=== PATIENT | male | born 1955 | race Caucasian/White ===

== ENCOUNTER 2017-01-24 06:51 | Inpatient (IN) | payer MEDICARE, OTHER ==
[2017-01-24] MEDS ORDERED: SODIUM CHLORIDE 0.9% 1,000 ML IV STA (07:14)
[2017-01-24] MEDS ORDERED: ADENOSINE 3 MG/ML 2 ML VIAL IVP STA ×2 (07:15)
--- NOTE | 2017-01-24 07:17 | ED ---
SOB HPI - General Chief Complaint: Shortness of Breath Stated Complaint: CHEST PAIN Time Seen by Provider: 01/24/17 07:00 Source: patient, RN notes reviewed Mode of arrival: ambulatory Limitations: no limitations - History of Present Illness Initial Comments: This is a 61-year-old male with a history of heart disease with cardiac stents who states he had the onset around 6:30 this morning while watching television of shortness of breath. He came in for evaluation he did have some diaphoresis with a no overt chest pain. He was found to have an accelerated heart rhythm at triage brought immediately back to the emergency department room 20 stretcher. He denies any recent chest pain fevers chills sweats change in medications change in diet. MD Complaint: shortness of breath - Related Data Home Medications Medication Instructions Recorded Confirmed Aspirin 162 mg PO DAILY 01/24/17 01/24/17 Atorvastatin [Lipitor] 80 mg PO DAILY 01/24/17 01/24/17 Clopidogrel [Plavix] 75 mg PO DAILY 01/24/17 01/24/17 Lisinopril [Zestril] 10 mg PO DAILY 01/24/17 01/24/17 Metoprolol Succinate (ER) [Toprol 50 mg PO DAILY 01/24/17 01/24/17 Xl] Previous Rx's Medication Instructions Recorded Nitroglycerin Sl Tabs [Nitrostat] 0.4 mg SUBLINGUAL Q5M PRN #25 tab 07/27/14 Allergies Allergy/AdvReac Type Severity Reaction Status Date / Time No Known Allergies Allergy Verified 01/24/17 07:48 Review of Systems ROS Statement: Those systems with pertinent positive or pertinent negative responses have been documented in the HPI. ROS Other: All systems not noted in ROS Statement are negative. Past Medical History Past Medical History: Coronary Artery Disease (CAD), Chest Pain / Angina, GERD/ Reflux, Hyperlipidemia, Hypertension, Myocardial Infarction (non Q-wave) Additional Past Medical History / Comment(s): Neuropathy Last Myocardial Infarction Date:: 2001 History of Any Multi-Drug Resistant Organisms: None Reported Past Surgical History: AICD, Coronary Bypass/CABG, Heart Catheterization With Stent, Orthopedic Surgery Additional Past Surgical History / Comment(s): Pins in left ankle as a kid. Additional Past Anesthesia/Blood Transfusion Reaction / Comment(s): No previous history of blood transfusions Date of Last Stent Placement:: 2001 Type of Cardiac Device: AICD Device Placement Date:: 2001 Past Psychological History: No Psychological Hx Reported Smoking Status: Current some day smoker Past Alcohol Use History: None Reported Past Drug Use History: None Reported - Past Family History Father Family Medical History: Myocardial Infarction ([place]) General Exam - General Exam Comments Initial Comments: This is a well-developed well-nourished awake alert oriented times x 3 male Limitations: no limitations General appearance: alert, anxious Head exam: Present: atraumatic, normocephalic, normal inspection Eye exam: Present: normal appearance, PERRL, EOMI. Absent: scleral icterus, conjunctival injection, periorbital swelling ENT exam: Present: normal exam, mucous membranes moist Neck exam: Present: normal inspection. Absent: tenderness, meningismus, lymphadenopathy Respiratory exam: Present: normal lung sounds bilaterally. Absent: respiratory distress, wheezes, rales, rhonchi, stridor Cardiovascular Exam: Present: normal rhythm, tachycardia. Absent: systolic murmur, diastolic murmur, rubs, gallop, clicks GI/Abdominal exam: Present: soft, normal bowel sounds. Absent: distended, tenderness, guarding, rebound, rigid Extremities exam: Present: normal inspection, full ROM, normal capillary refill. Absent: tenderness, pedal edema, joint swelling, calf tenderness Back exam: Present: normal inspection Neurological exam: Present: alert, oriented X3, CN II-XII intact Psychiatric exam: Present: normal affect, normal mood Skin exam: Present: warm, intact, normal color, diaphoretic. Absent: rash Course Vital Signs 01/24/17 01/24/17 01/24/17 06:57 07:02 07:08 Temperature 97.5 F L Pulse Rate 176 H 167 H Pulse Rate [ 167 H Sales Attendant ] Respiratory 22 Rate Blood Pressure 122/86 122/86 O2 Sat by Pulse 99 Oximetry 01/24/17 01/24/17 01/24/17 07:14 07:20 07:43 Temperature Pulse Rate 100 97 80 Pulse Rate [ Sales Attendant ] Respiratory 16 16 Rate Blood Pressure 208/133 158/59 138/99 O2 Sat by Pulse 96 97 Oximetry 01/24/17 01/24/17 08:43 09:45 Temperature Pulse Rate 62 64 Pulse Rate [ Sales Attendant ] Respiratory 16 20 Rate Blood Pressure 139/88 139/91 O2 Sat by Pulse 98 98 Oximetry - Reevaluation(s) Reevaluation #1: 01/24/17 10:06 Reevaluation the patient after conversion reveals he feels asymptomatic he does relate that for last month or so she's had some strange feelings all that something was wrong having strange sensations he is concerned that his stents may be closing up again. He also states the battery has not working his pacemaker for some time. Procedures - Procedures Initial comment: Patient did demonstrate SVT. He did require cardioversion. IV adenosine was used, initially 6 mg which did not do anything 12 mg did convert into a sinus rhythm. He did tolerate the procedure well he had no shortness breath chest pain and diaphoresis resolve the. Repeat EKG showed a sinus rhythm at 97 [place] interval 198 QRS 120 daily since QTC of 370/480 and LVH artifact is present nonspecific septal changes. PVCs were present Medical Decision Making - Medical Decision Making I did a long discussion with patient family regarding the findings patient will be admitted for evaluation by cardiology. He remains in a sinus rhythm. - Lab Data Result diagrams: 01/24/17 07:02 01/24/17 07:02 Lab Results 01/24/17 01/24/17 01/24/17 Range/Units 07:02 07:02 07:02 WBC 9.0 (3.8-10.6) k/uL RBC 6.48 H (4.30-5.90) m/uL Hgb 19.3 H (13.0-17.5) gm/dL Hct 56.4 H (39.0-53.0) % MCV 87.0 (80.0-100.0) fL MCH 29.8 (25.0-35.0) pg MCHC 34.2 (31.0-37.0) g/dL RDW 12.7 (11.5-15.5) % Plt Count 235 (150-450) k/uL Neutrophils % 61 % Lymphocytes % 26 % Monocytes % 7 % Eosinophils % 4 % Basophils % 1 % Neutrophils # 5.5 (1.3-7.7) k/uL Lymphocytes # 2.4 (1.0-4.8) k/uL Monocytes # 0.6 (0-1.0) k/uL Eosinophils # 0.3 (0-0.7) k/uL Basophils # 0.1 (0-0.2) k/uL PT (9.0-12.0) sec INR (<1.1) APTT (22.0-30.0) sec Sodium 142 (137-145) mmol/L Potassium 4.4 (3.5-5.1) mmol/L Chloride 109 H (98-107) mmol/L Carbon Dioxide 19 L (22-30) mmol/L Anion Gap 14 mmol/L BUN 20 (9-20) mg/dL Creatinine 1.15 (0.66-1.25) mg/dL Est GFR (MDRD) Af Amer >60 (>60 ml/min/1.73 sqM) Est GFR (MDRD) Non-Af >60 (>60 ml/min/1.73 sqM) Glucose 133 H (74-99) mg/dL Calcium 9.7 (8.4-10.2) mg/dL Magnesium 2.1 (1.6-2.3) mg/dL Total Bilirubin 1.2 (0.2-1.3) mg/dL AST 46 (17-59) U/L ALT 41 (21-72) U/L Alkaline Phosphatase 113 (38-126) U/L Total Creatine Kinase 107 (55-170) U/L CK-MB (CK-2) 1.7 (0.0-2.4) ng/mL CK-MB (CK-2) Rel Index 1.6 Troponin I 0.038 H* (0.000-0.034) ng/mL Total Protein 7.5 (6.3-8.2) g/dL Albumin 4.4 (3.5-5.0) g/dL TSH 6.380 H (0.465-4.680) mIU/L Free T4 1.25 (0.78-2.19) ng/dL 01/24/17 Range/Units 08:04 WBC (3.8-10.6) k/uL RBC (4.30-5.90) m/uL Hgb (13.0-17.5) gm/dL Hct (39.0-53.0) % MCV (80.0-100.0) fL MCH (25.0-35.0) pg MCHC (31.0-37.0) g/dL RDW (11.5-15.5) % Plt Count (150-450) k/uL Neutrophils % % Lymphocytes % % Monocytes % % Eosinophils % % Basophils % % Neutrophils # (1.3-7.7) k/uL Lymphocytes # (1.0-4.8) k/uL Monocytes # (0-1.0) k/uL Eosinophils # (0-0.7) k/uL Basophils # (0-0.2) k/uL PT 10.5 (9.0-12.0) sec INR 1.0 (<1.1) APTT 24.8 (22.0-30.0) sec Sodium (137-145) mmol/L Potassium (3.5-5.1) mmol/L Chloride (98-107) mmol/L Carbon Dioxide (22-30) mmol/L Anion Gap mmol/L BUN (9-20) mg/dL Creatinine (0.66-1.25) mg/dL Est GFR (MDRD) Af Amer (>60 ml/min/1.73 sqM) Est GFR (MDRD) Non-Af (>60 ml/min/1.73 sqM) Glucose (74-99) mg/dL Calcium (8.4-10.2) mg/dL Magnesium (1.6-2.3) mg/dL Total Bilirubin (0.2-1.3) mg/dL AST (17-59) U/L ALT (21-72) U/L Alkaline Phosphatase (38-126) U/L Total Creatine Kinase (55-170) U/L CK-MB (CK-2) (0.0-2.4) ng/mL CK-MB (CK-2) Rel Index Troponin I (0.000-0.034) ng/mL Total Protein (6.3-8.2) g/dL Albumin (3.5-5.0) g/dL TSH (0.465-4.680) mIU/L Free T4 (0.78-2.19) ng/dL - EKG Data -: EKG Interpreted by Me (Y complex supraventricular tachycardia rate was 172 QRS 120 daily since QTC) - Radiology Data Radiology results: report reviewed, image reviewed Critical Care Time Critical Care Time: Yes Critical Care Time: 31 minutes of critical care time which includes initial presentation with history physical labs x-rays and cardioversion with adenosine admission orders and documentation of the above. I did discuss case with Dr. Baez who is covering Dr. Guillen Disposition Clinical Impression: Supraventricular tachycardia, Elevated troponin Disposition: ADMITTED IP TO THIS HOSP Condition: Stable Referrals: Jovi Guillen MD [Primary Care Provider] - 1-2 days
[2017-01-24 07:36] LABS: Basophils # (A) 0.1 k/uL (0-0.2); Basophils % (A) 1 %; CH 29.5; CHCM 34.1; Eosinophils # (A) 0.3 k/uL (0-0.7); Eosinophils % (A) 4 %; HCT 56.4 % (39.0-53.0); HDW 2.81; HGB 19.3 gm/dL (13.0-17.5); Luc # (Auto) 0.18; Luc % (Auto) 2; Lymphocytes # (A) 2.4 k/uL (1.0-4.8); Lymphocytes % (A) 26 %; MCH 29.8 pg (25.0-35.0); MCHC 34.2 g/dL (31.0-37.0); Mean Platelet Volume 9.1; Monocytes # (A) 0.6 k/uL (0-1.0); Monocytes % (A) 7 %; Neutrophils # (A) 5.5 k/uL (1.3-7.7); Neutrophils % (A) 61 %; RBC 6.48 m/uL (4.30-5.90); RDW 12.7 % (11.5-15.5); WBC (Perox) 9.78
[2017-01-24 07:44] LABS: ALT 41 U/L (21-72); AST 46 U/L (17-59); Alkaline Phosphatase 113 U/L (38-126); Anion Gap 14 mmol/L; Blood Urea Nitrogen 20 mg/dL (9-20); Calcium 9.7 mg/dL (8.4-10.2); Carbon Dioxide 19 mmol/L (22-30); Chloride 109 mmol/L (98-107); Glucose 133 mg/dL (74-99); Magnesium 2.1 mg/dL (1.6-2.3); Non-African American GFR(MDRD) >60 (>60 ml/min/1.73 sqM); Potassium 4.4 mmol/L (3.5-5.1); Sodium 142 mmol/L (137-145); Total Bilirubin 1.2 mg/dL (0.2-1.3); Total Protein 7.5 g/dL (6.3-8.2)
--- NOTE | 2017-01-24 07:59 | XR ---
EXAMINATION TYPE: XR chest 2V DATE OF EXAM: 01/24/2017 COMPARISON: Prior chest x-ray 07/25/2014 HISTORY: Dysrhythmia TECHNIQUE: Frontal and lateral views of the chest are obtained. FINDINGS: Patient is post median sternotomy. Intracardiac defibrillator leads are stable within the right atrium and ventricle. The heart remains enlarged. No pneumothorax. Pulmonary vascularity and hi la within normal limits. Interstitium mildly increased. Lung volumes are prominent compatible with un derlying COPD. There is some blunting of the posterior costophrenic angle on the lateral exam. IMPRESSION: There may be interval effusion, associated atelectasis. Follow-up is suggested. Cardiome jermaine is stable.
[2017-01-24 08:12] LABS: Creatine Kinase MB 1.7 ng/mL (0.0-2.4)
[2017-01-24 08:21] LABS: Troponin I 0.038 ng/mL (0.000-0.034)
[2017-01-24 09:36] LABS: Partial Thromboplastin Time 24.8 sec (22.0-30.0); Prothrombin Time 10.5 sec (9.0-12.0)
[2017-01-24] MEDS ORDERED: HEPARIN SODIUM,PORCINE 5,000 UNIT/ML 1 ML VIAL IV ONE (10:41)
[2017-01-24] MEDS ORDERED: NITROGLYCERIN SL TABS 0.4 MG TAB SUBLINGUAL PRN (10:41)
[2017-01-24] MEDS: HEPARIN SODIUM,PORCINE/D5W PMX 25,000 UNIT in DEXTROSE/WATER 1 500ML.BAG IV SCH (10:54)
[2017-01-24] MEDS: SODIUM CHLORIDE 0.9% 1,000 ML IV SCH (11:00)
[2017-01-24 14:27] LABS: Creatine Kinase MB 5.4 ng/mL (0.0-2.4); Troponin I 0.872 ng/mL (0.000-0.034)
[2017-01-24 15:16] VITALS: RESP 18
[2017-01-24] MEDS ORDERED: METOPROLOL SUCCINATE (ER) 25 MG TAB.ER.24H PO STA (15:46)
--- NOTE | 2017-01-24 17:33 | P.CONS ---
History of Present Illness - Reason for Consult Consult date: 01/24/17 polycythemia Requesting physician: Divya Hadley - Chief Complaint chest pain, SOB - History of Present Illness Mr. Smart is a very pleasant 61-year-old male with an extensive cardiac history including multiple myocardial infarctions, cardiac stenting and pacemaker placement. We have been asked to see the patient in regards to polycythemia noted on admission. Patient denies any history of elevated hemoglobin or hematocrit, he denies ever being seen by a crm campaign manager before or had phlebotomy, he does not recall of any of his previous hospitalizations being told that he had a high hemoglobin/hematocrit. Patient denies a history of lung conditions, he did smoke but only very randomly and has completely quit smoking as of a few months ago, patient denies any signs or symptoms of sleep apnea, he states he does not usually drink a lot of fluids, denies EtOH abuse, no history of blood clots or hormone use. Review of Systems All systems: negative Constitutional: Reports as per HPI Past Medical History Past Medical History: Coronary Artery Disease (CAD), Chest Pain / Angina, GERD/ Reflux, Hyperlipidemia, Hypertension, Myocardial Infarction (non Q-wave) Additional Past Medical History / Comment(s): Neuropathy bilateral feet, pt states he has not taken his b/p med for about 1 month, 2 MIs-2001 and 2014. Last Myocardial Infarction Date:: 07/25/14 History of Any Multi-Drug Resistant Organisms: None Reported Past Surgical History: AICD, Coronary Bypass/CABG, Heart Catheterization With Stent, Orthopedic Surgery, Tonsillectomy Additional Past Surgical History / Comment(s): PCI with stents 2001 and 2014, 3 vessel CABG in 2001, AICD 2001- batteries are depleted, pins in left ankle as a kid. Past Anesthesia/Blood Transfusion Reactions: No Reported Reaction Additional Past Anesthesia/Blood Transfusion Reaction / Comm: No previous history of blood transfusions Date of Last Stent Placement:: 2014 Type of Cardiac Device: AICD Device Placement Date:: 2001- states batteries are depleted. Smoking Status: Former smoker Past Alcohol Use History: None Reported Past Drug Use History: None Reported - Past Family History Mother History Unknown: Yes Additional Family Medical History / Comment(s): Mother at 78yrs and pt does not know health hx. Father Family Medical History: Myocardial Infarction ([place]) Additional Family Medical History / Comment(s): Father had a [place] in his early 50' s. He of CAD at 75yrs. Medications and Allergies Home Medications Medication Instructions Recorded Confirmed Type Aspirin 162 mg PO DAILY 01/24/17 01/24/17 History Atorvastatin [Lipitor] 80 mg PO DAILY 01/24/17 01/24/17 History Clopidogrel [Plavix] 75 mg PO DAILY 01/24/17 01/24/17 History Lisinopril [Zestril] 10 mg PO DAILY 01/24/17 01/24/17 History Metoprolol Succinate (ER) [Toprol 50 mg PO DAILY 01/24/17 01/24/17 History Xl] Allergies Allergy/AdvReac Type Severity Reaction Status Date / Time No Known Allergies Allergy Verified 01/24/17 07:48 Physical Exam Vitals: Vital Signs Temp Pulse Pulse Pulse Resp BP BP 01/24/17 13:40 96.6 F L 66 18 162/100 01/24/17 12:59 97.4 F L 61 16 149/97 01/24/17 11:20 62 18 156/95 01/24/17 10:49 62 16 138/90 01/24/17 09:45 64 20 139/91 01/24/17 08:43 62 16 139/88 01/24/17 07:43 80 16 138/99 01/24/17 07:20 97 16 158/59 01/24/17 07:14 100 208/133 01/24/17 07:08 167 H 01/24/17 07:02 97.5 F L 167 H 22 122/86 01/24/17 06:57 176 H 122/86 Pulse Ox 01/24/17 13:40 98 01/24/17 12:59 98 01/24/17 11:20 97 01/24/17 10:49 97 01/24/17 09:45 98 01/24/17 08:43 98 01/24/17 07:43 97 01/24/17 07:20 96 01/24/17 07:14 01/24/17 07:08 01/24/17 07:02 99 01/24/17 06:57 Intake and Output 01/24/17 01/24/17 01/24/17 06:59 14:59 22:59 Other: Weight 83.915 kg 79.4 kg Patient Weight 01/25/17 06:59 Weight 79.4 kg - Constitutional General appearance: average body habitus, cooperative, no acute distress - EENT Eyes: anicteric sclerae, EOMI, PERRLA, normal appearance ENT: hard of hearing, normal oropharynx - Neck Neck: no lymphadenopathy - Respiratory Respiratory: bilateral: CTA - Cardiovascular right chest wall pacemaker Rhythm: regular Heart sounds: normal: S1, S2 Abnormal Heart Sounds: no systolic murmur, no diastolic murmur, no rub, no S3 Gallop, no S4 Gallop, no click, no other leg Peripheral Edema: bilateral: None - Gastrointestinal General gastrointestinal: no absent bowel sounds, no decreased bowel sounds, no distended, no hepatomegaly, no hyperactive bowel sounds, normal bowel sounds, no organomegaly, no rigid, no scaphoid, soft, no splenomegaly, no tenderness, no umbilical hernia, no ventral hernia - Integumentary cha complexion - Neurologic Neurologic: CNII-XII intact - Musculoskeletal Musculoskeletal: strength equal bilaterally - Psychiatric Psychiatric: A&O x's 3, appropriate affect, intact judgment & insight Results CBC & Chem 7: 01/24/17 07:02 01/24/17 07:02 Labs: Abnormal Lab Results - Last 24 Hours (Table) 01/24/17 01/24/17 01/24/17 Range/Units 07:02 07:02 07:02 RBC 6.48 H (4.30-5.90) m/uL Hgb 19.3 H (13.0-17.5) gm/dL Hct 56.4 H (39.0-53.0) % Chloride 109 H (98-107) mmol/L Carbon Dioxide 19 L (22-30) mmol/L Glucose 133 H (74-99) mg/dL CK-MB (CK-2) (0.0-2.4) ng/mL Troponin I 0.038 H* (0.000-0.034) ng/mL TSH 6.380 H (0.465-4.680) mIU/L 01/24/17 Range/Units 12:58 RBC (4.30-5.90) m/uL Hgb (13.0-17.5) gm/dL Hct (39.0-53.0) % Chloride (98-107) mmol/L Carbon Dioxide (22-30) mmol/L Glucose (74-99) mg/dL CK-MB (CK-2) 5.4 H* (0.0-2.4) ng/mL Troponin I 0.872 H* (0.000-0.034) ng/mL TSH (0.465-4.680) mIU/L Assessment and Plan (1) Polycythemia Narrative/Plan: Elevated hemoglobin/hematocrit. Present on previous admission but elevated H& H did normalize during admission, questioning possible hemoconcentration from dehydration. Multiple labs have been ordered to evaluate for a primary polycythemic condition. Plan is for patient to follow-up with Dr. Loaiza in about 2 weeks for results and recommendations. Recommendations regarding polycythemia and acute [place]: continue hydration and monitor CBC. Phlebotomy is not recommended, evidence based practice does not show improved outcomes and phlebotomy during acute [place] could cause additional strain on the heart. Status: Acute
[2017-01-24 18:16] LABS: Reticulocyte % 1.9 % (0.5-2.0)
[2017-01-24 19:52] LABS: Creatine Kinase MB 5.7 ng/mL (0.0-2.4); Troponin I 0.905 ng/mL (0.000-0.034)
[2017-01-25 02:24] VITALS: TEMP 97.6
[2017-01-25 04:09] VITALS: PULSE 62
[2017-01-25 07:05] LABS: Cholesterol 251 mg/dL (<200); HDL Cholesterol 39 mg/dL (40-60); Triglycerides 176 mg/dL (<150)
[2017-01-25] MEDS ORDERED: PANTOPRAZOLE 40 MG TABLET PO SCH (07:30)
[2017-01-25] MEDS ORDERED: METOPROLOL SUCCINATE (ER) 25 MG TAB.ER.24H PO SCH (09:00)
[2017-01-25] MEDS ORDERED: LISINOPRIL 10 MG TAB PO SCH (09:00)
[2017-01-25] MEDS ORDERED: ASPIRIN 325 MG TAB PO SCH (09:00)
[2017-01-25] MEDS ORDERED: CLOPIDOGREL 75 MG TAB PO SCH (09:00)
[2017-01-25] MEDS ORDERED: METOPROLOL SUCCINATE (ER) 50 MG TAB.ER.24H PO SCH (09:00)
[2017-01-25] MEDS ORDERED: ATORVASTATIN 80 MG TAB PO SCH (09:00)
[2017-01-25] MEDS ORDERED: ASPIRIN 81 MG CHEW PO SCH (09:00)
[2017-01-25] MEDS: HEPARIN SODIUM,PORCINE/D5W PMX 25,000 UNIT in DEXTROSE/WATER 1 500ML.BAG IV SCH (09:34)
[2017-01-25] MEDS: SODIUM CHLORIDE 0.9% 1,000 ML IV SCH (09:34)
[2017-01-25 11:24] VITALS: BP 149/103
[2017-01-25] MEDS ORDERED: hydrALAZINE HCL 25 MG TAB PO SCH (11:30)
--- NOTE | 2017-01-25 11:42 | HP ---
DATE OF SERVICE: 01/24/2017 HISTORY OF PRESENT ILLNESS: Patient is a 61-year-old male with a complex cardiac history, does have AICD which patient tells me batter has been for a while. He did not have it replaced, although he had been scheduled to have it replaced because he could not afford it financially. Patient also states that about 1-1/2 month ago, he ran out of his cardiac meds and has not been into the doctor. Subsequently, he has not taken his his Zestril or his Plavix and Lipitor for probably 1-1/2 months. He ran out of metoprolol about 2 weeks ago. Patient states that his morning, about 6:30 a.m. he woke up and he said his heart was just racing. He said he was diaphoretic, short of breath, new that it had something to do with his heart, so he woke his up and she brought him into the emergency room. Patient also states that for the last month or so, he has not felt well, "like something was coming on." Again, patient has been out of medication for the most part for about 1-1/2 months and has had no metoprolol for the past 2 weeks. Patient was admitted with SVT. Did receive adenosine in the emergency room and did convert to sinus rhythm. PAST MEDICAL HISTORY: Significant for coronary artery disease, chest pain, angina, GERD, hyperlipidemia, hypertension, myocardial infarction, non-Q-wave. Patient has had bypass surgery, has had a previous echo which shows EF of about 20% to 25% and pulmonary hypertension. Past surgical history includes AICD, coronary artery bypass graft, heart catheterization with stent and pins in his left ankle as a child. ALLERGIES: No known drug allergies. Medications patient is on or should be on at home include: 1. Aspirin 162 mg p.o. daily. 2. Lipitor 80 mg p.o. daily. 3. Plavix 75 mg p.o. daily. 4. Zestril 10 mg p.o. daily. 5. Metoprolol extended release 50 mg p.o. daily. SOCIAL HISTORY: Patient quite smoking about 2 months ago; however, smoked about a pack per month prior to that. Denies any alcohol intake, denies any illicit drug use. Patient does not work, he is on disability. FAMILY HISTORY: Father of cardiac problems in his 70s and mother with complications from pneumonia in her 70s as well. REVIEW OF SYSTEMS: General is negative for any fever, no chills, no recent weight gain or weight loss. HEENT is positive for lightheadedness and omittedly over the past month or so, negative for any acute visual changes. No difficulty hearing. Denies any seasonal allergies, denies any sore throat, no difficulty swallowing. Respiratory is negative for chronic shortness of breath; however, patient did have acute difficulty in breathing this morning when he had the rapid heart rate. Patient denies any cough. Cardiovascular is negative for any chest pain , does have a strong cardiac history. GI is negative for abdominal pain, nausea , vomiting, diarrhea, constipation. is negative for any dysuria or hematuria. Endocrine is negative for diabetes mellitus or thyroid disease. Musculoskeletal is negative for any complaints of arthritic pain or arthritis. Neurologic is negative for any history of seizures or numbness or tingling to the extremities. Psychiatric is negative for anxiety or depression. On physical exam, in general is a pleasant 61-year-old male who is sitting up at the bedside in the emergency room, awake, alert. VITAL SIGNS: Temp is 97.4, heart rate is 61, respiratory rate is 16, blood pressure is 149/97, O2 sats 98% on 2 L O2 via nasal cannula. HEENT: Head is normocephalic, atraumatic. Pupils equal, round and react to light. EARS AND NOSE: No discharge is noted. Mouth moist. Mucous membranes, Mallampati is a class IV. Neck is supple, trachea is midline. Lung with clear but diminished breath sounds, no rales or wheezes. HEART: S1, S2 are head, non-tachycardic. Abdomen is soft, bowel sounds are heard. Extremities with no edema. Patient is awake, alert, oriented. LABS: White count is 9.0, hemoglobin is 19.3, hematocrit is 56.4 with 235,000 platelets. PT is 10.5, INR is 1.0, PTT is 24.8, sodium is 142, potassium is 4.4 , chloride is 109, CO2 is 19, anion gap is 14, BUN is 20, creatinine is 1.15, glucose is 133, calcium is 9.7, magnesium is 2.1, total bilirubin 1.2, AST is 46 , ALT is 41, alk phos is 113, total CK is 107, MB is 1.7, relative index 1.6, troponin 0.038, total protein 7.5, albumin is 4.4, TSH is 6.38, FT4 is 1.25. On imaging, chest x-ray shows there may be interval effusion, associated atelectasis. Follow up is suggested. Cardiomegaly is stable. IMPRESSION: 1. Supraventricular tachycardia, status post cardioversion with Adenosine. 2. Elevated troponins. 3. Polycythemia. 4. Hypothyroid. 5. Noncompliance. PLAN: Will maintain oxygen to main saturations greater than or equal to 90%. Will restart patient's home meds. Continue on a heparin drip, consult Cardiology, consult Hematology for the polycythemia. Add Protonix for GI prophylaxis and follow patient closely, making further changes as necessary. MTDD
[2017-01-25] MEDS ORDERED: LISINOPRIL 10 MG TAB PO ONE (11:45)
--- NOTE | 2017-01-25 12:47 | P.CRDCN ---
History of Present Illness Consult date: 01/25/17 Reason for Consult (text): SVT, elevated troponin Chief complaint: palpitations, shortness of breath History of present illness: Sleep pleasant 61-year-old male patient with a known history of coronary artery disease, prior previous stenting, hypertension, previous PR, hyperlipidemia and prior AICD placement. Patient also has a history of partial compliance with medical therapy. He apparently was told his AICD needed to be replaced and patient has been delaying this since May 2016. Presented to the emergency department with complaints of diaphoresis, shortness of breath and feeling his heart racing. He was found to be in SVT and converted after given total of 18 mg of adenosine. Since her plans were elevated at 0.038, 0.872, 0.905 and 0.554. Patient was found to have elevated hemoglobin and hematocrit for which hematology has been consulted for. Maintaining sinus rhythm. Speaking with the patient, he had apparently not been taking any of his medications for the last month and a half due to issues getting refills. I have any complaints of chest pain pressure or tightness. Blood Pressure is elevated 140s to 180s over 110. Past Medical History Past Medical History: Coronary Artery Disease (CAD), Chest Pain / Angina, GERD/ Reflux, Hyperlipidemia, Hypertension, Myocardial Infarction (non Q-wave) Additional Past Medical History / Comment(s): Neuropathy bilateral feet, pt states he has not taken his b/p med for about 1 month, 2 MIs-2001 and 2014. Last Myocardial Infarction Date:: 07/25/14 History of Any Multi-Drug Resistant Organisms: None Reported Past Surgical History: AICD, Coronary Bypass/CABG, Heart Catheterization With Stent, Orthopedic Surgery, Tonsillectomy Additional Past Surgical History / Comment(s): PCI with stents 2001 and 2014, 3 vessel CABG in 2001, AICD 2001-states batteries are depleted, pins in left ankle as a kid. Past Anesthesia/Blood Transfusion Reactions: No Reported Reaction Additional Past Anesthesia/Blood Transfusion Reaction / Comment(s): No previous history of blood transfusions Date of Last Stent Placement:: 2014 Type of Cardiac Device: AICD Device Placement Date:: 2001-pt states batteries are depleted. Smoking Status: Former smoker Past Alcohol Use History: None Reported Past Drug Use History: None Reported - Past Family History Mother History Unknown: Yes Additional Family Medical History / Comment(s): Mother at 78yrs and pt does not know health hx. Father Family Medical History: Myocardial Infarction (PR) Additional Family Medical History / Comment(s): Father had a PR in his early 50' s. He of CAD at 75yrs. Medications and Allergies Home Medications Medication Instructions Recorded Confirmed Type Aspirin 162 mg PO DAILY 01/24/17 01/24/17 History Atorvastatin [Lipitor] 80 mg PO DAILY 01/24/17 01/24/17 History Clopidogrel [Plavix] 75 mg PO DAILY 01/24/17 01/24/17 History Lisinopril [Zestril] 10 mg PO DAILY 01/24/17 01/24/17 History Metoprolol Succinate (ER) [Toprol 50 mg PO DAILY 01/24/17 01/24/17 History Xl] Allergies Allergy/AdvReac Type Severity Reaction Status Date / Time No Known Allergies Allergy Verified 01/24/17 07:48 Physical Exam Vitals: Vital Signs Temp Pulse Pulse Pulse Resp BP BP 01/25/17 11:23 149/103 01/25/17 11:07 62 18 01/25/17 11:03 97.6 F 62 18 143/110 01/25/17 08:00 97.7 F 70 18 174/121 01/25/17 04:00 62 18 129/86 01/25/17 00:00 67 18 132/87 01/24/17 20:00 97.6 F 59 L 18 136/78 01/24/17 18:33 56 L 128/92 01/24/17 16:00 97.7 F 68 18 182/100 01/24/17 13:40 96.6 F L 66 18 162/100 01/24/17 12:59 97.4 F L 61 16 149/97 Pulse Ox 01/25/17 11:23 01/25/17 11:07 01/25/17 11:03 98 01/25/17 08:00 97 01/25/17 04:00 96 01/25/17 00:00 98 01/24/17 20:00 97 01/24/17 18:33 01/24/17 16:00 98 01/24/17 13:40 98 01/24/17 12:59 98 Intake and Output 01/24/17 01/25/17 01/25/17 22:59 06:59 14:59 Intake Total 378.528 404.158 197.314 Balance 378.528 404.158 197.314 Intake: IV 240 Heparin Sodium,Porcine/ 120 D5w Pmx 25,000 unit In Dextrose/Water 1 500ml. bag @ 11.9 UNIT/KG/HR 19. 97 mls/hr IV .Q24H SHAN Rx #:[id number] Sodium Chloride 0.9% 1, 120 000 ml @ 20 mls/hr IV . Q24H SHAN Rx#:[id number] Intake, IV Titration 138.528 164.158 197.314 Amount Heparin Sodium,Porcine/ 138.528 164.158 197.314 D5w Pmx 25,000 unit In Dextrose/Water 1 500ml. bag @ 11.9 UNIT/KG/HR 19. 97 mls/hr IV .Q24H SHAN Rx #:[id number] Oral 240 Other: # Voids 2 1 Weight 79.4 kg 79.3 kg PHYSICAL EXAMINATION: HEENT: Head is atraumatic, normocephalic. Pupils equal, round. Neck is supple. There is no elevated jugular venous pressure. HEART EXAMINATION: Heart sounds regular, S1 and S2 normal. No murmur or gallop heard. CHEST EXAMINATION: Lungs reveal diminished air entry bilaterally. No chest wall tenderness is noted on palpation or with deep breathing. ABDOMEN: Soft, nontender. Bowel sounds are heard. No organomegaly noted. EXTREMITIES: 1+ peripheral pulses with no evidence of peripheral edema and no calf tenderness noted. NEUROLOGIC patient is awake, alert and oriented x3. . Results 01/24/17 07:02 01/24/17 07:02 Cardiac Enzymes 01/24/17 01/24/17 01/25/17 Range/Units 12:58 18:49 05:57 CK-MB (CK-2) 5.4 H* 5.7 H* (0.0-2.4) ng/mL Troponin I 0.872 H* 0.905 H* 0.554 H* (0.000-0.034) ng/mL Coagulation 01/24/17 01/25/17 01/25/17 Range/Units 16:55 00:06 05:57 APTT 42.8 H 46.0 H 52.5 H (22.0-30.0) sec Lipids 01/25/17 Range/Units 05:57 Triglycerides 176 H (<150) mg/dL Cholesterol 251 H (<200) mg/dL HDL Cholesterol 39 L (40-60) mg/dL Current Medications Generic Name Dose Route Start Last Admin Trade Name Nolanq PRN Reason Stop Dose Admin Aspirin 162 mg 01/25/17 09:00 01/25/17 09:32 Aspirin PO 162 mg DAILY SHAN Administration Atorvastatin Calcium 80 mg 01/25/17 09:00 01/25/17 09:32 Lipitor PO 80 mg DAILY SHAN Administration Clopidogrel Bisulfate 75 mg 01/25/17 09:00 01/25/17 09:32 Plavix PO 75 mg DAILY SHAN Administration Heparin Sodium (Porcine) 5,000 unit 01/25/17 21:00 Heparin SQ Q12HR [facility] Hydralazine HCl 25 mg 01/25/17 11:30 Apresoline PO BID [facility] Sodium Chloride 1,000 mls @ 20 mls/hr 01/24/17 10:45 01/25/17 09:34 Saline 0.9% IV 20 mls/hr .Q24H SHAN Administration Lisinopril 20 mg 01/26/17 09:00 Zestril PO DAILY [facility] Metoprolol Succinate 75 mg 01/25/17 09:00 01/25/17 09:32 Toprol Xl PO 75 mg DAILY SHAN Administration Nitroglycerin 0.4 mg 01/24/17 10:41 Nitrostat SUBLINGUAL Q5M PRN Chest Pain Pantoprazole Sodium 40 mg 01/25/17 07:30 01/25/17 06:41 Protonix PO 40 mg AC-BRKFST [facility] Administration Intake and Output 01/24/17 01/25/17 01/25/17 22:59 06:59 14:59 Intake Total 378.528 404.158 197.314 Balance 378.528 404.158 197.314 Intake: IV 240 Heparin Sodium,Porcine/ 120 D5w Pmx 25,000 unit In Dextrose/Water 1 500ml. bag @ 11.9 UNIT/KG/HR 19. 97 mls/hr IV .Q24H SHAN Rx #:[id number] Sodium Chloride 0.9% 1, 120 000 ml @ 20 mls/hr IV . Q24H SHAN Rx#:[id number] Intake, IV Titration 138.528 164.158 197.314 Amount Heparin Sodium,Porcine/ 138.528 164.158 197.314 D5w Pmx 25,000 unit In Dextrose/Water 1 500ml. bag @ 11.9 UNIT/KG/HR 19. 97 mls/hr IV .Q24H SHAN Rx #:[id number] Oral 240 Other: # Voids 2 1 Weight 79.4 kg 79.3 kg 01/24/17 07:02 01/24/17 07:02 Assessment and Plan Plan: Assessment and plan 1 SVT, currently maintaining sinus rhythm #2 troponin leak secondary to SVT 3 hypertension, poorly controlled #4 cardiomyopathy, status post AICD, requiring generator change #5 hyperlipidemia #6 coronary artery disease these with prior stenting and coronary artery bypass grafting From cardiology standpoint, we will obtain a 2-D echo with Doppler to assess LV function. We will increase lisinopril and start the patient on hydralazine 25 mg by mouth twice a day. Patient may be discharged home and follow-up with Dr. VC Burgess in one week. DEGREASER OPERATOR note has been reviewed, I agree with a documented findings and plan of care. Patient was seen and examined.
--- NOTE | 2017-01-25 19:23 | DS ---
Tito Mullins is a 61 year male with a history of a complex cardiac history. He had an AICD, apparently the battery has been for a while. He also states that he ran out of his cardiac medications about one and one half months ago and subsequently did not refill or seek refills on his medications. He had been not feeling well like something is coming on. He was short of breath and was seen in the ED. He was found to be in supraventricular tachycardia and was cardioverted in the emergency room. Past medical history is positive for coronary artery disease, chest pain, myocardial infarction, non-Q wave NV, coronary artery bypass, previous echo with ejection fraction of 20-25% with pulmonary hypertension. History of AICD. No known drug allergies. Social history: The patient quit smoking two months ago. He does not drink alcohol excessively. Family history is positive for cardiac problems in his father. Mother from pneumonia. Review of systems is positive for snoring. On physical examination, vital signs were stable. He was afebrile. His chest was clear. HEENT: Revealed Mallampati Class IV. Cardiovascular system revealed S1, S2. Abdomen was soft. There was no edema. Initial labs were hemoglobin 19.3. Hematocrit 56.4. Bicarb 19. Anion gap 14. IMPRESSION: 1. Initial impression was supraventricular tachycardia status post cardioversion with adenosine. 2. Elevated troponins. 3. Polycythemia. 4. Hypothyroidism. 5. The patient with noncompliance. The patient was subsequently seen by hematology/oncology who thought that the patient might have polycythemia in part due to hemoconcentration. Did not recommend phlebotomy. The patient was seen by cardiology. Cardiac medications were restarted. The patient subsequently was doing better and was discharged home. On physical exam, respiratory rate is 18. Pulse rate is 62. Temperature 97.6. Blood pressure 149/103. HEENT is unremarkable. Chest is clear to auscultation and percussion. Cardiovascular system revealed an S1, S2. Abdomen is soft. There is no edema. The patient will be discharged home today. DISCHARGE DIAGNOSES: 1. Supraventricular tachycardia with hemodynamic instability requiring cardioversion. 2. Polycythemia. 3. Cardiomyopathy. 4. Coronary artery disease. 5. Elevated blood sugars, possible diabetes. The patient's condition is stable. Diet is cardiac. Activity is as tolerated. The patient will be seen by Cardiology within three to four days time. The patient will follow up with Dr. Guillen in one to two weeks time. DISCHARGE MEDICATIONS: 1. Zestril 20 mg once a day. 2. Metoprolol ER 75 mg daily. 3. Nitrostat 0.4 mg sublingual prn. 4. Pantoprazole 40 mg daily. 5. Hydralazine 25 mg b.i.d. 6. Aspirin 162 mg daily. 7. Atorvastatin 80 mg daily. 8. Plavix 75 mg daily. MTDD
[2017-01-25] MEDS ORDERED: HEPARIN SODIUM,PORCINE 5,000 UNIT/ML 1 ML VIAL SQ SCH (21:00)
[2017-01-26] MEDS ORDERED: LISINOPRIL 20 MG TAB PO SCH (09:00)
--- NOTE | 2017-01-26 12:02 | ECHOF ---
Referral Reason:elevated troponin, SVT MEASUREMENTS -------- HEIGHT: 175.3 cm WEIGHT: 78.9 kg BP: 130/30 RVIDd: 3.0 cm (< 3.3) IVSd: 1.4 cm (0.6 - 1.1) LVIDd: 5.6 cm (3.9 - 5.3) LVPWd: 1.2 cm (0.6 - 1.1) IVSs: 1.6 cm LVIDs: 4.6 cm LVPWs: 1.4 cm LA Diam: 4.2 cm (2.7 - 3.8) LAESV Index (A-L): 36.14 ml/m Ao Diam: 4.1 cm (2.0 - 3.7) AV Cusp: 1.9 cm (1.5 - 2.6) LA Diam: 4.3 cm (2.7 - 3.8) MV EXCURSION: 12.148 mm (> 18.000) MV EF SLOPE: 62 mm/s (70 - 150) EPSS: 2.3 cm MV E Dionicio: 0.69 m/s MV DecT: 155 ms MV A Dionicio: 0.38 m/s MV E/A Ratio: 1.81 RAP: 5.00 mmHg RVSP: 9.13 mmHg FINDINGS -------- Sinus rhythm. This was a technically adequate study. The left ventricle is mildly dilated. There is mild concentric left ventricular hypertrophy. Overall left ventricular systolic function is moderate-severely impaired with, an EF between 30 - 35 %. Posterior hypokinesis Inferiorlateral Hypokinesis [place] Hypokinesis. The right ventricle is normal in size. LA is moderately dilated 34-39 ml/m2 The right atrial size is normal. There is mild aortic valve sclerosis. There is mild aortic regurgitation. Mild mitral annular calcification present. Mild mitral regurgitation is present. Mild tricuspid regurgitation present. There is no evidence of pulmonary hypertension. The right ventricular systolic pressure, as measured by Doppler, is 9.13mmHg. Trace/mild (physiologic) pulmonic regurgitation. Aortic Root is mildly dilated 4.1cm. There is no pericardial effusion. CONCLUSIONS -------- 1. The left ventricle is mildly dilated. 2. Mild mitral annular calcification present. 3. Mild mitral regurgitation is present. 4. Mild tricuspid regurgitation present. 5. There is no evidence of pulmonary hypertension. 6. The right ventricular systolic pressure, as measured by Doppler, is 9.13mmHg. 7. Trace/mild (physiologic) pulmonic regurgitation. 8. Aortic Root is mildly dilated 4.1cm. 9. There is no pericardial effusion. 10. There is mild concentric left ventricular hypertrophy. 11. Overall left ventricular systolic function is moderate-severely impaired with, an EF between 30 - 35 %. 12. Posterior hypokinesis 13. Inferiorlateral Hypokinesis 14. [place] Hypokinesis. 15. LA is moderately dilated 34-39 ml/m2 16. There is mild aortic valve sclerosis. 17. There is mild aortic regurgitation. PHOTOGRAPHY SALES ASSOCIATE: Verna Ospina RDCS
[2017-01-28 14:55] LABS: Mis test requested (Blood) JAK2(V617F) Mutation
== END 2017-01-25 16:41 | disposition home or self-care (01) | DRG 309 ==
LOC: EC 06:51 → 6SEL 10:41
PROVIDERS: ADMIT Family Medicine; ATTEND Family Medicine
DX: I47.1 Supraventricular tachycardia (principal); I42.9 Cardiomyopathy, unspecified; I27.2 Other secondary pulmonary hypertension; D75.1 Secondary polycythemia; G62.9 Polyneuropathy, unspecified; Z95.1 Presence of aortocoronary bypass graft; E03.9 Hypothyroidism, unspecified; Z91.19 Patient's noncompliance with other medical treatment and regimen; I25.10 Atherosclerotic heart disease of native coronary artery without angina pectoris; K21.9 Gastro-esophageal reflux disease without esophagitis; I25.2 Old myocardial infarction; E78.5 Hyperlipidemia, unspecified; Z95.5 Presence of coronary angioplasty implant and graft; Z87.891 Personal history of nicotine dependence; Z95.810 Presence of automatic (implantable) cardiac defibrillator; Z79.82 Long term (current) use of aspirin; Z79.02 Long term (current) use of antithrombotics/antiplatelets; Z79.899 Other long term (current) drug therapy; Z82.49 Family history of ischemic heart disease and other diseases of the circulatory system; I10 Essential (primary) hypertension; R73.9 Hyperglycemia, unspecified
CPT/HCPCS: 36415; 71020; 80053; 80061; 81270; 82550; 82553; 82668; 82728; 83735; 84439; 84443; 84484; 85025; 85045; 85610; 85730; 93005; 93306

== ENCOUNTER 2017-02-19 11:20 | Inpatient (IN) | payer MEDICARE ==
[2017-02-19] MEDS ORDERED: ENOXAPARIN 80 MG/0.8 ML SYRINGE SQ STA (14:30)
[2017-02-19] MEDS ORDERED: NITROGLYCERIN SL TABS 0.4 MG TAB SUBLINGUAL PRN ×2 (14:31→14:33)
[2017-02-19] MEDS ORDERED: SODIUM CHLORIDE 0.9% 1,000 ML in EMPTY BAG 1 BAG IV ONE (14:33)
[2017-02-19] MEDS ORDERED: ALPRAZolam 0.5 MG TAB PO PRN (14:33)
[2017-02-19] MEDS ORDERED: ALPRAZolam 0.25 MG TAB PO PRN (14:33)
[2017-02-19] MEDS: ASPIRIN 81 MG CHEW PO SCH (15:06)
[2017-02-19] MEDS: NITROGLYCERIN OINT 1 INCH/GM PACKET TOPICAL SCH ×2 (15:08→23:25)
[2017-02-19 15:16] LABS: Basophils # (A) 0.1 k/uL (0-0.2); Basophils % (A) 1 %; CH 30.5; CHCM 34.5; Eosinophils # (A) 0.3 k/uL (0-0.7); Eosinophils % (A) 4 %; HCT 50.4 % (39.0-53.0); HDW 2.69; HGB 16.7 gm/dL (13.0-17.5); Luc # (Auto) 0.13; Luc % (Auto) 2; Lymphocytes # (A) 0.8 k/uL (1.0-4.8); Lymphocytes % (A) 9 %; MCH 29.4 pg (25.0-35.0); MCHC 33.1 g/dL (31.0-37.0); MCV 88.8 fL (80.0-100.0); Mean Platelet Volume 8.8; Monocytes # (A) 0.6 k/uL (0-1.0); Monocytes % (A) 7 %; Neutrophils # (A) 6.6 k/uL (1.3-7.7); Neutrophils % (A) 78 %; RBC 5.67 m/uL (4.30-5.90); RDW 13.7 % (11.5-15.5); WBC 8.4 k/uL (3.8-10.6); WBC (Perox) 8.38
[2017-02-19 15:31] LABS: ALT 38 U/L (21-72); AST 21 U/L (17-59); Alkaline Phosphatase 104 U/L (38-126); Anion Gap 11 mmol/L; Blood Urea Nitrogen 16 mg/dL (9-20); Calcium 9.6 mg/dL (8.4-10.2); Carbon Dioxide 25 mmol/L (22-30); Chloride 106 mmol/L (98-107); Glucose 137 mg/dL (74-99); Non-African American GFR(MDRD) >60 (>60 ml/min/1.73 sqM); Potassium 4.3 mmol/L (3.5-5.1); Sodium 142 mmol/L (137-145); Total Bilirubin 1.1 mg/dL (0.2-1.3); Total Protein 6.9 g/dL (6.3-8.2)
--- NOTE | 2017-02-19 15:58 | XR ---
EXAMINATION TYPE: XR chest 2V DATE OF EXAM: 02/19/2017 COMPARISON: 01/24/2017 HISTORY: 61-year-old male with chest pain TECHNIQUE: Frontal and lateral views FINDINGS: Left anterior chest wall ICD generator with right atrial and right ventricular leads. Heart is normal size. Median sternotomy wires are present with post-CABG clips. [place]andy areas of atelectasis are pre sent. No consolidation or pleural effusion. IMPRESSION: No acute cardiopulmonary process.
--- NOTE | 2017-02-19 19:43 | CONS ---
Mr. Smart is a 61-year-old gentleman who was admitted because of recurrent chest pain and abnormal stress test. This patient was recently admitted to [facility], where he was treated for supraventricular tachycardia. He had ( ) leakage. Patient subsequently continued to have intermittent chest discomfort at times which comes with exertion. Patient had an episode of chest pain yesterday. He underwent Lexiscan Cardiolite study today which showed evidence of prior inferior wall myocardial infarction with lateral wall some mild to moderate reperfusion noted in the inferolateral wall suggestive of ischemia in the lateral wall. In view of his symptoms suggestive of angina with an abnormal stress test, patient is advised further evaluation with a cardiac catheterization. This patient has a known history of coronary artery disease with a prior history of coronary artery bypass surgery done in 2001 at [facility]. Subsequently patient was admitted with non-Q-wave myocardial infarction in July of [address] [facility] and the patient had a stent to the vein graft to the diagonal branch. Subsequently patient had a repeat cardiac catheterization. The vein graft was closed and patient had a stent to the [place] circumflex coronary artery. Since then the patient was not followed in the office regularly. Patient has an AICD placed in at [facility] in 2001. Patient's battery is depleted. Patient has been advised for the last one year to have his battery generator changed, and he has not followed that advice. Past medical history includes: 1. History of hypertension. 2. History of hyperlipidemia. 3. History of coronary artery bypass surgery. MEDICATIONS: Please review the chart. Physical examination at present reveals a 61-year-old gentleman who does not appear to be in any acute distress. Head/ENT examination is negative. Neck is supple. There is no increase in jugular venous pressure. Both the carotid pulses are felt. There is no bruit. Chest is symmetrical. HEART: The PMI is not felt. First and second heart sounds are normal. No significant murmurs are noted. Lungs are clinically clear to auscultation and percussion. Abdomen is soft. Liver and spleen are not enlarged. EXTREMITIES: Peripheral pulsations are 2+. EKG does not show any acute ischemic changes. FINAL IMPRESSION: This patient has been having chest discomfort suggestive of recent onset of angina. Stress test shows evidence of old myocardial infarction and lateral wall ischemia. Patient has evidence of underlying ischemic cardiomyopathy. In view of that, the patient is advised further evaluation by cardiac catheterization. Patient is admitted in the hospital. We will continue his cardiac medications. He will be given one dose of Lovenox and we will do cardiac catheterization tomorrow. Patient was fully explained the procedure and risks. He was again advised to have his generator for AICD replaced. ORTIZ
[2017-02-19] MEDS: hydrALAZINE HCL 25 MG TAB PO SCH (20:33)
[2017-02-19] MEDS: ACETAMINOPHEN TAB 325 MG TAB PO PRN (21:33)
[2017-02-20] MEDS: NITROGLYCERIN OINT 1 INCH/GM PACKET TOPICAL SCH ×3 (06:03→23:00)
[2017-02-20] MEDS: METOPROLOL SUCCINATE (ER) 25 MG TAB.ER.24H PO SCH (06:26)
[2017-02-20] MEDS: ASPIRIN 81 MG CHEW PO SCH (06:26)
[2017-02-20] MEDS: ATORVASTATIN 80 MG TAB PO SCH (06:27)
[2017-02-20] MEDS: hydrALAZINE HCL 25 MG TAB PO SCH ×2 (06:27→19:55)
[2017-02-20] MEDS: ACETAMINOPHEN TAB 325 MG TAB PO PRN (06:27)
[2017-02-20] MEDS: PANTOPRAZOLE 40 MG TABLET PO SCH (06:27)
[2017-02-20] MEDS: LISINOPRIL 20 MG TAB PO SCH (06:27)
[2017-02-20] MEDS: CLOPIDOGREL 75 MG TAB PO SCH (07:47)
[2017-02-20] MEDS ORDERED: LIDOCAINE 2% INJ 20 MG/ML (20 ML MDV) ONE (12:16)
[2017-02-20] MEDS ORDERED: MIDAZOLAM 2 MG/2 ML VIAL ONE (12:16)
[2017-02-20] MEDS ORDERED: fentaNYL (PF) 50 MCG/ML 2 ML AMP ONE (12:17)
[2017-02-20] MEDS: MIDAZOLAM 2 MG/2 ML VIAL IV ONE ×2 (12:35→12:43)
[2017-02-20] MEDS ORDERED: fentaNYL (PF) 50 MCG/ML 2 ML AMP IV ONE (12:35)
[2017-02-20] MEDS ORDERED: IV FLUID CONTINUATION 1,000 ML IV ONE (12:36)
[2017-02-20] MEDS ORDERED: LIDOCAINE 2% INJ 20 MG/ML IV ONE (12:42)
[2017-02-20] MEDS ORDERED: BIVALIRUDIN BOLUS 250 MG/50 ML IV ONE (13:00)
[2017-02-20] MEDS ORDERED: BIVALIRUDIN 250 MG in SODIUM CHLORIDE 0.9% 50 ML IV ONE (13:01)
[2017-02-20] MEDS ORDERED: CLOPIDOGREL 75 MG TAB ONE ×3 (13:03→13:04)
[2017-02-20] MEDS ORDERED: CLOPIDOGREL 75 MG TAB PO ONE (13:06)
[2017-02-20] MEDS ORDERED: IOHEXOL 350 MG/ML 125ML BOTTLE INJ ONE (13:12)
[2017-02-20] MEDS ORDERED: ATROPINE SULFATE 0.1 MG/ML 10ML SYRINGE IV PRN (13:18)
[2017-02-20] MEDS ORDERED: ZOLPIDEM 5 MG TAB PO PRN (13:18)
[2017-02-20] MEDS ORDERED: MAG HYDROX/AL HYDROX/SIMETH 30 ML CUP PO PRN (13:18)
[2017-02-20] MEDS ORDERED: NITROGLYCERIN SL TABS 0.4 MG TAB SUBLINGUAL PRN (13:18)
[2017-02-20] MEDS ORDERED: RX INFO: IV CONTRAST WAS GIVEN 1 EACH MISC MISCELLANE PRN (13:18)
[2017-02-20] MEDS: SODIUM CHLORIDE 0.9% 1,000 ML IV SCH ×2 (14:14→15:25)
[2017-02-20] MEDS: HYDROmorphone 1 MG/ML 1 ML SYRINGE IVP PRN ×2 (15:29→19:56)
--- NOTE | 2017-02-20 19:02 | CC ---
Mr. Mullins is a 61-year-old gentleman who has been having symptoms suggestive of angina recently. Patient underwent a stress test which showed evidence of ( ) inferior wall myocardial infarction with reversible ischemia in the lateral wall. In view of the new onset of chest pain and positive stress test, patient was recommended to have a cardiac catheterization for definitive diagnosis. Patient has a prior history of a stent to the distal circumflex coronary artery. PROCEDURE: The right groin was prepped and draped in the usual manner and the skin was infiltrated with 2% Xylocaine. The right femoral artery was entered using Seldinger technique. A #6 Italian sheath was placed in. Selective coronary angiography then was performed in multiple projections and the left ventricular pressures were obtained. GRAHAM graft to the LAD was selectively engaged. Patient tolerated the procedure well. Subsequently Dr. Sabillon proceeded with a stent to the mid circumflex coronary artery. CORONARY ANGIOGRAPHY: Left main coronary artery is short. LAD is totally occluded. Circumflex coronary artery is a large-caliber blood vessel and the mid circumflex coronary artery prior to the origin of the obtuse marginal branch has a hazy-looking 70% stenosis. In the distal circumflex coronary artery where there are stents they are patent. It gives rise to two PLV and possible PDA branches. The circumflex coronary artery is codominant in distribution. The GRAHAM graft to the LAD is patent with good filling of the distal LAD noted. This patient had a previous saphenous vein graft to the diagonal branch which has been occluded and saphenous vein graft to the right coronary artery which has been occluded, and the right coronary artery is a relatively small-caliber blood vessel and is totally occluded. Left ventricular end-diastolic pressure is 18 to 20 mmHg. Moderate sedation, 15 minutes' time, was used. RECOMMENDATIONS: The films were reviewed with Dr. Sabillon, and we will proceed with stent to the mid circumflex coronary artery. KALEIDA HEALTHEmily
[2017-02-21] MEDS: HYDROmorphone 1 MG/ML 1 ML SYRINGE IVP PRN (04:48)
[2017-02-21 06:02] LABS: Basophils # (A) 0.1 k/uL (0-0.2); Basophils % (A) 1 %; CH 30.5; CHCM 34.3; Eosinophils # (A) 0.5 k/uL (0-0.7); Eosinophils % (A) 5 %; HCT 48.4 % (39.0-53.0); HDW 2.65; HGB 15.8 gm/dL (13.0-17.5); Luc # (Auto) 0.18; Luc % (Auto) 2; Lymphocytes # (A) 1.1 k/uL (1.0-4.8); Lymphocytes % (A) 11 %; MCH 29.3 pg (25.0-35.0); MCHC 32.7 g/dL (31.0-37.0); MCV 89.5 fL (80.0-100.0); Mean Platelet Volume 8.7; Monocytes # (A) 0.9 k/uL (0-1.0); Monocytes % (A) 9 %; Neutrophils # (A) 6.8 k/uL (1.3-7.7); Neutrophils % (A) 72 %; RDW 14.2 % (11.5-15.5); WBC 9.4 k/uL (3.8-10.6); WBC (Perox) 9.24
[2017-02-21 06:18] LABS: Anion Gap 12 mmol/L; Blood Urea Nitrogen 15 mg/dL (9-20); Calcium 9.6 mg/dL (8.4-10.2); Carbon Dioxide 22 mmol/L (22-30); Chloride 104 mmol/L (98-107); Glucose 101 mg/dL (74-99); Non-African American GFR(MDRD) >60 (>60 ml/min/1.73 sqM); Potassium 4.4 mmol/L (3.5-5.1); Sodium 138 mmol/L (137-145)
[2017-02-21] MEDS: PANTOPRAZOLE 40 MG TABLET PO SCH (06:19)
[2017-02-21] MEDS: NITROGLYCERIN OINT 1 INCH/GM PACKET TOPICAL SCH (07:51)
[2017-02-21] MEDS: METOPROLOL SUCCINATE (ER) 25 MG TAB.ER.24H PO SCH (08:28)
[2017-02-21] MEDS: ASPIRIN 81 MG CHEW PO SCH (08:28)
[2017-02-21] MEDS: LISINOPRIL 20 MG TAB PO SCH (08:29)
[2017-02-21] MEDS: hydrALAZINE HCL 25 MG TAB PO SCH ×2 (08:29→19:27)
[2017-02-21] MEDS: CLOPIDOGREL 75 MG TAB PO SCH (08:29)
[2017-02-21] MEDS: ATORVASTATIN 80 MG TAB PO SCH (08:29)
--- NOTE | 2017-02-21 09:10 | HP ---
CHIEF COMPLAINT: Rapid heart beating and chest pressure. HISTORY OF PRESENT ILLNESS: This is another admission for this 61-year-old white male. He has had a prior history of coronary artery bypass and an AICD. He has had a prior [place]. He still has a little bit of discomfort or a pressure like sensation in his chest over the last week or 2 when he even exerts minimally. The bank representative did a stress study on him yesterday and suggested that he come in for a cardiac cath. He has had no diaphoresis, significant shortness of breath, palpitation, syncope, discharge of his AICD, etc. Past medical history reveals that he is on Zestril 20 once a day, metoprolol ER 75 once a day, pantoprazole 40 mg a day, hydralazine 25 b.i.d., aspirin 162 mg a day, atorvastatin 80 and Plavix 75 mg. He has had a prior history of hypertension, hyperlipidemia and CAD. He had his triple bypass in 2001 at [facility]. He also had a T&A. He does not smoke, but he has in the past. PHYSICAL EXAM: Blood pressure is 140/72, pulse 62, respirations 16. He is afebrile. GENERAL: He appeared to be well developed, well nourished in no acute distress. Skin color is normal and the skin is warm and dry. Lymph nodes not enlarged. Head, ears, eyes, nose, mouth and throat were normal. Neck veins not distended. Thyroid is not enlarged. Chest is clear to auscultation and percussion. Cardiac exam is normal without any murmurs or extra sounds. Abdomen is soft and nontender without any visceromegaly or masses. Bowel sounds are present. Extremities are normal. Neurologically, he is intact. IMPRESSION: 1. Unstable angina pectoris. 2. Status post triple vessel coronary artery bypass graft. 3. Chronic obstructive pulmonary disease. 4. Hypertension. PLAN: Follow with cardiology to determine if he has redeveloped coronary artery disease. [facility]
--- NOTE | 2017-02-21 09:39 | PN ---
CHIEF COMPLAINT: Chest pressure. HISTORY OF PRESENT ILLNESS: This gentleman is doing well, not having any trouble and he is going for his cardiac cath. PHYSICAL EXAM: Chest is clear. Cardiac exam is normal. Abdomen is soft and nontender. IMPRESSION: Unstable angina pectoris with a history of coronary artery disease. PLAN: Await results of cardiac cath. ORTIZ
--- NOTE | 2017-02-21 13:01 | PCN ---
DATE OF SERVICE: 02/20/2017 PERFORMING PHYSICIAN: Gabo Sabillon MD, Distribution Coordinator PROCEDURE PERFORMED: Successful stenting of the proximal to mid left circumflex coronary artery using 3.5 x 18 mm Xience EFREN with good angiographic results. INDICATIONS: This is a pleasant 61-year-old gentleman who sees Dr. Davy Burgess as an outpatient who is known to have CAD and prior CABG who was experiencing chest discomfort and underwent myocardial perfusion imaging stress test and that showed inferolateral ischemia. He underwent a heart catheterization and was found to have severe disease involving proximal to mid unprotected left circumflex coronary artery. COMPLICATIONS: None. LEVEL OF SEDATION: Moderate with sedation length of 15 minutes. PROCEDURE DESCRIPTION: After diagnostic heart catheterization was performed by Dr. Quinn Burgess and after reviewing the angiogram we decided to pursue an intervention on the left circumflex. Anticoagulation was initiated using Angiomax. Subsequently, I engaged the left main using XP35 guide. A Whisper wire was used to wire the left circumflex. After that, I did stenting of the lesion using 3.75 x 18 mm Xience EFREN where the stent was positioned under fluoroscopy guidance and deployed under 18 atmospheres for 20 seconds. The following angiogram showed good angiographic results without perforation and without dissection. The procedure was completed without any complications. POSTPROCEDURE MANAGEMENT: 1. Dual antiplatelet therapy. 2. Risk factor modifications. 3. Follow up with the patient. ORTIZ
[2017-02-21] MEDS ORDERED: ceFAZolin 1,000 MG in SODIUM CHLORIDE 0.9% IRRIGATIO 250 ML IRRIGATION ONE (13:50)
[2017-02-21] MEDS ORDERED: ceFAZolin 2 GM in SODIUM CHLORIDE 0.9% 100 ML IVPB ONE (13:50)
[2017-02-21] MEDS ORDERED: SODIUM CHLORIDE 0.9% 1,000 ML IV SCH (14:00)
[2017-02-21] MEDS: SODIUM CHLORIDE 0.9% 1,000 ML IV SCH (14:00)
--- NOTE | 2017-02-21 14:25 | P.PN ---
Subjective Principal diagnosis: Chest pain This is a 61-year-old gentleman who follows with Dr. VC Burgess in the office as an outpatient. He has known history of coronary artery disease and prior bypass surgery, ischemic cardio myopathy with prior AICD implantation, hypertension, hyperlipidemia, patient was experiencing symptoms of chest discomfort, he underwent a myocardial perfusion imaging stress test which revealed inferior lateral ischemia. Patient was admitted to the hospital he underwent a cardiac catheterization by Dr. VC Burgess which revealed stenosis of the circumflex, therefore patient underwent angioplasty with stenting of the circumflex by Dr. Mcdermott. He was seen and examined this morning, denies any chest pain or difficulty in breathing. He was noted on the heart monitor to have a run of 12 nonsustained ventricular tachycardia. Potassium 4.4, BUN 15, creatinine 1.1. Patient has been told for over a year to the generator in his AICD needs to be changed, the battery has . This was again brought to the patient's attention in view of the fact that he had a run of nonsustained ventricular tachycardia. Tomorrow patient will be scheduled for a generator change by Dr. Jimenez. The risks and the benefits were explained to the patient in detail and he is in agreement to proceed. Objective - Vital Signs Vital signs: Vital Signs Temp 97.5 F L 02/21/17 11:35 Pulse 54 L 02/21/17 11:35 Resp 18 02/21/17 11:35 BP 121/72 02/21/17 11:35 Pulse Ox 97 02/21/17 11:35 Intake & Output 02/20/17 02/21/17 02/21/17 18:59 06:59 18:59 Intake Total 1385.3 240 370 Output Total 275 Balance 1385.3 -35 370 Weight 75.4 kg Intake: IV 663.3 Sodium Chloride 0.9% 1, 600 000 ml @ 75 mls/hr IV . [id number] SHAN Rx#:[id number] Oral 722 240 370 Output: Urine 275 Other: # Voids 1 1 - Exam PHYSICAL EXAMINATION: HEENT: Head is atraumatic, normocephalic. Pupils equal, round. Neck is supple. There is no elevated jugular venous pressure. HEART EXAMINATION: Heart S1, S2 normal. No murmur or gallop heard. CHEST EXAMINATION: Lungs are clear to auscultation and precussion. No chest wall tenderness is noted on palpation or with deep breathing. ABDOMEN: Soft, nontender. Bowel sounds are heard. No organomegaly noted. Right groin soft, no evidence of any hematoma EXTREMITIES: 2+ peripheral pulses with no evidence of peripheral edema and no calf tenderness noted]. NEUROLOGIC [patient is awake, alert and oriented -3.] . - Labs CBC & Chem 7: 02/21/17 05:30 02/21/17 05:30 Labs: Abnormal Lab Results - Last 24 Hours (Table) 02/21/17 Range/Units 05:30 Glucose 101 H (74-99) mg/dL Assessment and Plan (1) Chest pain Status: Acute (2) Positive cardiac stress test Status: Acute (3) Presence of stent in left circumflex coronary artery Status: Acute (4) NSVT (nonsustained ventricular tachycardia) Status: Acute (5) AICD (automatic cardioverter/defibrillator) present Status: Acute (6) HTN (hypertension) Status: Acute (7) Hx of CABG Status: Acute (8) Hyperlipemia Status: Acute Plan: From cardiology's perspective, patient will be scheduled to undergo generator change tomorrow with Dr. Jimenez. We will continue his current medications. DNP note has been reviewed, I agree with a documented findings and plan of care. Patient was seen and examined.
[2017-02-22] MEDS ORDERED: ceFAZolin 1,000 MG in SODIUM CHLORIDE 0.9% IRRIGATIO 250 ML IRRIGATION ONE (06:00)
[2017-02-22] MEDS ORDERED: ceFAZolin 2 GM in SODIUM CHLORIDE 0.9% 100 ML IVPB ONE (06:00)
[2017-02-22] MEDS: PANTOPRAZOLE 40 MG TABLET PO SCH (06:15)
[2017-02-22] MEDS: hydrALAZINE HCL 25 MG TAB PO SCH ×2 (06:15→19:58)
[2017-02-22] MEDS: CLOPIDOGREL 75 MG TAB PO SCH (06:15)
[2017-02-22] MEDS: METOPROLOL SUCCINATE (ER) 25 MG TAB.ER.24H PO SCH (06:15)
[2017-02-22] MEDS: ASPIRIN 81 MG CHEW PO SCH (06:15)
[2017-02-22] MEDS: ATORVASTATIN 80 MG TAB PO SCH (06:15)
[2017-02-22] MEDS: LISINOPRIL 20 MG TAB PO SCH (06:16)
[2017-02-22 06:49] LABS: Glucose,Whole Blood 102 mg/dL (75-99)
--- NOTE | 2017-02-22 10:24 | PN ---
CHIEF COMPLAINT: Coronary artery disease. HISTORY OF PRESENT ILLNESS: This gentleman is doing well. He apparently had one blocked coronary artery and this was stented. He is doing well and has had no pain in the legs, chest, etc. PHYSICAL EXAM: His chest is clear. Cardiac exam is normal. Abdomen is soft and nontender. IMPRESSION: 1. Angina pectoris. 2. Coronary artery disease. PLAN: Probably home later today. ORTIZ
[2017-02-22] MEDS: SODIUM CHLORIDE 0.9% 1,000 ML IV SCH (12:26)
--- NOTE | 2017-02-22 12:47 | P.PN ---
Subjective Principal diagnosis: CAD/cardiomyopathy This is a pleasant 62-year-old gentleman who sees Dr. VC Burgess as an outpatient who was known to have CAD, severe ischemic cardiomyopathy and status post ICD, as well as multiple comorbid conditions, was admitted to the hospital and underwent a heart catheterization for chest discomfort. It showed severe disease involving the left circumflex which was opened and stented with a good angiographic results. The patient was experiencing intermittent episodes of nonsustained VT and the ICD was interrogated and it showed that the battery out of life. The patient initially scheduled to have generator change by Dr. Jimenez about the procedure was canceled because it was deep in the muscle. Objective - Vital Signs Vital signs: Vital Signs Temp 97.1 F L 02/22/17 12:32 Pulse 55 L 02/22/17 12:32 Resp 18 02/22/17 12:32 BP 121/67 02/22/17 12:32 Pulse Ox 98 02/22/17 12:32 Intake & Output 02/21/17 02/22/17 02/22/17 18:59 06:59 18:59 Intake Total 750 20 Balance 750 20 Weight 77.7 kg Intake: Intake, IV Titration 20 Amount Sodium Chloride 0.9% 1, 20 000 ml @ 20 mls/hr IV . Q24H SHAN Rx#:[id number] Oral 750 Other: # Voids 1 1 1 # Bowel Movements 0 - Constitutional General appearance: Present: no acute distress - Respiratory Respiratory: bilateral: CTA - Cardiovascular Rhythm: regular Heart sounds: normal: S1, S2 - Labs CBC & Chem 7: 02/21/17 05:30 02/21/17 05:30 Labs: Abnormal Lab Results - Last 24 Hours (Table) 02/22/17 Range/Units 06:47 POC Glucose (mg/dL) 102 H (75-99) mg/dL Assessment and Plan Plan: This is a pleasant 62-year-old gentleman who underwent stenting of the left circumflex. He has severe cardiomyopathy and status post AICD. I am going to keep the patient over the weekend and try to schedule the GEN change was Dr. Quick.
--- NOTE | 2017-02-22 19:13 | PN ---
DATE OF SERVICE: 02/22/2017 CHIEF COMPLAINT: Chest pain. HISTORY OF PRESENT ILLNESS: This gentleman is doing well and he is having no further pain since his stent was placed. Today he is going for replacement of his ICD which is no longer functional. He is having no problems. PHYSICAL EXAM: CHEST: Clear. CARDIAC: Normal. ABDOMEN: Soft, nontender. IMPRESSION: 1. Coronary artery disease status post recent stent placement. 2. History of ventricular arrhythmia. PLAN: ICD is to be replaced today. ORTIZ
[2017-02-23] MEDS: PANTOPRAZOLE 40 MG TABLET PO SCH (06:54)
[2017-02-23] MEDS: METOPROLOL SUCCINATE (ER) 25 MG TAB.ER.24H PO SCH (08:13)
[2017-02-23] MEDS: hydrALAZINE HCL 25 MG TAB PO SCH ×2 (08:14→20:14)
[2017-02-23] MEDS: CLOPIDOGREL 75 MG TAB PO SCH (08:14)
[2017-02-23] MEDS: LISINOPRIL 20 MG TAB PO SCH (08:14)
[2017-02-23] MEDS: ATORVASTATIN 80 MG TAB PO SCH (08:14)
[2017-02-23] MEDS: ASPIRIN 81 MG CHEW PO SCH (08:14)
--- NOTE | 2017-02-23 12:01 | P.PN ---
Subjective Principal diagnosis: CAD/cardiomyopathy This is a pleasant 62-year-old gentleman who sees Dr. VC Burgess as an outpatient who was known to have CAD, severe ischemic cardiomyopathy and status post ICD, as well as multiple comorbid conditions, was admitted to the hospital and underwent a heart catheterization for chest discomfort. It showed severe disease involving the left circumflex which was opened and stented with a good angiographic results. The patient was experiencing intermittent episodes of nonsustained VT and the ICD was interrogated and it showed that the battery out of life. The patient initially scheduled to have generator change by Dr. Jimenez about the procedure was canceled because it was deep in the muscle. Objective - Vital Signs Vital signs: Vital Signs Temp 97 F L 02/23/17 08:00 Pulse 56 L 02/23/17 08:00 Resp 16 02/23/17 08:00 BP 108/67 02/23/17 08:00 Pulse Ox 97 02/23/17 08:00 Intake & Output 02/22/17 02/23/17 02/23/17 18:59 06:59 18:59 Intake Total 440 240 Balance 440 240 Weight 85 kg Intake: Intake, IV Titration 80 Amount Sodium Chloride 0.9% 1, 80 000 ml @ 20 mls/hr IV . Q24H SHAN Rx#:[id number] Oral 360 240 Other: Voiding Method Toilet Toilet # Voids 2 1 1 # Bowel Movements 0 - Constitutional General appearance: Present: no acute distress - Respiratory Respiratory: bilateral: CTA - Cardiovascular Rhythm: regular Heart sounds: normal: S1, S2 - Labs CBC & Chem 7: 02/21/17 05:30 02/21/17 05:30 Assessment and Plan Plan: This is a pleasant 62-year-old gentleman who underwent stenting of the left circumflex. He has severe cardiomyopathy and status post AICD. I will consult Dr. barone to evaluate the patient tomorrow.
[2017-02-23] MEDS: SODIUM CHLORIDE 0.9% 1,000 ML IV SCH (14:11)
[2017-02-23] MEDS: ACETAMINOPHEN TAB 325 MG TAB PO PRN (20:14)
[2017-02-24] MEDS: PANTOPRAZOLE 40 MG TABLET PO SCH (07:22)
[2017-02-24] MEDS: ATORVASTATIN 80 MG TAB PO SCH (10:22)
[2017-02-24] MEDS: hydrALAZINE HCL 25 MG TAB PO SCH (10:22)
[2017-02-24] MEDS: LISINOPRIL 20 MG TAB PO SCH (10:22)
[2017-02-24] MEDS: METOPROLOL SUCCINATE (ER) 25 MG TAB.ER.24H PO SCH (10:22)
[2017-02-24] MEDS: ASPIRIN 81 MG CHEW PO SCH (10:22)
[2017-02-24] MEDS: CLOPIDOGREL 75 MG TAB PO SCH (10:22)
[2017-02-24 10:40] VITALS: RESP 18
--- NOTE | 2017-02-24 12:51 | P.PN ---
Subjective Principal diagnosis: Chest pain This is a 61-year-old gentleman who follows with Dr. VC Burgess in the office as an outpatient. He has known history of coronary artery disease and prior bypass surgery, ischemic cardio myopathy with prior AICD implantation, hypertension, hyperlipidemia, patient was experiencing symptoms of chest discomfort, he underwent a myocardial perfusion imaging stress test which revealed inferior lateral ischemia. Patient was admitted to the hospital he underwent a cardiac catheterization by Dr. VC Burgess which revealed stenosis of the circumflex, therefore patient underwent angioplasty with stenting of the circumflex by Dr. Mcdermott. He was seen and examined this morning, denies any chest pain or difficulty in breathing. He was noted on the heart monitor to have a run of 12 nonsustained ventricular tachycardia. Potassium 4.4, BUN 15, creatinine 1.1. Patient has been told for over a year to the generator in his AICD needs to be changed, the battery has . This was again brought to the patient's attention in view of the fact that he had a run of nonsustained ventricular tachycardia. Tomorrow patient will be scheduled for a generator change by Dr. Jimenez. The risks and the benefits were explained to the patient in detail and he is in agreement to proceed. 02/24/2017 Patient seen and examined this morning. He was initially scheduled to undergo generator change on Friday but because of the device being submuscular, the procedure cannot be performed here. I spoke with Dr. Foster at [facility], the twisting press operator that it put the patient's device in. He will be scheduled to follow-up at [facility] for generator change, in the meantime for prevention of sudden cardiac , we will place a LifeVest on the patient today. Dr. Foster's office will call the patient in the morning to schedule his appointment for generator change. Objective - Vital Signs Vital signs: Vital Signs Temp 97.3 F L 02/24/17 00:00 Pulse 72 02/24/17 10:10 Resp 18 02/24/17 10:10 BP 125/77 02/24/17 10:10 Pulse Ox 97 02/24/17 10:10 Intake & Output 02/23/17 02/24/17 02/24/17 18:59 06:59 18:59 Intake Total 480 240 Balance 480 240 Weight 77.1 kg Intake: Oral 480 240 Other: Voiding Method Toilet Toilet Toilet # Voids 2 1 1 # Bowel Movements 1 - Exam PHYSICAL EXAMINATION: HEENT: Head is atraumatic, normocephalic. Pupils equal, round. Neck is supple. There is no elevated jugular venous pressure. HEART EXAMINATION: Heart S1, S2 normal. No murmur or gallop heard. CHEST EXAMINATION: Lungs are clear to auscultation and precussion. No chest wall tenderness is noted on palpation or with deep breathing. ABDOMEN: Soft, nontender. Bowel sounds are heard. No organomegaly noted. Right groin soft, no evidence of any hematoma EXTREMITIES: 2+ peripheral pulses with no evidence of peripheral edema and no calf tenderness noted]. NEUROLOGIC [patient is awake, alert and oriented -3.] . - Labs CBC & Chem 7: 02/21/17 05:30 02/21/17 05:30 Assessment and Plan (1) Chest pain Status: Acute (2) Positive cardiac stress test Status: Acute (3) Presence of stent in left circumflex coronary artery Status: Acute (4) NSVT (nonsustained ventricular tachycardia) Status: Acute (5) AICD (automatic cardioverter/defibrillator) present Status: Acute (6) HTN (hypertension) Status: Acute (7) Hx of CABG Status: Acute (8) Hyperlipemia Status: Acute Plan: From cardiology's perspective, patient may be able to be discharged home today after a LifeVest displaced. We will make him a follow-up appointment with Dr. VC Burgess in the office in one week. Patient also will be scheduled for AICD generator change at [facility]. DNP note has been reviewed, I agree with a documented findings and plan of care. Patient was seen and examined.
[2017-02-24] MEDS: SODIUM CHLORIDE 0.9% 1,000 ML IV SCH (16:38)
[2017-02-24 16:44] VITALS: BP 108/58; PULSE 61; TEMP 98.8
--- NOTE | 2017-02-24 20:08 | PN ---
DATE OF SERVICE: 02/23/17 Chief complaint: Status post stenting of coronary. History of present illness; This gentleman is waiting further direction. Apparently his ICD could not be changed. Cardiology will make decisions about what will be done next. REVIEW OF SYSTEMS: He currently is not having any significant pain. PHYSICAL EXAM: Color is good. Chest is clear. Cardiac exam is normal. IMPRESSION: 1. Status post ICD. Status post chest pain and stenting of coronary vessel. 2. History of ventricular arrhythmia. PLAN: Await recommendations from cardiology. ORTIZ
--- NOTE | 2017-02-24 20:30 | PN ---
DATE OF SERVICE: 02/24/17 CHIEF COMPLAINT: Unstable angina. HISTORY OF PRESENT ILLNESS: This gentleman is waiting decision regarding ICD which apparently could not be removed and further discussion is being given as to how to protect him from the terminal arrhythmia. PHYSICAL EXAMINATION: Chest is clear. Cardiac exam is normal. Abdomen is soft, nontender. He is having no pain. IMPRESSION: 1. Coronary artery disease. 2. History of ventricular arrhythmia. PLAN: Await cardiology decision with regard to his defibrillator. ORTIZ
== END 2017-02-24 19:56 | disposition home or self-care (01) | DRG 247 ==
LOC: 6SEL 14:20 → OBSVTOIN 02-20 18:27
PROVIDERS: ADMIT Internal Medicine Cardiovascular Disease; ATTEND Internal Medicine Cardiovascular Disease
PROC: 027034Z Dilation of Coronary Artery, One Artery with Drug-eluting Intraluminal Device, Percutaneous Approach (ICD-10-PCS; principal; 2017-02-20 09:30)
PROC: 4A023N7 Measurement of Cardiac Sampling and Pressure, Left Heart, Percutaneous Approach (ICD-10-PCS; 2017-02-20 09:30)
PROC: B2151ZZ Fluoroscopy of Left Heart using Low Osmolar Contrast (ICD-10-PCS; 2017-02-20 09:30)
PROC: B2181ZZ Fluoroscopy of Left Internal Mammary Bypass Graft using Low Osmolar Contrast (ICD-10-PCS; 2017-02-20 09:30)
PROC: B2111ZZ Fluoroscopy of Multiple Coronary Arteries using Low Osmolar Contrast (ICD-10-PCS; 2017-02-20 09:30)
DX: I25.110 Atherosclerotic heart disease of native coronary artery with unstable angina pectoris (principal); I47.2 Ventricular tachycardia; I25.710 Atherosclerosis of autologous vein coronary artery bypass graft(s) with unstable angina pectoris; I25.82 Chronic total occlusion of coronary artery; J44.9 Chronic obstructive pulmonary disease, unspecified; E78.5 Hyperlipidemia, unspecified; I10 Essential (primary) hypertension; I25.5 Ischemic cardiomyopathy; I25.2 Old myocardial infarction; Z79.82 Long term (current) use of aspirin; Z95.810 Presence of automatic (implantable) cardiac defibrillator; Z95.1 Presence of aortocoronary bypass graft; Z87.891 Personal history of nicotine dependence; Z95.5 Presence of coronary angioplasty implant and graft; Z53.09 Procedure and treatment not carried out because of other contraindication; Z91.19 Patient's noncompliance with other medical treatment and regimen; Z79.02 Long term (current) use of antithrombotics/antiplatelets; Z79.899 Other long term (current) drug therapy
CPT/HCPCS: 71020; 80048; 80053; 85025; 93458

== ENCOUNTER 2017-08-23 21:10 | Emergency (ER) | payer MEDICARE ==
--- NOTE | 2017-08-23 21:30 | ED ---
General Adult HPI - General Chief complaint: Arrhythmia/Palpitations Stated complaint: Defibulator malfunction Time Seen by Provider: 08/23/17 21:15 Source: patient, RN notes reviewed Mode of arrival: ambulatory Limitations: no limitations - History of Present Illness Initial comments: This is a 62-year-old male who presents emergency Department after having had a defibrillator pacemaker placed on August 08 down in [place]. Patient states tonight it made some sort of his musical sound and GROU.PSs told him to come to the hospital. Patient denies any chest pain any palpitations patient denies shortness of breath or difficulty breathing patient denies any symptoms whatsoever. Patient states his blood pressures currently elevated they didn't take any of his blood pressures per medicine since morning. Patient states he feels completely normal without any pain or symptoms at all. - Related Data Home Medications Medication Instructions Recorded Confirmed Aspirin 162 mg PO DAILY 01/24/17 06/02/17 Atorvastatin [Lipitor] 80 mg PO DAILY 01/24/17 06/02/17 Famotidine [Pepcid] 20 mg PO HS 02/19/17 06/02/17 Previous Rx's Medication Instructions Recorded Lisinopril [Zestril] 20 mg PO DAILY #90 tab 01/25/17 Nitroglycerin Sl Tabs [Nitrostat] 0.4 mg SUBLINGUAL Q5M PRN #25 tab 01/25/17 Pantoprazole [Protonix] 40 mg PO AC-BRKFST #90 tab 01/25/17 hydrALAZINE HCL [Apresoline] 25 mg PO BID #180 tab 01/25/17 Clopidogrel [Plavix] 75 mg PO DAILY #30 tab 02/24/17 Metoprolol Succinate [Toprol XL] 25 mg PO DAILY #60 tab 06/04/17 Allergies Allergy/AdvReac Type Severity Reaction Status Date / Time No Known Allergies Allergy Verified 08/23/17 21:19 Review of Systems ROS Statement: Those systems with pertinent positive or pertinent negative responses have been documented in the HPI. ROS Other: All systems not noted in ROS Statement are negative. Past Medical History Past Medical History: Coronary Artery Disease (CAD), Chest Pain / Angina, GERD/ Reflux, Hyperlipidemia, Hypertension, Myocardial Infarction (non Q-wave) Additional Past Medical History / Comment(s): Pt recently admitted to [facility] on 7/ 14/17 with SVT converted with adenosine. Other hx: Neuropathy bilateral feet , 2 MIs-2001 and 2014. Last Myocardial Infarction Date:: 07/25/14 History of Any Multi-Drug Resistant Organisms: None Reported Past Surgical History: AICD, Coronary Bypass/CABG, Heart Catheterization With Stent, Orthopedic Surgery, Tonsillectomy Additional Past Surgical History / Comment(s): PCI with stents 2001 and 2014, 3 vessel CABG in 2001, AICD 2001- batteries are depleted, pins in left ankle as a kid. Past Anesthesia/Blood Transfusion Reactions: No Reported Reaction Additional Past Anesthesia/Blood Transfusion Reaction / Comment(s): No previous history of blood transfusions Date of Last Stent Placement:: 2014 Type of Cardiac Device: AICD Device Placement Date:: 2001-pt states batteries are depleted. Past Psychological History: No Psychological Hx Reported Smoking Status: Former smoker - Past Family History Mother History Unknown: Yes Family Medical History: Diabetes Mellitus Additional Family Medical History / Comment(s): Mother at 78yrs Father Family Medical History: Coronary Artery Disease (CAD), Myocardial Infarction (CT ) Additional Family Medical History / Comment(s): Father had a CT in his early 50' s. He of CAD at 75yrs. General Exam - General Exam Comments Initial Comments: GENERAL: Patient is well-developed and well-nourished. Patient is nontoxic and well- hydrated and is in no acute distress. ENT: Neck is soft and supple. No significant lymphadenopathy is noted. Oropharynx is clear. Moist mucous membranes. EYES: The sclera were anicteric and conjunctiva were pink and moist. Extraocular movements were intact and pupils were equal round and reactive to light. Eyelids were unremarkable. PULMONARY: Unlabored respirations. Good breath sounds bilaterally. No audible rales rhonchi or wheezing was noted. CARDIOVASCULAR: There is a regular rate and rhythm without any murmurs gallops or rubs. ABDOMEN: Soft and nontender with normal bowel sounds. No palpable organomegaly was noted. There is no palpable pulsatile mass. SKIN: Skin is clear with no lesions or rashes and otherwise unremarkable. NEUROLOGIC: Patient is alert and oriented x3. Cranial nerves II through XII are grossly intact. Motor and sensory are also intact. Normal speech, volume and content. Symmetrical smile. MUSCULOSKELETAL: Normal extremities with adequate strength and full range of motion. LYMPHATICS: No significant lymphadenopathy is noted PSYCHIATRIC: Normal psychiatric evaluation. Normal interpersonal interactions appears functionally intact in deals appropriately with others. No signs of depression. No signs of anxiety. Limitations: no limitations Course Vital Signs 08/23/17 21:16 Temperature 98.3 F Pulse Rate 82 Respiratory 20 Rate Blood Pressure 208/108 O2 Sat by Pulse 98 Oximetry Medical Decision Making - Medical Decision Making EKG shows sinus rhythm with occasional PVC at a rate of 73 bpm [place] interval is 22 QRS is 110 QT interval 402 QTC is 442. Patient's EKG is compared to an old EKG no acute abnormalities are noted. Patient blood pressure was elevated and he stated he did not take any of his medications today Disposition Clinical Impression: Implantable defibrillator reprogramming/check, Hypertension Disposition: HOME SELF-CARE Additional Instructions: Follow-up on Friday with her instructor [employer]. Patient returns as any symptoms of chest pain palpitations difficulty breathing or shortness of breath. Referrals: Jovi Guillen MD [Primary Care Provider] - 1-2 days
[2017-08-23] MEDS ORDERED: METOPROLOL TARTRATE 25 MG TAB PO STA (21:55)
[2017-08-23] MEDS ORDERED: hydrALAZINE HCL 25 MG TAB PO STA (21:56)
[2017-08-24 00:01] VITALS: RESP 18
[2017-08-24 01:43] VITALS: BP 140/98; PULSE 64; TEMP 97.1
== END 2017-08-24 01:41 | disposition home or self-care (01) ==
LOC: EC 21:10
DX: T82.198A Other mechanical complication of other cardiac electronic device, initial encounter (principal); I10 Essential (primary) hypertension; I25.2 Old myocardial infarction; E78.5 Hyperlipidemia, unspecified; I25.10 Atherosclerotic heart disease of native coronary artery without angina pectoris; Z87.891 Personal history of nicotine dependence; Z95.1 Presence of aortocoronary bypass graft; Z95.5 Presence of coronary angioplasty implant and graft; Z98.890 Other specified postprocedural states; Z79.82 Long term (current) use of aspirin; Z79.899 Other long term (current) drug therapy
CPT/HCPCS: 93005; 99284

== ENCOUNTER 2021-08-10 14:50 | Inpatient (IN) | payer MEDICARE ==
--- NOTE | 2021-08-10 15:43 | ED ---
General Adult HPI - General Chief complaint: Arrhythmia/Palpitations Stated complaint: sob, abnormal ekg Time Seen by Provider: 08/10/21 15:06 Source: patient, RN notes reviewed, old records reviewed Mode of arrival: ambulatory Limitations: no limitations - History of Present Illness Initial comments: 66-year-old male with significant cardiac history including ischemic cardiomyopathy status post AICD, coronary artery bypass graft, and tachycardia dysrhythmia history. Patient had presented to his primary care physician and found to be in tachycardia dysrhythmia. He had presented to the office with complaints of palpitation and dyspnea as well as near syncope. Patient did not have chest pain. He states he's had several of these episodes since May. Patient denies any symptoms at the time my evaluation. He had some mild associated nausea. No chest pain. No abdominal pain. - Related Data Home Medications Medication Instructions Recorded Confirmed Aspirin 162 mg PO DAILY 01/24/17 08/10/21 Atorvastatin [Lipitor] 80 mg PO DAILY 01/24/17 08/10/21 Dapagliflozin Propanediol [Farxiga] 10 mg PO DAILY 08/10/21 08/10/21 Ezetimibe [Zetia] 10 mg PO DAILY 08/10/21 08/10/21 Glimepiride [Amaryl] 8 mg PO BID 08/10/21 08/10/21 Metoprolol Tartrate [Lopressor] 50 mg PO DAILY 08/10/21 08/10/21 Pantoprazole [Protonix] 40 mg PO DAILY 08/10/21 08/10/21 lisinopriL 2.5 mg PO DAILY 08/10/21 08/10/21 metFORMIN HCL [Glucophage] 500 mg PO BID 08/10/21 08/10/21 Previous Rx's Medication Instructions Recorded Clopidogrel [Plavix] 75 mg PO DAILY #30 tab 02/24/17 Allergies Allergy/AdvReac Type Severity Reaction Status Date / Time No Known Allergies Allergy Verified 08/10/21 16:09 Review of Systems ROS Statement: Those systems with pertinent positive or pertinent negative responses have been documented in the HPI. ROS Other: All systems not noted in ROS Statement are negative. Past Medical History Past Medical History: Coronary Artery Disease (CAD), Chest Pain / Angina, GERD/Reflux, Hyperlipidemia, Hypertension, Myocardial Infarction (non Q-wave) Additional Past Medical History / Comment(s): Pt recently admitted to [facility] on 01/24/17 with SVT converted with adenosine. Other hx: Neuropathy bilateral feet, 2 MIs-2001 and 2014. Last Myocardial Infarction Date:: 07/25/14 History of Any Multi-Drug Resistant Organisms: None Reported Past Surgical History: AICD, Coronary Bypass/CABG, Heart Catheterization With S tent, Orthopedic Surgery, Tonsillectomy Additional Past Surgical History / Comment(s): PCI with stents 2001 and 2014, 3 vessel CABG in 2001, AICD 2001- batteries are depleted, pins in left ankle as a kid. Past Anesthesia/Blood Transfusion Reactions: No Reported Reaction Additional Past Anesthesia/Blood Transfusion Reaction / Comment(s): No previous history of blood transfusions Date of Last Stent Placement:: 2014 Type of Cardiac Device: AICD Device Placement Date:: 2001- states batteries are depleted. Past Psychological History: No Psychological Hx Reported Past Alcohol Use History: None Reported Past Drug Use History: None Reported - Past Family History Mother History Unknown: Yes Family Medical History: Diabetes Mellitus Additional Family Medical History / Comment(s): Mother at 78yrs Father Family Medical History: Coronary Artery Disease (CAD), Myocardial Infarction (AK) Additional Family Medical History / Comment(s): Father had a AK in his early 50's. He of CAD at 75yrs. General Exam Limitations: no limitations General appearance: alert, in no apparent distress Head exam: Present: atraumatic, normocephalic Eye exam: Present: normal appearance, PERRL ENT exam: Present: normal exam Neck exam: Present: normal inspection. Absent: tenderness, meningismus Respiratory exam: Present: normal lung sounds bilaterally. Absent: respiratory distress, wheezes Cardiovascular Exam: Present: regular rate, normal rhythm GI/Abdominal exam: Present: soft. Absent: distended, tenderness, guarding Extremities exam: Present: normal inspection, normal capillary refill. Absent: pedal edema, calf tenderness Neurological exam: Present: alert, oriented X3, CN II-XII intact. Absent: motor sensory deficit Psychiatric exam: Present: normal affect, normal mood Skin exam: Present: warm, dry, intact. Absent: cyanosis, diaphoretic Course Vital Signs 08/10/21 08/10/21 14:51 16:26 Temperature 96.9 F L Pulse Rate 67 67 Respiratory 16 18 Rate Blood Pressure 129/90 118/78 O2 Sat by Pulse 92 L 98 Oximetry EKG Findings - EKG Comments: EKG Findings:: EKG: Sinus rhythm with first-degree AV block left bundle branch block, rate is 78, AR interval 222, QRS duration 124, QTC 465, similar appearing QRS complex compared to prior EKG. Medical Decision Making - Medical Decision Making 66yo male who had presented from outpatient office with near syncope, and tachydysrhythmia. This EKG appears to be SVT. He's in sinus rhythm upon arrival without symptoms, he feels back to normal. He states she's had several these episodes over the past several months. Patient's workup reveals normal white blood cell count, hemoglobin of 18.4 which is elevated. He has normal k idney function, normal electrolytes, a 0.079 troponin elevation. Given his history of coronary artery disease and his troponin elevation is given aspirin and started on heparin in the emergency department. I discussed case with Dr. Bustamante who will admit. Serial cardiac enzymes have been ordered. He'll be monitored on telemetry. Cardiology has been notified. - Lab Data Result diagrams: 08/10/21 15:39 08/10/21 15:39 Lab Results 08/10/21 08/10/21 08/10/21 Range/Units 15:39 15:39 15:39 WBC 7.3 (3.8-10.6) k/uL RBC 6.05 H (4.30-5.90) m/uL Hgb 18.4 H (13.0-17.5) gm/dL Hct 54.8 H (39.0-53.0) % MCV 90.6 (80.0-100.0) fL MCH 30.4 (25.0-35.0) pg MCHC 33.5 (31.0-37.0) g/dL RDW 12.3 (11.5-15.5) % Plt Count 160 (150-450) k/uL MPV 9.2 Neutrophils % 63 % Lymphocytes % 22 % Monocytes % 10 % Eosinophils % 2 % Basophils % 1 % Neutrophils # 4.6 (1.3-7.7) k/uL Lymphocytes # 1.6 (1.0-4.8) k/uL Monocytes # 0.7 (0-1.0) k/uL Eosinophils # 0.2 (0-0.7) k/uL Basophils # 0.0 (0-0.2) k/uL PT 11.9 (9.0-12.0) sec INR 1.1 (<1.2) APTT 26.0 (22.0-30.0) sec Sodium 140 (137-145) mmol/L Potassium 4.3 (3.5-5.1) mmol/L Chloride 108 H (98-107) mmol/L Carbon Dioxide 23 (22-30) mmol/L Anion Gap 9 mmol/L BUN 20 (9-20) mg/dL Creatinine 1.14 (0.66-1.25) mg/dL Est GFR (CKD-EPI)AfAm 79 (>60 ml/min/1.73 sqM) Est GFR (CKD-EPI)NonAf 68 (>60 ml/min/1.73 sqM) Glucose 174 H (74-99) mg/dL Calcium 9.8 (8.4-10.2) mg/dL Magnesium 1.9 (1.6-2.3) mg/dL Total Bilirubin 1.5 H (0.2-1.3) mg/dL AST 36 (17-59) U/L ALT 36 (4-49) U/L Alkaline Phosphatase 99 (38-126) U/L Troponin I (0.000-0.034) ng/mL Total Protein 7.5 (6.3-8.2) g/dL Albumin 4.5 (3.5-5.0) g/dL 08/10/21 Range/Units 15:39 WBC (3.8-10.6) k/uL RBC (4.30-5.90) m/uL Hgb (13.0-17.5) gm/dL Hct (39.0-53.0) % MCV (80.0-100.0) fL MCH (25.0-35.0) pg MCHC (31.0-37.0) g/dL RDW (11.5-15.5) % Plt Count (150-450) k/uL MPV Neutrophils % % Lymphocytes % % Monocytes % % Eosinophils % % Basophils % % Neutrophils # (1.3-7.7) k/uL Lymphocytes # (1.0-4.8) k/uL Monocytes # (0-1.0) k/uL Eosinophils # (0-0.7) k/uL Basophils # (0-0.2) k/uL PT (9.0-12.0) sec INR (<1.2) APTT (22.0-30.0) sec Sodium (137-145) mmol/L Potassium (3.5-5.1) mmol/L Chloride (98-107) mmol/L Carbon Dioxide (22-30) mmol/L Anion Gap mmol/L BUN (9-20) mg/dL Creatinine (0.66-1.25) mg/dL Est GFR (CKD-EPI)AfAm (>60 ml/min/1.73 sqM) Est GFR (CKD-EPI)NonAf (>60 ml/min/1.73 sqM) Glucose (74-99) mg/dL Calcium (8.4-10.2) mg/dL Magnesium (1.6-2.3) mg/dL Total Bilirubin (0.2-1.3) mg/dL AST (17-59) U/L ALT (4-49) U/L Alkaline Phosphatase (38-126) U/L Troponin I 0.079 H* (0.000-0.034) ng/mL Total Protein (6.3-8.2) g/dL Albumin (3.5-5.0) g/dL Critical Care Time Critical Care Time: Yes Total Critical Care Time: 35 Disposition Clinical Impression: Elevated troponin, Hx of CABG, CAD (coronary artery disease), Supraventricular tachycardia Disposition: ADMITTED IP TO THIS [facility] Condition: Stable Is patient prescribed a controlled substance at d/c from ED?: No Referrals: Jovi Guillen MD [Primary Care Provider] - 1-2 days Decision to Admit Reason: Admit from EC Decision Date: 08/10/21 Decision Time: 16:44
[2021-08-10 15:51] LABS: Basophils % (A) 1 %; Eosinophils # (A) 0.2 k/uL (0-0.7); Eosinophils % (A) 2 %; HCT 54.8 % (39.0-53.0); HGB 18.4 gm/dL (13.0-17.5); Lymphocytes # (A) 1.6 k/uL (1.0-4.8); Lymphocytes % (A) 22 %; MCH 30.4 pg (25.0-35.0); MCHC 33.5 g/dL (31.0-37.0); MCV 90.6 fL (80.0-100.0); Mean Platelet Volume 9.2; Monocytes # (A) 0.7 k/uL (0-1.0); Monocytes % (A) 10 %; Neutrophils # (A) 4.6 k/uL (1.3-7.7); Neutrophils % (A) 63 %; Platelet Count 160 k/uL (150-450); RBC 6.05 m/uL (4.30-5.90); RDW 12.3 % (11.5-15.5); WBC 7.3 k/uL (3.8-10.6)
[2021-08-10 16:00] LABS: Albumin 4.5 g/dL (3.5-5.0); Calcium 9.8 mg/dL (8.4-10.2); Magnesium 1.9 mg/dL (1.6-2.3); Potassium 4.3 mmol/L (3.5-5.1); Total Bilirubin 1.5 mg/dL (0.2-1.3); Total Protein 7.5 g/dL (6.3-8.2)
[2021-08-10 16:12] LABS: INR 1.1 (<1.2); Prothrombin Time 11.9 sec (9.0-12.0)
[2021-08-10] MEDS ORDERED: HEPARIN SODIUM 1,000 UN/ML (10ML VL) IV ONE (16:16)
[2021-08-10] MEDS ORDERED: HEPARIN SODIUM 1,000 UN/ML (10ML VL) IV PRN (16:16)
[2021-08-10] MEDS ORDERED: ASPIRIN 325 MG TAB PO STA (16:16)
--- NOTE | 2021-08-10 16:17 | XR ---
EXAMINATION TYPE: XR chest 2V DATE OF EXAM: 08/10/2021 COMPARISON: 06/02/2017 HISTORY: 66-year-old male dysrhythmia TECHNIQUE: PA and lateral views FINDINGS: Left anterior chest wall AICD generator and right atrial and right ventricular leads. Median sternoto my wires and post-CABG place. Heart is upper limits of normal in size. Mild hyperinflation. Mild vasc ular prominence but without consolidation or pleural effusion. IMPRESSION: 1. Hyperinflation may reflect depth of inspiration or underlying emphysema. 2. Borderline heart size along with vascular prominence. Correlate to exclude mild pulmonary vascular congestion. No pulmonary edema or infiltrate.
[2021-08-10] MEDS ORDERED: ACETAMINOPHEN TAB 325 MG TAB PO PRN (16:36)
[2021-08-10] MEDS ORDERED: NALOXONE 0.4 MG/ML 1 ML VIAL IV PRN (16:36)
[2021-08-10] MEDS: HEPARIN SOD,PORK IN 0.45% NACL 25,000 UNIT in 0.45% NACL 1 250ML.BAG IV SCH (16:41)
[2021-08-10 20:20] LABS: Glucose,Whole Blood 155 mg/dL (75-99)
[2021-08-10] MEDS: INSULIN ASPART (NovoLOG) 100 UNIT/ML VIAL SQ SCH (20:23)
[2021-08-10 22:37] VITALS: RESP 18
[2021-08-11 02:10] LABS: Chol/HDL Ratio 3.08 Ratio; LDL Cholesterol,Calculated 76.7 mg/dL (0.0-131.0); VLDL Calculation 15.22 mg/dL (5.00-40.00)
[2021-08-11 04:47] LABS: Basophils # (A) 0.1 k/uL (0-0.2); Basophils % (A) 1 %; Eosinophils # (A) 0.2 k/uL (0-0.7); Eosinophils % (A) 4 %; HCT 51.1 % (39.0-53.0); HGB 17.1 gm/dL (13.0-17.5); Lymphocytes % (A) 38 %; MCH 30.6 pg (25.0-35.0); MCHC 33.5 g/dL (31.0-37.0); MCV 91.3 fL (80.0-100.0); Mean Platelet Volume 9.7; Monocytes # (A) 0.5 k/uL (0-1.0); Monocytes % (A) 10 %; Neutrophils # (A) 2.4 k/uL (1.3-7.7); Neutrophils % (A) 46 %; Platelet Count 159 k/uL (150-450); RBC 5.59 m/uL (4.30-5.90); RDW 13.1 % (11.5-15.5); WBC 5.3 k/uL (3.8-10.6)
[2021-08-11 06:04] LABS: Glucose,Whole Blood 124 mg/dL (75-99)
[2021-08-11] MEDS: PANTOPRAZOLE 40 MG TABLET PO SCH (06:34)
[2021-08-11] MEDS: INSULIN ASPART (NovoLOG) 100 UNIT/ML VIAL SQ SCH ×4 (06:34→21:05)
[2021-08-11] MEDS ORDERED: METOPROLOL TARTRATE 50 MG TAB PO SCH (09:00)
[2021-08-11] MEDS ORDERED: ASPIRIN 81 MG PO SCH (09:00)
--- NOTE | 2021-08-11 09:28 | P.CRDCN ---
History of Present Illness Consult date: 08/11/21 History of present illness: History of Presenting Illness: Patient is a very pleasant 66-year-old male with a past medical history of CAD with stents and CABG, ischemic cardiomyopathy status post AICD placement, hypertension, hyperlipidemia, and SVT. He presented to the emergency department with a chief complaint of palpitations, dyspnea, and near syncopal episode. EKG completed showing sinus rhythm at 70 bpm with bundle branch block and first- degree AV block with CA interval of 222 ms. Repeat EKG revealed sustained run of SVT at 165 bpm. Troponin elevated at 0.276. Patient was started on heparin infusion and admitted under internal medicine and we have been consulted. Patient seen and fully evaluated at the bedside. He reports since May 2021 he has had approximately 7 similar episodes of tachycardia in which he reports always comes on with exertion. He reports occasionally having lightheadedness and feeling as though he is going to pass out with these runs of palpitations and reports when his heart gets beating so fast he cannot catch his breath. At time of assessment, patient is asymptomatic to walk complaints including headache, lightheadedness, dizziness, chest pain, palpitations, shortness of breath, abdominal pain, nausea, diaphoresis, or experiencing any numbness/tingling/weakness in his extremities. 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 Sabillon. Review of systems: Pertinent positives and negatives as discussed in HPI, a complete review of systems was performed and all other systems are negative. Physical exam: Vital signs reviewed and stable. General: Nontoxic, no distress and appears stated age. Derm: Skin warm and dry, normal coloration for ethnicity. Head: Atraumatic, normocephalic and symmetric. Eyes: EOMs intact, no lid lag, and anicteric sclera Mouth: no lip lesions, mucus membranes moist Cardiovascular: regular rate and rhythm with normal S1S2, systolic murmur, pos itive posterior tibial pulses bilaterally, and cap refill < 2 seconds. AICD left anterior chest Lungs: Respirations even, regular, and unlabored on room air. Lungs CTA bilaterally, no rhonchi, no rales, no wheezing, and no accessory muscle usage. Abdominal: soft, nontender to palpation, no guarding, no appreciable organomegaly Ext: ROM intact. No gross muscle atrophy, no edema, no contractures Neuro: Speech clear, face symmetrical and CN II-XII grossly intact with no noted focal neuro deficits Psych: Alert and oriented to person, place, time, and situation. Appropriate and pleasant affect. Assessment and Plan of Care: SVT Elevated troponin, likely type II NSTEMI due to demand ischemia from SVT CAD status post stents and CABG Ischemic cardiomyopathy status post AICD placement Hypertension Hyperlipidemia -Continue Telemetry monitoring -Continue heparin infusion pending echocardiogram results -Patient to continue cardiac medications including aspirin, atorvastatin, Plavix, lisinopril, and metoprolol. -Echocardiogram to be completed -TSH with free T4 to be completed -Discontinued metoprolol tartrate and placed patient on metoprolol succinate and increased dose to 75 mg daily -Further recommendations pending clinical course Thank you for allowing us to participate in the care of this pleasant patient. Do not hesitate to contact us with questions. . Past Medical History Past Medical History: Coronary Artery Disease (CAD), Chest Pain / Angina, Diabetes Mellitus, GERD/Reflux, Hyperlipidemia, Hypertension, Myocardial Infarction (non Q-wave) Additional Past Medical History / Comment(s): Pt recently admitted to [facility] on 01/24/17 with SVT converted with adenosine. Other hx: Neuropathy bilateral feet, 2 MIs-2001 and 2014. Last Myocardial Infarction Date:: 07/25/14 History of Any Multi-Drug Resistant Organisms: None Reported Past Surgical History: AICD, Coronary Bypass/CABG, Heart Catheterization With Stent, Orthopedic Surgery, Tonsillectomy Additional Past Surgical History / Comment(s): PCI with stents 2001 and 2014, 3 vessel CABG in 2001, AICD 2001-states batteries are depleted, pins in left ankle as a kid. Past Anesthesia/Blood Transfusion Reactions: No Reported Reaction Additional Past Anesthesia/Blood Transfusion Reaction / Comment(s): No previous history of blood transfusions Date of Last Stent Placement:: 2014 Type of Cardiac Device: AICD Device Placement Date:: 2001-pt states batteries are depleted. Past Psychological History: No Psychological Hx Reported Additional Psychological History / Comment(s): Pt resides with his spouse in a 2 story house that has 2 porch steps and 16 steps to 2nd floor,. pt is independant. no home care servives, no medical equipment. no past services. pt worked for the [employer]. Smoking Status: Former smoker Past Alcohol Use History: None Reported Additional Past Alcohol Use History / Comment(s): Pt states he started smoking at age 15 and smoked lightly- 1 ppd. quit 2015. rare use of alcohol. Past Drug Use History: None Reported - Past Family History Mother History Unknown: Yes Family Medical History: Diabetes Mellitus Additional Family Medical History / Comment(s): Mother at 78yrs Father Family Medical History: Coronary Artery Disease (CAD), Myocardial Infarction (RI) Additional Family Medical History / Comment(s): Father had a RI in his early 50's. He of CAD at 75yrs. Medications and Allergies Home Medications Medication Instructions Recorded Confirmed Type Aspirin 162 mg PO DAILY 01/24/17 08/10/21 History Atorvastatin [Lipitor] 80 mg PO DAILY 01/24/17 08/10/21 History Clopidogrel [Plavix] 75 mg PO DAILY #30 tab 02/24/17 08/10/21 Rx Dapagliflozin Propanediol [Farxiga] 10 mg PO DAILY 08/10/21 08/10/21 History Ezetimibe [Zetia] 10 mg PO DAILY 08/10/21 08/10/21 History Glimepiride [Amaryl] 8 mg PO BID 08/10/21 08/10/21 History Metoprolol Tartrate [Lopressor] 50 mg PO DAILY 08/10/21 08/10/21 History Pantoprazole [Protonix] 40 mg PO DAILY 08/10/21 08/10/21 History lisinopriL 2.5 mg PO DAILY 08/10/21 08/10/21 History metFORMIN HCL [Glucophage] 500 mg PO BID 08/10/21 08/10/21 History Allergies Allergy/AdvReac Type Severity Reaction Status Date / Time No Known Allergies Allergy Verified 08/10/21 16:09 Physical Exam Vitals: Vital Signs Temp Pulse Pulse Resp BP BP Pulse Ox 08/11/21 04:00 64 18 111/74 100 08/11/21 00:00 65 18 104/74 97 08/10/21 20:00 97.7 F 68 18 119/79 99 08/10/21 17:42 98.3 F 68 17 139/100 98 08/10/21 16:26 67 18 118/78 98 08/10/21 14:51 96.9 F L 67 16 129/90 92 L Intake and Output 08/10/21 08/11/21 08/11/21 22:59 06:59 14:59 Intake Total 294.379 571.685 24.332 Balance 294.379 571.685 24.332 Intake: Intake, IV Titration 54.379 86.685 24.332 Amount Heparin Sod,Pork in 0.45% 54.379 86.685 24.332 NaCl 25,000 unit In 0.45 % NaCl 1 250ml.bag @ 12 UNITS/KG/HR 9.798 mls/hr IV .Q24H [facility] Rx#: [id number] Oral 240 485 Other: Voiding Method Toilet Toilet # Voids 2 Weight 81.647 kg Results 08/11/21 03:49 08/10/21 15:39 Cardiac Enzymes 08/10/21 08/10/21 08/10/21 Range/Units 15:39 15:39 18:20 AST 36 (17-59) U/L Troponin I 0.079 H* 0.236 H* (0.000-0.034) ng/mL 08/10/21 Range/Units 21:03 AST (17-59) U/L Troponin I 0.276 H* (0.000-0.034) ng/mL Coagulation 08/10/21 08/10/21 08/11/21 Range/Units 15:39 21:03 03:49 PT 11.9 (9.0-12.0) sec APTT 26.0 41.1 H 83.1 H (22.0-30.0) sec Lipids 08/10/21 Range/Units 18:15 Triglycerides 76.10 (0.00-149.00) mg/dL Cholesterol 136.00 (0.00-200.00) mg/dL HDL Cholesterol 44.10 (40.00-60.00) mg/dL Cholesterol/HDL Ratio 3.08 Ratio CBC 08/10/21 08/11/21 Range/Units 15:39 03:49 WBC 7.3 5.3 (3.8-10.6) k/uL RBC 6.05 H 5.59 (4.30-5.90) m/uL Hgb 18.4 H 17.1 (13.0-17.5) gm/dL Hct 54.8 H 51.1 (39.0-53.0) % Plt Count 160 159 (150-450) k/uL Comprehensive Metabolic Panel 08/10/21 Range/Units 15:39 Sodium 140 (137-145) mmol/L Potassium 4.3 (3.5-5.1) mmol/L Chloride 108 H (98-107) mmol/L Carbon Dioxide 23 (22-30) mmol/L BUN 20 (9-20) mg/dL Creatinine 1.14 (0.66-1.25) mg/dL Glucose 174 H (74-99) mg/dL Calcium 9.8 (8.4-10.2) mg/dL AST 36 (17-59) U/L ALT 36 (4-49) U/L Alkaline Phosphatase 99 (38-126) U/L Total Protein 7.5 (6.3-8.2) g/dL Albumin 4.5 (3.5-5.0) g/dL Current Medications Generic Name Dose Route Start Last Admin Trade Name Freq PRN Reason Stop Dose Admin Acetaminophen 650 mg 08/10/21 16:36 Acetaminophen Tab 325 Mg Tab PO Q6HR PRN Mild Pain or Fever > 100.5 Aspirin 81 mg 08/12/21 09:00 Aspirin 81 Mg PO DAILY [facility] Atorvastatin Calcium 80 mg 08/11/21 09:00 Atorvastatin 80 Mg Tab PO DAILY [facility] Clopidogrel Bisulfate 75 mg 08/11/21 09:00 Clopidogrel 75 Mg Tab PO DAILY [facility] Ezetimibe 10 mg 08/11/21 09:00 Ezetimibe 10 Mg Tab PO DAILY [facility] Heparin Sodium (Porcine) 0 unit 08/10/21 16:16 08/10/21 22:14 Heparin Sodium 1,000 Un/Ml (10ml Vl) IV 2,000 unit PER PROTOCOL PRN Administration Low PTT Protocol Heparin Sodium/Sodium Chloride 250 mls @ 9.798 mls/hr 08/10/21 16:30 08/11/21 08:18 25,000 unit/ Sodium Chloride IV 10 units/kg/hr .Q24H [facility] 8.165 mls/hr Titration Protocol 12 UNITS/KG/HR Insulin Aspart 0 unit 08/10/21 21:00 08/11/21 06:34 Insulin Aspart (Novolog) 100 Unit/Ml Vial SQ Not Given ACHS SHAN Protocol Lisinopril 2.5 mg 08/11/21 09:00 Lisinopril 2.5 Mg Tab PO DAILY [facility] Metoprolol Tartrate 50 mg 08/11/21 09:00 Metoprolol Tartrate 50 Mg Tab PO DAILY [facility] Naloxone HCl 0.2 mg 08/10/21 16:36 Naloxone 0.4 Mg/Ml 1 Ml Vial IV Q2M PRN Opioid Reversal Non-Formulary Medication 10 mg 08/11/21 09:00 Dapagliflozin Propanediol [Farxiga] PO DAILY [facility] Pantoprazole Sodium 40 mg 08/11/21 07:30 08/11/21 06:34 Pantoprazole 40 Mg Tablet PO Not Given AC-BRKT [facility] Intake and Output 08/10/21 08/11/21 08/11/21 22:59 06:59 14:59 Intake Total 294.379 571.685 24.332 Balance 294.379 571.685 24.332 Intake: Intake, IV Titration 54.379 86.685 24.332 Amount Heparin Sod,Pork in 0.45% 54.379 86.685 24.332 NaCl 25,000 unit In 0.45 % NaCl 1 250ml.bag @ 12 UNITS/KG/HR 9.798 mls/hr IV .Q24H [facility] Rx#: [id number] Oral 240 485 Other: Voiding Method Toilet Toilet # Voids 2 Weight 81.647 kg 08/11/21 03:49 08/10/21 15:39
[2021-08-11] MEDS: ATORVASTATIN 80 MG TAB PO SCH (09:59)
[2021-08-11] MEDS: EZETIMIBE 10 MG TAB PO SCH (09:59)
[2021-08-11] MEDS: CLOPIDOGREL 75 MG TAB PO SCH (09:59)
[2021-08-11] MEDS: NON FORMULARY DRUG (Dapagliflozin Propanediol [Farxiga] 10 MG Tablet) PO SCH (11:38)
[2021-08-11 11:43] LABS: Glucose,Whole Blood 150 mg/dL (75-99)
[2021-08-11 16:38] LABS: Glucose,Whole Blood 112 mg/dL (75-99)
[2021-08-11] MEDS: HEPARIN SOD,PORK IN 0.45% NACL 25,000 UNIT in 0.45% NACL 1 250ML.BAG IV SCH (16:43)
[2021-08-11 20:06] LABS: Glucose,Whole Blood 175 mg/dL (75-99)
[2021-08-12 06:07] LABS: Glucose,Whole Blood 145 mg/dL (75-99)
[2021-08-12] MEDS: INSULIN ASPART (NovoLOG) 100 UNIT/ML VIAL SQ SCH ×2 (06:32→12:26)
[2021-08-12] MEDS: PANTOPRAZOLE 40 MG TABLET PO SCH (06:32)
[2021-08-12 06:49] LABS: HCT 52.8 % (39.0-53.0); HGB 17.3 gm/dL (13.0-17.5); MCHC 32.7 g/dL (31.0-37.0); MCV 91.7 fL (80.0-100.0); Mean Platelet Volume 9.1; Platelet Count 164 k/uL (150-450); RBC 5.76 m/uL (4.30-5.90); RDW 13.1 % (11.5-15.5); WBC 5.5 k/uL (3.8-10.6)
[2021-08-12 07:04] LABS: ALT 32 U/L (4-49); AST 34 U/L (17-59); African American GFR (CKD) 86 (>60 ml/min/1.73 sqM); Albumin 3.8 g/dL (3.5-5.0); Alkaline Phosphatase 81 U/L (38-126); Anion Gap 7 mmol/L; Blood Urea Nitrogen 23 mg/dL (9-20); Calcium 9.2 mg/dL (8.4-10.2); Carbon Dioxide 23 mmol/L (22-30); Chloride 107 mmol/L (98-107); Glucose 156 mg/dL (74-99); Magnesium 1.9 mg/dL (1.6-2.3); Non-African American GFR(CKD) 74 (>60 ml/min/1.73 sqM); Potassium 4.5 mmol/L (3.5-5.1); Sodium 137 mmol/L (137-145); Total Bilirubin 1.5 mg/dL (0.2-1.3); Total Protein 6.5 g/dL (6.3-8.2)
--- NOTE | 2021-08-12 08:43 | P.PN ---
Subjective Progress Note Date: 08/12/21 History of Presenting Illness: Patient is a very pleasant 66-year-old male with a past medical history of CAD with stents and CABG, ischemic cardiomyopathy status post AICD placement, hypertension, hyperlipidemia, and SVT. He presented to the emergency department with a chief complaint of palpitations, dyspnea, and near syncopal episode. EKG completed showing sinus rhythm at 70 bpm with bundle branch block and first- degree AV block with MS interval of 222 ms. Repeat EKG revealed sustained run of SVT at 165 bpm. Troponin elevated at 0.276. Patient reported since May 2021 he has had approximately 7 similar episodes of tachycardia in which he reports always comes on with exertion. He reports occasionally having lightheadedness and feeling as though he is going to pass out with these runs of palpitations and reports when his heart gets beating so fast he cannot catch his breath. Patient admitted under Gen. medical team and we have been consulted for management of elevated troponin and SVT versus nonsustained V. tach. 08/12/21 Patient seen and fully evaluated at the bedside this morning. Patient reports feeling great. He denies having any further episodes of palpitations or shortness of breath. He denies experiencing any headache, lightheadedness, dizziness, chest pain, dyspnea with exertion, or experiencing any numbness/tingling/weakness in his extremities. Patient did report an episode o vernight in which he got up to use the restroom and experience mild nausea and diaphoresis, but he denies having any other complaints at that time and reports full resolution of these symptoms without any interventions after a few moments. We will obtain orthostatic vitals to rule out orthostatic hypotension and/or POTS. Patient is requesting to be discharged home at this time, and if echocardiogram shows no abnormalities patient may be cleared from cardiac standpoint and recommended to follow up outpatient in 2 weeks upon discharge. Physical exam: Vital signs reviewed and stable. General: Nontoxic, no distress and appears stated age. Derm: Skin warm and dry, normal coloration for ethnicity. Head: Atraumatic, normocephalic and symmetric. Eyes: EOMs intact, no lid lag, and anicteric sclera Mouth: no lip lesions, mucus membranes moist Cardiovascular: regular rate and rhythm with normal S1S2, systolic murmur, positive posterior tibial pulses bilaterally, and cap refill < 2 seconds. AICD left anterior chest Lungs: Respirations even, regular, and unlabored on room air. Lungs CTA bilaterally, no rhonchi, no rales, no wheezing, and no accessory muscle usage. Abdominal: soft, nontender to palpation, no guarding, no appreciable organo megaly Ext: ROM intact. No gross muscle atrophy, no edema, no contractures Neuro: Speech clear, face symmetrical and CN II-XII grossly intact with no noted focal neuro deficits Psych: Alert and oriented to person, place, time, and situation. Appropriate and pleasant affect. Assessment and Plan of Care: SVT vs non sustained v-tach Elevated troponin, likely type II NSTEMI due to demand ischemia from SVT CAD status post stents and CABG Ischemic cardiomyopathy status post AICD placement Hypertension Hyperlipidemia -Telemetry monitoring -Continue heparin infusion pending echocardiogram results -Patient to continue cardiac medications including aspirin, atorvastatin, Plavix, lisinopril, and metoprolol. -Echocardiogram completed, awaiting read -TSH normal findings at 2.080 -Continue metoprolol succinate 75 mg daily -Orthostatic vitals to be completed -Patient requesting discharge, May be clear from cardiac standpoint if echocardiogram shows no significant abnormalities. -Recommend following up outpatient with cardiology upon discharge. Thank you for allowing us to participate in the care of this pleasant patient. Do not hesitate to contact us with questions. Nurse practitioner note has been reviewed by physician. Signing provider agrees with the documented findings, assessment, and plan of care Objective - Vital Signs Vital signs: Vital Signs Temp 97.9 F 08/12/21 00:00 Pulse 61 08/12/21 03:33 Resp 18 08/12/21 03:33 BP 92/60 08/12/21 03:33 Pulse Ox 100 08/12/21 03:33 Intake & Output 08/11/21 08/12/21 08/12/21 18:59 06:59 18:59 Intake Total 341.328 Output Total 450 Balance 341.328 -450 Intake: Intake, IV Titration 101.328 Amount Heparin Sod,Pork in 0.45% 101.328 NaCl 25,000 unit In 0.45 % NaCl 1 250ml.bag @ 12 UNITS/KG/HR 9.798 mls/hr IV .Q24H SHAN Rx#: [id number] Oral 240 Output: Urine 450 Other: Voiding Method Toilet Toilet # Voids 2 2 - Labs CBC & Chem 7: 08/12/21 06:25 08/12/21 06:25 Labs: Abnormal Lab Results - Last 24 Hours (Table) 08/11/21 08/11/21 08/11/21 Range/Units 03:49 11:41 14:32 APTT 44.6 H (22.0-30.0) sec BUN (9-20) mg/dL Glucose (74-99) mg/dL POC Glucose (mg/dL) 150 H (75-99) mg/dL Total Bilirubin (0.2-1.3) mg/dL Troponin I 0.289 H* (0.000-0.034) ng/mL 08/11/21 08/11/21 08/12/21 Range/Units 16:37 20:04 05:58 APTT (22.0-30.0) sec BUN (9-20) mg/dL Glucose (74-99) mg/dL POC Glucose (mg/dL) 112 H 175 H 145 H (75-99) mg/dL Total Bilirubin (0.2-1.3) mg/dL Troponin I (0.000-0.034) ng/mL 08/12/21 08/12/21 Range/Units 06:25 06:25 APTT 47.5 H (22.0-30.0) sec BUN 23 H (9-20) mg/dL Glucose 156 H (74-99) mg/dL POC Glucose (mg/dL) (75-99) mg/dL Total Bilirubin 1.5 H (0.2-1.3) mg/dL Troponin I (0.000-0.034) ng/mL
[2021-08-12] MEDS: ATORVASTATIN 80 MG TAB PO SCH (08:49)
[2021-08-12] MEDS: CLOPIDOGREL 75 MG TAB PO SCH (08:49)
[2021-08-12] MEDS: EZETIMIBE 10 MG TAB PO SCH (08:49)
[2021-08-12] MEDS: NON FORMULARY DRUG (Dapagliflozin Propanediol [Farxiga] 10 MG Tablet) PO SCH (08:52)
[2021-08-12] MEDS ORDERED: METOPROLOL SUCCINATE (ER) 50 MG TAB.ER.24H PO SCH ×2 (09:00)
[2021-08-12] MEDS ORDERED: ASPIRIN 81 MG PO SCH (09:00)
[2021-08-12 09:54] VITALS: PULSE 61
[2021-08-12 11:56] LABS: Glucose,Whole Blood 167 mg/dL (75-99)
[2021-08-12 12:46] VITALS: BP 113/70; TEMP 98
--- NOTE | 2021-08-12 13:17 | ECHOF ---
Referral Reason:Assess structure and function MEASUREMENTS -------- HEIGHT: 175.3 cm WEIGHT: 81.6 kg BP: RVIDd: 4.2 cm (< 3.3) IVSd: 1.8 cm (0.6 - 1.1) LVIDd: 5.0 cm (3.9 - 5.3) LVPWd: 1.4 cm (0.6 - 1.1) IVSs: 2.0 cm LVIDs: 4.4 cm LVPWs: 1.7 cm LAESV Index (A-L): 41.89 ml/m Ao Diam: 4.1 cm (2.0 - 3.7) AV Cusp: 1.7 cm (1.5 - 2.6) LA Diam: 4.0 cm (2.7 - 3.8) MV EXCURSION: 16.144 mm (> 18.000) MV EF SLOPE: 68 mm/s (70 - 150) EPSS: 2.2 cm MV E Dionicio: 0.69 m/s MV DecT: 219 ms MV A Dionicio: 0.88 m/s MV E/A Ratio: 0.78 AV maxP.18 mmHg AV meanP.12 mmHg AR PHT: 652 ms RAP: 5.00 mmHg RVSP: 32.15 mmHg FINDINGS -------- Sinus rhythm. This was a technically adequate study. The left ventricular size is normal. There is moderate concentric left ventricular hypertrophy. O verall left ventricular systolic function is severely impaired with, an EF between 25 - 30 %. Globa l hypokinesis The right ventricle is severely enlarged. LA is moderately dilated 34-39 ml/m2 The right atrial size is normal. Electronic pacemaker lead seen in the right atrial cavity. Interatrial and interventricular septum intact. There is mild aortic regurgitation. There is mild aortic stenosis present. Kwvn-mo-fbzjlhak mitral regurgitation is present. Mild tricuspid regurgitation present. There is no evidence of pulmonary hypertension. The right v entricular systolic pressure, as measured by Doppler, is 32.15mmHg. The aortic root size is normal. Normal inferior vena cava with normal inspiratory collapse consistent with estimated right atrial pre ssure of 5 mmHg. There is no pericardial effusion. CONCLUSIONS -------- 1. The left ventricular size is normal. 2. There is moderate concentric left ventricular hypertrophy. 3. Overall left ventricular systolic function is severely impaired with, an EF between 25 - 30 %. 4. The right ventricle is severely enlarged. 5. LA is moderately dilated 34-39 ml/m2 6. There is mild aortic regurgitation. 7. There is mild aortic stenosis present. 8. Rqnh-mq-jyeyolcb mitral regurgitation is present. 9. Mild tricuspid regurgitation present. 10. The right ventricular systolic pressure, as measured by Doppler, is 32.15mmHg. PAPER TESTER: Latasha Waite RDCS
--- NOTE | 2021-08-13 16:57 | PN ---
PROGRESS NOTE DATE OF SERVICE: 08/11/2021 CHIEF COMPLAINT: SVT. HISTORY OF PRESENT ILLNESS: This gentleman is doing fine. He converted to normal sinus rhythm. He has been evaluated by Cardiology and his beta chilo has been changed. He is doing well. PHYSICAL EXAMINATION: Chest is clear. Cardiac exam is normal with heart rate around 85. Abdomen is soft, nontender. IMPRESSION: 1. Supraventricular tachycardia with rapid ventricular response. 2. Coronary artery disease. PLAN: Probably home tomorrow. MMKEATONL / MAGALIN: [id number] /
--- NOTE | 2021-08-13 16:57 | HP ---
HISTORY AND PHYSICAL CHIEF COMPLAINT: Rapid heart beating, weakness and shortness of breath. HISTORY OF PRESENT ILLNESS: This is another admission for this 66-year-old white male who has a history of coronary artery disease, hypertension and diabetes. He has had several episodes over the last 3 or 4 months where he becomes very weak, lightheaded and slightly short of breath. These associated with chest pain. He came in the office on the day of admission with similar complaints and was found to have atrial fibrillation with an RVR of around 120 to 130 beats per minute. He was admitted. He denies chest pain, orthopnea, syncope, etc. Past medical history, family history, and personal and social histories are all otherwise unchanged from his previous admitting and discharge summaries. His diabetes is under good control. PHYSICAL EXAMINATION: Blood pressure is 92/55 with a pulse of 120 and respirations of 33. He is afebrile. In general appears to be well developed, well nourished, in no acute distress. Skin color is normal. Skin is warm and dry. Lymph nodes are not enlarged. Head, ears, eyes, nose, mouth and throat are normal. Neck veins are not distended. Thyroid is not enlarged. The chest is clear. Cardiac exam demonstrates tachycardia. Abdomen is soft, nontender without visceromegaly or masses. Bowel sounds are present. Extremities are normal. Neurologically he is intact. IMPRESSION: 1. Supraventricular tachycardia with rapid ventricular response. 2. Type 2 diabetes mellitus. 3. Coronary artery disease. PLAN: 1. Bedrest. 2. IV fluids. 3. Convert to sinus rhythm. 4. Cardiac enzymes. 5. BNP. 6. Cardiology consult. MMODL / IJN: [id number] /
--- NOTE | 2021-08-13 17:00 | DS ---
DISCHARGE SUMMARY CHIEF COMPLAINT: Atrial fibrillation with SVT. HISTORY OF PRESENT ILLNESS AND PHYSICAL EXAMINATION: Details of this man's history and physical can be found in his initial workup. LABORATORY STUDIES: While he was in the hospital he had laboratory studies, details of which can be found in the laboratory section of his chart. COURSE IN THE HOSPITAL: After admission he was placed on bedrest, started on intravenous fluids, and he was seen by Cardiology. By the time he got to the hospital he had converted to normal sinus rhythm. Medications were adjusted and he was doing well. It was felt that he could go home on August 12. He will be seen in the office in several days. FINAL DIAGNOSIS: 1. Atrial fibrillation with supraventricular tachycardia. 2. Coronary artery disease. 3. Atherosclerotic cardiomyopathy. 4. Type 2 diabetes. OPERATIONS: None. CONSULTATION: Cardiology. He is improved. HERON / PHYLLIS: [id number] /
--- NOTE | 2021-08-14 09:19 | CDI ---
Documentation Clarification Form Date: 09/04 From: Mela Arias Admit Date: 08/10/2021 04:38:00 PM Patient Name: Tito Mullins Visit Number: [id number] Discharge Date: 08/12/2021 01:01:00 PM ATTENTION: The Clinical Documentation Specialists (CDI) and [facility] Coding Staff appreciate your assistance in clarifying documentation. Please respond to the clarification below the line at the bottom and electronically sign. The CDI & [facility] Coding staff will review the response and follow-up if needed. Please note: Queries are made part of the Legal Health Record. If you have any questions, please contact the author of this message via ITS. Dr. Gabo Sabillon, Atrial Fibrillation is documented in the H&P. Additional clarification regarding the type of atrial fibrillation is requested. History/Risk Factors: SVT, Type II [place], Type II DM w neuropathy, CAD, HLD Clinical Indicators: He came in the office on the day of admission with similar complaints and was found to have atrial fibrillation with an RVR of around 120 to 130 beats per minute. EKG/telemetry: Sinus rhythm with first-degree AV block left bundle branch block, rate is 78, MA interval 222, QRS duration 124, QTC 465 Treatment: Telemetry, IV Heparin infusion, echo, ASA, Atorvastatin, Plavix, Lisinopril & Metoprolol succinate Please clarify the type of atrial fibrillation, if known: [ ] Chronic [ ] Permanent [ x ] Paroxysmal [ ] Persistent [ ] Other, please specify [ ] Unable to determine MTDD
== END 2021-08-12 13:01 | disposition home or self-care (01) | DRG 282 ==
LOC: EC 14:50 → 3SCARD 16:38
PROVIDERS: ADMIT Family Medicine; ATTEND Family Medicine
DX: I47.1 Supraventricular tachycardia (principal); I21.A1 Myocardial infarction type 2; E11.41 Type 2 diabetes mellitus with diabetic mononeuropathy; I48.0 Paroxysmal atrial fibrillation; E78.5 Hyperlipidemia, unspecified; G57.93 Unspecified mononeuropathy of bilateral lower limbs; I10 Essential (primary) hypertension; Z20.822 Contact with and (suspected) exposure to COVID-19; I25.10 Atherosclerotic heart disease of native coronary artery without angina pectoris; K21.9 Gastro-esophageal reflux disease without esophagitis; I44.0 Atrioventricular block, first degree; I44.7 Left bundle-branch block, unspecified; I25.5 Ischemic cardiomyopathy; I25.2 Old myocardial infarction; Z79.82 Long term (current) use of aspirin; Z79.02 Long term (current) use of antithrombotics/antiplatelets; Z79.84 Long term (current) use of oral hypoglycemic drugs; Z79.899 Other long term (current) drug therapy; Z95.810 Presence of automatic (implantable) cardiac defibrillator; Z95.1 Presence of aortocoronary bypass graft; Z90.89 Acquired absence of other organs; Z87.39 Personal history of other diseases of the musculoskeletal system and connective tissue; Z95.5 Presence of coronary angioplasty implant and graft; Z87.891 Personal history of nicotine dependence; Z98.890 Other specified postprocedural states; Z83.3 Family history of diabetes mellitus; Z82.49 Family history of ischemic heart disease and other diseases of the circulatory system
CPT/HCPCS: 36415; 71046; 80053; 80061; 83036; 83735; 84443; 84484; 85025; 85027; 85610; 85730; 87635; 93005; 93306; 96374; 99291

== ENCOUNTER 2021-10-11 12:18 | Observation (INO) | payer MEDICARE ==
--- NOTE | 2021-10-11 13:27 | ED ---
Chest Pain HPI - General Chief Complaint: Chest Pain Stated Complaint: SOB/chest issues Time Seen by Provider: 10/11/21 12:47 Source: patient, RN notes reviewed Mode of arrival: ambulatory Limitations: no limitations - History of Present Illness Initial Comments: This a 66-year-old male presents emergency from chief complaint of palpation, chest pain, shortness breath. Patient has been in the hospital recent secondary to SVT. Patient has pacemaker defibrillator. Patient has had discussion of possible ablation or Dr. Sabillon. Patient states since yesterday and today he's had worsening symptoms he states more frequent he states he can barely get up and walk on his symptoms. Patient denies any history due to PE. Denies any nausea vomiting he does admit to some diaphoresis. He's had no new medication changes. Patient is scheduled for follow-up soon. - Related Data Home Medications Medication Instructions Recorded Confirmed Aspirin 162 mg PO DAILY 01/24/17 10/11/21 Atorvastatin [Lipitor] 80 mg PO DAILY 01/24/17 10/11/21 Ezetimibe [Zetia] 10 mg PO DAILY 08/10/21 10/11/21 Glimepiride [Amaryl] 8 mg PO BID 08/10/21 10/11/21 Pantoprazole [Protonix] 40 mg PO DAILY 08/10/21 10/11/21 lisinopriL 2.5 mg PO DAILY 08/10/21 10/11/21 metFORMIN HCL [Glucophage] 500 mg PO BID 08/10/21 10/11/21 Metoprolol Succinate (ER) [Toprol 50 mg PO BID 10/11/21 10/11/21 XL] Metoprolol Succinate [Toprol XL] 25 mg PO BID 10/11/21 10/11/21 Previous Rx's Medication Instructions Recorded Clopidogrel [Plavix] 75 mg PO DAILY #30 tab 02/24/17 Allergies Allergy/AdvReac Type Severity Reaction Status Date / Time No Known Allergies Allergy Verified 10/11/21 13:20 Review of Systems ROS Statement: Those systems with pertinent positive or pertinent negative responses have been documented in the HPI. ROS Other: All systems not noted in ROS Statement are negative. Past Medical History Past Medical History: Coronary Artery Disease (CAD), Chest Pain / Angina, Diabetes Mellitus, GERD/Reflux, Hyperlipidemia, Hypertension, Myocardial Infarction (non Q-wave) Additional Past Medical History / Comment(s): Pt recently admitted to [facility] on 01/24/17 with SVT converted with adenosine. Other hx: Neuropathy bilateral feet, 2 MIs-2001 and 2014. Last Myocardial Infarction Date:: 07/25/14 History of Any Multi-Drug Resistant Organisms: None Reported Past Surgical History: AICD, Coronary Bypass/CABG, Heart Catheterization With Stent, Orthopedic Surgery, Tonsillectomy Additional Past Surgical History / Comment(s): PCI with stents 2001 and 2014, 3 vessel CABG in 2001, AICD 2001- batteries are depleted, pins in left ankle as a kid. Past Anesthesia/Blood Transfusion Reactions: No Reported Reaction Additional Past Anesthesia/Blood Transfusion Reaction / Comment(s): No previous history of blood transfusions Date of Last Stent Placement:: 2014 Type of Cardiac Device: AICD Device Placement Date:: 2001- states batteries are depleted. Past Psychological History: No Psychological Hx Reported Smoking Status: Former smoker Past Alcohol Use History: None Reported Past Drug Use History: None Reported - Past Family History Mother History Unknown: Yes Family Medical History: Diabetes Mellitus Additional Family Medical History / Comment(s): Mother at 78yrs Father Family Medical History: Coronary Artery Disease (CAD), Myocardial Infarction (MD) Additional Family Medical History / Comment(s): Father had a MD in his early 50's. He of CAD at 75yrs. General Exam Limitations: no limitations General appearance: alert, in no apparent distress Head exam: Present: atraumatic, normocephalic, normal inspection Eye exam: Present: normal appearance, PERRL, EOMI. Absent: scleral icterus, conjunctival injection, periorbital swelling ENT exam: Present: normal exam, normal oropharynx, mucous membranes moist Neck exam: Present: normal inspection, full ROM. Absent: tenderness, meningismus, lymphadenopathy Respiratory exam: Present: normal lung sounds bilaterally. Absent: respiratory distress, wheezes, rales, rhonchi, stridor Cardiovascular Exam: Present: regular rate, normal rhythm, normal heart sounds. Absent: systolic murmur, diastolic murmur, rubs, gallop, clicks GI/Abdominal exam: Present: soft, normal bowel sounds. Absent: distended, tenderness, guarding, rebound, rigid Extremities exam: Present: normal capillary refill. Absent: pedal edema, calf tenderness Skin exam: Present: warm, dry, intact, normal color. Absent: rash Course Vital Signs 10/11/21 12:32 Temperature 98 F Pulse Rate 60 Respiratory 16 Rate Blood Pressure 104/70 O2 Sat by Pulse 96 Oximetry Chest Pain MDM - MDM I discuss case with Dr. Duenas. Patient with cardiology evaluation, repeat troponins. Patient has a history of SVT, pacemaker defibrillator. Return if was interrogated. Patient will be admitted for cardiology evaluation. Disposition Clinical Impression: Chest pain, Palpitations, Dyspnea, Hx of supraventricular tachycardia Disposition: ADMITTED IP TO THIS HOSP Condition: Fair Referrals: Jovi Guillen MD [Primary Care Provider] - 1-2 days
[2021-10-11 14:01] LABS: Basophils % (A) 0 %; Eosinophils # (A) 0.2 k/uL (0-0.7); Eosinophils % (A) 2 %; HCT 53.6 % (39.0-53.0); HGB 18.2 gm/dL (13.0-17.5); Lymphocytes % (A) 21 %; MCH 30.8 pg (25.0-35.0); MCV 90.5 fL (80.0-100.0); Mean Platelet Volume 9.5; Monocytes % (A) 10 %; Neutrophils # (A) 6.3 k/uL (1.3-7.7); Neutrophils % (A) 65 %; Platelet Count 207 k/uL (150-450); RBC 5.93 m/uL (4.30-5.90); WBC 9.7 k/uL (3.8-10.6)
[2021-10-11 14:06] LABS: Albumin 3.9 g/dL (3.5-5.0); Calcium 9.2 mg/dL (8.4-10.2); Magnesium 1.9 mg/dL (1.6-2.3); Potassium 4.4 mmol/L (3.5-5.1); Total Bilirubin 2.9 mg/dL (0.2-1.3); Total Protein 6.5 g/dL (6.3-8.2)
--- NOTE | 2021-10-11 14:07 | XR ---
EXAMINATION TYPE: XR chest 2V DATE OF EXAM: 10/11/2021 COMPARISON: 08/10/2021 HISTORY: 66-year-old male with chest pain and shortness of breath TECHNIQUE: PA and lateral views FINDINGS: Left anterior chest wall ICD generator with right atrial right ventricular leads. Median sternotomy w ires and post-CABG clips in the mediastinum. Heart upper limits of normal in size. Mild hyperinflatio n with flattening of the hemidiaphragms. No consolidation or pleural effusion seen. IMPRESSION: Borderline heart size. COPD. Otherwise, no definite acute process.
[2021-10-11 14:16] LABS: INR 1.1 (<1.2); Partial Thromboplastin Time 26.6 sec (22.0-30.0); Prothrombin Time 11.9 sec (9.0-12.0)
[2021-10-11] MEDS ORDERED: NITROGLYCERIN SL TABS 0.4 MG TAB SUBLINGUAL PRN (14:21)
[2021-10-11] MEDS ORDERED: ASPIRIN 81 MG PO STA (14:21)
[2021-10-11 17:43] LABS: Glucose,Whole Blood 84 mg/dL (75-99)
--- NOTE | 2021-10-11 18:51 | HP ---
HISTORY AND PHYSICAL CHIEF COMPLAINT: Palpitations, chest pain, shortness of breath. HISTORY OF PRESENT ILLNESS: This is another admission for this 66-year-old white male who has a history of coronary artery disease and well-controlled type 2 diabetes mellitus. He had been doing very well until he came into the office recently stating that he was having a lot of trouble with exertional shortness of breath. He stated whenever he tried to get up and do something, his heart would start to race and he would have to sit down. He had an unremarkable EKG, but there was concern that he may be going into a tachyarrhythmia. It was recommended that he discuss all this with Cardiology. However, he came to the emergency room before he could see the semiconductor packages leak tester. He describes some anterior chest discomfort associated with this and some diaphoresis. In the emergency room, his troponin was normal. REVIEW OF SYSTEMS: Otherwise normal. He has not had any syncopal events, focal neurologic problems, etc. He has had no nausea, vomiting, GI issues, problems, etc. Blood sugar has been under good control. Past medical history, family history, and personal and social histories reveal that he is NOT ALLERGICTO ANY MEDICATION. He is on metoprolol succinate 50 mg once a day, atorvastatin 80 mg once a day, pantoprazole 40 mg once a day, ezetimibe 10 mg once a day, lisinopril 2.5 once a day, metformin 500 mg twice a day, Ozempic 0.5 once a week, Farxiga 10 mg once a day, 81 mg of aspirin, and Plavix 75 mg once a day. He does not drink or smoke. He is an active sportsman. PHYSICAL EXAMINATION: Blood pressure is 142/80 with a pulse of 80 and regular, respirations of 18, and he is afebrile. In general he appeared to be well developed, well nourished, in no acute distress. Skin color was normal. Skin was warm and dry. Lymph nodes were not enlarged. Head, ears, eyes, nose, mouth and throat were normal. Neck veins were not distended. Thyroid was not enlarged. Chest was clear. Cardiac exam demonstrated sinus rhythm and no murmurs or extra sounds. Abdomen was soft, nontender. Extremities were normal. Neurologically he was intact. He is admitted to the hospital with the diagnoses: 1. Chest pain. 2. Shortness of breath. 3. Coronary artery disease. 4. Type 2 hwo-slgduyv-lancukufk diabetes mellitus. 5. Probable tachyarrhythmia with congestive heart failure. PLAN: 1. Bedrest. 2. IV fluids. 3. Serial EKGs and enzymes. 4. Telemetry. 5. D-dimer. 6. BNP. 7. Cardiology consult. HERON / PHYLLIS: [id number] /
[2021-10-11 20:11] LABS: Glucose,Whole Blood 134 mg/dL (75-99)
[2021-10-11] MEDS: INSULIN ASPART (NovoLOG) 100 UNIT/ML VIAL SQ SCH (20:33)
[2021-10-12 06:03] LABS: Glucose,Whole Blood 111 mg/dL (75-99)
[2021-10-12] MEDS: INSULIN ASPART (NovoLOG) 100 UNIT/ML VIAL SQ SCH ×4 (06:08→20:00)
--- NOTE | 2021-10-12 07:25 | ECHOF ---
Referral Reason:chest pain MEASUREMENTS -------- HEIGHT: 175.3 cm WEIGHT: 80.7 kg BP: 104/70 RVIDd: 4.0 cm (< 3.3) IVSd: 1.7 cm (0.6 - 1.1) LVIDd: 5.9 cm (3.9 - 5.3) LVPWd: 1.7 cm (0.6 - 1.1) IVSs: 2.3 cm LVIDs: 5.0 cm LVPWs: 1.7 cm LAESV Index (A-L): 41.43 ml/m Ao Diam: 4.8 cm (2.0 - 3.7) AV Cusp: 1.8 cm (1.5 - 2.6) LA Diam: 4.3 cm (2.7 - 3.8) MV EXCURSION: 16.432 mm (> 18.000) MV EF SLOPE: 89 mm/s (70 - 150) EPSS: 1.6 cm MV E Dionicio: 0.80 m/s MV DecT: 250 ms MV A Dionicio: 0.76 m/s MV E/A Ratio: 1.05 AV maxP.43 mmHg AV meanP.40 mmHg AR PHT: 631 ms RAP: 5.00 mmHg RVSP: 16.67 mmHg FINDINGS -------- Sinus rhythm. This was a technically adequate study. The left ventricular size is normal. There is moderate concentric left ventricular hypertrophy. O verall left ventricular systolic function is severely impaired with, an EF between 25 - 30 %. Globa l hypokinesis The right ventricle is moderately enlarged. LA is severely dilated >40 ml/m2 The right atrial size is normal. Electronic pacemaker lead seen in the right atrial cavity. Interatrial and interventricular septum intact. There is mild aortic regurgitation. There is mild aortic stenosis present. The maximum velocity a cross the aortic valve is 2.51m/s. Peak/mean gradient across the Aortic Valve is 25.43mmHg / 16.40m mHg. Mild mitral regurgitation is present. Mild tricuspid regurgitation present. There is no evidence of pulmonary hypertension. The right v entricular systolic pressure, as measured by Doppler, is 16.67mmHg. There is no pulmonic regurgitation present. The aortic root size is normal. Normal inferior vena cava with normal inspiratory collapse consistent with estimated right atrial pre ssure of 5 mmHg. There is no pericardial effusion. CONCLUSIONS -------- 1. The left ventricular size is normal. 2. There is moderate concentric left ventricular hypertrophy. 3. Overall left ventricular systolic function is severely impaired with, an EF between 25 - 30 %. 4. Global hypokinesis 5. The right ventricle is moderately enlarged. 6. LA is severely dilated >40 ml/m2 7. There is mild aortic regurgitation. 8. There is mild aortic stenosis present. 9. The maximum velocity across the aortic valve is 2.51m/s. 10. Peak/mean gradient across the Aortic Valve is 25.43mmHg / 16.40mmHg. 11. Mild mitral regurgitation is present. 12. Mild tricuspid regurgitation present. INSIGHTS STRATEGIST: Latasha Waite RDCS
[2021-10-12] MEDS ORDERED: ASPIRIN 325 MG TAB PO SCH (09:00)
[2021-10-12] MEDS ORDERED: METOPROLOL SUCCINATE (ER) 25 MG TAB.ER.24H PO SCH (09:00)
[2021-10-12] MEDS ORDERED: GLIMEPIRIDE 4 MG TAB PO SCH (09:00)
--- NOTE | 2021-10-12 09:24 | P.CRDCN ---
History of Present Illness Consult date: 10/12/21 History of present illness: HISTORY OF PRESENT ILLNESS: This is a 66-year-old male with a past medical history significant for coronary artery disease with CABG and previous stenting, ischemic cardiomyopathy, AICD implantation, SVT, hypertension, hyperlipidemia,. Patient follows in the office with Dr. Sabillon. We have been asked to see the patient in consultation for chest pain. Patient examined at the bedside. Patient states he has been feeling short of breath since May. He believes he had Covid at that time but never got tested. He states over the past few days he had increasing shortness of breath. He also states yesterday he had palpitations. He denies having any chest pain. He states that his palpitations resolved by the time he came to the emergency room. He does report some burning in his chest this morning. . * EKG reveals paced rhythm with left bundle-branch block * Chest xray borderline heart size. COPD. Otherwise no definite acute process. * Laboratory data: WBC 9.7. Hemoglobin 18.2. Platelet count 207. D-dimer 0.18. Sodium 136. Potassium 4.4. BUN 29. Creatinine 1.19. Troponin 0.067. 0.063. 0.060. proBNP 2510. * Current home cardiac medications include aspirin 162 mg daily, Lipitor 80 mg daily, Plavix 75 mg daily, Zetia 10 mg daily, metoprolol to succinate 75 mg twice a day * Echocardiogram completed revealing ejection fraction 25-30%, global hypokinesis, mild aortic regurgitation, mild aortic stenosis, mild MR, and mild TR * Cardiac catheterization history: 2017 left main coronary artery is normal and patent. LAD is totally occluded in its proximal portion. Circumflex coronary artery is a good caliber blood vessel, is dominant distribution and gives rise to a good size small PLV and PDA branch. Circumflex complex coronary artery is patent in its mid and distal portion at the site of prior stent placement. PLV branch is mildly diffuse disease. GRAHAM to LAD is patent. Medical management was recommended. REVIEW OF SYSTEMS: At the time of my exam: CONSTITUTIONAL: Denies fever or chills. HEENT: Denies blurred vision, vision changes, or eye pain. Denies hemoptysis CARDIOVASCULAR: Denies chest pain. Denies orthopnea. Denies PND. Denies palpitations RESPIRATORY: Denies shortness of breath. GASTROINTESTINAL: Denies abdominal pain. Denies nausea or vomiting. HEMATOLOGIC: Denies bleeding disorders. GENITOURINARY: Denies any blood in urine. SKIN: Denies pruitis. Denies rash. PHYSICAL EXAM: VITAL SIGNS: Reviewed. GENERAL: Well-developed in no acute distress. HEENT: Head is normocephalic. Pupils are equal, round. Sclerae anicteric. Mucous membranes of the mouth are moist. Neck supple. No JVD or thyromegaly LUNGS: Respirations even and unlabored. Lungs essentially clear to auscultation bilaterally. HEART: Regular rate and rhythm. S1 and S2 heard. ABDOMEN: Soft. Nondistended. Nontender. EXTREMITIES: Normal range of motion. No clubbing or cyanosis. Peripheral pulses intact. No lower extremity edema NEUROLOGIC: Awake and alert. Oriented x 3. ASSESSMENT: Shortness of breath, acute on chronic Coronary artery disease with previous CABG and stenting Ischemic cardiomyopathy History of AICD implantation History of SVT Hypertension Hyperlipidemia PLAN: AICD was interrogated with no evidence of SVT Resume home cardiac medications 2-D echo obtained and reviewed Further recommendations pending evaluation by Dr. Jara. Possible stress test versus cardiac catheterization Nurse practitioner note has been reviewed by physician. Signing provider agrees with the documented findings, assessment, and plan of care. Past Medical History Past Medical History: Coronary Artery Disease (CAD), Chest Pain / Angina, Diabetes Mellitus, GERD/Reflux, Hyperlipidemia, Hypertension, Myocardial Infarction (non Q-wave) Additional Past Medical History / Comment(s): Pt recently admitted to [facility] on 01/24/17 with SVT converted with adenosine. Other hx: Neuropathy bilateral feet, 2 MIs-2001 and 2014. Last Myocardial Infarction Date:: 07/25/14 History of Any Multi-Drug Resistant Organisms: None Reported Past Surgical History: AICD, Coronary Bypass/CABG, Heart Catheterization With Stent, Orthopedic Surgery, Tonsillectomy Additional Past Surgical History / Comment(s): PCI with stents 2001 and 2014, 3 vessel CABG in 2001, AICD 2001-, pins in left ankle as a kid. Past Anesthesia/Blood Transfusion Reactions: No Reported Reaction Additional Past Anesthesia/Blood Transfusion Reaction / Comment(s): No previous history of blood transfusions Date of Last Stent Placement:: 2014 Type of Cardiac Device: AICD Device Placement Date:: 2001- Smoking Status: Former smoker - Past Family History Mother History Unknown: Yes Family Medical History: Diabetes Mellitus Additional Family Medical History / Comment(s): Mother at 78yrs Father Family Medical History: Coronary Artery Disease (CAD), Myocardial Infarction (AL) Additional Family Medical History / Comment(s): Father had a AL in his early 50's. He of CAD at 75yrs. Medications and Allergies Home Medications Medication Instructions Recorded Confirmed Type Aspirin 162 mg PO DAILY 01/24/17 10/11/21 History Atorvastatin [Lipitor] 80 mg PO DAILY 01/24/17 10/11/21 History Clopidogrel [Plavix] 75 mg PO DAILY #30 tab 02/24/17 10/11/21 Rx Ezetimibe [Zetia] 10 mg PO DAILY 08/10/21 10/11/21 History Glimepiride [Amaryl] 8 mg PO BID 08/10/21 10/11/21 History Pantoprazole [Protonix] 40 mg PO DAILY 08/10/21 10/11/21 History lisinopriL 2.5 mg PO DAILY 08/10/21 10/11/21 History metFORMIN HCL [Glucophage] 500 mg PO BID 08/10/21 10/11/21 History Metoprolol Succinate (ER) [Toprol 50 mg PO BID 10/11/21 10/11/21 History XL] Metoprolol Succinate [Toprol XL] 25 mg PO BID 10/11/21 10/11/21 History Allergies Allergy/AdvReac Type Severity Reaction Status Date / Time No Known Allergies Allergy Verified 10/11/21 13:20 Physical Exam Vitals: Vital Signs Temp Pulse Pulse Resp BP BP Pulse Ox 10/12/21 07:59 97.8 F 64 20 118/79 98 10/12/21 03:35 98.1 F 65 16 142/89 97 10/11/21 23:22 97.8 F 61 16 98/62 97 10/11/21 20:00 97.6 F 62 18 112/67 96 10/11/21 17:11 72 18 112/66 98 10/11/21 15:30 70 16 108/65 96 10/11/21 13:30 68 16 111/70 96 10/11/21 12:32 98 F 60 16 104/70 96 Intake and Output 10/11/21 10/12/21 10/12/21 22:59 06:59 14:59 Intake Total 360 Balance 360 Intake: Oral 360 Other: Voiding Method Toilet Toilet # Voids 1 1 Weight 80.739 kg Results 10/11/21 13:38 10/11/21 13:38 Cardiac Enzymes 10/11/21 10/11/21 10/11/21 Range/Units 13:38 13:38 16:58 AST 28 (17-59) U/L Troponin I 0.067 H* 0.063 H* (0.000-0.034) ng/mL 10/11/21 Range/Units 20:22 AST (17-59) U/L Troponin I 0.060 H* (0.000-0.034) ng/mL Coagulation 10/11/21 Range/Units 13:38 PT 11.9 (9.0-12.0) sec APTT 26.6 (22.0-30.0) sec CBC 10/11/21 Range/Units 13:38 WBC 9.7 (3.8-10.6) k/uL RBC 5.93 H (4.30-5.90) m/uL Hgb 18.2 H (13.0-17.5) gm/dL Hct 53.6 H (39.0-53.0) % Plt Count 207 (150-450) k/uL Comprehensive Metabolic Panel 10/11/21 Range/Units 13:38 Sodium 136 L (137-145) mmol/L Potassium 4.4 (3.5-5.1) mmol/L Chloride 103 (98-107) mmol/L Carbon Dioxide 20 L (22-30) mmol/L BUN 29 H (9-20) mg/dL Creatinine 1.19 (0.66-1.25) mg/dL Glucose 212 H (74-99) mg/dL Calcium 9.2 (8.4-10.2) mg/dL AST 28 (17-59) U/L ALT 26 (4-49) U/L Alkaline Phosphatase 78 (38-126) U/L Total Protein 6.5 (6.3-8.2) g/dL Albumin 3.9 (3.5-5.0) g/dL Current Medications Generic Name Dose Route Start Last Admin Trade Name Freq PRN Reason Stop Dose Admin Aspirin 162 mg 10/12/21 09:00 Aspirin 81 Mg PO DAILY [facility] Atorvastatin Calcium 80 mg 10/12/21 09:00 Atorvastatin 80 Mg Tab PO DAILY [facility] Clopidogrel Bisulfate 75 mg 10/12/21 09:00 Clopidogrel 75 Mg Tab PO DAILY [facility] Ezetimibe 10 mg 10/12/21 09:00 Ezetimibe 10 Mg Tab PO DAILY [facility] Glimepiride 8 mg 10/12/21 09:00 Glimepiride 4 Mg Tab PO DAILY [facility] Insulin Aspart 0 unit 10/11/21 21:00 10/12/21 06:08 Insulin Aspart (Novolog) 100 Unit/Ml Vial SQ Not Given ACHS [facility] Protocol Lisinopril 2.5 mg 10/12/21 09:00 Lisinopril 2.5 Mg Tab PO DAILY [facility] Metoprolol Succinate 25 mg 10/12/21 09:00 Metoprolol Succinate (Er) 25 Mg Tab.Er.24h PO DAILY [facility] Nitroglycerin 0.4 mg 10/11/21 14:21 Nitroglycerin Sl Tabs 0.4 Mg Tab SUBLINGUAL Q5M PRN Chest Pain Pantoprazole Sodium 40 mg 10/12/21 09:00 Pantoprazole 40 Mg Tablet PO DAILY [facility] Intake and Output 10/11/21 10/12/21 10/12/21 22:59 06:59 14:59 Intake Total 360 Balance 360 Intake: Oral 360 Other: Voiding Method Toilet Toilet # Voids 1 1 Weight 80.739 kg 10/11/21 13:38 10/11/21 13:38
[2021-10-12] MEDS: CLOPIDOGREL 75 MG TAB PO SCH (09:44)
[2021-10-12] MEDS: PANTOPRAZOLE 40 MG TABLET PO SCH (09:44)
[2021-10-12] MEDS: EZETIMIBE 10 MG TAB PO SCH (09:44)
[2021-10-12] MEDS: ASPIRIN 81 MG PO SCH (09:44)
[2021-10-12] MEDS: ATORVASTATIN 80 MG TAB PO SCH (09:44)
[2021-10-12] MEDS: METOPROLOL SUCCINATE (ER) 25 MG TAB.ER.24H PO SCH (09:44)
[2021-10-12] MEDS ORDERED: ADENOSINE 3 MG/ML 2 ML VIAL IVP STA ×2 (09:52→10:04)
[2021-10-12] MEDS ORDERED: ADENOSINE 3 MG/ML 2 ML VIAL IVP ONE (09:52)
[2021-10-12] MEDS ORDERED: AMIODARONE 360 MG in DEXTROSE 5% IN WATER 200 ML IV ONE ×2 (10:21)
[2021-10-12] MEDS ORDERED: DEXTROSE 5% IN WATER 100 ML with AMIODARONE 150 MG IV ONE (10:21)
[2021-10-12 10:44] LABS: African American GFR (CKD) 72 (>60 ml/min/1.73 sqM); Anion Gap 11 mmol/L; Blood Urea Nitrogen 26 mg/dL (9-20); Calcium 9.3 mg/dL (8.4-10.2); Carbon Dioxide 25 mmol/L (22-30); Chloride 103 mmol/L (98-107); Glucose 127 mg/dL (74-99); Non-African American GFR(CKD) 62 (>60 ml/min/1.73 sqM); Potassium 4.5 mmol/L (3.5-5.1); Sodium 139 mmol/L (137-145)
[2021-10-12 11:36] LABS: Glucose,Whole Blood 158 mg/dL (75-99)
[2021-10-12] MEDS ORDERED: ALPRAZolam 0.25 MG TAB PO PRN (11:50)
[2021-10-12] MEDS ORDERED: ATORVASTATIN 80 MG TAB PO STA (11:50)
[2021-10-12] MEDS ORDERED: ASPIRIN 325 MG TAB PO STA (11:50)
[2021-10-12] MEDS ORDERED: NITROGLYCERIN SL TABS 0.4 MG TAB SUBLINGUAL PRN (11:50)
[2021-10-12] MEDS ORDERED: ALPRAZolam 0.5 MG TAB PO PRN (11:50)
[2021-10-12] MEDS ORDERED: HEPARIN SODIUM 1,000 UN/ML (10ML VL) ONE (12:36)
[2021-10-12] MEDS ORDERED: VERAPAMIL 2.5 MG/ML 2 ML AMP ONE (12:36)
[2021-10-12] MEDS ORDERED: LIDOCAINE 1% INJ 10MG/ML (20 ML MDV) ONE (12:36)
[2021-10-12] MEDS ORDERED: IV FLUID CONTINUATION 900 ML IV ONE (12:58)
[2021-10-12] MEDS ORDERED: MIDAZOLAM 2 MG/2 ML VIAL IVP ONE (13:00)
[2021-10-12] MEDS ORDERED: LIDOCAINE 1% INJ 10MG/ML (20 ML MDV) SQ ONE (13:03)
[2021-10-12] MEDS ORDERED: IOPAMIDOL-370 125ML BTL INJ ONE ×2 (13:18)
--- NOTE | 2021-10-12 13:35 | P.PCN ---
Date of Procedure: 10/12/21 Operative Findings: CARDIAC CATHETERIZATION PERFORMING PHYSICIAN: Gabo Sabillon MD, RPVI PROCEDURE PERFORMED: 1. Selective right and left coronary angiogram 2. GRAHAM into LAD angiogram 3. Right common femoral artery angiogram 4. Left heart catheterization INDICATION: This is a 66-year-old gentleman was known CAD and prior CABG as well as a stenting with the last heart catheterization in 2017 showing severe triple- vessel CAD with patent GRAHAM into LAD and severe disease involving and protected left circumflex as well as chronic total occlusion of the RCA. He underwent at that point successful stenting of the LCx. He is also known to have severe cardiomyopathy and status post AICD. Distally he presented to the hospital with shortness of breath as well as palpitation and he did have an episode of sustained V. tach. COMPLICATION: None APPROACH: Right common femoral artery LEVEL OF SEDATION: Moderate with sedation length of 16 minutes PROCEDURE DESCRIPTION: After obtaining an informed consent, the patient was brought to cardiac analytical lab analyst. Local anesthesia was performed using lidocaine subcutaneously. The right common femoral artery was cannulated using Seldinger technique, the guidewire passed easily, following that we advanced a 6 Australian sheath dilator assembly, the wire and dilator were removed and sheath was flushed. Selective right and left coronary angiogram using a 6-Australian JR4 and JL catheters. The GRAHAM into LAD angiogram was performed using JR4 catheter Following that we did left heart catheterization using 6-Australian pigtail cat heter. The procedure was completed there was no complication. SELECTIVE CORONARY ANGIOGRAM: The right coronary artery: Is a large caliber vessel and codominant vessel. The RCA is chronically occluded in the midportion Left main: The ostial left main is diseased in the range of 30-40%. The left main bifurcates into occluded LAD and the left circumflex coronary artery The left circumflex: The ostial circumflex has a lesion appeared to be in the range of 30-40%. The proximal circumflex is a stented and the stent is patent. The circumflex distally appears to have mild disease only The left anterior descending artery: The proximal LAD is occluded. The mid LAD is patent with flow from The GRAHAM the GRAHAM into LAD is patent HEMODYNAMICS: The LVEDP was 12 mmHg with peak to peak gradient of 30 mmHg across aortic valve CONCLUSION: 1. Occluded LAD. The GRAHAM to LAD is patent 2. Intermediate lesion involving the left circumflex appears to be unchanged compared to before. Patent stent in the proximal left circumflex 3. Chronic total occlusion of the RCA which is a known finding from before as well 4. Normal left sided filling pressure 5. Peak to peak gradient across aortic valve of 30 mmHg POSTPROCEDURE MANAGEMENT: Consider medical treatment at this point in the light off no new finding and in the absence of any high-grade stenosis. Consider starting the patient on mexiletine
[2021-10-12] MEDS: SODIUM CHLORIDE 0.9% 1,000 ML in EMPTY BAG 1 BAG IV SCH ×2 (15:42→22:11)
[2021-10-12] MEDS ORDERED: AMIODARONE 450 MG in DEXTROSE 5% IN WATER 250 ML IV SCH ×2 (16:30)
[2021-10-12 16:44] LABS: Glucose,Whole Blood 208 mg/dL (75-99)
--- NOTE | 2021-10-12 17:44 | PN ---
PROGRESS NOTE DATE OF SERVICE: 10/12/2021 CHIEF COMPLAINT: Exertional shortness of breath and chest discomfort. HISTORY OF PRESENT ILLNESS: This gentleman is feeling fairly well. He is not having any chest pain. He did have a slight rise in one troponin. He only complains of extreme fatigue when he walks even only a short distance, which is associated with palpitations. He is being evaluated by Cardiology. PHYSICAL EXAMINATION: His chest is clear. His cardiac exam reveals a grade 1 to 2 murmur, but it sounds like he is in sinus or paced rhythm. Abdomen is soft, nontender. IMPRESSION: 1. Extreme exertional shortness of breath and weakness. 2. Coronary artery disease. 3. Diabetes. PLAN: Await further recommendations from Cardiology after they evaluate his pacemaker. HERON / MAGALIN: [id number] /
[2021-10-12 19:50] LABS: Glucose,Whole Blood 143 mg/dL (75-99)
[2021-10-12] MEDS: GLIMEPIRIDE 4 MG TAB PO SCH (20:00)
[2021-10-13 05:15] LABS: Glucose,Whole Blood 126 mg/dL (75-99)
[2021-10-13] MEDS: INSULIN ASPART (NovoLOG) 100 UNIT/ML VIAL SQ SCH ×2 (06:05→12:38)
[2021-10-13] MEDS ORDERED: HEPARIN SODIUM,PORCINE 2,500 UNIT in SODIUM CHLORIDE 0.9% 250 ML IRRIGATION PRN (07:00)
[2021-10-13] MEDS ORDERED: HEPARIN SODIUM,PORCINE 10,000 UNIT in SODIUM CHLORIDE 0.9% 1,000 ML IRRIGATION PRN (07:00)
[2021-10-13] MEDS: PANTOPRAZOLE 40 MG TABLET PO SCH (08:13)
[2021-10-13] MEDS: ASPIRIN 81 MG PO SCH (08:13)
[2021-10-13] MEDS: GLIMEPIRIDE 4 MG TAB PO SCH (08:13)
[2021-10-13] MEDS: EZETIMIBE 10 MG TAB PO SCH (08:13)
[2021-10-13] MEDS: ATORVASTATIN 80 MG TAB PO SCH (08:14)
[2021-10-13] MEDS: CLOPIDOGREL 75 MG TAB PO SCH (08:14)
[2021-10-13] MEDS: AMIODARONE 200 MG TAB PO SCH ×2 (08:14→15:38)
[2021-10-13] MEDS: METOPROLOL SUCCINATE (ER) 25 MG TAB.ER.24H PO SCH (08:14)
[2021-10-13 09:25] VITALS: PULSE 60; RESP 20
[2021-10-13 11:40] LABS: Glucose,Whole Blood 184 mg/dL (75-99)
[2021-10-13 13:17] VITALS: BP 111/77; TEMP 98.3
--- NOTE | 2021-10-13 14:39 | P.PN ---
Subjective HISTORY OF PRESENT ILLNESS: This is a 66-year-old male with a past medical history significant for coronary artery disease with CABG and previous stenting, ischemic cardiomyopathy, AICD implantation, SVT, hypertension, hyperlipidemia,. Patient follows in the office with Dr. Sabillon. We have been asked to see the patient in consultation for chest pain. Patient examined at the bedside. Patient states he has been feeling short of breath since May. He believes he had Covid at that time but never got tested. He states over the past few days he had increasing shortness of breath. He also states yesterday he had palpitations. He denies having any chest pain. He states that his palpitations resolved by the time he came to the emergency room. He does report some burning in his chest this morning. . * EKG reveals paced rhythm with left bundle-branch block * Chest xray borderline heart size. COPD. Otherwise no definite acute process. * Laboratory data: WBC 9.7. Hemoglobin 18.2. Platelet count 207. D-dimer 0.18. Sodium 136. Potassium 4.4. BUN 29. Creatinine 1.19. Troponin 0.067. 0.063. 0.060. proBNP 2510. * Current home cardiac medications include aspirin 162 mg daily, Lipitor 80 mg daily, Plavix 75 mg daily, Zetia 10 mg daily, metoprolol to succinate 75 mg twice a day * Echocardiogram completed revealing ejection fraction 25-30%, global hypokinesis, mild aortic regurgitation, mild aortic stenosis, mild MR, and mild TR * Cardiac catheterization history: 2017 left main coronary artery is normal and patent. LAD is totally occluded in its proximal portion. Circumflex coronary artery is a good caliber blood vessel, is dominant distribution and gives rise to a good size small PLV and PDA branch. Circumflex complex coronary artery is patent in its mid and distal portion at the site of prior stent placement. PLV branch is mildly diffuse disease. GRAHAM to LAD is patent. Medical management was recommended. 10/13 Patient underwent heart catheterization yesterday which showed occluded LAD similar to before with patent GRAHAM to LAD, moderate lesion in the circumflex unchanged from prior and STOVE REFINISHER of the RCA which has been a chronic finding in the past with normal left-sided filling pressures and a peak to peak gradient across the aortic valve of 30 mmHg. No further episodes of VT noted on telemetry. Patient was switched over to oral amiodarone and has been tolerating well. No bleeding from catheterization site. Echo shows continued cardiomyopathy EF 25% with mild aortic stenosis. PHYSICAL EXAM: VITAL SIGNS: Reviewed. GENERAL: Well-developed in no acute distress. HEENT: Head is normocephalic. Pupils are equal, round. Sclerae anicteric. Mucous membranes of the mouth are moist. Neck supple. No JVD or thyromegaly LUNGS: Respirations even and unlabored. Lungs essentially clear to auscultation bilaterally. HEART: Regular rate and rhythm. S1 and S2 heard. ABDOMEN: Soft. Nondistended. Nontender. EXTREMITIES: Normal range of motion. No clubbing or cyanosis. Peripheral pulses intact. No lower extremity edema NEUROLOGIC: Awake and alert. Oriented x 3. ASSESSMENT: Shortness of breath, acute on chronic Coronary artery disease with previous CABG and stenting Ischemic cardiomyopathy History of AICD implantation Sustained VT with recent symptoms consistent with VT Hypertension Hyperlipidemia PLAN: Patient's main presentation has been off and on episodes of palpitations, chest pain related to ventricular tachycardia with episode while in the hospital similar to prior consistent with EKG with wide-complex rhythm consistent with monomorphic ventricular tachycardia. Cardiac catheterization performed which shows unchanged CAD and ventricular tachycardia appears most likely related to old myocardial infarction and scar. He has been stable on amiodarone with no further episodes. Appears stable for discharge home with outpatient follow-up. He is scheduled for device check on Friday and we will make adjustments in terms of ventricular tachycardia zone and therapies. Stable for discharge home on amiodarone. Objective - Vital Signs Vital signs: Vital Signs Temp 98.3 F 10/13/21 12:00 Pulse 60 10/13/21 12:00 Resp 20 10/13/21 12:00 BP 111/77 10/13/21 12:00 Pulse Ox 98 10/13/21 12:00 Intake & Output 10/12/21 10/13/21 10/13/21 18:59 06:59 18:59 Intake Total 460 240 Output Total 500 Balance -40 240 Intake: IV 100 Oral 360 240 Output: Urine 500 Other: Voiding Method Toilet # Voids 1 - Labs CBC & Chem 7: 10/11/21 13:38 10/12/21 09:17 Labs: Abnormal Lab Results - Last 24 Hours (Table) 10/12/21 10/12/21 10/12/21 Range/Units 09:17 09:17 16:38 POC Glucose (mg/dL) 208 H (75-99) mg/dL Hemoglobin A1c 7.6 H (0.0-6.0) % HDL Cholesterol 37.00 L (40.00-60.00) mg/dL 10/12/21 10/13/21 10/13/21 Range/Units 19:49 05:14 11:38 POC Glucose (mg/dL) 143 H 126 H 184 H (75-99) mg/dL Hemoglobin A1c (0.0-6.0) % HDL Cholesterol (40.00-60.00) mg/dL
--- NOTE | 2021-10-13 18:40 | DS ---
DISCHARGE SUMMARY CHIEF COMPLAINT: Exertional shortness of breath and palpitations. HISTORY OF PRESENT ILLNESS AND PHYSICAL EXAMINATION: Details of this man's history and physical can be found in the initial workup. LABORATORY STUDIES: While he was in the hospital he had laboratory studies, details of which can be found in the laboratory section of his chart. COURSE IN THE HOSPITAL: After admission he was placed on bedrest, started on intravenous fluids and telemetry. He was seen and followed by Cardiology. It was felt that he may be experiencing tachyarrhythmias, and he was started on amiodarone. He seemed to feel better on that management, and Cardiology felt that he could be discharged on October 13. He will go home on his usual activity, diet and medications along with the amiodarone. He will be seen in the office in a day or two. FINAL DIAGNOSIS: 1. Exertional dyspnea and tachycardia. 2. Episodic supraventricular tachycardia. 3. Coronary artery disease. 4. Diabetes mellitus. OPERATIONS: None. CONSULTATION: Cardiology. He is improved. MMODL / IJN: [id number] /
== END 2021-10-13 16:19 | disposition home or self-care (01) ==
LOC: EC 12:18 → 3SCARD 14:21 → OBSVTOIN 10-12 11:02 → INTOOBSV 10-12 11:02 → UNDODISIN 10-13 16:19
PROVIDERS: ADMIT Family Medicine; ATTEND Family Medicine
PROC: 4B02XTZ Measurement of Cardiac Defibrillator, External Approach (ICD-10-PCS; 2021-10-11)
PROC: B2131ZZ Fluoroscopy of Multiple Coronary Artery Bypass Grafts using Low Osmolar Contrast (ICD-10-PCS; principal; 2021-10-12 12:41)
PROC: B2111ZZ Fluoroscopy of Multiple Coronary Arteries using Low Osmolar Contrast (ICD-10-PCS; principal; 2021-10-12 12:41)
PROC: 4A023N7 Measurement of Cardiac Sampling and Pressure, Left Heart, Percutaneous Approach (ICD-10-PCS; principal; 2021-10-12 12:41)
DX: R07.89 Other chest pain (principal); I47.1 Supraventricular tachycardia; I47.2 Ventricular tachycardia; I25.5 Ischemic cardiomyopathy; J44.9 Chronic obstructive pulmonary disease, unspecified; I25.10 Atherosclerotic heart disease of native coronary artery without angina pectoris; I25.82 Chronic total occlusion of coronary artery; I11.9 Hypertensive heart disease without heart failure; I08.3 Combined rheumatic disorders of mitral, aortic and tricuspid valves; I44.7 Left bundle-branch block, unspecified; I25.2 Old myocardial infarction; E78.5 Hyperlipidemia, unspecified; E11.42 Type 2 diabetes mellitus with diabetic polyneuropathy; Z79.02 Long term (current) use of antithrombotics/antiplatelets; Z79.82 Long term (current) use of aspirin; Z79.84 Long term (current) use of oral hypoglycemic drugs; Z79.899 Other long term (current) drug therapy; Z95.1 Presence of aortocoronary bypass graft; Z95.5 Presence of coronary angioplasty implant and graft; Z95.810 Presence of automatic (implantable) cardiac defibrillator; Z98.890 Other specified postprocedural states; Z87.891 Personal history of nicotine dependence; Z83.3 Family history of diabetes mellitus; Z82.49 Family history of ischemic heart disease and other diseases of the circulatory system
CPT/HCPCS: 96374; 99285; 36415; 93005; 93306; 93459; 85379; 83880; 80061; 80053; 80048; 83735 ×2; 84484; 85025; 85610; 85730; 83036; 71046; G0378 ×3; C1887; C1894; C1769 ×2; J2250; J0282 ×2; J2001; J0153; Q9967

== ENCOUNTER 2022-05-28 16:37 | Emergency (ER) | payer MEDICARE ==
[2022-05-28 16:41] VITALS: TEMP 98.6
[2022-05-28 17:59] LABS: Basophils % (A) 0 %; Eosinophils # (A) 0.1 k/uL (0-0.7); Eosinophils % (A) 1 %; HCT 51.2 % (39.0-53.0); HGB 17.3 gm/dL (13.0-17.5); Lymphocytes # (A) 0.9 k/uL (1.0-4.8); Lymphocytes % (A) 8 %; MCHC 33.8 g/dL (31.0-37.0); MCV 88.8 fL (80.0-100.0); Mean Platelet Volume 9.4; Monocytes # (A) 0.8 k/uL (0-1.0); Monocytes % (A) 7 %; Neutrophils # (A) 8.7 k/uL (1.3-7.7); Neutrophils % (A) 82 %; Platelet Count 187 k/uL (150-450); RBC 5.77 m/uL (4.30-5.90); RDW 13.5 % (11.5-15.5); WBC 10.7 k/uL (3.8-10.6)
[2022-05-28 18:11] LABS: Albumin 4.6 g/dL (3.5-5.0); Calcium 9.8 mg/dL (8.4-10.2); Magnesium 1.9 mg/dL (1.6-2.3); Potassium 4.6 mmol/L (3.5-5.1); Total Bilirubin 1.6 mg/dL (0.2-1.3); Total Protein 7.2 g/dL (6.3-8.2)
[2022-05-28 18:19] LABS: INR 1.1 (<1.2); Partial Thromboplastin Time 24.8 sec (22.0-30.0); Prothrombin Time 11.9 sec (9.0-12.0)
--- NOTE | 2022-05-28 18:52 | XR ---
EXAMINATION TYPE: XR chest 1V portable DATE OF EXAM: 05/28/2022 6:13 PM COMPARISON: Chest radiographs from 10/11/2021 TECHNIQUE: XR chest 1V portable Portable AP radiograph of the chest. CLINICAL INDICATION:Male, 67 years old with history of chest pain; FINDINGS: Lungs/Pleura: There is no evidence of pleural effusion, focal consolidation, or pneumothorax. Pulmonary vascularity: Unremarkable. Heart/mediastinum: Cardiomediastinal silhouette is enlarged and stable. Atherosclerotic calcificatio ns are seen in the aorta. Two lead cardiac conduction device overlying the left hemithorax with lead tips projecting over the right ventricle and right atrium. Musculoskeletal: No acute osseous pathology. Midline sternotomy wires are noted. IMPRESSION: No acute cardiopulmonary disease/process.
--- NOTE | 2022-05-28 21:26 | ED ---
Chest Pain HPI - General Chief Complaint: Chest Pain Stated Complaint: MATILDA,Nausea Time Seen by Provider: 05/28/22 16:48 Source: patient Mode of arrival: ambulatory Limitations: no limitations - History of Present Illness Initial Comments: Patient has been having chest pain off and on. His symptoms haven't present for at least a year. Sometimes he gets short of breath. Currently he has no chest pain or pressure or tightness. He has no nausea or vomiting. He has no diaphoresis. He has no focal weakness. He has no dizziness. He has no sick contacts. He hasn't traveled anywhere. - Related Data Home Medications Medication Instructions Recorded Confirmed Aspirin 162 mg PO DAILY 01/24/17 05/28/22 Atorvastatin [Lipitor] 80 mg PO DAILY 01/24/17 05/28/22 Ezetimibe [Zetia] 10 mg PO DAILY 08/10/21 05/28/22 Glimepiride [Amaryl] 8 mg PO DAILY 08/10/21 05/28/22 Pantoprazole [Protonix] 40 mg PO DAILY 08/10/21 05/28/22 lisinopriL 2.5 mg PO DAILY 08/10/21 05/28/22 metFORMIN HCL [Glucophage] 1,000 mg PO DAILY 08/10/21 05/28/22 Metoprolol Succinate (ER) [Toprol 50 mg PO DAILY 10/11/21 05/28/22 XL] Amiodarone [Cordarone] 400 mg PO DAILY 05/28/22 05/28/22 Metoprolol Succinate (ER) [Toprol 25 mg PO DAILY 05/28/22 05/28/22 Xl] Previous Rx's Medication Instructions Recorded Clopidogrel [Plavix] 75 mg PO DAILY #30 tab 02/24/17 Allergies Allergy/AdvReac Type Severity Reaction Status Date / Time No Known Allergies Allergy Verified 05/28/22 17:45 Review of Systems ROS Statement: Those systems with pertinent positive or pertinent negative responses have been documented in the HPI. ROS Other: All systems not noted in ROS Statement are negative. EKG Findings - EKG Comments: EKG Findings:: Twelve-lead EKG shows ventricular rate 59 bpm, QRS complexes are wide, there is no ST elevation or depression, there are pacer spikes. This is interpreted by me as a atrial paced rhythm. Past Medical History Past Medical History: Coronary Artery Disease (CAD), Chest Pain / Angina, Diabetes Mellitus, GERD/Reflux, Hyperlipidemia, Hypertension, Myocardial Infarction (non Q-wave) Additional Past Medical History / Comment(s): Pt recently admitted to [facility] on 01/24/17 with SVT converted with adenosine. Other hx: Neuropathy bilateral feet, 2 MIs-2001 and 2014. Last Myocardial Infarction Date:: 07/25/14 History of Any Multi-Drug Resistant Organisms: None Reported Past Surgical History: AICD, Coronary Bypass/CABG, Heart Catheterization With Stent, Orthopedic Surgery, Tonsillectomy Additional Past Surgical History / Comment(s): PCI with stents 2001 and 2014, 3 vessel CABG in 2001, AICD 2001-, pins in left ankle as a kid. Past Anesthesia/Blood Transfusion Reactions: No Reported Reaction Additional Past Anesthesia/Blood Transfusion Reaction / Comment(s): No previous history of blood transfusions Date of Last Stent Placement:: 2014 Type of Cardiac Device: AICD Device Placement Date:: 2001- Past Psychological History: No Psychological Hx Reported Smoking Status: Former smoker Past Alcohol Use History: None Reported Past Drug Use History: None Reported - Past Family History Mother History Unknown: Yes Family Medical History: Diabetes Mellitus Additional Family Medical History / Comment(s): Mother at 78yrs Father Family Medical History: Coronary Artery Disease (CAD), Myocardial Infarction (MN) Additional Family Medical History / Comment(s): Father had a MN in his early 50's. He of CAD at 75yrs. General Exam Limitations: no limitations General appearance: alert, in no apparent distress Head exam: Present: atraumatic, normocephalic, normal inspection Eye exam: Present: normal appearance, PERRL, EOMI. Absent: scleral icterus, conjunctival injection, periorbital swelling ENT exam: Present: normal exam, mucous membranes moist Neck exam: Present: normal inspection. Absent: tenderness, meningismus, lymphadenopathy Respiratory exam: Present: normal lung sounds bilaterally. Absent: respiratory distress, wheezes, rales, rhonchi, stridor Cardiovascular Exam: Present: regular rate, normal rhythm, normal heart sounds. Absent: systolic murmur, diastolic murmur, rubs, gallop, clicks GI/Abdominal exam: Present: soft, normal bowel sounds. Absent: distended, tenderness, guarding, rebound, rigid Extremities exam: Present: normal inspection, full ROM, normal capillary refill. Absent: tenderness, pedal edema, joint swelling, calf tenderness Back exam: Present: normal inspection Neurological exam: Present: alert, oriented X3, CN II-XII intact Psychiatric exam: Present: normal affect, normal mood Skin exam: Present: warm, dry, intact, normal color. Absent: rash Course Vital Signs 05/28/22 05/28/22 05/28/22 16:38 17:07 18:51 Temperature 98.6 F Pulse Rate 83 65 Respiratory 20 16 18 Rate Blood Pressure 111/83 135/64 O2 Sat by Pulse 98 97 Oximetry Chest Pain MDM - Core Measures AMI Core Measures Followed: Yes - MDM Patient presents with chest pain. His laboratory studies show no acute abnormalities. 2 serial troponins are negative. Imaging is unremarkable. I can find no evidence of an emergency. 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 Disposition Clinical Impression: Chest pain Disposition: HOME SELF-CARE Condition: Good Instructions (If sedation given, give patient instructions): Chest Pain (ED) Is patient prescribed a controlled substance at d/c from ED?: No Referrals: Jovi Guillen MD [Primary Care Provider] - 1-2 days Gabo Sabillon MD [STAFF PHYSICIAN] - 1-2 days
[2022-05-28 21:55] VITALS: BP 130/80; PULSE 60; RESP 20
== END 2022-05-28 21:55 | disposition home or self-care (01) ==
LOC: EC 16:37
DX: R07.9 Chest pain, unspecified (principal); I11.9 Hypertensive heart disease without heart failure; I25.10 Atherosclerotic heart disease of native coronary artery without angina pectoris; E11.9 Type 2 diabetes mellitus without complications; K21.9 Gastro-esophageal reflux disease without esophagitis; I25.2 Old myocardial infarction; E78.5 Hyperlipidemia, unspecified; Z87.891 Personal history of nicotine dependence; Z79.02 Long term (current) use of antithrombotics/antiplatelets; Z79.84 Long term (current) use of oral hypoglycemic drugs; Z79.01 Long term (current) use of anticoagulants; Z79.899 Other long term (current) drug therapy
CPT/HCPCS: 36415; 71045; 80053; 83735; 83880; 84484; 85025; 85610; 85730; 93005; 99285

== ENCOUNTER → 2023-07-03 | Outpatient (CLI) | payer MEDICARE ==
[~2023-07-03] MED LIST: REGADENOSON 0.4 MG/5 ML SYRINGE IV PRN
--- NOTE | 2023-07-03 12:52 | CA ---
Lexiscan Nuclear Stress Test Report Name: Tito Mullins Exam Date: 07/03/2023 10:03 Exam Location: [place] Stress Ht (in): 69 Wt (lb): 163 BSA: 1.89 Ordering Phys: Andi Guillen MD Referring Phys: ANDI GUILLEN,, Technologist: KISHOR GLASGOW,, Age: 68 Gender: M : 1955 Procedure CPT: Indications: R06.02 SOB I10 HTN ICD-10 Codes: Patient History: Short of breath and hypertension Medications: Meds past 24 hrs: Pretest Chest Pain: STRESS TEST Lexiscan Protocol Exercise Duration (min:sec): 02:[address] Depressions (mm): Angina Score: Bass Score: Resting HR (bpm): 62 Peak HR (bpm): 69 Resting BP (mmHg): 123 / 92 Peak BP (mmHg): 118 / 83 MPHR: 154 Target HR: 131 % MPHR: 45 METS: 1.0 Total Dose: Peak Dose: Atropine: Double Product: 8142 BP Response: Stress Termination: Infusion complete Stress Symptoms: No chest pain or symptoms Stress Summary: ECG ANALYSIS Resting ECG: Atrial paced. Left bundle branch block. Stress ECG: No ECG changes from baseline with Lexiscan infusion. CONCLUSIONS No ECG evidence of ischemia with Lexiscan infusion. Nuclear test results to follow. Dr. Cassidy De La Rosa MD (Electronically Signed) Final Date: 03 July 2023 12:51
--- NOTE | 2023-07-03 20:38 | NM ---
EXAMINATION TYPE: NM stress lexiscan cardiolite DATE OF EXAM: 07/03/2023 COMPARISON: NONE CLINICAL INDICATION: Male, 68 years old with history of R06.02 SOB I10 HTN; TECHNIQUE: After the intravenous administration of 9.34 mCi Tc 99m Sestamibi - Cardiolite resting SP ECT images acquired 40 minutes post injection. The patient received 0.4mg Lexiscan, 25.5 mCi Tc 99m Sestamibi - Stress images obtained [address] injection FINDINGS: Review of stress and rest SPECT images demonstrates large areas of fixed perfusion defects involving the anterolateral, lateral, inferolateral, inferior, inferior septal booker. There may be some adjacen t reversibility along the inferoseptal basal wall on transverse images. Left ventricular cardiac magdalene real enlargement is noted with thinning of the myometrium. No distinct perfusion abnormality. Gated a nalysis shows severely diminished ejection fraction with severe hypokinesis of 10 %. TID is calculat ed at 1.04, within normal limits. IMPRESSION: Severe hypokinesis with dilated left ventricular chamber (estimated LVEF 10%) with large fixed defects/old infarcts sparing only portions of the septal wall. There may be some reversibility/ nick-infarct ischemia along the basal inferoseptal wall. Correlate for ischemic cardiomyopathy.
== END | disposition home or self-care (01) ==
LOC: RADNMMAIN 08:09
PROVIDERS: ATTEND Family Medicine
DX: R06.02 Shortness of breath (principal); I10 Essential (primary) hypertension; E11.65 Type 2 diabetes mellitus with hyperglycemia; I51.7 Cardiomegaly
CPT/HCPCS: 93017; 78452; A9500; J2785

== ENCOUNTER → 2023-12-26 | Outpatient (CLI) | payer MEDICARE ==
[2023-12-26 16:57] LABS: Blood Urea Nitrogen 19.8 mg/dL (9.0-27.0); Carbon Dioxide 24.9 mmol/L (21.6-31.8); Chloride 104 mmol/L (96-109); Potassium 4.6 mmol/L (3.5-5.5); Sodium 139 mmol/L (135-145)
[2023-12-26 17:07] LABS: HCT 54.3 % (39.6-50.0); HGB 17.8 g/dL (13.0-17.0); MCHC 32.8 g/dL (32.0-37.0); MCV 88.6 FL (80.0-97.0); Mean Platelet Volume 12.6 FL (9.5-12.2); NRBC Per 100 WBC 0 X 10*3/uL (0.00-0.01); Platelet Count 192 X 10*3/uL (140-440); RBC 6.13 X 10*6/uL (4.40-5.60); RDW 13.1 % (11.5-14.5); WBC 5.28 X 10*3/uL (4.50-10.00)
== END | disposition home or self-care (01) ==
LOC: LABPAT 08:49
PROVIDERS: ATTEND Internal Medicine Interventional Cardiology
DX: Z01.812 Encounter for preprocedural laboratory examination (principal); I25.10 Atherosclerotic heart disease of native coronary artery without angina pectoris; I25.5 Ischemic cardiomyopathy
CPT/HCPCS: 80051; 82565; 84520; 85027

== ENCOUNTER 2024-01-01 06:09 | Day surgery (SDC) | payer MEDICARE ==
[2023-12-30 11:17] VITALS: BMI 24.5
[2024-01-01] MEDS ORDERED: HEPARIN SODIUM,PORCINE 10,000 UNIT in SODIUM CHLORIDE 0.9% 1,000 ML IRRIGATION PRN (06:18)
[2024-01-01] MEDS ORDERED: ALPRAZolam 0.5 MG TAB PO PRN (06:18)
[2024-01-01] MEDS ORDERED: ALPRAZolam 0.25 MG TAB PO PRN (06:18)
[2024-01-01] MEDS ORDERED: NITROGLYCERIN SL TABS 0.4 MG TAB SUBLINGUAL PRN (06:18)
[2024-01-01] MEDS: IV FLUID CONTINUATION 1,000 ML IV ONE (06:50)
[2024-01-01] MEDS ORDERED: ASPIRIN 325 MG TAB PO ONE (07:00)
[2024-01-01 07:06] VITALS: RESP 18; TEMP 97.9
[2024-01-01] MEDS: SODIUM CHLORIDE 0.9% 1,000 ML in EMPTY BAG 1 BAG IV SCH (07:06)
[2024-01-01] MEDS ORDERED: LIDOCAINE 1% INJ 10MG/ML (20 ML MDV) ONE (07:12)
[2024-01-01] MEDS ORDERED: VERAPAMIL 2.5 MG/ML 2 ML AMP ONE (07:13)
[2024-01-01] MEDS ORDERED: HEPARIN SODIUM 1,000 UN/ML (10ML VL) ONE (07:27)
[2024-01-01 07:35] LABS: Potassium 4.6 mmol/L (3.5-5.1)
[2024-01-01] MEDS: fentaNYL (PF) 50 MCG/ML 2 ML AMP IVP ONE (07:45)
[2024-01-01] MEDS: MIDAZOLAM 2 MG/2 ML VIAL IVP ONE (07:45)
[2024-01-01] MEDS ORDERED: fentaNYL (PF) 50 MCG/ML 2 ML AMP ONE (07:45)
[2024-01-01] MEDS: LIDOCAINE 1% INJ 10MG/ML (20 ML MDV) SQ ONE (07:48)
[2024-01-01] MEDS: HEPARIN SODIUM 1,000 UN/ML (10ML VL) IVP ONE (08:10)
[2024-01-01 08:18] LABS: Glucose,Whole Blood 138 mg/dL (70-110)
[2024-01-01] MEDS ORDERED: RX INFO: IV CONTRAST WAS GIVEN 1 EACH MISC MISCELLANE PRN (08:18)
--- NOTE | 2024-01-01 08:22 | P.PCN ---
Date of Procedure: 01/01/24 Operative Findings: CARDIAC CATHETERIZATION PERFORMING PHYSICIAN: Gabo Sabillon MD, RPVI PROCEDURE PERFORMED: 1. Selective right and left coronary angiogram and left heart catheterization and GRAHAM to LAD 2. IFR of the LCx 3. Ultrasound-guided access of the right common femoral artery and selective right common femoral artery angiogram INDICATION: Severe cardiomyopathy Aortic stenosis COMPLICATION: None APPROACH: Right common femoral artery LEVEL OF SEDATION: Moderate with sedation in length of 23 minutes PROCEDURE DESCRIPTION: After obtaining an informed consent, the patient was brought to cardiac laboratory director. Local anesthesia was performed using lidocaine subcutaneously. The right common femoral artery cannulated using micropuncture technique under ultrasound guidance micropuncture wire passed easily and placed a 6 Malaysian sheath. Selective right and left coronary angiogram using a 6-Malaysian JR4 and JL catheters. Attempting crossing the aortic valve using a pigtail catheter was unsuccessful but was successful using AL-1 with a straight wire. After that I decided to do an IFR of the left circumflex coronary artery with after zeroing the Doppler wire and equalizing between the Doppler wire and guiding catheter and after giving the patient 4000's of heparin IV, the left main was engaged and subsequently the LCx was wired. I did an IFR and that came in to be at 0.96 The procedure was completed there was no complication. SELECTIVE CORONARY ANGIOGRAM: The right coronary artery: Is a large-caliber vessel and a dominant vessel and appears to be chronically occluded Left main: Has mild disease only The left circumflex: Has intermediate disease in the proximal portion documented to be nonflow limiting by Doppler wire with IFR of 0.97 The left anterior descending artery: Is chronically occluded in the proximal border The GRAHAM to LAD is patent HEMODYNAMICS: LVEDP was 15 mmHg and there was about 25 mm mean gradient across aortic valve CONCLUSION: 1. Chronic total occlusion of the RCA 2. Occluded LAD. Patent GRAHAM to LAD 3. Intermediate disease involving the LCx proximally documented to be nonflow limiting by Doppler wire 4. Normal left-sided filling pressure. Mean gradient across aortic valve of 25 mm POSTPROCEDURE MANAGEMENT: The patient to be evaluated at the valve clinic.
[2024-01-01] MEDS: IOPAMIDOL-370 200ML BTL INJ ONE (08:28)
[2024-01-01] MEDS ORDERED: SODIUM CHLORIDE 0.9% 1,000 ML IV SCH (08:30)
[2024-01-01 12:21] LABS: INR 1.1 (<1.2); Partial Thromboplastin Time 29.6 sec (22.0-30.0); Prothrombin Time 11.8 sec (10.0-12.5)
[2024-01-01 12:30] LABS: ALT 16 U/L (4-49); AST 23 U/L (17-59); African American GFR (CKD) >90 (>60 ml/min/1.73 sqM); Albumin 3.6 g/dL (3.5-5.0); Alkaline Phosphatase 87 U/L (38-126); Anion Gap 5 mmol/L; Blood Urea Nitrogen 28 mg/dL (9-20); Calcium 8.7 mg/dL (8.4-10.2); Carbon Dioxide 21 mmol/L (22-30); Chloride 111 mmol/L (98-107); Glucose 183 mg/dL (74-99); Magnesium 1.7 mg/dL (1.6-2.3); Non-African American GFR(CKD) 85 (>60 ml/min/1.73 sqM); Potassium 4.8 mmol/L (3.5-5.1); Sodium 137 mmol/L (137-145); Total Bilirubin 1.6 mg/dL (0.2-1.3); Total Protein 6.5 g/dL (6.3-8.2)
[2024-01-01 12:38] LABS: NT-Pro-B-Type Natriuretic Pept 1080 pg/mL
--- NOTE | 2024-01-01 12:56 | US ---
EXAMINATION TYPE: US carotid duplex BILAT DATE OF EXAM: 01/01/2024 COMPARISON: NONE CLINICAL INDICATION: Male, 68 years old with history of preop cardiac surgery; pre op cardiac surgery TECHNIQUE: Carotid duplex ultrasound examination. Indirect Doppler criteria was utilized. FINDINGS: EXAM MEASUREMENTS: RIGHT: Peak Systolic Velocity (PSV) cm/sec ----- Right CCA: 44.3 ----- Right ICA: 74.2 ----- Right ECA: 57.4 ICA/CCA ratio: 1.67 RIGHT: End Diastole cm/sec ----- Right CCA: 16.8 ----- Right ICA: 28.3 ----- Right ECA: 7.4 LEFT: Peak Systolic Velocity (PSV) cm/sec ----- Left CCA: 59.4 ----- Left ICA: 70.3 ----- Left ECA: 54.9 ICA/CCA ratio: 1.18 LEFT: End Diastole cm/sec ----- Left CCA: 19.0 ----- Left ICA: 25.3 ----- Left ECA: 8.1 VERTEBRALS (direction of flow): Right Vertebral: Antegrade Left Vertebral: Antegrade Rhythm: Normal GAS BURNER OPERATOR NOTES: Mild plaque bilateral bifurcations. No evidence of increased velocities IMPRESSION: No evidence for hemodynamically significant stenosis. Criteria for Assigning % of Stenosis / Diameter reduction (Estimation based on the indirect measurements of the internal carotid artery velocities (ICA PSV). 1. Normal (no stenosis)=ICA PSV < 125 cm/s: ratio < 2.0: ICA EDV<40 cm/s. 2. Less than 50% stenosis=ICA PSV < 125 cm/s: ratio < 2.0: ICA EDV<40 cm/s. 3. 50 to 69% stenosis=ICA PSV of 125 to 230 cm/s: ration 2.0 ? 4.0: ICA EDV 40-100 cm/s. 4. Greater than 70% stenosis to near occlusion= ICA PSV > 230 cm/s: ratio > 4.0: ICA EDV > 100 cm/s. 5. Near occlusion= ICA PSV velocities may be low or undetectable: variable ratio and ICA EDV. 6. Total occlusion=unable to detect flow.
[2024-01-01 14:57] LABS: Hepatitis A Antibody IgM Nonreactive (Nonreactive); Hepatitis B Core IgM Nonreactive (Nonreactive); Hepatitis B Surface Antigen Nonreactive (Nonreactive); Hepatitis C IgG Antibody Nonreactive (Nonreactive)
[2024-01-01 15:43] VITALS: PULSE 54
[2024-01-01 15:44] VITALS: BP 122/85
[2024-01-01 19:47] LABS: LDL Cholesterol,Calculated 187.5 mg/dL (0.0-131.0)
== END 2024-01-01 16:20 | disposition home or self-care (01) ==
LOC: CATHCVL 06:09
PROVIDERS: ATTEND Internal Medicine Interventional Cardiology
DX: I25.10 Atherosclerotic heart disease of native coronary artery without angina pectoris (principal); I35.0 Nonrheumatic aortic (valve) stenosis; I25.82 Chronic total occlusion of coronary artery; I42.9 Cardiomyopathy, unspecified; Z79.899 Other long term (current) drug therapy; Z79.82 Long term (current) use of aspirin
CPT/HCPCS: 93459; 93799; 83880; 80051; 80061; 80053; 80074; 84443; 83735; 85610; 85730; 83036; 93880; C1769 ×5; C1887; C1894; J2250; J2001; J3010; J1644; Q9967

== ENCOUNTER → 2024-01-08 | Outpatient (CLI) | payer MEDICARE ==
--- NOTE | 2024-01-08 11:13 | CT ---
EXAMINATION TYPE: CT TAVR Planning DATE OF EXAM: 01/08/2024 HISTORY: 68-year-old male I35.[address] DLP: 2110.5 mGycm Automated Exposure Control for Dose Reduction was Utilized. CONTRAST: CT scan of the neck, chest, abdomen and pelvis is performed with IV Contrast, patient injected with 1 50 mL of Isovue 370. COMPARISON: None TECHNIQUE: Helical imaging obtained through the chest, abdomen and pelvis during arterial phase enedelia gala administration of radiographic contrast intravenously. FINDINGS: See report from [employer] regarding preprocedural planning CHEST: Neck and Thyroid: No significant findings Lungs: Mild emphysematous change. Central Airway: No significant findings Pleura: Small left pleural effusion. Pulmonary Arteries: No significant findings Heart and Pericardium: No significant findings Lymph Nodes: No significant findings Mediastinum & Esophagus: No lymphadenopathy. Small hiatal hernia. AV Calcification Severity: [id number]. 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 ABDOMEN/PELVIS: Please note arterial phase of the imaging limits detailed evaluation of the solid abdominal organs. Liver: No significant findings Spleen: No significant findings Kidneys: Left renal cortical cysts measuring up to 5.3 cm. Symmetric uptake and excretion of contrast from the kidneys. Adrenal Glands: No significant findings Pancreas: No significant findings Gallbladder: No significant findings Bowel and Mesentery: Scattered mild stool. Mild descending colonic diverticulosis. No pericolonic inf lammatory change. No dilated small bowel. No adenopathy seen. Lymph Nodes: No significant findings Urinary Bladder: No significant findings Pelvic Organs: Prostate gland enlargement 5.3 cm wide. Patulous left inguinal canal. Other: Some DISH throughout the thoracic spine. Other Lines/Tubes/Devices/Hardware: Left anterior chest wall AICD generator with right atrial and rig ht ventricular leads. Median sternotomy wires with post-CABG clips. IMPRESSION: 1. Mild to moderate aortic valve calcifications. 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 2. COPD with mild emphysema. Small left pleural effusion. 3. Left anterior chest wall AICD generator and previous CABG. 4. Small hiatal hernia, a few left-sided colonic diverticula, and prostatomegaly at 5.3 cm wide.
== END ==
LOC: CPPFTMAIN 09:21
PROVIDERS: ATTEND Thoracic Surgery (Cardiothoracic Vascular Surgery)
DX: I35.0 Nonrheumatic aortic (valve) stenosis (principal); J90 Pleural effusion, not elsewhere classified; I35.8 Other nonrheumatic aortic valve disorders; J44.9 Chronic obstructive pulmonary disease, unspecified; J43.9 Emphysema, unspecified; K44.9 Diaphragmatic hernia without obstruction or gangrene; N40.0 Benign prostatic hyperplasia without lower urinary tract symptoms; K57.30 Diverticulosis of large intestine without perforation or abscess without bleeding; Z95.1 Presence of aortocoronary bypass graft; Z95.810 Presence of automatic (implantable) cardiac defibrillator; Z87.891 Personal history of nicotine dependence
CPT/HCPCS: 94150; 71275; 74174; Q9967

== ENCOUNTER → 2024-02-05 | Outpatient (CLI) | payer OTHER ==
[2024-02-05 10:36] LABS: African American GFR (CKD) 72 (>60 ml/min/1.73 sqM); Blood Urea Nitrogen 27 mg/dL (9-20); Non-African American GFR(CKD) 62 (>60 ml/min/1.73 sqM)
--- NOTE | 2024-02-05 12:45 | CT ---
EXAMINATION TYPE: CT TAVR Planning DATE OF EXAM: 02/05/2024 HISTORY: HEART VALVE REPLACEMENT CT DLP: 1607 mGycm Automated Exposure Control for Dose Reduction was Utilized. CONTRAST: CT scan of the chest, abdomen and pelvis is performed with IV Contrast, patient injected with 125 mL of Isovue 370. COMPARISON: 01/08/2024 TECHNIQUE: Helical imaging obtained through the chest, abdomen and pelvis during arterial phase enedelia gala administration of radiographic contrast intravenously. FINDINGS: See report from [employer] regarding preprocedural planning CHEST: Lower Neck and Thyroid: No significant findings Lungs: Moderate partially loculated left pleural effusion and left lower lobe infiltrate/atelectasis. Central Airway: No significant findings Pulmonary Arteries: No significant findings Heart and Pericardium: AICD device and CABG surgery Lymph Nodes: No significant findings Mediastinum & Esophagus: Stable 4.0 cm aortic root dilatation AV Calcification Severity: Mild ABDOMEN/PELVIS: Please note arterial phase of the imaging limits detailed evaluation of the solid abdominal organs. Liver: No significant findings Spleen: No significant findings Kidneys: No significant findings. Incidental left renal cyst Adrenal Glands: No significant findings Pancreas: No significant findings Gallbladder: No significant findings Bowel and Mesentery: No significant findings with mild diverticulosis. Lymph Nodes: No significant findings Urinary Bladder: No significant findings Pelvic Organs: Mild prostatic hypertrophy. Other: No significant findings Other Lines/Tubes/Devices/Hardware: None IMPRESSION: 1. Moderate partially loculated left pleural effusion and left lower lobe infiltrate/atelectasis. 2. Stable 4 cm dilatation of the aortic root. 3. AICD device and CABG surgery 4. Mild prostatic hypertrophy.
== END | disposition home or self-care (01) ==
LOC: RADCTMAIN 09:44
PROVIDERS: ATTEND Thoracic Surgery (Cardiothoracic Vascular Surgery)
DX: I35.1 Nonrheumatic aortic (valve) insufficiency (principal); J90 Pleural effusion, not elsewhere classified; N40.0 Benign prostatic hyperplasia without lower urinary tract symptoms; Z95.1 Presence of aortocoronary bypass graft; Z95.810 Presence of automatic (implantable) cardiac defibrillator
CPT/HCPCS: 82565; 84520; 71275; 36415; 74174; Q9967

== ENCOUNTER 2024-02-16 08:01 | Day surgery (SDC) | payer MEDICARE, OTHER ==
[2024-02-16] MEDS ORDERED: INSULIN ASPART (NovoLOG) 100 UNIT/ML VIAL SQ ONE (08:34)
[2024-02-16 08:35] LABS: Glucose,Whole Blood 249 mg/dL (70-110)
[2024-02-16] MEDS ORDERED: MIDAZOLAM 2 MG/2 ML VIAL ONE (09:45)
[2024-02-16] MEDS ORDERED: fentaNYL (PF) 50 MCG/ML 2 ML AMP ONE ×2 (09:45)
--- NOTE | 2024-04-09 10:16 | ECHOT ---
TRANSESOPHAGEAL ECHOCARDIOGRAM PROCEDURE PERFORMED: Transesophageal echocardiogram. INDICATION: Aortic stenosis. COMPLICATIONS: None. LEVEL OF SEDATION: Moderate, with sedation length of 18 minutes. PROCEDURE DESCRIPTION: After obtaining an informed consent, the patient was brought to the transesophageal echocardiogram suite. A pulse oximetry and heart rate monitors were attached to the patient. Subsequently, the transesophageal echocardiogram was advanced to the mid esophageal after conscious sedation was performed using 2 mg of Versed and 50 mcg of fentanyl. 2D echocardiogram, as well as color Doppler, and continuous-wave Doppler performed. The procedure was completed with no complication. CONCLUSION: 1. Impaired LV function with EF between 25% to 30%. 2. Aortic sclerosis with a peak gradient of 41 and mean gradient of 28 mmHg was identified. 3. The aortic valve appeared to be bicuspid valve with fusion of the right and left coronary cusp. 4. Moderate mitral regurgitation with a central jet. 5. Moderate tricuspid regurgitation. 6. No evidence of pericardial effusion. MMODL / IJN: [id number] /
== END 2024-02-16 11:26 | disposition home or self-care (01) ==
LOC: CATHCVL 08:01
PROVIDERS: ATTEND Internal Medicine Interventional Cardiology
DX: I35.0 Nonrheumatic aortic (valve) stenosis (principal); I08.1 Rheumatic disorders of both mitral and tricuspid valves; I25.10 Atherosclerotic heart disease of native coronary artery without angina pectoris; I11.0 Hypertensive heart disease with heart failure; I50.22 Chronic systolic (congestive) heart failure; I47.10 Supraventricular tachycardia, unspecified; I25.5 Ischemic cardiomyopathy; E78.5 Hyperlipidemia, unspecified; I25.2 Old myocardial infarction; Z87.891 Personal history of nicotine dependence; Z82.49 Family history of ischemic heart disease and other diseases of the circulatory system; Z95.1 Presence of aortocoronary bypass graft; Z95.810 Presence of automatic (implantable) cardiac defibrillator; Z79.899 Other long term (current) drug therapy; Z79.4 Long term (current) use of insulin; Z79.82 Long term (current) use of aspirin

== ENCOUNTER → 2024-03-23 | Outpatient (CLI) | payer MEDICARE ==
[2024-03-23 09:59] LABS: INR 1.1 (<1.2); Prothrombin Time 11.6 sec (10.0-12.5)
[2024-03-23 15:08] LABS: Basophils # (A) 0.06 X 10*3/uL (0.00-0.10); Basophils % (A) 0.8 %; Eosinophils # (A) 0.35 X 10*3/uL (0.04-0.35); Eosinophils % (A) 4.8 %; HCT 54.5 % (39.6-50.0); HGB 17.9 g/dL (13.0-17.0); Lymphocytes # (A) 1.28 X 10*3/uL (0.90-5.00); Lymphocytes % (A) 17.7 %; MCHC 32.8 g/dL (32.0-37.0); MCV 88.3 FL (80.0-97.0); Mean Platelet Volume 12.6 FL (9.5-12.2); Monocytes # (A) 0.76 X 10*3/uL (0.20-1.00); Monocytes % (A) 10.5 %; NRBC Per 100 WBC 0 X 10*3/uL (0.00-0.01); Neutrophils # (A) 4.78 X 10*3/uL (1.80-7.70); Neutrophils % (A) 65.9 %; Platelet Count 175 X 10*3/uL (140-440); RBC 6.17 X 10*6/uL (4.40-5.60); RDW 13.3 % (11.5-14.5); WBC 7.25 X 10*3/uL (4.50-10.00)
[2024-03-23 15:22] LABS: Blood Urea Nitrogen 26.1 mg/dL (9.0-27.0); Carbon Dioxide 25.8 mmol/L (21.6-31.8); Chloride 107 mmol/L (96-109); Glucose 125 mg/dL (70-110); Potassium 5.6 mmol/L (3.5-5.5); Sodium 143 mmol/L (135-145)
[2024-03-23 16:21] LABS: Appearance,Urine Clear (Clear); Bilirubin,Urine Negative (Negative); Blood,Urine Negative (Negative); Color,Urine Yellow (Yellow); Ketones,Urine Negative (Negative); Nitrite,Urine Negative (Negative); Specific Gravity,Urine 1.027 (1.001-1.030); Urobilinogen,Urine 0.2 E.U./DL
== END | disposition home or self-care (01) ==
LOC: LABPAT 08:32
PROVIDERS: ATTEND Thoracic Surgery (Cardiothoracic Vascular Surgery)
DX: Z01.818 Encounter for other preprocedural examination
CPT/HCPCS: 80051; 81003; 82565; 82947; 84520; 85025; 85610; 85730; 86850; 86900; 86901; 87077; 87086; 87186

== ENCOUNTER 2024-03-24 07:50 | Inpatient (IN) | payer MEDICARE ==
[~2024-03-24 07:50] MED LIST changes: +CLEVIDIPINE BUTYRATE 25 MG in EMPTY BAG 1 BAG IV PRN; +ELECTROLYTE-A SOLUTION 1,000 ML with POTASSIUM CHLORIDE 100 MEQ, MAGNESIUM SULFATE 16 M... IV PRN; +INSULIN REGULAR 100 UNIT in SODIUM CHLORIDE 0.9% 100 ML IV PRN; +LACTATED RINGERS 1,000 ML IV SCH; +NITROGLYCERIN-D5W PMX 25 MG/250 ML BTL IV PRN; +PROTAMINE SULFATE 250 MG in EMPTY BAG 1 BAG IV PRN; -REGADENOSON 0.4 MG/5 ML SYRINGE IV PRN; +SODIUM CHLORIDE 0.9% 500 ML 500 ML INTRAARTER PRN; +TRANEXAMIC ACID 2,000 MG in SODIUM CHLORIDE 0.9% 80 ML IV PRN
[2024-03-24] MEDS: ASPIRIN 325 MG TAB PO ONE (08:14)
[2024-03-24] MEDS: CLOPIDOGREL 75 MG TAB PO ONE (08:16)
[2024-03-24] MEDS: ATORVASTATIN 10 MG TAB PO ONE (08:17)
[2024-03-24] MEDS: METOPROLOL TARTRATE 25 MG TAB PO ONE (08:17)
[2024-03-24] MEDS: IV FLUID CONTINUATION 1,000 ML IV ONE (08:20)
[2024-03-24 08:26] LABS: Glucose,Whole Blood 114 mg/dL (70-110)
[2024-03-24 08:41] LABS: African American GFR (CKD) 63 (>60 ml/min/1.73 sqM); Anion Gap 8 mmol/L; Blood Urea Nitrogen 32 mg/dL (9-20); Calcium 9.6 mg/dL (8.4-10.2); Carbon Dioxide 27 mmol/L (22-30); Chloride 106 mmol/L (98-107); Glucose 119 mg/dL (74-99); Non-African American GFR(CKD) 55 (>60 ml/min/1.73 sqM); Potassium 4.3 mmol/L (3.5-5.1); Sodium 141 mmol/L (137-145)
[2024-03-24] MEDS ORDERED: MIDAZOLAM 2 MG/2 ML VIAL IM ONE (09:57)
[2024-03-24] MEDS ORDERED: fentaNYL (PF) 50 MCG/ML 2 ML AMP IVP PRN (09:58)
[2024-03-24] MEDS: fentaNYL (PF) 50 MCG/ML 2 ML AMP ONE (09:59)
[2024-03-24] MEDS: MIDAZOLAM 1 MG/ML 5 ML VIAL IV STA (10:03)
[2024-03-24] MEDS: MIDAZOLAM 2 MG/2 ML VIAL IV ONE (10:05)
[2024-03-24] MEDS ORDERED: SUGAMMADEX SODIUM 200 MG/2 ML SDV IV ONE (10:42)
[2024-03-24] MEDS ORDERED: PROTAMINE SULFATE 10 MG/ML 5 ML VIAL ONE (10:42)
[2024-03-24] MEDS ORDERED: PHENYLEPHRINE 10 MG/ML VIAL ONE (10:42)
[2024-03-24] MEDS ORDERED: ROCURONIUM 10 MG/ML (5 ML VIAL) IV ONE (10:42)
[2024-03-24] MEDS ORDERED: ETOMIDATE 2 MG/ML 10 ML VIAL ONE (10:42)
[2024-03-24] MEDS ORDERED: ePHEDrine 50 MG/ML 1 ML VIAL ONE (10:42)
[2024-03-24] MEDS ORDERED: fentaNYL (PF) 50 MCG/ML 2 ML AMP ONE (10:42)
[2024-03-24] MEDS ORDERED: SUCCINYLCHOLINE CHLORIDE 200 MG/10 ML VIAL IV ONE (10:42)
[2024-03-24] MEDS: IOPAMIDOL-370 200ML BTL INJ ONE (12:22)
--- NOTE | 2024-03-24 12:23 | P.ANPRN ---
Procedure Note - Anesthesia - Invasive Line Right Arterial Line Date of Procedure: 03/24/24 Time of Procedure: 10:00 Location of Patient: [facility] Preparation: Sterile Prep, Sterile Dressing Arterial Line Location: Briachial Ultrasound Used: Yes Purpose - Visualization and Identification of Vasculature: Yes Image Stored and Saved: Yes Narrative: Invasive line placement per sterile protocol utilized.
--- NOTE | 2024-03-24 12:24 | P.ANPRN ---
Procedure Note - Anesthesia - Invasive Line Right Central Line Date of Procedure: 03/24/24 Time of Procedure: 10:25 Location of Patient: [facility] Central Line Location: Internal Jugular Ultrasound Used: Yes Purpose - Visualization and Identification of Vasculature: Yes Image Stored and Saved: Yes Narrative: Invasive line placement per sterile protocol utilized.
--- NOTE | 2024-03-24 12:28 | P.ANPRN ---
Procedure Note - Anesthesia - DEANDRE Intraop Pre Bypass DEANDRE Intraop - Anesthesia Indication: TAVR Date of Procedure: 03/24/24 Pre-operative Diagnosis: Critical Post-operative Diagnosis: S/P TAVR Surgeon: Nicholas Mcneill Ejection Fraction: Other (10%) Regional Wall Motion Abnormalities: Other (Akinetic inferior, infero-septal, septal and posterior segments, severely hypokinetic lateral and anterior segments) Left Ventricle Hypertrophy: No R. Ventricle Function: Hypokinesis Moderate Anatomy: Other (Bicuspid) Aortic Stenosis: Severe Aortic Regurgitation: Mild Mitral Stenosis: None Mitral Regurgitation: Mild Tricuspid Stenosis: None Tricuspid Regurgitation: Mild Pulmonic Stenosis: None Pulmonic Regurgitation: None R. Atrial Dilation: Yes R. Atrial PFO: No L. Atrial Dilation: Yes Aortic Dissection: No (Grade 3-4 atheromas) Aortic Calcification: Severe Plural Effusion: None
--- NOTE | 2024-03-24 12:31 | P.ANPRN ---
Procedure Note - Anesthesia - DEANDRE Intraop Post Bypass DEANDRE Intraop Post Bypass Ejection Fraction: Other (10%) Regional Wall Motion Abnormalities: Other (unchanged from preop) R. Ventricle Function: Hypokinesis Moderate Aortic Valve: Peak velocity improved from 3.1 m/s to 0.8 m/s, peak gradient from 38 mmHg, to 3 mmHg, mean from 27 mmHg to 1 mmHg Mitral Valve: Unchanged Pulmonic: Unchanged Aortic Dissection: No
--- NOTE | 2024-03-24 12:39 | P.OP ---
Date of Procedure: 03/24/24 Preoperative Diagnosis: Symptomatic calcific bicuspid aortic stenosis with severe cardiomyopathy Postoperative Diagnosis: Same Procedure(s) Performed: Percutaneous transfemoral transcatheter aortic valve replacement with Simpson SOLITARIO 3 transcatheter aortic valve prosthesis Implants: 29 mm Simpson SOLITARIO 3 transcatheter aortic valve Anesthesia: KASHMIR Surgeon: Nicholas Mcneill (Cardiovascular surgeon) [employer] #1: Gabo Sabillon (mental health clinician) [employer] #2: Vasyl Abarca (Physicians event marketing assistant) Estimated Blood Loss (ml): 10 IV fluids (ml): 250 Urine output (ml): 0 Pathology: none sent Condition: stable Disposition: PACU Indications for Procedure: 69-year-old with previous bypass surgery, chronic cardiomyopathy with ejection fraction of approximately 10%. Patient has become increasingly short of breath over the last 12 months. He has severe bicuspid aortic valve calcification with documented low-flow low gradient severe aortic stenosis. He has severe coronary artery disease with complete occlusion of all of the [place] arteries and total dependence on patent GRAHAM to the LAD. He was seen in the high risk valve clinic and felt to be at high risk for surgical aortic valve replacement with redo sternotomy given his extremely poor left ventricular ejection fraction. We did obtain a DEANDRE just to confirm the severity of the aortic valvular calcifications and then saw him back in TAVR clinic and recommended proceeding with transcatheter aortic valve replacement. Operative Findings: There was fusion of the left and right coronary cusps with small raphae between. The noncoronary cusp was extremely large. Gradient across the valve was only moderate however the valve was very heavily calcified. Left ventricle was extremely dilated with very poor ventricular function. Valve was successfully implanted with no evidence of paravalvular leak and excellent valvular function. Completion angiography demonstrated no evidence of leak from the right common femoral large-bore access and good flow down both femoral arteries. Description of Procedure: Patient was brought to the cardiac catheterization laboratory. Monitoring lines have been placed in the preop holding area. This included placement of an internal jugular line. The anterior torso and bilateral lower extremities were sterilely prepped and draped. A sterile magnet was placed over the ICD. Bilateral femoral arterial access was obtained under ultrasound guidance and the left femoral vein was also accessed under ultrasound guidance. In the femoral vein, a long 8 Nauruan sheath was placed and through this transvenous pacer was advanced into the apex of the right ventricle and tested. Left femoral arterial access was a long 6 Nauruan sheath which was advanced into the proximal descending thoracic aorta. Through this a pigtail catheter was advanced into the aortic root. On the right a 6 Nauruan sheath was placed and then 2 Perclose devices were placed and the sheath was upsized to an 8 Nauruan sheath. This was further upsized to a 16 Nauruan Simpson sheath over a stiff wire and the patient was systemically heparinized. ACT's were maintained greater than 250 during the remainder of the procedure. A 29 mm Simpson SOLITARIO 3 valve was prepared on the back table. Aortic valve was crossed from the right femoral access with a straight wire and a pigtail catheter placed at the apex of the ventricle. Transvalvular gradients were measured. Safari wire was then placed at the apex of the ventricle. 29 mm Simpson 3 SOLITARIO valve was brought up onto the field and advanced over the safe. Wire into the descending thoracic aorta. Balloon was pulled back into the valve stent prosthesis. The catheter was then curved around the aortic arch and across the aortic valve. Pusher was pulled back. Valve was appropriately positioned and then deployed under rapid ventricular pacing. This proceeded uneventfully. Following this the patient's blood pressure and proved significantly. Valve deployment system and stiff wire were removed. Heparin was reversed with protamine. Temporary pacemaker wire was removed. Right femoral sheath was removed and the 2 Perclose devices deployed. Completion angiography was performed. The left femoral arterial sheath was removed and sealed with an 8 Nauruan Angio-Seal. Venous groin line was removed and controlled with direct pressure. Magnet was removed from the patient's ICD. The assistance of the physicians event marketing assistant Mr. Vasyl Abarca was necessary for loading of the valve on the back table as well as control of hemostasis at the completion of the case. This facilitated the smooth performance of the operation and this very high risk transcatheter aortic valve procedure.
[2024-03-24 13:01] LABS: Glucose,Whole Blood 102 mg/dL (70-110)
[2024-03-24] MEDS ORDERED: Potassium Replacement Protocol 1 EACH MISC MISCELLANE PRN (13:02)
[2024-03-24] MEDS ORDERED: Magnesium Replacement Protocol 1 EACH MISC MISCELLANE PRN (13:02)
[2024-03-24] MEDS ORDERED: CALCIUM GLUCONATE IN NACL 2 GM in SALINE 1 100ML.BAG IVPB PRN (13:02)
[2024-03-24] MEDS ORDERED: IPRATROPIUM-ALBUTEROL 3 ML NEB INHALATION PRN (13:02)
[2024-03-24] MEDS: IV FLUID CONTINUATION 300 ML IV ONE (13:15)
--- NOTE | 2024-03-24 13:34 | XR ---
EXAMINATION TYPE: XR chest 1V portable DATE OF EXAM: 03/24/2024 HISTORY: post tavr COMPARISON: 05/28/2022 TECHNIQUE: Single view of the chest is submitted. FINDINGS: Demonstrated are scattered senescent parenchymal change. Postoperative changes of transient aortic v alvular replacement. No pneumothorax present. Right IJ central venous line is in place. IACD device i s noted with its distal tip within the right ventricle. Continued cardiomegaly. There is no evidence for focal infiltrate. Hilar and mediastinal structures are within normal limits. Degenerative changes are seen of the dorsal spine. IMPRESSION: 1. post tavr
[2024-03-24 13:41] LABS: African American GFR (CKD) 80 (>60 ml/min/1.73 sqM); Anion Gap 11 mmol/L; Blood Urea Nitrogen 27 mg/dL (9-20); Calcium 8.7 mg/dL (8.4-10.2); Carbon Dioxide 18 mmol/L (22-30); Chloride 110 mmol/L (98-107); Glucose 101 mg/dL (74-99); Non-African American GFR(CKD) 69 (>60 ml/min/1.73 sqM); Potassium 4.4 mmol/L (3.5-5.1); Sodium 139 mmol/L (137-145)
[2024-03-24 14:06] LABS: Basophils % (A) 1 %; Eosinophils # (A) 0.3 k/uL (0-0.7); Eosinophils % (A) 4 %; HCT 49.4 % (39.0-53.0); HGB 16.7 gm/dL (13.0-17.5); Lymphocytes # (A) 1.4 k/uL (1.0-4.8); Lymphocytes % (A) 18 %; MCH 29.9 pg (25.0-35.0); MCHC 33.8 g/dL (31.0-37.0); MCV 88.5 fL (80.0-100.0); Mean Platelet Volume 10.3; Monocytes # (A) 0.5 k/uL (0-1.0); Monocytes % (A) 7 %; Neutrophils # (A) 5.3 k/uL (1.3-7.7); Neutrophils % (A) 69 %; Platelet Count 170 k/uL (150-450); RBC 5.58 m/uL (4.30-5.90); RDW 13.7 % (11.5-15.5); WBC 7.6 k/uL (3.8-10.6)
--- NOTE | 2024-03-24 14:48 | P.PCN ---
Date of Procedure: 03/24/24 Operative Findings: TRANSCATHETER AORITC VALVE REPLACEMENT OPERATIVE REPORT PROCEDURE PERFORMED: 1. Percutaneous Aortic Valve Implantation using a 29 mm Simpson SOLITARIO 2. Transesophageal echocardiography (performed by anesthesia) 3. Ultrasound guided access and repair of the right femoral artery access site by Perclose closure device. 4. Placement of temporary pacemaker wire. 5. Aortic root angiography and aortic arch angiogram INDICATIONS: 1. 69 year-old with a history of severe symptomatic aortic valve stenosis. The patient was experiencing shortness of breath consistent with NYHA class II PERFORMING PHYSICIANS: 1. Gabo Sabillon MD Interventional Cardiology. 3. Nicholas Mcneill MD, Cardiothoracic Surgeon. SEDATION: General anesthesia provided by anesthesia, see separate note APPROACH: Bilateral common femoral arteries and left common femoral vein PROCEDURE DESCRIPTION: The patient was discussed at valve clinic with multidisciplinary approach with cardiothoracic surgeon as well as carpentry supervisor and thought better treated with TAVR. Risks, benefits, and alternatives of the procedure had been explained to the patient who understood the risks and agreed to proceed. After consents were obtained, patient was brought to the transcatheter aortic valve implantation room in the cardiac catheterization laboratory technician and general anesthesia was provided by the anesthesiologist (see separate report). Once full body sterile prep was performed, the left common femoral vein was cannulated using micropuncture technique under ultrasound guidance micropuncture wire passed easily then I placed a 6 Kenyan 23 cm at the left common femoral vein. Subsequently under fluoroscopic guidance a balloontipped temporary pacemaker was advanced to the right ventricle apex and left LDL. Pacing threshholds were checked and deemed appropriate. Next the left femoral artery was accessed using a modified Seldinger technique, ultrasound guidance and micropuncture technique. A 6 Kenyan Rabi sheath was placed in the left femoral artery. Next, a 6-Kenyan pigtail catheter was advanced into the aorta and positioned in the aortic root, aortic root angiography was performed to determine optimal deployment angle. The right common femoral artery was accessed using modified Seldinger technique, micropuncture technique and under direct ultrasound guidance. Femoral angiogram was done showing access in the common femoral artery and a 6Fr sheath was placed. Next preclose technique was performed using a two Perclose. Next a 0.035 Safari wire was placed in the Aorta via an Amplatzer catheter. Over that the arteriotomy a 16 Fr Simpson sheath was placed. Next a 6F- AL1 catheter was advanced over a wire to the aortic root. A straight wire was advanced through the catheter and used to cross the severely stenotic valve. The AL1 was then exchanged for a 6Fr pigtail catheter and pressure measurements were obtained. The 0.035 Lunderquist wire was then positioned in the apex. Next a 29 mm Simpson SOLITARIO was advanced. The valve was then positioned across the aortic valve and confirmed with aortic root angiography. Initially we predilated using 20 mm balloon. The valve was then deployed in proper position using slow deployment and with rapid pacing in conjuncture with aortic root angiography and DEANDRE. There was no perivalvular leak noted. The preclose Perclose was then deployed in the right femoral artery and hemostasis was achieved. An angiogram through a rim catheter was performed from the left common femoral artery and showed good hemostasis. The patient was then transported to the ICU in hemodynamically stable condition, requiring no pressor support. RECOMMENDATIONS: The patient will be monitored in the ICU for hemodynamic and electrical stability. Patient will be on aspirin and Plavix.
[2024-03-24] MEDS: SODIUM CHLORIDE 0.9% 1,000 ML IV SCH (15:00)
[2024-03-24] MEDS: INSULIN ASPART (NovoLOG) 100 UNIT/ML VIAL SQ SCH (15:41)
[2024-03-24] MEDS: IPRATROPIUM-ALBUTEROL 3 ML NEB INHALATION SCH ×2 (16:42→22:22)
[2024-03-24 17:42] LABS: Glucose,Whole Blood 80 mg/dL (70-110)
[2024-03-24] MEDS: ACETAMINOPHEN TAB 500 MG TAB PO PRN (17:45)
[2024-03-24 20:03] LABS: Glucose,Whole Blood 111 mg/dL (70-110)
[2024-03-24] MEDS: HYDROcodone/APAP 5-325MG 1 EACH TAB PO PRN (23:11)
[2024-03-25] MEDS: HEPARIN SODIUM,PORCINE 5,000 UNIT/ML 1 ML VIAL SQ SCH (00:20)
[2024-03-25] MEDS: METOPROLOL SUCCINATE (ER) 25 MG TAB.ER.24H PO SCH (04:11)
[2024-03-25] MEDS: AMIODARONE 100 MG TAB PO SCH (05:57)
[2024-03-25 06:31] LABS: Basophils % (A) 0 %; Eosinophils # (A) 0.3 k/uL (0-0.7); Eosinophils % (A) 3 %; HCT 50.2 % (39.0-53.0); HGB 16.9 gm/dL (13.0-17.5); Lymphocytes # (A) 1.1 k/uL (1.0-4.8); Lymphocytes % (A) 13 %; MCH 29.8 pg (25.0-35.0); MCHC 33.7 g/dL (31.0-37.0); MCV 88.5 fL (80.0-100.0); Monocytes % (A) 11 %; Neutrophils % (A) 71 %; Platelet Count 131 k/uL (150-450); RBC 5.68 m/uL (4.30-5.90); RDW 13.8 % (11.5-15.5); WBC 8.5 k/uL (3.8-10.6)
[2024-03-25 06:38] LABS: Glucose,Whole Blood 122 mg/dL (70-110)
[2024-03-25 06:54] LABS: Ionized Calcium 4.9 mg/dL (4.5-5.3)
[2024-03-25 07:06] LABS: ALT 14 U/L (4-49); AST 30 U/L (17-59); African American GFR (CKD) 83 (>60 ml/min/1.73 sqM); Albumin 3.5 g/dL (3.5-5.0); Alkaline Phosphatase 99 U/L (38-126); Anion Gap 12 mmol/L; Blood Urea Nitrogen 22 mg/dL (9-20); Carbon Dioxide 17 mmol/L (22-30); Chloride 109 mmol/L (98-107); Glucose 103 mg/dL (74-99); Magnesium 1.7 mg/dL (1.6-2.3); Non-African American GFR(CKD) 72 (>60 ml/min/1.73 sqM); Potassium 4.3 mmol/L (3.5-5.1); Sodium 138 mmol/L (137-145); Total Bilirubin 2.7 mg/dL (0.2-1.3); Total Protein 6.3 g/dL (6.3-8.2)
[2024-03-25] MEDS: DEXTROSE 5% IN WATER 100 ML with AMIODARONE 150 MG IV ONE (07:25)
[2024-03-25] MEDS: AMIODARONE 360 MG in DEXTROSE 5% IN WATER 200 ML IV ONE (07:44)
--- NOTE | 2024-03-25 08:14 | XR ---
EXAMINATION TYPE: XR chest 1V portable DATE OF EXAM: 03/25/2024 HISTORY: Post Operative Cardiac Surgery COMPARISON: None 1124 TECHNIQUE: Single view of the chest is submitted. FINDINGS: Demonstrated are scattered senescent parenchymal change. There is no evidence for focal infiltrate. The heart is stable. Hilar and mediastinal structures are within normal limits. Degenerative changes are seen of the dorsal spine. IMPRESSION: 1. Chronic changes without evidence for acute pulmonary disease.
[2024-03-25] MEDS ORDERED: bisacodyL 10 MG SUPP RECTAL PRN (09:00)
[2024-03-25] MEDS ORDERED: lisinopriL 20 MG TAB PO SCH (09:00)
[2024-03-25] MEDS ORDERED: MAGNESIUM HYDROXIDE 2,400 MG/30 ML CUP PO PRN (09:00)
[2024-03-25] MEDS: MAGNESIUM SULFATE-D5W PMX 1 GM in DEXTROSE/WATER 1 100ML.BAG IVPB ONE (09:14)
[2024-03-25] MEDS: ASPIRIN 81 MG PO SCH (09:15)
[2024-03-25] MEDS: PANTOPRAZOLE 40 MG TABLET PO SCH (09:15)
--- NOTE | 2024-03-25 09:44 | P.PN ---
Subjective Progress Note Date: 03/25/24 Principal diagnosis: Severe symptomatic aortic stenosis. Past medical history significant for Hypertension, hyperlipidemia, diabetes mellitus2, coronary artery disease status post myocardial revascularization surgery in 2001, low-flow low gradient aortic valve stenosis, GERD, neuropathy,Severe ischemic cardiomyopathy status post AICD placement, Congestive systolic heart failure and NYHA Class II, supraventricular tachycardia and a remote history of tobacco dependence with smoking in 2014. POD #1 Percutaneous Aortic Valve Implantation using a 29 mm Simpson VENICE, Transesophageal echocardiography (performed by anesthesia), Ultrasound guided access and repair of the right femoral artery access site by Perclose closure device, Placement of temporary pacemaker wire, Aortic root angiography and aortic arch angiogram. The patient was seen and examined at his bedside this morning 03/25/2024 in the intensive care unit. He is currently sitting up to the bedside chair, is awake, alert, oriented 3 is in no acute apparent distress. His bedside telemetry is showing supraventricular Tachycardia with a heart rate in the 130s.The patient has been started on amiodarone drip per protocol and has been given 150 mg amiodarone bolus 1. Oxygen saturations are 95% on room air and he is achieving 2500 mL on his incentive spirometry with encouragement. Denies any complaints of shortness of breath or pain at this time, although reports he feels off. Bilateral groin sites are clean and dry, Soft palpate. He has been up ambulating in his room independently. Laboratory and chest x-ray results reviewed. Objective - Vital Signs Vital signs: Vital Signs Temp 98.3 F 03/25/24 08:00 Pulse 56 L 03/25/24 08:14 Resp 18 03/25/24 08:00 BP 93/66 03/25/24 08:00 Pulse Ox 96 03/25/24 08:00 FiO2 Intake & Output 03/24/24 03/25/24 03/25/24 18:59 06:59 18:59 Intake Total 150 1130 Output Total 200 1250 0 Balance -50 -120 0 Weight 75.2 kg 72 kg Intake: IV 150 50 Sodium Chloride 0.9% 1, 150 000 ml @ 50 mls/hr IV . Q20H SHAN Rx#:[id number] ceFAZolin 2 gm In Sodium 50 Chloride 0.9% 50 ml @ 100 mls/hr IVPB Q8HR SHAN Rx# :[id number] Oral 1080 Output: Urine 200 1250 0 Other: Voiding Method Urinal Toilet Toilet ABP, PAP, CO, CI - Last Documented Arterial Blood Pressure 110/71 - Exam CONSTITUTIONAL: Appears comfortable, cooperative, no acute distress RESPIRATORY: Lungs sounds Essentially clear throughout, diminished to his bilateral bases. Respirations Symmetrical, nonlabored. Currently on room air with oxygen saturation 95%, Achieving 2500 mL on his incentive spirometry with encouragement. CARDIOVASCULAR: S1, S2 present. Regular rate and Tachycardicrhythm, Bedside telemetry showing supraventricular tachycardia heart rate in the 130s. Palpable peripheral pulses bilaterally. No edema present. GASTROINTESTINAL: Abdomen soft, nontender, nondistended. Active bowel sounds present 4 quadrants. Tolerating diet. GENITOURINARY: Continues to void. INTEGUMENTARY: Skin is warm and dry, bilateral groins soft, nontender. NEUROLOGIC: Cranial nerves II through XII intact. MUSKULOSKELETAL: Able to move all extremities, strength equal bilaterally. PSYCHIATRIC: Alert and oriented to person place and time, appropriate affect, intact judgment and insight. - Allied health notes Allied health notes reviewed: nursing - Labs CBC & Chem 7: 03/25/24 05:51 03/25/24 05:51 Labs: Abnormal Lab Results - Last 24 Hours (Table) 03/24/24 03/24/24 03/25/24 Range/Units 13:00 20:01 05:51 Plt Count 131 L (150-450) k/uL D-Dimer (<0.60) mg/L FEU Chloride 110 H (98-107) mmol/L Carbon Dioxide 18 L (22-30) mmol/L BUN 27 H (9-20) mg/dL Glucose 101 H (74-99) mg/dL POC Glucose (mg/dL) 111 H (70-110) mg/dL Total Bilirubin (0.2-1.3) mg/dL 03/25/24 03/25/24 03/25/24 Range/Units 05:51 05:51 06:37 Plt Count (150-450) k/uL D-Dimer 1.91 H (<0.60) mg/L FEU Chloride 109 H (98-107) mmol/L Carbon Dioxide 17 L (22-30) mmol/L BUN 22 H (9-20) mg/dL Glucose 103 H (74-99) mg/dL POC Glucose (mg/dL) 122 H (70-110) mg/dL Total Bilirubin 2.7 H (0.2-1.3) mg/dL - Imaging and Cardiology Chest x-ray: report reviewed, image reviewed Assessment and Plan Assessment: Symptomatic calcific bicuspid aortic valve stenosis with severe low-flow low gradient cardiomyopathy, status post 29 mm Simpson's Venice 3 transcatheter aortic valve prosthesis placement Congestive systolic heart failure, with symptoms indicating NYHA class II Severe cardiomyopathy, status post AICD placement History of coronary artery disease status post myocardial revascularization in 2001 Supraventricular tachycardia, history Hypertension Hyperlipidemia Diabetes mellitus type 2 GERD History of neuropathy Remote history of nicotine dependence quit smoking in 2014 Plan: Amiodarone 150 mg IV 1 now, start amiodarone drip per protocol. Increase activity as tolerated. Continue current medication regimen, will hold Lisinopril. Will monitor Dailylabs and Chest [id number]. Pain control with current medication regimen. Awaiting post TAVR echocardiogram. Will have pacemaker/AICD interrogated this morning. More recommendations to follow based on patient's clinical course. Time with Patient: Greater than 30
[2024-03-25] MEDS: traMADol 50 MG TAB PO SCH (10:55)
[2024-03-25 10:56] VITALS: BMI 23.4
[2024-03-25 11:45] LABS: Glucose,Whole Blood 157 mg/dL (70-110)
[2024-03-25] MEDS: AMIODARONE 450 MG in DEXTROSE 5% IN WATER 250 ML IV SCH (12:50)
[2024-03-25 17:12] LABS: Glucose,Whole Blood 162 mg/dL (70-110)
--- NOTE | 2024-03-25 17:47 | CA ---
Transthoracic Echo Report Name: Tito Mullins Age: 69 Gender: M : 1955 Exam Date: 03/25/2024 08:39 Exam Location: [facility] Ht (in): 69 Wt (lb): 165 Ordering Physician: Vasyl Abarca Attending/Referring Phys: Tevin DWYER [employer] Toner Irene Price RDCS Procedure CPT: Indications: Postop TAVR Cardiac Hx: 1 day post TAVR Technical Quality: Fair Contrast 1: Total Dose (mL): Contrast 2: Total Dose (mL): MEASUREMENTS (Male / Female) Normal Values 2D ECHO LV Diastolic Diameter PLAX 6.1 cm 4.2 - 5.9 / 3.9 - 5.3 cm LV Systolic Diameter PLAX 5.5 cm IVS Diastolic Thickness 1.3 cm 0.6 - 1.0 / 0.6 - 0.9 cm LVPW Diastolic Thickness 1.4 cm 0.6 - 1.0 / 0.6 - 0.9 cm LV Relative Wall Thickness 0.4 RV Internal Dim ED PLAX 3.0 cm LVOT Diameter 2.3 cm LA Systolic Diameter LX 5.4 cm 3.0 - 4.0 / 2.7 - 3.8 cm LV Diastolic Volume MOD BP 165.2 cm??? 67 - 155 / 56 - 104 cm??? LV Systolic Volume MOD BP 124.0 cm??? - 58 / 19 - 49 cm??? LV Ejection Fraction MOD BP 25.0 % >= 55 % LV Cardiac Index MOD BP 1248.3 cm???/min???m??? LV Diastolic Volume MOD 4C 177.9 cm??? LV Systolic Volume MOD 4C 123.2 cm??? LV Ejection Fraction MOD 4C 30.7 % LV Cardiac Index MOD 4C 1655.7 cm???/min???m??? LV Diastolic Length 4C 9.4 cm LV Systolic Length 4C 8.8 cm LV Diastolic Volume MOD 2C 149.5 cm??? LV Systolic Volume MOD 2C 128.0 cm??? LV Ejection Fraction MOD 2C 14.4 % LV Cardiac Index MOD 2C 651.6 cm???/min???m??? LV Diastolic Length 2C 9.1 cm LV Systolic Length 2C 8.8 cm LA Volume 60.6 cm??? 18 - 58 / 22 - 52 cm??? LA Volume Index 31.7 cm???/m??? 16 - 28 cm???/m??? M-MODE Aortic Root Diameter MM 2.7 cm LA Systolic Diameter MM 5.2 cm LA Ao Ratio MM 1.9 DOPPLER AV Peak Velocity 213.4 cm/s AV Peak Gradient 18.2 mmHg AV Mean Velocity 167.6 cm/s AV Mean Gradient 12.7 mmHg AV Velocity Time Integral 37.9 cm LVOT Peak Velocity 41.7 cm/s LVOT Peak Gradient 0.7 mmHg LVOT Velocity Time Integral 10.3 cm LVOT Stroke Volume 41.9 cm??? LVOT Stroke Volume Index 22.0 ml/m??? LVOT Cardiac Index 1269.4 cm???/min???m??? AV Area Cont Eq vti 1.1 cm??? AV Area Cont Eq pk 0.8 cm??? MV Area PHT 3.5 cm??? Mitral E Point Velocity 83.0 cm/s Mitral A Point Velocity 90.1 cm/s Mitral E to A Ratio 0.9 MV Deceleration Time 216.4 ms TR Peak Velocity 161.2 cm/s TR Peak Gradient 10.4 mmHg Right Ventricular Systolic Press 15.4 mmHg FINDINGS Left Ventricle Left ventricular ejection fraction is estimated at 20-25 %. Mildly increased septal wall thickness. Mildly increased left ventricular diastolic diameter. Mildly increased left ventricular diastolic volume. Severely increased left ventricular systolic volume. Severely decreased left ventricular ejection fraction. Right Ventricle Normal right ventricular size. Reduced right ventricular global systolic function. Right Atrium Normal right atrial size. Catheter/pacemaker wire in the right atrial cavity. Left Atrium Severely increased left atrial diameter. Mildly increased left atrial volume. Mitral Valve Structurally normal mitral valve. Trace mitral regurgitation. Aortic Valve Normally functioning bioprosthetic aortic valve without stenosis with a peak velocity of 2.13 m/s, peak gradient 18 mmHg, mean gradient 12mmHg. No paravalvular aortic regurgitation. Tricuspid Valve Structurally normal tricuspid valve. Trace to mild tricuspid regurgitation. Pulmonic Valve Structurally normal pulmonic valve. Trace pulmonic regurgitation. No pulmonic stenosis. Pericardium No pericardial or pleural effusion. Aorta Normal size aortic root and proximal ascending aorta. CONCLUSIONS Severe LV systolic dysfunction with an ejection fraction of 20-25% Bioprosthetic valve in aortic position without any evidence of paravalvular leak Previewed by: Dr. Anibal Medeiros MD (Electronically Signed) Final Date: 25 March 2024 17:46
[2024-03-25 19:38] LABS: Glucose,Whole Blood 155 mg/dL (70-110)
[2024-03-25] MEDS: SENNOSIDES-DOCUSATE SODIUM 1 EACH TAB PO SCH (20:16)
[2024-03-25 21:12] LABS: Glucose,Whole Blood 139 mg/dL (70-110)
[2024-03-26 04:34] VITALS: TEMP 97.5
[2024-03-26 05:41] LABS: HGB 15.4 gm/dL (13.0-17.5); MCH 28.8 pg (25.0-35.0); MCV 90.1 fL (80.0-100.0); Mean Platelet Volume 9.5; Platelet Count 138 k/uL (150-450); RBC 5.33 m/uL (4.30-5.90); RDW 13.5 % (11.5-15.5); WBC 9.1 k/uL (3.8-10.6)
[2024-03-26 06:05] LABS: African American GFR (CKD) 76 (>60 ml/min/1.73 sqM); Anion Gap 8 mmol/L; Blood Urea Nitrogen 21 mg/dL (9-20); Calcium 8.8 mg/dL (8.4-10.2); Carbon Dioxide 22 mmol/L (22-30); Chloride 106 mmol/L (98-107); Glucose 132 mg/dL (74-99); Magnesium 1.9 mg/dL (1.6-2.3); Non-African American GFR(CKD) 65 (>60 ml/min/1.73 sqM); Potassium 4.5 mmol/L (3.5-5.1); Sodium 136 mmol/L (137-145)
[2024-03-26 06:23] LABS: Glucose,Whole Blood 216 mg/dL (70-110)
[2024-03-26] MEDS: MAGNESIUM SULFATE-D5W PMX 1 GM in DEXTROSE/WATER 1 100ML.BAG IVPB ONE (06:29)
--- NOTE | 2024-03-26 07:43 | XR ---
EXAMINATION TYPE: XR chest 1V portable DATE OF EXAM: 03/26/2024 HISTORY: Postop TAVR COMPARISON: 03/25/2024 TECHNIQUE: Single view of the chest is submitted. FINDINGS: Demonstrated are scattered senescent parenchymal change. Status post transaortic valvular replacemen t changes. There is no evidence for focal infiltrate. The heart is stable. Hilar and mediastinal structures are within normal limits. Degenerative changes are seen of the dorsal spine. IMPRESSION: 1. Chronic changes without evidence for acute pulmonary disease.
[2024-03-26] MEDS: AMIODARONE 200 MG TAB PO SCH (08:50)
[2024-03-26 10:25] VITALS: BP 123/85
[2024-03-26 11:10] VITALS: PULSE 55
[2024-03-26 11:14] LABS: Glucose,Whole Blood 125 mg/dL (70-110)
--- NOTE | 2024-03-26 12:15 | P.DS ---
Providers Date of admission: 03/24/24 07:50 Expected date of discharge: 03/26/24 Attending physician: Nicholas Mcneill Consults: 03/23/24 08:42 Consult to Anesthesia Routine Consulting Provider: Anesthesia,Services Consult Reason/Comments: Cardiac Surgery Pre-Op 03/24/24 13:02 Consult Physician Routine Consulting Provider: Nicholas Mcneill Consult Reason/Comments: Automation Operator Consult: post cardiac surgery Do you want consulting provider notified?: Yes Consult Physician Routine Consulting Provider: Jovi Guillen Consult Reason/Comments: Diabetes Management Do you want consulting provider notified?: Yes Primary care physician: Jovi Lara [place] [facility] Course: MEDICAL HISTORY: Symptomatic calcific bicuspid aortic valve stenosis with severe low-flow low gr adient cardiomyopathy, status post 29 mm Simpson's Venice 3 transcatheter aortic valve prosthesis placement Congestive systolic heart failure, with symptoms indicating NYHA class II Severe cardiomyopathy, status post AICD placement History of coronary artery disease status post myocardial revascularization in 2001 Supraventricular tachycardia, history Hypertension Hyperlipidemia Diabetes mellitus type 2 GERD History of neuropathy Remote history of nicotine dependence quit smoking in 2014 PROCEDURE: Percutaneous aortic valve implantation using a 29 mm Venice S3 under DEANDRE and fluoroscopy guidance Transesophageal echocardiography performed by anesthesia Ultrasound-guided access and repair of right femoral artery access site by Perclose closure device Placement of temporary pacemaker wire Aortic root angiography HISTORY OF PRESENT ILLNESS: This is a 69-year-old gentleman who follows on an outpatient basis with Dr. Guillen for primary care and Dr. Sabillon for cardiology care. He has a known history of symptomatic calcific bicuspid aortic valve stenosis with severe low-flow low gradient cardiomyopathy with progressive shortness of breath with activity. He had been referred to structural heart clinic for evaluation for transcatheter aortic valve replacement after heart catheterization and transesophageal echocardiogram were completed. Echocardiography demonstrated severely reduced systolic function with EF 25-30%, aortic valve area 0.45 cm with a peak/mean gradient 45/27 mmHg. Heart catheterization showed chronic total occlusion of the right coronary artery, occluded left anterior descending coronary artery, patent left internal mammary artery to the left anterior descending coronary artery, intermediate disease involving the left circumflex approximately and documented to be nonflow limiting by Doppler wire. The patient also underwent a dobutamine stress echocardiography which concluded a low-dose stress echocardiogram, with a patient's baseline gradient as peak and mean was 54/25 mmHg and at peak heart rate the patient's peak heart mean gradient was 76/41 mmHg, indicating that the patient does have true severe aortic stenosis. After workup was completed STS risk score was calculated along with incremental risk and the patient was felt to be a high risk for surgical aortic valve replacement, therefore transcatheter aortic valve replacement was recommended. The usual course of TAVR was discussed in detail the patient, risks and benefits were reviewed, shared decision making between cardiology, surgery, and the patient took place including the patient's preferences, and the patient consented to proceed with the procedure. HOSPITAL COURSE: The patient was brought to the hospital on 03/24/24, was taken to the extended stay area, prepared in the usual fashion, and subsequently taken to the cardiac catheterization laboratory where Dr. Sabillon and Dr. Mcneill completed TAVR procedure under general anesthesia with fluoroscopy and DEANDRE. The valve was deployed under rapid ventricular pacing and proceeded without event. At the end of the procedure there was mean gradient 1 mmHg, hemodynamics were felt to be acceptable, and there was no evidence of significant perivalvular leak. Upon completion of the procedure the patient was extubated and was transferred to 2S intensive care unit where he was recovered and monitored hemodynamically. His oxygen was titrated down, he was tolerating oral diet, his pain was controlled, follow-up TTE demonstrated severely decreased left ventricular ejection fraction estimated at 20 to 25%, normally functioning bio prosthetic aortic valve with no paravalvular leak and a peak gradient of 18 mmHg and a mean gradient of 12 mmHg. The patient was ready to be discharged to home on postoperative day #2. He received written and verbal instruction regarding his medications, activity restrictions, signs and symptoms requiring physician notification, and follow-up appointments. Plan - Discharge Summary Discharge Rx Participant: No New Discharge Prescriptions: New Amiodarone [Cordarone] 200 mg PO DAILY #30 tab Acetaminophen Tab [Tylenol] 1,000 mg PO Q6HR PRN tab PRN Reason: Fever And/ Or Mild Pain (1-3) Continue Aspirin 162 mg PO DAILY Insulin Glargine/Lixisenatide [Soliqua 100 Unit-33 Mcg/ml Pen] 50 units SQ DAILY Pantoprazole [Protonix] 40 mg PO QAM Metoprolol Succinate (ER) [Toprol XL] 25 mg PO QAM Discontinued lisinopriL 40 mg PO QAM Amiodarone [Cordarone] 100 mg PO DAILY Discharge Medication List Aspirin 162 mg PO DAILY 01/24/17 [History] Pantoprazole [Protonix] 40 mg PO QAM 08/10/21 [History] Metoprolol Succinate (ER) [Toprol XL] 25 mg PO QAM 05/28/22 [History] Insulin Glargine/Lixisenatide [Soliqua 100 Unit-33 Mcg/ml Pen] 50 units SQ DAILY 12/30/23 [History] Acetaminophen Tab [Tylenol] 1,000 mg PO Q6HR PRN tab 03/26/24 [Rx] Amiodarone [Cordarone] 200 mg PO DAILY #30 tab 03/26/24 [Rx] Follow up Appointment(s)/Referral(s): Jovi Guillen MD [Primary Care Provider] - As Needed Gabo Sabillon MD [STAFF PHYSICIAN] - 04/01/24 10:00 am (Follow-up with Dr. Sabillon on April 01, 2024 at 10 AM, also on June 04, 2024 at 3:15 PM for a transthoracic 2D echocardiogram and a follow-up appointment with Dr. Sabillon. Also scheduled for a 1 year transthoracic 2D echocardiogram on January 28, 2025 at 2:30 PM.) Clinic,Structural Heart [NON-STAFF] - 06/04/24 2:00 pm (You have an appointment at the valve clinic 06/04/24 @ 2:00 pm for 30 day post TAVR. You also have a 1 year post TAVR appointment at the valve clinic 01/28/25 @ 1:30 pm) Ambulatory/Diagnostic Orders: Basic Metabolic Panel [LAB.AMB] Time Frame: 06/04/24, Facility: [facility], Location: [facility] Basic Metabolic Panel [LAB.AMB] Time Frame: 01/28/25, Facility: [facility], Location: [facility] Complete Blood Count w/diff [LAB.AMB] Time Frame: 06/04/24, Facility: [facility], Location: [facility] Complete Blood Count w/diff [LAB.AMB] Time Frame: 01/28/25, Facility: [facility], Location: [facility] Activity/Diet/Wound Care/Special Instructions: DISCHARGE INSTRUCTIONS: 1. No driving for 1 week, or until physician gives their ok. 2. No lifting, pushing, or pulling more than 5-10 pounds for 1 week. 3. Hold both groins when you cough or sneeze for the next 2 weeks. Bruising is common, but report increased swelling, pain or fever >101F 4. Shower daily. No pool, hot tub, or bathtub for 1 week 5. No powders, lotions, ointments on incisions. 6. No straining, including for bowel movements. Use stool softner if necessary 7. Stairs are not an issue. Go slowly, using handrail and take 1 step at a time. Ambulate several times daily 8. Continue pain control per as needed orders. 9. Take only the medications listed on your discharge form 10. Eat low salt (limited to 2 grams or 2000 milligrams) daily, avoid adding salt, avoid canned/processed foods 11. Take your weight daily in the morning and record, bring with you to your follow up appointments 12. Keep all follow up appointments. You will need a valve clinic appointment at 30 days and 1 year post procedure for follow up 13. You have been referred to and are expected to begin Cardiac Rehab in approximately 4 weeks. 14. You will need antibiotics prior to any dental work, including cleanings, and any surgeries to prevent Endocarditis (bacterial infection in your heart) For any questions or concerns please call your valve coordinators: Ana or Ben @ Discharge Disposition: HOME SELF-CARE
[2024-03-26 12:47] VITALS: RESP 16
--- NOTE | 2024-03-26 20:22 | PN ---
PROGRESS NOTE DATE OF SERVICE: 03/25/2024 CHIEF COMPLAINT: Status post aortic valve replacement. HISTORY OF PRESENT ILLNESS: This gentleman is doing well. He has had no chest pain or shortness of breath. He is awake and alert. He has no neurologic deficits. PHYSICAL EXAMINATION: CHEST: Clear. CARDIAC: Normal sinus rhythm. ABDOMEN: Soft, nontender. IMPRESSION: 1. Status post transcatheter aortic valve replacement. 2. Atrial fibrillation. 3. Coronary artery disease. 4. Diabetes. PLAN: He continues to increase activity and he is doing well. MMODL / IJN: [id number] /
--- NOTE | 2024-03-26 20:55 | PN ---
PROGRESS NOTE DATE OF SERVICE: 03/26/2024 CHIEF COMPLAINT: Aortic stenosis. HISTORY OF PRESENT ILLNESS: This gentleman is doing well. He is awake and alert, and going home today. PHYSICAL EXAMINATION: CHEST: Clear. CARDIAC: Normal. ABDOMEN: Soft, nontender. IMPRESSION: 1. Status post transcatheter aortic valve replacement for aortic stenosis. 2. Coronary artery disease. 3. Insulin-dependent diabetes mellitus. 4. Hypertension. PLAN: He will follow up in the office in several days. MMODL / IJN: [id number] /
--- NOTE | 2024-03-27 00:21 | CONS ---
CONSULTATION CHIEF COMPLAINT: Aortic stenosis. HISTORY OF PRESENT ILLNESS: This is another of many admissions for this 69-year-old gentleman, who has had longstanding history of coronary artery disease. He also has had poorly controlled diabetes. He has been doing better and been more compliant over the last year or 2, but he has been complaining of extreme fatigue and was found to have aortic stenosis and has come in for an elective transaortic valve replacement. REVIEW OF SYSTEMS: He denies any recent chest pain, neurologic deficits, visual changes, syncope, etc. Past medical history, family history, and personal and social histories are otherwise unremarkable and noncontributory at this time and can be found in his admitting summary. PHYSICAL EXAMINATION: VITAL SIGNS: Normal. HEAD, EARS, EYES, NOSE, MOUTH AND THROAT: Normal. NECK: Neck veins are not distended. Carotids are normal. CHEST: Clear. CARDIAC: Unremarkable with sinus rhythm. ABDOMEN: Soft and nontender. EXTREMITIES: Normal. IMPRESSION: 1. Aortic stenosis. 2. Coronary artery disease. 3. Insulin-dependent diabetes mellitus. RECOMMENDATIONS: None. Thank you respectfully, MMODL / IJN: [id number] /
== END 2024-03-26 13:12 | disposition home or self-care (01) | DRG 267 ==
LOC: 2ORMAIN 07:50 → EDSTATUS 10:15 → 2SICU 14:33
PROVIDERS: ADMIT Thoracic Surgery (Cardiothoracic Vascular Surgery); ATTEND Thoracic Surgery (Cardiothoracic Vascular Surgery)
PROC: 04QK0ZZ Repair Right Femoral Artery, Open Approach (ICD-10-PCS; 2024-03-24)
PROC: B24BZZ4 Ultrasonography of Heart with Aorta, Transesophageal (ICD-10-PCS; 2024-03-24)
PROC: B3101ZZ Fluoroscopy of Thoracic Aorta using Low Osmolar Contrast (ICD-10-PCS; 2024-03-24)
PROC: 5A1223Z Performance of Cardiac Pacing, Continuous (ICD-10-PCS; 2024-03-24)
PROC: 02HV33Z Insertion of Infusion Device into Superior Vena Cava, Percutaneous Approach (ICD-10-PCS; 2024-03-24)
PROC: 02RF38Z Replacement of Aortic Valve with Zooplastic Tissue, Percutaneous Approach (ICD-10-PCS; principal; 2024-03-24 10:15)
DX: Q23.1 Congenital insufficiency of aortic valve (principal); Z00.6 Encounter for examination for normal comparison and control in clinical research program; I47.10 Supraventricular tachycardia, unspecified; I50.22 Chronic systolic (congestive) heart failure; I25.10 Atherosclerotic heart disease of native coronary artery without angina pectoris; Z87.891 Personal history of nicotine dependence; Z95.810 Presence of automatic (implantable) cardiac defibrillator; I11.0 Hypertensive heart disease with heart failure; E11.42 Type 2 diabetes mellitus with diabetic polyneuropathy; E78.5 Hyperlipidemia, unspecified; I25.5 Ischemic cardiomyopathy; I48.91 Unspecified atrial fibrillation; K21.9 Gastro-esophageal reflux disease without esophagitis; Z79.4 Long term (current) use of insulin

== ENCOUNTER 2024-04-13 07:02 | Observation (INO) | payer MEDICARE ==
--- NOTE | 2024-04-13 07:34 | ED ---
General Adult HPI - General Chief complaint: Arrhythmia/Palpitations Stated complaint: Chest pain Time Seen by Provider: 04/13/24 07:15 Source: patient, RN notes reviewed, old records reviewed Mode of arrival: wheelchair Limitations: no limitations - History of Present Illness Initial comments: This is a 69-year-old male who presents to the emergency department with a past medical history significant for bypass surgery stent placements diabetes hypert ension high cholesterol and a recent TAVR procedure patient states starting Friday started feeling off and by Friday he felt absolutely terrible and has continued to feel terrible ever since. Patient states he is short of breath and feels his heart racing. Patient denies any fever chills. Patient Nuys abdominal pain patient has nausea vomiting. Patient denies lightheadedness or dizziness. Patient Nuys swelling in his legs or calf tenderness. Patient is unsure if he ever had a history of A-fib or atrial flutter - Related Data Home Medications Medication Instructions Recorded Confirmed Aspirin 162 mg PO DAILY 01/24/17 03/24/24 Pantoprazole [Protonix] 40 mg PO QAM 08/10/21 03/24/24 Metoprolol Succinate (ER) [Toprol 25 mg PO QAM 05/28/22 03/23/24 XL] Insulin Glargine/Lixisenatide 50 units SQ DAILY 12/30/23 03/23/24 [[place] 100 Unit-33 Mcg/ml Pen] Previous Rx's Medication Instructions Recorded Acetaminophen Tab [Tylenol] 1,000 mg PO Q6HR PRN tab 03/26/24 Amiodarone [Cordarone] 200 mg PO DAILY #30 tab 03/26/24 Allergies Allergy/AdvReac Type Severity Reaction Status Date / Time No Known Allergies Allergy Verified 03/23/24 10:18 Review of Systems ROS Statement: Those systems with pertinent positive or pertinent negative responses have been documented in the HPI. ROS Other: All systems not noted in ROS Statement are negative. Past Medical History Past Medical History: Coronary Artery Disease (CAD), Chest Pain / Angina, Diabetes Mellitus, GERD/Reflux, Hyperlipidemia, Hypertension, Myocardial Infarction (non Q-wave) Additional Past Medical History / Comment(s): 01/24/17 with SVT converted with adenosine. Other hx: Neuropathy bilateral feet, 2 MIs-2001 and 2014. Last Myocardial Infarction Date:: 07/25/14 History of Any Multi-Drug Resistant Organisms: None Reported Past Surgical History: AICD, Coronary Bypass/CABG, Heart Catheterization With Stent, Orthopedic Surgery, Tonsillectomy Additional Past Surgical History / Comment(s): PCI with stents 2001 and 2014, 3 vessel CABG in 2001, AICD 2001-, pins in left ankle as a kid. taver Past Anesthesia/Blood Transfusion Reactions: No Reported Reaction Additional Past Anesthesia/Blood Transfusion Reaction / Comment(s): No previous history of blood transfusions Date of Last Stent Placement:: 2014 Type of Cardiac Device: AICD Device Placement Date:: 2001- Past Psychological History: No Psychological Hx Reported Smoking Status: Former smoker Past Alcohol Use History: None Reported Past Drug Use History: None Reported - Past Family History Mother History Unknown: Yes Family Medical History: Diabetes Mellitus Additional Family Medical History / Comment(s): Mother at 78yrs Father Family Medical History: Coronary Artery Disease (CAD), Myocardial Infarction (LA) Additional Family Medical History / Comment(s): Father had a LA in his early 50's. He of CAD at 75yrs. General Exam - General Exam Comments Initial Comments: GENERAL: Patient is well-developed and well-nourished. Patient is nontoxic and well- hydrated and is in mild distress. ENT: Neck is soft and supple. No significant lymphadenopathy is noted. Oropharynx is clear. Moist mucous membranes. Neck has full range of motion without eliciting any pain. EYES: The sclera were anicteric and conjunctiva were pink and moist. Extraocular movements were intact and pupils were equal round and reactive to light. Eyelids were unremarkable. PULMONARY: Unlabored respirations. Good breath sounds bilaterally. No audible rales rho nchi or wheezing was noted. CARDIOVASCULAR: Heart rate 140 bpm ABDOMEN: Soft and nontender with normal bowel sounds. SKIN: Skin is clear with no lesions or rashes and otherwise unremarkable. NEUROLOGIC: Patient is alert and oriented x3. Cranial nerves II through XII are grossly intact. Motor and sensory are also intact. Normal speech, volume and content. Symmetrical smile. MUSCULOSKELETAL: Normal extremities with adequate strength and full range of motion. LYMPHATICS: No significant lymphadenopathy is noted PSYCHIATRIC: Normal psychiatric evaluation. Limitations: no limitations Course Vital Signs 04/13/24 04/13/24 04/13/24 07:02 08:06 08:16 Temperature 97.3 F L Pulse Rate 140 H 133 H 60 Respiratory 22 18 18 Rate Blood Pressure 101/74 100/79 114/87 O2 Sat by Pulse 98 99 97 Oximetry 04/13/24 04/13/24 04/13/24 08:34 08:48 09:00 Temperature Pulse Rate 64 58 L 62 Respiratory 18 18 18 Rate Blood Pressure 111/84 102/74 118/93 O2 Sat by Pulse 98 100 99 Oximetry Medical Decision Making - Medical Decision Making EKG was interpreted by myself EKG shows atrial flutter at 141 bpm QRS is 176 QT interval 355 QTc is 437. Patient's EKG shows a left bundle branch block Repeat EKG shows EKG was interpreted by myself. EKG shows a sinus rhythm at 61 bpm ID interval is 277 QRS of 177 QT interval is 508 QTc is 512. Patient's EKG shows a left bundle branch block Was pt. sent in by a medical professional or institution (, PA, COMPOSITION MOLDER, urgent care, hospital, or alf...) When possible be specific @ -No Did you speak to anyone other than the patient for history (EMS, parent, family, police, friend...)? What history was obtained from this source @ -EMS gave us the report of how the patient was feeling and route Did you review nursing and triage notes (agree or disagree)? Why? @ -I reviewed and agree with nursing and triage notes Were old charts reviewed (outside hosp., previous admission, EMS record, old EKG, old radiological studies, urgent care reports/EKG's, alf records)? Report findings @ -I reviewed the patient's prior admission and the TAVR procedure note I also compared the EKG with previous EKGs Differential Diagnosis? @ -Differential Palpitations Ventricular arrhythmias, atrial arrhythmias, myocardial infarction, anemia, thyrotoxicosis, electrolyte imbalance, hypokalemia, pulmonary embolism, pulmonary disease, drugs, alcohol, anxiety, stress.... This is not meant to be an all-inclusive list. EKG interpreted by me (3pts min.). @ -As above X-rays interpreted by me (1pt min.). @ -Chest x-ray shows a left-sided pleural effusion CT interpreted by me (1pt min.). @ -None done U/S interpreted by me (1pt. min.). @ -None done What testing was considered but not performed or refused? (CT, X-rays, U/S, labs)? Why? @ -None What meds were considered but not given or refused? Why? @ -None Did you discuss the management of the patient with other professionals (professionals i.e. , PA, COMPOSITION MOLDER, lab, RT, psych nurse, social sciences research scientist, finisher tailor apprentice, teacher, airplane first officer, case finisher)? Give summary @ -I spoke with cardiology on 2 occasions about this patient Dr. Jara did want the patient on heparin and amiodarone. Was smoking cessation discussed for >3mins.? @ -No Was critical care preformed (if so, how long)? @ -35 minutes Were there social determinants of health that impacted care today? How? (Homelessness, low income, unemployed, alcoholism, drug addiction, transportation, low edu. Level, literacy, decrease access to med. care, care home, rehab)? @ -No Was there de-escalation of care discussed even if they declined (Discuss DNR or withdrawal of care, Hospice)? DNR status @ -No What co-morbidities impacted this encounter? (DM, HTN, Smoking, COPD, CAD, Ca ncer, CVA, ARF, Chemo, Hep., AIDS, mental health diagnosis, sleep apnea, morbid obesity)? @ -None Was patient admitted / discharged? Hospital course, mention meds given and route, prescriptions, significant lab abnormalities, going to OR and other pertinent info. @ -Patient was given amiodarone 150 cc bolus which dropped the patient's blood pressure only 75 cc were given. Patient was started on an amiodarone drip once his blood pressure returned to normal. Undiagnosed new problem with uncertain prognosis? @ -No Drug Therapy requiring intensive monitoring for toxicity (Heparin, Nitro, Insulin, Cardizem)? @ -No Were any procedures done? @ -No Diagnosis/symptom? @ -Atrial flutter with rapid ventricular response Acute, or Chronic, or Acute on Chronic? @ -Acute Uncomplicated (without systemic symptoms) or Complicated (systemic symptoms)? @ -Complicated Side effects of treatment? @ -No Exacerbation, Progression, or Severe Exacerbation? @ -No Poses a threat to life or bodily function? How? (Chest pain, USA, LA, pneumonia, PE, COPD, DKA, ARF, appy, cholecystitis, CVA, Diverticulitis, Homicidal, Suicidal, threat to staff... and all critical care pts) @ -Yes this can lead to poor perfusion and endorgan dysfunction - Lab Data Result diagrams: 04/13/24 07:31 04/13/24 07:31 Lab Results 04/13/24 04/13/24 04/13/24 Range/Units 07:31 07:31 07:31 WBC 9.2 (3.8-10.6) k/uL RBC 5.80 (4.30-5.90) m/uL Hgb 17.1 (13.0-17.5) gm/dL Hct 51.7 (39.0-53.0) % MCV 89.2 (80.0-100.0) fL MCH 29.5 (25.0-35.0) pg MCHC 33.1 (31.0-37.0) g/dL RDW 13.4 (11.5-15.5) % Plt Count 280 D (150-450) k/uL MPV 9.2 Neutrophils % 73 % Lymphocytes % 14 % Monocytes % 8 % Eosinophils % 3 % Basophils % 1 % Neutrophils # 6.6 (1.3-7.7) k/uL Lymphocytes # 1.3 (1.0-4.8) k/uL Monocytes # 0.8 (0-1.0) k/uL Eosinophils # 0.2 (0-0.7) k/uL Basophils # 0.1 (0-0.2) k/uL PT 11.6 (10.0-12.5) sec INR 1.1 (<1.2) APTT 25.5 (22.0-30.0) sec Sodium 140 (137-145) mmol/L Potassium 4.8 (3.5-5.1) mmol/L Chloride 104 (98-107) mmol/L Carbon Dioxide 24 (22-30) mmol/L Anion Gap 12 mmol/L BUN 33 H (9-20) mg/dL Creatinine 1.69 H (0.66-1.25) mg/dL Est GFR (CKD-EPI)AfAm 48 (>60 ml/min/1.73 sqM) Est GFR (CKD-EPI)NonAf 41 (>60 ml/min/1.73 sqM) Glucose 209 H (74-99) mg/dL Calcium 9.7 (8.4-10.2) mg/dL Magnesium 1.9 (1.6-2.3) mg/dL Total Bilirubin 1.7 H (0.2-1.3) mg/dL AST 41 (17-59) U/L ALT 20 (4-49) U/L Alkaline Phosphatase 121 (38-126) U/L Troponin I (0.000-0.034) ng/mL Total Protein 7.2 (6.3-8.2) g/dL Albumin 4.1 (3.5-5.0) g/dL 04/13/24 Range/Units 07:31 WBC (3.8-10.6) k/uL RBC (4.30-5.90) m/uL Hgb (13.0-17.5) gm/dL Hct (39.0-53.0) % MCV (80.0-100.0) fL MCH (25.0-35.0) pg MCHC (31.0-37.0) g/dL RDW (11.5-15.5) % Plt Count (150-450) k/uL MPV Neutrophils % % Lymphocytes % % Monocytes % % Eosinophils % % Basophils % % Neutrophils # (1.3-7.7) k/uL Lymphocytes # (1.0-4.8) k/uL Monocytes # (0-1.0) k/uL Eosinophils # (0-0.7) k/uL Basophils # (0-0.2) k/uL PT (10.0-12.5) sec INR (<1.2) APTT (22.0-30.0) sec Sodium (137-145) mmol/L Potassium (3.5-5.1) mmol/L Chloride (98-107) mmol/L Carbon Dioxide (22-30) mmol/L Anion Gap mmol/L BUN (9-20) mg/dL Creatinine (0.66-1.25) mg/dL Est GFR (CKD-EPI)AfAm (>60 ml/min/1.73 sqM) Est GFR (CKD-EPI)NonAf (>60 ml/min/1.73 sqM) Glucose (74-99) mg/dL Calcium (8.4-10.2) mg/dL Magnesium (1.6-2.3) mg/dL Total Bilirubin (0.2-1.3) mg/dL AST (17-59) U/L ALT (4-49) U/L Alkaline Phosphatase (38-126) U/L Troponin I 1.110 H* (0.000-0.034) ng/mL Total Protein (6.3-8.2) g/dL Albumin (3.5-5.0) g/dL Disposition Clinical Impression: Atrial flutter with rapid ventricular response Disposition: ADMITTED IP TO THIS HOSP Referrals: Jovi Guillen MD [Primary Care Provider] - 1-2 days Time of Disposition: 09:56
[2024-04-13] MEDS ORDERED: DILTIAZEM 125 MG in SODIUM CHLORIDE 0.9% 100 ML IV SCH (07:45)
[2024-04-13] MEDS: DILTIAZEM DRIP BOLUS FROM BAG 1 MG SOLN IV ONE (07:46)
[2024-04-13 07:56] LABS: Basophils # (A) 0.1 k/uL (0-0.2); Basophils % (A) 1 %; Eosinophils # (A) 0.2 k/uL (0-0.7); Eosinophils % (A) 3 %; HCT 51.7 % (39.0-53.0); HGB 17.1 gm/dL (13.0-17.5); Lymphocytes # (A) 1.3 k/uL (1.0-4.8); Lymphocytes % (A) 14 %; MCH 29.5 pg (25.0-35.0); MCHC 33.1 g/dL (31.0-37.0); MCV 89.2 fL (80.0-100.0); Mean Platelet Volume 9.2; Monocytes # (A) 0.8 k/uL (0-1.0); Monocytes % (A) 8 %; Neutrophils # (A) 6.6 k/uL (1.3-7.7); Neutrophils % (A) 73 %; RDW 13.4 % (11.5-15.5); WBC 9.2 k/uL (3.8-10.6)
[2024-04-13 07:59] LABS: INR 1.1 (<1.2); Partial Thromboplastin Time 25.5 sec (22.0-30.0); Platelet Count 280 k/uL (150-450); Prothrombin Time 11.6 sec (10.0-12.5)
[2024-04-13] MEDS: DEXTROSE 5% IN WATER 100 ML with AMIODARONE 150 MG IV ONE (08:00)
[2024-04-13 08:06] LABS: ALT 20 U/L (4-49); AST 41 U/L (17-59); African American GFR (CKD) 48 (>60 ml/min/1.73 sqM); Albumin 4.1 g/dL (3.5-5.0); Alkaline Phosphatase 121 U/L (38-126); Anion Gap 12 mmol/L; Blood Urea Nitrogen 33 mg/dL (9-20); Calcium 9.7 mg/dL (8.4-10.2); Carbon Dioxide 24 mmol/L (22-30); Chloride 104 mmol/L (98-107); Glucose 209 mg/dL (74-99); Magnesium 1.9 mg/dL (1.6-2.3); Non-African American GFR(CKD) 41 (>60 ml/min/1.73 sqM); Potassium 4.8 mmol/L (3.5-5.1); Sodium 140 mmol/L (137-145); Total Bilirubin 1.7 mg/dL (0.2-1.3); Total Protein 7.2 g/dL (6.3-8.2)
--- NOTE | 2024-04-13 08:17 | XR ---
EXAMINATION TYPE: XR chest 2V DATE OF EXAM: 04/13/2024 COMPARISON: 03/26/2024 HISTORY: Shortness of breath TECHNIQUE: Frontal and lateral views of the chest are obtained. FINDINGS: Scattered senescent parenchymal changes noted. Hyperinflation compatible with COPD. No evidence for infiltrate. No evidence for atelectasis. Heart size is stable. Aortic valve replacement changes. IACD device in place. Mediastinal structures are stable and grossly unremarkable. No evidence for hilar prominence. Degenerative changes dorsal spine. IMPRESSION: 1. No evidence for acute pulmonary disease. [facility], , 04/13/2024 8:15 AM
[2024-04-13] MEDS: SODIUM CHLORIDE 0.9% 1,000 ML IV ONE (08:28)
[2024-04-13] MEDS: AMIODARONE 360 MG in DEXTROSE 5% IN WATER 200 ML IV ONE (08:57)
[2024-04-13] MEDS ORDERED: NITROGLYCERIN SL TABS 0.4 MG TAB SUBLINGUAL PRN (09:56)
[2024-04-13] MEDS ORDERED: AMIODARONE 200 MG TAB PO SCH (11:00)
[2024-04-13] MEDS: HEPARIN SODIUM 1,000 UN/ML (10ML VL) IV ONE (11:15)
[2024-04-13] MEDS: HEPARIN SOD,PORK IN 0.45% NACL 25,000 UNIT in 0.45% NACL 1 250ML.BAG IV SCH (11:30)
[2024-04-13] MEDS: METOPROLOL SUCCINATE (ER) 25 MG TAB.ER.24H PO SCH (11:41)
[2024-04-13] MEDS: DAPAGLIFLOZIN PROPANEDIOL 5 MG TABLET PO SCH (11:41)
[2024-04-13] MEDS: ASPIRIN 81 MG PO SCH (11:41)
[2024-04-13] MEDS ORDERED: ACETAMINOPHEN TAB 500 MG TAB PO PRN (11:47)
--- NOTE | 2024-04-13 13:56 | P.CRDCN ---
History of Present Illness History of present illness: HISTORY OF PRESENT ILLNESS: This is a 69-year-old male with a past medical history significant for coronary artery disease with previous CABG, bicuspid aortic valve with recent TAVR, card iomyopathy, AICD implantation, SVT, and valvular heart disease. Patient follows in the office with Dr. Sabillon. We have been asked to see the patient in consultation for atrial flutter. Patient examined at the bedside in the emergency room. Patient presented to the hospital with a chief complaint of p alpitations. He states he has had 3-4 episodes of palpitations over the past few weeks. He states on Friday he began having palpitations and started to feel unwell. He states his symptoms progressed so he decided to come to the emergency room. He denies any chest pain or pressure. He currently denies shortness of breath. Initial EKG appears to be SVT however cannot exclude A- fib/flutter. The patient was started on IV amiodarone. He since converted to sinus mechanism and is maintaining sinus mechanism at the time of examination DIAGNOSTICS: - EKG appears to be SVT. Cannot rule out A-fib/flutter. Left bundle branch block. - Chest xray negative for acute process - Laboratory data: WBC 9.2. Hemoglobin 17.1. Platelet count 280. Sodium 140. Potassium 4.8. BUN 33. Creatinine 1.69. Magnesium 1.9. Troponin 1.110. 0.958. - Current home cardiac medications include lisinopril 40 mg daily, metoprolol succinate 25 mg daily, Jardiance 10 mg daily, aspirin 162 mg daily, amiodarone 200 mg daily - Most recent echocardiogram obtained in 03/25/2024 revealed ejection fraction 20 to 25%, trace MR, normally functioning bioprosthetic aortic valve without stenosis, peak gradient 18 mmHg, mean gradient 18 mmHg, no perivalvular aortic regurgitation, trace to mild tricuspid regurgitation. - Cardiac catheterization history: December 2023 revealing chronic total occlusion of the RCA, occluded LAD. Patent GRAHAM to LAD. Intermediate disease involving the left circumflex approximately documented to be nonflow limiting by Doppler wire. Normal left-sided filling pressures. REVIEW OF SYSTEMS: At the time of my exam: CONSTITUTIONAL: Denies fever or chills. HEENT: Denies blurred vision, vision changes, or eye pain. Denies hemoptysis CARDIOVASCULAR: Denies chest pain. Denies orthopnea. Denies PND. Denies palpitations RESPIRATORY: Denies shortness of breath. GASTROINTESTINAL: Denies abdominal pain. Denies nausea or vomiting. HEMATOLOGIC: Denies bleeding disorders. GENITOURINARY: Denies any blood in urine. SKIN: Denies pruitis. Denies rash. PHYSICAL EXAM: VITAL SIGNS: Reviewed. GENERAL: Well-developed in no acute distress. HEENT: Head is normocephalic. Pupils are equal, round. Sclerae anicteric. Mucous membranes of the mouth are moist. Neck supple. No JVD or thyromegaly LUNGS: Respirations even and unlabored. Lungs essentially clear to auscultation bilaterally. HEART: Regular rate and rhythm. S1 and S2 heard. Systolic murmur noted. ABDOMEN: Soft. Nondistended. Nontender. EXTREMITIES: Normal range of motion. No clubbing or cyanosis. Peripheral pulses intact. No lower extremity edema NEUROLOGIC: Awake and alert. Oriented x 3. ASSESSMENT: Palpitations Paroxysmal SVT, cannot rule out underlying atrial fibrillation/flutter Symptomatic bicuspid aortic valve stenosis, status post TAVR, 03/24/2024 Acute kidney injury Abnormal troponins, suspect type II LA secondary to oxygen supply/demand mismatch Coronary artery disease with previous CABG Chronic total occlusion of RCA Intermediate disease involving left circumflex proximally, documented to be nonflow limiting by Doppler wire Ischemic cardiomyopathy, 20 to 25% History of ICD implantation Hypertension Hyperlipidemia PLAN: Obtain 2D echo to assess cardiac structure and function Trend troponins Continue IV heparin Interrogate ICD Continue IV amiodarone Hold lisinopril secondary to soft blood pressures Continue telemetry monitoring Further recommendations pending patient course Nurse practitioner note has been reviewed by physician. Signing provider agrees with the documented findings, assessment, and plan of care documented by VETERINARY TOXICOLOGIST as a scribe. Past Medical History Past Medical History: Coronary Artery Disease (CAD), Chest Pain / Angina, Diabetes Mellitus, GERD/Reflux, Hyperlipidemia, Hypertension, Myocardial Infarction (non Q-wave) Additional Past Medical History / Comment(s): 01/24/17 with SVT converted with adenosine. Other hx: Neuropathy bilateral feet, 2 MIs-2001 and 2014. Last Myocardial Infarction Date:: 07/25/14 History of Any Multi-Drug Resistant Organisms: None Reported Past Surgical History: AICD, Coronary Bypass/CABG, Heart Catheterization With Stent, Orthopedic Surgery, Tonsillectomy Additional Past Surgical History / Comment(s): PCI with stents 2001 and 2014, 3 vessel CABG in 2001, AICD 2001-, pins in left ankle as a kid. taver Past Anesthesia/Blood Transfusion Reactions: No Reported Reaction Additional Past Anesthesia/Blood Transfusion Reaction / Comment(s): No previous history of blood transfusions Date of Last Stent Placement:: 2014 Type of Cardiac Device: AICD Device Placement Date:: 2001- Past Psychological History: No Psychological Hx Reported Smoking Status: Former smoker Past Alcohol Use History: None Reported Past Drug Use History: None Reported - Past Family History Mother History Unknown: Yes Family Medical History: Diabetes Mellitus Additional Family Medical History / Comment(s): Mother at 78yrs Father Family Medical History: Coronary Artery Disease (CAD), Myocardial Infarction (LA) Additional Family Medical History / Comment(s): Father had a LA in his early 50's. He of CAD at 75yrs. Medications and Allergies Home Medications Medication Instructions Recorded Confirmed Type Aspirin 162 mg PO DAILY 01/24/17 04/13/24 History Pantoprazole [Protonix] 40 mg PO DAILY 08/10/21 04/13/24 History Metoprolol Succinate (ER) [Toprol 25 mg PO DAILY 05/28/22 04/13/24 History XL] Insulin Glargine/Lixisenatide 50 units SQ DAILY 12/30/23 04/13/24 History [Soliqua 100 Unit-33 Mcg/ml Pen] Acetaminophen Tab [Tylenol] 1,000 mg PO Q6HR PRN tab 03/26/24 04/13/24 Rx Amiodarone [Cordarone] 200 mg PO DAILY #30 tab 03/26/24 04/13/24 Rx Empagliflozin [Jardiance] 10 mg PO DAILY 04/13/24 04/13/24 History lisinopriL 40 mg PO DAILY 04/13/24 04/13/24 History Allergies Allergy/AdvReac Type Severity Reaction Status Date / Time No Known Allergies Allergy Verified 04/13/24 09:57 Physical Exam Vitals: Vital Signs Temp Pulse Resp BP Pulse Ox 04/13/24 09:55 55 L 18 97/68 04/13/24 09:00 62 18 118/93 99 04/13/24 08:48 58 L 18 102/74 100 04/13/24 08:34 64 18 111/84 98 04/13/24 08:16 60 18 114/87 97 04/13/24 08:06 133 H 18 100/79 99 04/13/24 07:02 97.3 F L 140 H 22 101/74 98 Intake and Output 04/12/24 04/13/24 04/13/24 22:59 06:59 14:59 Other: Weight 75.296 kg Results 04/13/24 07:31 04/13/24 07:31 Cardiac Enzymes 04/13/24 04/13/24 04/13/24 Range/Units 07:31 07:31 10:33 AST 41 (17-59) U/L Troponin I 1.110 H* 0.958 H* (0.000-0.034) ng/mL Coagulation 04/13/24 Range/Units 07:31 PT 11.6 (10.0-12.5) sec APTT 25.5 (22.0-30.0) sec CBC 04/13/24 Range/Units 07:31 WBC 9.2 (3.8-10.6) k/uL RBC 5.80 (4.30-5.90) m/uL Hgb 17.1 (13.0-17.5) gm/dL Hct 51.7 (39.0-53.0) % Plt Count 280 D (150-450) k/uL Comprehensive Metabolic Panel 04/13/24 Range/Units 07:31 Sodium 140 (137-145) mmol/L Potassium 4.8 (3.5-5.1) mmol/L Chloride 104 (98-107) mmol/L Carbon Dioxide 24 (22-30) mmol/L BUN 33 H (9-20) mg/dL Creatinine 1.69 H (0.66-1.25) mg/dL Glucose 209 H (74-99) mg/dL Calcium 9.7 (8.4-10.2) mg/dL AST 41 (17-59) U/L ALT 20 (4-49) U/L Alkaline Phosphatase 121 (38-126) U/L Total Protein 7.2 (6.3-8.2) g/dL Albumin 4.1 (3.5-5.0) g/dL Current Medications Generic Name Dose Route Start Last Admin Trade Name Freq PRN Reason Stop Dose Admin Acetaminophen 1,000 mg 04/13/24 11:47 Acetaminophen Tab 500 Mg Tab PO Q6HR PRN Fever And/ Or Mild Pain (1-3) Aspirin 162 mg 04/13/24 11:00 04/13/24 11:41 Aspirin 81 Mg PO 162 mg DAILY SHAN Administration Dapagliflozin 5 mg 04/13/24 11:00 04/13/24 11:41 Dapagliflozin Propanediol 5 Mg Tablet PO Not Given DAILY SHAN Amiodarone HCl 360 mg/ 200 mls @ 33.333 mls/hr 04/13/24 08:00 04/13/24 08:57 Dextrose/Water IV 04/13/24 13:59 1 mg/min .Q6H ONE 33.333 mls/hr Administration Protocol 1 MG/MIN Amiodarone HCl 450 mg/ 250 mls @ 16.667 mls/hr 04/13/24 14:00 Dextrose/Water IV 04/14/24 07:59 .Q15H SHAN Protocol 0.5 MG/MIN Heparin Sodium/Sodium Chloride 250 mls @ 9.036 mls/hr 04/13/24 10:00 04/13/24 11:30 25,000 unit/ Sodium Chloride IV 12 units/kg/hr .Q24H SHAN 9.036 mls/hr Administration Protocol 12 UNITS/KG/HR Lisinopril 40 mg 04/14/24 09:00 Lisinopril 20 Mg Tab PO DAILY [facility] Metoprolol Succinate 25 mg 04/13/24 11:00 04/13/24 11:41 Metoprolol Succinate (Er) 25 Mg Tab.Er.24h PO Not Given DAILY SHAN Nitroglycerin 0.4 mg 04/13/24 09:56 Nitroglycerin Sl Tabs 0.4 Mg Tab SUBLINGUAL Q5M PRN Chest Pain Insulin Glargine/ 50 units 04/14/24 09:00 Lixisenatide [ SQ Soliqua 100 Unit-33 DAILY SHAN Mcg/Ml Pen] 3 Ml In Pantoprazole Sodium 40 mg 04/14/24 07:30 Pantoprazole 40 Mg Tablet PO DAILY@0730 SHAN Intake and Output 04/12/24 04/13/24 04/13/24 22:59 06:59 14:59 Other: Weight 75.296 kg Patient Weight 04/14/24 06:59 Weight 75.296 kg 04/13/24 07:31 04/13/24 07:31
[2024-04-13] MEDS: AMIODARONE 450 MG in DEXTROSE 5% IN WATER 250 ML IV SCH (15:45)
--- NOTE | 2024-04-13 17:02 | CA ---
Transthoracic Echo Report Name: Tito Mullins Age: 69 Gender: M : 1955 Exam Date: 04/13/2024 15:00 Exam Location: [facility] Ht (in): 69 Wt (lb): 166 Ordering Physician: Carola Rivera Attending/Referring Phys: [id number], Miguel Information Specialist Irene Price, LEATHA Procedure CPT: Indications: elevated trops, recent TAVR, new AF Cardiac Hx: TAVR, Pacemaker Technical Quality: Fair Contrast 1: Definity Total Dose (mL): 2 Contrast 2: Total Dose (mL): MEASUREMENTS (Male / Female) Normal Values 2D ECHO LV Diastolic Diameter PLAX 6.7 cm 4.2 - 5.9 / 3.9 - 5.3 cm LV Systolic Diameter PLAX 6.5 cm IVS Diastolic Thickness 1.2 cm 0.6 - 1.0 / 0.6 - 0.9 cm LVPW Diastolic Thickness 1.3 cm 0.6 - 1.0 / 0.6 - 0.9 cm LV Relative Wall Thickness 0.4 RV Internal Dim ED PLAX 2.4 cm LA Systolic Diameter LX 5.4 cm 3.0 - 4.0 / 2.7 - 3.8 cm LA Volume 96.3 cm??? 18 - 58 / 22 - 52 cm??? LA Volume Index 50.1 cm???/m??? 16 - 28 cm???/m??? M-MODE Aortic Root Diameter MM 2.7 cm LA Systolic Diameter MM 5.2 cm LA Ao Ratio MM 2.0 DOPPLER AV Peak Velocity 225.7 cm/s AV Peak Gradient 20.4 mmHg AV Mean Velocity 161.3 cm/s AV Mean Gradient 12.3 mmHg AV Velocity Time Integral 49.1 cm LVOT Peak Velocity 43.9 cm/s LVOT Peak Gradient 0.8 mmHg LVOT Velocity Time Integral 9.9 cm MV Area PHT 3.4 cm??? Mitral E Point Velocity 99.5 cm/s Mitral A Point Velocity 43.7 cm/s Mitral E to A Ratio 2.3 MV Deceleration Time 226.4 ms TR Peak Velocity 312.7 cm/s TR Peak Gradient 39.1 mmHg Right Ventricular Systolic Press 56.4 mmHg FINDINGS Left Ventricle Left ventricular ejection fraction is estimated at 5-10 %. Mildly increased septal wall thickness. Moderately increased left ventricular diastolic diameter. Severely reduced global left ventricular systolic function. Right Ventricle Mild right ventricular dilatation. Moderate to severe pulmonary hypertension. Right Atrium Mild right atrial dilatation. Catheter/pacemaker wire in the right atrial cavity. Left Atrium Severely increased left atrial diameter. Severely increased left atrial volume. Mildly increased left atrial area. Mitral Valve Structurally normal mitral valve. [id number] mitral regurgitation. No mitral stenosis. Aortic Valve Bioprosthetic aortic valve with a peak velocity of 2.25 m/s, peak gradient 20 mmHg, mean gradient 12mmHg. Mild paravalvular aortic regurgitation. Tricuspid Valve Structurally normal tricuspid valve. Moderate tricuspid regurgitation. No tricuspid stenosis. Pulmonic Valve Structurally normal pulmonic valve. Mild pulmonic regurgitation. No pulmonic stenosis. Pericardium No pericardial or pleural effusion. Aorta Normal size aortic root and proximal ascending aorta. CONCLUSIONS Severe LV systolic dysfunction with an ejection fraction of 10% Mildly dilated right ventricle Moderate pulmonary hypertension Normally functioning bioprosthetic valve in aortic position with mild aortic regurgitation Moderate tricuspid regurgitation Previewed by: Dr. Anibal Medeiros MD (Electronically Signed) Final Date: 13 April 2024 17:01
[2024-04-14] MEDS: PANTOPRAZOLE 40 MG TABLET PO SCH (05:07)
[2024-04-14] MEDS: DAPAGLIFLOZIN PROPANEDIOL 10 MG TABLET PO SCH (08:17)
[2024-04-14 08:23] LABS: African American GFR (CKD) 72 (>60 ml/min/1.73 sqM); Anion Gap 11 mmol/L; Blood Urea Nitrogen 26 mg/dL (9-20); Calcium 9.3 mg/dL (8.4-10.2); Carbon Dioxide 21 mmol/L (22-30); Chloride 107 mmol/L (98-107); Glucose 118 mg/dL (74-99); Non-African American GFR(CKD) 62 (>60 ml/min/1.73 sqM); Potassium 4.5 mmol/L (3.5-5.1); Sodium 139 mmol/L (137-145)
[2024-04-14] MEDS ORDERED: ASPIRIN 325 MG TAB PO SCH (09:00)
[2024-04-14] MEDS ORDERED: Insulin Glargine/Lixisenatide [Soliqua 100 Unit-33 Mcg/Ml Pen] 3 ML In SQ SCH (09:00)
[2024-04-14] MEDS ORDERED: lisinopriL 20 MG TAB PO SCH (09:00)
[2024-04-14] MEDS: AMIODARONE 200 MG TAB PO SCH (10:44)
[2024-04-14] MEDS: SOLIQUA SQ SCH (10:44)
[2024-04-14 11:45] LABS: Chol/HDL Ratio 6.12 Ratio; LDL Cholesterol,Calculated 160.9 mg/dL (0.0-131.0)
[2024-04-14] MEDS ORDERED: NITROGLYCERIN SL TABS 0.4 MG TAB SUBLINGUAL PRN (15:13)
[2024-04-14] MEDS ORDERED: ALPRAZolam 0.5 MG TAB PO PRN (15:13)
[2024-04-14] MEDS ORDERED: ALPRAZolam 0.25 MG TAB PO PRN (15:13)
--- NOTE | 2024-04-14 15:18 | P.PN ---
Subjective HISTORY OF PRESENT ILLNESS: This is a 69-year-old male with a past medical history significant for coronary artery disease with previous CABG, bicuspid aortic valve with recent TAVR, cardiomyopathy, AICD implantation, SVT, and valvular heart disease. Patient follows in the office with Dr. Sabillon. We have been asked to see the patient in consultation for atrial flutter. Patient examined at the bedside in the emergency room. Patient presented to the hospital with a chief complaint of palpitations. He states he has had 3-4 episodes of palpitations over the past few weeks. He states on Friday he began having palpitations and started to fe el unwell. He states his symptoms progressed so he decided to come to the emergency room. He denies any chest pain or pressure. He currently denies shortness of breath. Initial EKG appears to be SVT however cannot exclude A- fib/flutter. The patient was started on IV amiodarone. He since converted to sinus mechanism and is maintaining sinus mechanism at the time of examination DIAGNOSTICS: - EKG appears to be SVT. Cannot rule out A-fib/flutter. Left bundle branch block. - Chest xray negative for acute process - Laboratory data: WBC 9.2. Hemoglobin 17.1. Platelet count 280. Sodium 140. Potassium 4.8. BUN 33. Creatinine 1.69. Magnesium 1.9. Troponin 1.110. 0.958. - Current home cardiac medications include lisinopril 40 mg daily, metoprolol succinate 25 mg daily, Jardiance 10 mg daily, aspirin 162 mg daily, amiodarone 200 mg daily - Most recent echocardiogram obtained in 03/25/2024 revealed ejection fraction 20 to 25%, trace MR, normally functioning bioprosthetic aortic valve without stenosis, peak gradient 18 mmHg, mean gradient 18 mmHg, no perivalvular aortic regurgitation, trace to mild tricuspid regurgitation. - Cardiac catheterization history: December 2023 revealing chronic total occlusion of the RCA, occluded LAD. Patent GRAHAM to LAD. Intermediate disease involving the left circumflex approximately documented to be nonflow limiting by Doppler wire. Normal left-sided filling pressures. 04/14/2024 Patient examined this morning at the bedside. Patient currently denies chest pain or pressure. He denies shortness of breath. Patient's IV amiodarone has completed. ICD was interrogated with no episodes of atrial fibrillation or atrial flutter. Patient's troponins resulted at 1.110. 0.958. 1.110. Echocardiogram completed revealing ejection fraction 5 to 10%, moderate to severe pulmonary hypertension, mild to moderate mitral regurgitation, bioprosthetic aortic valve with peak gradient 20 mmHg and mean gradient 12 mmHg, mild paravalvular aortic regurgitation, moderate tricuspid regurgitation. PHYSICAL EXAM: VITAL SIGNS: Reviewed. GENERAL: Well-developed in no acute distress. HEENT: Head is normocephalic. Pupils are equal, round. Sclerae anicteric. Mucous membranes of the mouth are moist. Neck supple. No JVD or thyromegaly LUNGS: Respirations even and unlabored. Lungs essentially clear to auscultation bilaterally. HEART: Regular rate and rhythm. S1 and S2 heard. Systolic murmur noted. ABDOMEN: Soft. Nondistended. Nontender. EXTREMITIES: Normal range of motion. No clubbing or cyanosis. Peripheral pulses intact. No lower extremity edema NEUROLOGIC: Awake and alert. Oriented x 3. ASSESSMENT: Palpitations Paroxysmal SVT, No evidence of atrial fibrillation/flutter on ICD interrogation Symptomatic bicuspid aortic valve stenosis, status post TAVR, 03/24/2024 Acute kidney injury Abnormal troponins, suspect type II [place] secondary to oxygen supply/demand mismatch Coronary artery disease with previous CABG Chronic total occlusion of RCA Intermediate disease involving left circumflex proximally, documented to be nonflow limiting by Doppler wire Ischemic cardiomyopathy, 20 to 25%, now 5 to 10% History of ICD implantation Hypertension Hyperlipidemia PLAN: Lisinopril remains on hold secondary to soft blood pressures on admission. Likely restart tomorrow at a decreased dose Increase metoprolol succinate to 50 mg daily Discontinue oral amiodarone as ICD interrogation does not reveal episodes of atrial fibrillation or flutter Continue IV heparin Continue telemetry monitoring N.p.o. at midnight Patient to undergo cardiac catheterization tomorrow with Dr. Jara Further recommendations pending patient course Nurse practitioner note has been reviewed by physician. Signing provider agrees with the documented findings, assessment, and plan of care documented by BULLDOZER ENGINEER as a scribe. Objective - Vital Signs Vital signs: Vital Signs Temp 97.9 F 04/14/24 11:24 Pulse 55 L 04/14/24 11:24 Resp 16 04/14/24 11:24 BP 132/90 10/02/24 11:24 Pulse Ox 95 04/14/24 11:24 FiO2 Intake & Output 04/13/24 04/14/24 04/14/24 18:59 06:59 18:59 Intake Total 182.828 Balance 182.828 Weight 75.296 kg 75.5 kg Intake: Intake, IV Titration 182.828 Amount Heparin Sod,Pork in 0.45% 182.828 NaCl 25,000 unit In 0.45 % NaCl 1 250ml.bag @ 12 UNITS/KG/HR 9.036 mls/hr IV .Q24H [facility] Rx#: [id number] Other: Voiding Method Urinal Urinal # Voids 1 2 - Labs CBC & Chem 7: 04/13/24 07:31 04/14/24 06:38 Labs: Abnormal Lab Results - Last 24 Hours (Table) 04/13/24 04/13/24 04/14/24 Range/Units 14:31 17:25 06:38 APTT 45.5 H (22.0-30.0) sec Carbon Dioxide 21 L (22-30) mmol/L BUN 26 H (9-20) mg/dL Glucose 118 H (74-99) mg/dL Troponin I 1.110 H* (0.000-0.034) ng/mL Cholesterol 227.00 H (0.00-200.00) mg/dL LDL Cholesterol, Calc 160.9 H (0.0-131.0) mg/dL HDL Cholesterol 37.10 L (40.00-60.00) mg/dL 04/14/24 Range/Units 06:38 APTT 172.2 H* (22.0-30.0) sec Carbon Dioxide (22-30) mmol/L BUN (9-20) mg/dL Glucose (74-99) mg/dL Troponin I (0.000-0.034) ng/mL Cholesterol (0.00-200.00) mg/dL LDL Cholesterol, Calc (0.0-131.0) mg/dL HDL Cholesterol (40.00-60.00) mg/dL
[2024-04-14] MEDS: HEPARIN SODIUM 1,000 UN/ML (10ML VL) IV PRN (15:45)
[2024-04-14] MEDS: METOPROLOL SUCCINATE (ER) 25 MG TAB.ER.24H PO STA (15:45)
[2024-04-14] MEDS: INSULIN ASPART (NovoLOG) 100 UNIT/ML VIAL SQ SCH (18:59)
[2024-04-15] MEDS: SODIUM CHLORIDE 0.9% 1,000 ML in EMPTY BAG 1 BAG IV SCH (05:28)
[2024-04-15] MEDS: METOPROLOL SUCCINATE (ER) 50 MG TAB.ER.24H PO SCH (05:31)
[2024-04-15] MEDS: ASPIRIN 325 MG TAB PO ONE (05:31)
[2024-04-15] MEDS: ATORVASTATIN 80 MG TAB PO ONE (05:32)
[2024-04-15] MEDS ORDERED: HEPARIN SODIUM,PORCINE (1 ML) 2,500 UNIT in SODIUM CHLORIDE 0.9% 250 ML IRRIGATION PRN (07:00)
[2024-04-15] MEDS ORDERED: HEPARIN SODIUM,PORCINE 10,000 UNIT in SODIUM CHLORIDE 0.9% 1,000 ML IRRIGATION PRN (07:00)
[2024-04-15] MEDS: INSULIN DETEMIR (LEVEMIR) 100 UNIT/ML SYR SQ SCH (09:14)
[2024-04-15] MEDS: DEXTROSE 50% SYRINGE 50 ML IVP STA (13:24)
[2024-04-15 13:39] LABS: Glucose,Whole Blood 157 mg/dL (70-110)
[2024-04-15] MEDS: fentaNYL (PF) 50 MCG/ML 2 ML AMP IVP ONE (14:03)
[2024-04-15] MEDS: MIDAZOLAM 2 MG/2 ML VIAL IVP ONE (14:03)
[2024-04-15] MEDS: LIDOCAINE 1% INJ 10MG/ML (20 ML MDV) SQ ONE (14:05)
[2024-04-15] MEDS: HEPARIN SODIUM 1,000 UN/ML (10ML VL) IVP ONE (14:11)
[2024-04-15] MEDS: VERAPAMIL SYRINGE (5 MG/10 ML) INTRAARTER ONE (14:11)
[2024-04-15] MEDS: HEPARIN SODIUM,PORCINE (1 ML) 2,500 UNIT in SODIUM CHLORIDE 0.9% 250 ML IRRIGATION ONE (14:20)
[2024-04-15] MEDS: HEPARIN SODIUM,PORCINE 10,000 UNIT in SODIUM CHLORIDE 0.9% 1,000 ML IRRIGATION ONE (14:20)
[2024-04-15] MEDS: SODIUM CHLORIDE 0.9% 1,000 ML IV ONE (14:20)
[2024-04-15] MEDS: IOPAMIDOL-370 100ML BTL INJ ONE (14:21)
[2024-04-15 14:53] LABS: Glucose,Whole Blood 78 mg/dL (70-110)
[2024-04-15 16:39] LABS: Glucose,Whole Blood 75 mg/dL (70-110)
[2024-04-15 20:02] LABS: Glucose,Whole Blood 115 mg/dL (70-110)
[2024-04-16 06:08] LABS: Glucose,Whole Blood 66 mg/dL (70-110)
[2024-04-16 06:29] LABS: Glucose,Whole Blood 131 mg/dL (70-110)
[2024-04-16 06:58] LABS: Glucose,Whole Blood 56 mg/dL (70-110)
[2024-04-16 06:58] LABS: Glucose,Whole Blood 105 mg/dL (70-110)
[2024-04-16 06:59] LABS: Glucose,Whole Blood 142 mg/dL (70-110)
[2024-04-16 06:59] LABS: Glucose,Whole Blood 127 mg/dL (70-110)
[2024-04-16 07:01] LABS: Glucose,Whole Blood 148 mg/dL (70-110)
[2024-04-16 07:01] LABS: Glucose,Whole Blood 89 mg/dL (70-110)
[2024-04-16 07:17] LABS: Glucose,Whole Blood 116 mg/dL (70-110)
[2024-04-16 07:17] LABS: Glucose,Whole Blood 121 mg/dL (70-110)
[2024-04-16] MEDS: lisinopriL 10 MG TAB PO SCH (08:33)
[2024-04-16 10:18] LABS: Basophils # (A) 0.1 k/uL (0-0.2); Basophils % (A) 1 %; Eosinophils # (A) 0.2 k/uL (0-0.7); Eosinophils % (A) 3 %; HCT 51.3 % (39.0-53.0); HGB 16.4 gm/dL (13.0-17.5); Hypochromasia Slight; Lymphocytes % (A) 14 %; MCH 29.1 pg (25.0-35.0); MCV 90.9 fL (80.0-100.0); Mean Platelet Volume 9.4; Monocytes # (A) 0.6 k/uL (0-1.0); Monocytes % (A) 9 %; Neutrophils # (A) 5.1 k/uL (1.3-7.7); Neutrophils % (A) 72 %; Platelet Count 198 k/uL (150-450); RBC 5.65 m/uL (4.30-5.90); RDW 13.4 % (11.5-15.5); WBC 7.2 k/uL (3.8-10.6)
[2024-04-16 10:27] LABS: African American GFR (CKD) 77 (>60 ml/min/1.73 sqM); Anion Gap 9 mmol/L; Blood Urea Nitrogen 17 mg/dL (9-20); Calcium 9.4 mg/dL (8.4-10.2); Carbon Dioxide 23 mmol/L (22-30); Chloride 106 mmol/L (98-107); Glucose 194 mg/dL (74-99); Non-African American GFR(CKD) 67 (>60 ml/min/1.73 sqM); Potassium 5.1 mmol/L (3.5-5.1); Sodium 138 mmol/L (137-145)
[2024-04-16 11:12] VITALS: BP 131/89; PULSE 57; RESP 18; TEMP 98
[2024-04-16 11:17] LABS: Glucose,Whole Blood 135 mg/dL (70-110)
--- NOTE | 2024-04-16 11:20 | P.PN ---
Subjective HISTORY OF PRESENT ILLNESS: This is a 69-year-old male with a past medical history significant for coronary artery disease with previous CABG, bicuspid aortic valve with recent TAVR, cardiomyopathy, AICD implantation, SVT, and valvular heart disease. Patient follows in the office with Dr. Sabillon. We have been asked to see the patient in consultation for atrial flutter. Patient examined at the bedside in the emergency room. Patient presented to the hospital with a chief complaint of palpitations. He states he has had 3-4 episodes of palpitations over the past few weeks. He states on Friday he began having palpitations and started to fe el unwell. He states his symptoms progressed so he decided to come to the emergency room. He denies any chest pain or pressure. He currently denies shortness of breath. Initial EKG appears to be SVT however cannot exclude A- fib/flutter. The patient was started on IV amiodarone. He since converted to sinus mechanism and is maintaining sinus mechanism at the time of examination DIAGNOSTICS: - EKG appears to be SVT. Cannot rule out A-fib/flutter. Left bundle branch block. - Chest xray negative for acute process - Laboratory data: WBC 9.2. Hemoglobin 17.1. Platelet count 280. Sodium 140. Potassium 4.8. BUN 33. Creatinine 1.69. Magnesium 1.9. Troponin 1.110. 0.958. - Current home cardiac medications include lisinopril 40 mg daily, metoprolol succinate 25 mg daily, Jardiance 10 mg daily, aspirin 162 mg daily, amiodarone 200 mg daily - Most recent echocardiogram obtained in 03/25/2024 revealed ejection fraction 20 to 25%, trace MR, normally functioning bioprosthetic aortic valve without stenosis, peak gradient 18 mmHg, mean gradient 18 mmHg, no perivalvular aortic regurgitation, trace to mild tricuspid regurgitation. - Cardiac catheterization history: December 2023 revealing chronic total occlusion of the RCA, occluded LAD. Patent GRAHAM to LAD. Intermediate disease involving the left circumflex approximately documented to be nonflow limiting by Doppler wire. Normal left-sided filling pressures. 04/14/2024 Patient examined this morning at the bedside. Patient currently denies chest pain or pressure. He denies shortness of breath. Patient's IV amiodarone has completed. ICD was interrogated with no episodes of atrial fibrillation or atrial flutter. Patient's troponins resulted at 1.110. 0.958. 1.110. Echocardiogram completed revealing ejection fraction 5 to 10%, moderate to severe pulmonary hypertension, mild to moderate mitral regurgitation, bioprosthetic aortic valve with peak gradient 20 mmHg and mean gradient 12 mmHg, mild paravalvular aortic regurgitation, moderate tricuspid regurgitation. 04/16/2024 Patient is status postcardiac catheterization yesterday with Dr. Jara. Final report not available in the computer. However per Dr. Jara, patient's CAD appears stable with no significant progression. No stenting required. Patient examined this morning the bedside. Patient denies chest pain or pressure. He denies shortness of breath. He is maintaining sinus mechanism. Vital signs are stable. PHYSICAL EXAM: VITAL SIGNS: Reviewed. GENERAL: Well-developed in no acute distress. HEENT: Head is normocephalic. Pupils are equal, round. Sclerae anicteric. Mucous membranes of the mouth are moist. Neck supple. No JVD or thyromegaly LUNGS: Respirations even and unlabored. Lungs essentially clear to auscultation bilaterally. HEART: Regular rate and rhythm. S1 and S2 heard. Systolic murmur noted. ABDOMEN: Soft. Nondistended. Nontender. EXTREMITIES: Normal range of motion. No clubbing or cyanosis. Peripheral pulses intact. No lower extremity edema NEUROLOGIC: Awake and alert. Oriented x 3. ASSESSMENT: Palpitations Paroxysmal SVT, No evidence of atrial fibrillation/flutter on ICD interrogation Symptomatic bicuspid aortic valve stenosis, status post TAVR, 03/24/2024 Acute kidney injury Abnormal troponins, suspect type II OR secondary to oxygen supply/demand mismatch Coronary artery disease with previous CABG Chronic total occlusion of RCA Intermediate disease involving left circumflex proximally, documented to be no nflow limiting by Doppler wire Ischemic cardiomyopathy, 20 to 25%, now 5 to 10% History of ICD implantation Hypertension Hyperlipidemia PLAN: Oral amiodarone discontinued as ICD interrogation does not reveal episodes of atrial fibrillation or flutter Continue current cardiac medications Add lisinopril 10 mg daily Patient is stable for discharge home today from a cardiac standpoint He is to follow-up postdischarge with Dr. Sabillon Nurse practitioner note has been reviewed by physician. Signing provider agrees with the documented findings, assessment, and plan of care documented by MARINATOR as a scribe. Objective - Vital Signs Vital signs: Vital Signs Temp 98.0 F 04/16/24 11:11 Pulse 57 L 04/16/24 11:11 Resp 18 04/16/24 11:11 BP 131/89 04/16/24 11:11 Pulse Ox 100 04/16/24 07:36 FiO2 Intake & Output 04/15/24 04/16/24 04/16/24 18:59 06:59 18:59 Intake Total 406.259 236 Balance 406.259 236 Weight 75.7 kg Intake: IV 100 Intake, IV Titration 66.259 Amount Heparin Sod,Pork in 0.45% 66.259 NaCl 25,000 unit In 0.45 % NaCl 1 250ml.bag @ 12 UNITS/KG/HR 9.036 mls/hr IV .Q24H [facility] Rx#: [id number] Oral 240 236 Other: Voiding Method Toilet Urinal # Voids 1 - Labs CBC & Chem 7: 04/16/24 09:32 04/16/24 09:32 Labs: Abnormal Lab Results - Last 24 Hours (Table) 04/14/24 04/14/24 04/14/24 Range/Units 06:41 11:53 20:00 APTT (22.0-30.0) sec Glucose (74-99) mg/dL POC Glucose (mg/dL) 116 H 121 H 148 H (70-110) mg/dL 04/15/24 04/15/24 04/15/24 Range/Units 06:23 11:06 11:52 APTT 70.2 H (22.0-30.0) sec Glucose (74-99) mg/dL POC Glucose (mg/dL) 127 H 142 H (70-110) mg/dL 04/15/24 04/15/24 04/15/24 Range/Units 13:18 13:34 20:01 APTT (22.0-30.0) sec Glucose (74-99) mg/dL POC Glucose (mg/dL) 56 L 157 H 115 H (70-110) mg/dL 04/16/24 04/16/24 04/16/24 Range/Units 06:07 06:28 09:32 APTT (22.0-30.0) sec Glucose 194 H (74-99) mg/dL POC Glucose (mg/dL) 66 L 131 H (70-110) mg/dL 04/16/24 Range/Units 11:12 APTT (22.0-30.0) sec Glucose (74-99) mg/dL POC Glucose (mg/dL) 135 H (70-110) mg/dL
--- NOTE | 2024-04-16 21:52 | PN ---
PROGRESS NOTE DATE OF SERVICE: 04/15/2024 CHIEF COMPLAINT: New onset atrial fibrillation with rapid ventricular response and elevated troponin. HISTORY OF PRESENT ILLNESS: This gentleman is doing well. He is going for the cardiac cath today. PHYSICAL EXAMINATION: CHEST: He is in sinus rhythm and chest is clear. CARDIAC: Normal. IMPRESSION: 1. New onset atrial fibrillation with rapid ventricular response. 2. Elevated troponin. 3. Coronary artery disease. 4. Diabetes. 5. Hyperlipidemia. PLAN: Cardiac cath today. MMKEATONL / MAGALIN: [id number] /
--- NOTE | 2024-04-17 02:34 | HP ---
HISTORY AND PHYSICAL CHIEF COMPLAINT: Shortness of breath. HISTORY OF PRESENT ILLNESS: This is another recent admission for this 69-year-old white male with extensive history of atherosclerotic cardiovascular disease, coronary artery disease, type 2 diabetes, and recent TAVR. He woke up in the middle of the night extremely short of breath and diaphoretic. He had slight pressure in the chest. He presented to the emergency room, where he was found to be in new onset atrial fibrillation with rapid ventricular response of 160 beats per minute. He had elevated troponin. He denied any focal neurologic deficits. REVIEW OF SYSTEMS: Otherwise unremarkable and noncontributory. He had no vomiting. He had no fever or chills. Past medical history, family history, personal and social histories are all otherwise unchanged from his recent discharge summaries. MEDICATIONS: He has been on, 1. Amiodarone. 2. Jardiance. 3. Soliqua. 4. Metoprolol. 5. Omeprazole. 6. Aspirin. The remainder of his history is unremarkable and unchanged from his recent surgery. PHYSICAL EXAMINATION: VITAL SIGNS: Blood pressure is 102/65 with a pulse of 115, irregularly irregular. HEENT: Face was flushed. Head, ears, eyes, nose, mouth and throat were normal. CHEST: Clear. CARDIAC: Demonstrated he has tachycardia. ABDOMEN: Soft, nontender. EXTREMITIES: Normal. IMPRESSION: 1. New onset atrial fibrillation with rapid ventricular response. 2. Recent transcatheter aortic valve replacement. 3. Elevated troponin. 4. Extensive history of coronary artery disease. 5. Insulin-dependent diabetes mellitus. 6. Hyperlipidemia. PLAN: 1. Bed rest. 2. IV fluids. 3. Consult Cardiology. 4. Control cardiac rate and eventually rhythm. MMODL / IJN: [id number] /
--- NOTE | 2024-04-17 02:49 | PN ---
PROGRESS NOTE DATE OF SERVICE: 04/14/2024 CHIEF COMPLAINT: New onset atrial fibrillation. HISTORY OF PRESENT ILLNESS: This gentleman is doing well. He has had no further chest pain. He is back in sinus rhythm. He will be going for cardiac cath because of his elevated troponins. PHYSICAL EXAMINATION: VITAL SIGNS: Normal. CHEST: Clear. CARDIAC: Normal. ABDOMEN: Soft, nontender. IMPRESSION: 1. New onset atrial fibrillation with rapid ventricular response. 2. Elevated troponins. 3. Coronary artery disease. 4. Hyperlipidemia. 5. Renal failure. 6. Type 2 diabetes. PLAN: 1. Cardiac cath. 2. Monitor heart rhythm and cardiac output carefully. His ejection fraction is down to 10%. MMODL / IJN: [id number] /
--- NOTE | 2024-04-17 03:13 | DS ---
DISCHARGE SUMMARY CHIEF COMPLAINT: Rapid heart beating. HISTORY OF PRESENT ILLNESS AND PHYSICAL EXAM: Details of this man's history and physical can be found in the initial workup. LABORATORY STUDIES: While he was in the hospital, he had laboratory studies, details of which can be found in the laboratory section of his chart. COURSE IN THE HOSPITAL: After admission, he was placed on bedrest and started on IV fluids and telemetry. He converted to sinus rhythm. Because he had 3 elevated troponins, he was taken to the laborer construction or leak gang to rule out coronary artery disease and no significant stenoses or obstructions were identified. He was doing well and it was felt that he could be discharged home. While he was in the hospital, his blood sugars fluctuated and it was noted that he had significant renal failure. His cardiac output was only 10% on his initial echocardiogram. He will go home on light activity and his usual diet and most of the medications that he has been on with an increase in his beta chilo. He will be seen in several days. FINAL DIAGNOSES: 1. New onset atrial fibrillation. 2. Coronary artery disease. 3. Elevated troponins. 4. TAVR. 5. History of hypertension. 6. Generalized atherosclerotic cardiovascular disease. 7. Insulin-dependent diabetes mellitus. 8. CKD. OPERATIONS: Cardiac cath. CONSULTATIONS: Cardiology. He is improved. MMODL / IJN: [id number] /
--- NOTE | 2024-04-18 22:10 | P.CARDCATH ---
Date of Procedure: 04/15/24 Description of Procedure: PROCEDURES PERFORMED: Bilateral coronary angiography, ultrasound guided arterial access, GRAHAM to LAD angiography INDICATION: NSTEMI, worsened cardiomyopathy CONSENT:I have discussed the risks, benefits and alternative therapies for the above-mentioned procedure and for both sedation/analgesia as well as necessary blood product administration, if indicated, as they pertain to this patient. The patient has indicated understanding and acceptance of the risks and procedures discussed. PROCEDURE: After the risks, benefits and alternatives of the above mentioned procedure explained in detail with the patient, informed consent was obtained. Patient was taken to the catheterization lab and prepped and draped in usual fashion. Ultrasound guidance was used to assess for arterial access. 1% lidocaine was used to anesthetize the left radial artery. A 6-Venezuelan sheath was placed in the left radial artery using modified Seldinger technique and ultrasound guidance. Left coronary angiography was performed with a 5-[place]an JL 4.0 catheter and right coronary angiography was performed with a 5-[place] FR4 catheter in various views. GRAHAM to LAD angiography was performed with a 5Fr FR4. The left radial sheath was removed and a TR band was placed with hemostasis achieved. The patient tolerated the procedure well. Patient was transported back to the post catheterization holding area in stable condition. Conscious Sedation: Patient was monitored under the direct supervision of myself for conscious sedation using Versed and fentanyl for a total duration of [] minutes HEMODYNAMICS: aorta: 105/72 SELECTIVE CORONARY ARTERIOGRAPHY: LEFT MAIN: The left main is a large caliber vessel which bifurcates into the LAD and circumflex. There is no significant stenosis. LEFT ANTERIOR DESCENDING CORONARY ARTERY: LAD is a large caliber vessel which wraps around to the apex. There is 100% ostial LAD stenosis. LEFT CIRCUMFLEX CORONARY ARTERY: Left circumflex is a moderate caliber vessel. There is a 30% proximal and a 30% mid circumflex stenosis just after a small caliber AV groove branch. The circumflex then gives rise to a moderate caliber OM1 branch which has had progression of 80% stenosis where OM1 splits into a superior and inferior branch. This involves the bifurcation of the inferior branch which also has 40-50% ostial stenosis. RIGHT CORONARY ARTERY: The right coronary artery is a moderate to large caliber vessel which gives off a PDA and PLV branch and is the dominant vessel. There is 100% mid stenosis with left to [id number] collaterals. GRAHAM to LAD: Widely patent with what appears to be collaterals to the circumflex and RCA distribution FINAL IMPRESSION: 1. CAD as described above including 100% ostial LAD stenosis, 30% circumflex, 80% OM1 and 100% RCA stenosis 2. Patent GRAHAM to LAD 3. Progression of OM1 stenosis compared to angiogram from 01/01/2024 PLAN: 1. Aggressive risk factor modification per most recent ACC/AHA guidelines. 2. Majority of presentation appears related to SVT. There does appear to be progression of OM1 stenosis and may consider intervention however increased risk of losing the inferior branch and additionally patient may require Impella support with severe LV dysunction. Attempt to treat medically and if remains symptomatic may consider attempted PCI OM1
== END 2024-04-16 14:00 | disposition home or self-care (01) ==
LOC: EC 07:02 → 3SCARD 09:58
PROVIDERS: ADMIT Family Medicine; ATTEND Family Medicine
DX: I48.91 Unspecified atrial fibrillation (principal); I47.19 Other supraventricular tachycardia; I25.82 Chronic total occlusion of coronary artery; I25.10 Atherosclerotic heart disease of native coronary artery without angina pectoris; I25.5 Ischemic cardiomyopathy; N17.9 Acute kidney failure, unspecified; R79.89 Other specified abnormal findings of blood chemistry; I25.2 Old myocardial infarction; I10 Essential (primary) hypertension; I44.7 Left bundle-branch block, unspecified; E78.5 Hyperlipidemia, unspecified; E11.9 Type 2 diabetes mellitus without complications; Z95.5 Presence of coronary angioplasty implant and graft; Z95.2 Presence of prosthetic heart valve; Z95.1 Presence of aortocoronary bypass graft; Z95.810 Presence of automatic (implantable) cardiac defibrillator; Z87.891 Personal history of nicotine dependence; Z79.899 Other long term (current) drug therapy; Z79.82 Long term (current) use of aspirin; Z79.4 Long term (current) use of insulin; Z79.84 Long term (current) use of oral hypoglycemic drugs
CPT/HCPCS: 96376 ×3; 96366 ×4; 96368 ×2; 96365; 99291; 36415; 93005; 93306; 93455; 80061; 80053; 80048 ×2; 83735 ×2; 84484; 85025 ×2; 85610; 85730 ×3; 71046; G0378 ×4; C1769; C1894; J2250; J1644 ×7; J0282 ×2; J2003; J3010; Q9957; Q9967

== ENCOUNTER 2024-05-02 05:21 | Inpatient (IN) | payer MEDICARE ==
--- NOTE | 2024-05-02 05:49 | XR ---
EXAMINATION TYPE: XR chest 2V DATE OF EXAM: 05/02/2024 COMPARISON: Chest x-ray April 13, 2024 HISTORY: Chest pain TECHNIQUE: Frontal and lateral views of the chest are obtained. FINDINGS: Overlying sternal wires and mediastinal clips are redemonstrated. Persistent cardiomegaly with mild thickening of the pacemaker/defibrillator. Small left pleural effusion. Surgical change at level of aortic valve redemonstrated. The osseous structures are intact. IMPRESSION: Cardiomegaly with small left pleural effusion. [facility], , 05/02/2024 5:47 AM
[2024-05-02 06:07] LABS: ALT 24 U/L (4-49); AST 36 U/L (17-59); African American GFR (CKD) 54 (>60 ml/min/1.73 sqM); Albumin 4.4 g/dL (3.5-5.0); Alkaline Phosphatase 121 U/L (38-126); Anion Gap 9 mmol/L; Blood Urea Nitrogen 31 mg/dL (9-20); Calcium 9.3 mg/dL (8.4-10.2); Carbon Dioxide 24 mmol/L (22-30); Chloride 106 mmol/L (98-107); Glucose 235 mg/dL (74-99); Magnesium 2.1 mg/dL (1.6-2.3); Non-African American GFR(CKD) 47 (>60 ml/min/1.73 sqM); Potassium 4.4 mmol/L (3.5-5.1); Sodium 139 mmol/L (137-145); Total Bilirubin 1.4 mg/dL (0.2-1.3); Total Protein 7.4 g/dL (6.3-8.2)
[2024-05-02 06:08] LABS: INR 1.1 (<1.2); Partial Thromboplastin Time 27.3 sec (22.0-30.0); Prothrombin Time 12.2 sec (10.0-12.5)
--- NOTE | 2024-05-02 06:20 | ED ---
Chest Pain HPI - General Source: patient, RN notes reviewed Mode of arrival: ambulatory Limitations: no limitations <Kaleigh Coles - Last Filed: 05/06/24 10:28> - History of Present Illness MD Complaint: chest pain Onset/Timin -: hour(s) Onset: during rest Pain Location: left chest Pain Radiation: none Severity: moderate Quality: other (pressure) Consistency: constant Improves With: nothing Worsens With: nothing Anginal Symptoms: dyspnea Other Symptoms: palpitations Treatments Prior to Arrival: none <Gregg Esquivel - Last Filed: 05/17/24 13:49> - General Chief Complaint: Chest Pain Stated Complaint: Chest Pain, SOB Time Seen by Provider: 05/02/24 05:38 - History of Present Illness Initial Comments: Patient is a 69-year-old man who presents with left-sided chest pain, palpitations, dyspnea starting a little after 2 AM while he was trying to sleep. The patient states that it feels like a pressure. He has not noted worsening or relieving factors. When the symptoms persisted he felt he should be seen here. Patient has history of CAD with previous CABG. He has history of TAVR in March 2024 for a severely fied bicuspid aortic valve. Patient also with history of SVT and has cardiomyopathy with 5 to 10% ejection fraction. He was seen in March for tachycardia and hypotension and there was concern then he may need to have Impella placement. (Gregg Esquivel) - Related Data Home Medications Medication Instructions Recorded Confirmed Aspirin 162 mg PO DAILY 01/24/17 05/02/24 Pantoprazole [Protonix] 40 mg PO DAILY 08/10/21 05/02/24 Insulin Glargine/Lixisenatide 50 units SQ DAILY 12/30/23 05/02/24 [Soliqua 100 Unit-33 Mcg/ml Pen] Empagliflozin [Jardiance] 10 mg PO DAILY 04/13/24 05/02/24 Previous Rx's Medication Instructions Recorded Acetaminophen Tab [Tylenol] 1,000 mg PO Q6HR PRN tab 03/26/24 Metoprolol Succinate (ER) [Toprol 50 mg PO DAILY #30 tab 04/16/24 XL] lisinopriL [Zestril] 10 mg PO DAILY #30 tab 04/16/24 Amiodarone [Cordarone] 200 mg PO BID #60 tab 05/04/24 Atorvastatin [Lipitor] 40 mg PO HS #90 tablet 05/04/24 Sacubitril/Valsartan [Entresto 24 0.5 each PO BID #60 tab 05/04/24 mg-26 mg Tablet] Allergies Allergy/AdvReac Type Severity Reaction Status Date / Time No Known Allergies Allergy Verified 05/02/24 05:27 Review of Systems ROS Other: All systems not noted in ROS Statement are negative. <Kaleigh Coles - Last Filed: 05/06/24 10:28> ROS Other: All systems not noted in ROS Statement are negative. Constitutional: Denies: fever, chills, weakness Respiratory: Denies: cough, dyspnea, wheezes, hemoptysis Cardiovascular: Reports: as per HPI, chest pain, palpitations. Denies: edema Gastrointestinal: Denies: abdominal pain, nausea, vomiting Genitourinary: Denies: dysuria, hematuria Musculoskeletal: Denies: back pain Skin: Denies: rash Neurological: Denies: headache, weakness, numbness <Gregg Esquivel - Last Filed: 05/17/24 13:49> ROS Statement: Those systems with pertinent positive or pertinent negative responses have been documented in the HPI. EKG Findings - EKG Results: EKG: interpreted by ERMD, sinus rhythm EKG shows: tachycardia (137) - Blocks, [place], Hypertrophy, ST Abn: AV and intraventricular conduction: left bundle branch block (fixed/intermittent, complete/incomplete) QRS axis and voltage: left axis deviation (-30 to -90) Repolarization changes or abnormalities: ST suggestive of injury <Gregg Esquivel - Last Filed: 05/17/24 13:49> Past Medical History Past Medical History: Atrial Fibrillation, Coronary Artery Disease (CAD), Chest Pain / Angina, Diabetes Mellitus, GERD/Reflux, Hyperlipidemia, Hypertension, Myocardial Infarction (non Q-wave) Additional Past Medical History / Comment(s): 01/24/17 with SVT converted with adenosine. Other hx: Neuropathy bilateral feet, 2 MIs-2001 and 2014. Last Myocardial Infarction Date:: 07/25/14 History of Any Multi-Drug Resistant Organisms: None Reported Past Surgical History: AICD, Coronary Bypass/CABG, Heart Catheterization With Stent, Orthopedic Surgery, Tonsillectomy Additional Past Surgical History / Comment(s): PCI with stents 2001 and 2014, 3 vessel CABG in 2001, AICD 2001-, pins in left ankle as a kid. taver TAVR 2wks ago Past Anesthesia/Blood Transfusion Reactions: No Reported Reaction Additional Past Anesthesia/Blood Transfusion Reaction / Comment(s): No previous history of blood transfusions Date of Last Stent Placement:: 2014 Type of Cardiac Device: AICD Device Placement Date:: 2001- Past Psychological History: No Psychological Hx Reported Smoking Status: Former smoker Past Alcohol Use History: None Reported Past Drug Use History: None Reported - Past Family History Mother History Unknown: Yes Family Medical History: Diabetes Mellitus Additional Family Medical History / Comment(s): Mother at 78yrs Father Family Medical History: Coronary Artery Disease (CAD), Myocardial Infarction (MA) Additional Family Medical History / Comment(s): Father had a MA in his early 50's. He of CAD at 75yrs. <Kaleigh Coles - Last Filed: 05/06/24 10:28> General Exam Limitations: no limitations <Kaleigh Coles - Last Filed: 05/06/24 10:28> General appearance: alert, in no apparent distress Head exam: Present: atraumatic, normocephalic Eye exam: Present: normal appearance. Absent: scleral icterus, conjunctival injection ENT exam: Present: mucous membranes dry Neck exam: Present: normal inspection Respiratory exam: Present: normal lung sounds bilaterally. Absent: respiratory distress, wheezes, rales, rhonchi, stridor, accessory muscle use Cardiovascular Exam: Present: normal rhythm, tachycardia. Absent: systolic murmur, diastolic murmur, rubs, gallop GI/Abdominal exam: Present: soft. Absent: distended, tenderness, guarding, rebound, rigid, mass Extremities exam: Present: normal inspection, normal capillary refill. Absent: pedal edema, calf tenderness Back exam: Present: normal inspection. Absent: CVA tenderness (R), CVA tenderness (L) Neurological exam: Present: alert Skin exam: Present: warm, dry, intact, normal color. Absent: rash <Gregg Esquivel - Last Filed: 05/17/24 13:49> Course Vital Signs 05/02/24 05/02/24 05/02/24 05:23 06:15 06:22 Pulse Rate 75 134 H 134 H Respiratory 18 18 18 Rate Blood Pressure 107/93 87/68 103/85 O2 Sat by Pulse 93 L 97 97 Oximetry 05/02/24 05/02/24 05/02/24 06:30 07:32 08:45 Pulse Rate 133 H 131 H 128 H Respiratory 18 18 18 Rate Blood Pressure 93/68 89/69 90/72 O2 Sat by Pulse 97 98 98 Oximetry 05/02/24 05/02/24 05/02/24 09:34 09:38 10:56 Pulse Rate 122 H 63 Respiratory 18 18 Rate Blood Pressure 77/67 89/69 96/81 O2 Sat by Pulse 98 97 Oximetry 05/02/24 05/02/24 05/02/24 11:28 12:43 13:30 Pulse Rate 54 L 55 L 55 L Respiratory 16 18 18 Rate Blood Pressure 95/74 80/64 81/64 O2 Sat by Pulse 98 97 96 Oximetry 05/02/24 05/02/24 05/02/24 14:34 17:37 21:16 Pulse Rate 63 56 L 57 L Respiratory 18 18 16 Rate Blood Pressure 117/94 100/81 101/82 O2 Sat by Pulse 97 99 Oximetry 05/03/24 05/03/24 02:14 03:39 Pulse Rate 55 L 56 L Respiratory 16 16 Rate Blood Pressure 95/73 94/77 O2 Sat by Pulse Oximetry Chest Pain MDM <Gregg Esquivel - Last Filed: 05/17/24 13:49> - MDM The patient had chest x-ray that I interpreted as negative for acute infiltrate, pneumothorax, congestive heart failure Was pt. sent in by a medical professional or institution (, PA, N[employer] GUIDE, urgent care, hospital, or half-way...) When possible be specific @ -[No] Did you speak to anyone other than the patient for history (EMS, parent, family, police, friend...)? What history was obtained from this source @ -[No] Did you review nursing and triage notes (agree or disagree)? Why? @ -[I reviewed and agree with nursing and triage notes] Were old charts reviewed (outside hosp., previous admission, EMS record, old EKG, old radiological studies, urgent care reports/EKG's, half-way records)? Report findings @ -[No old charts were reviewed] Differential Diagnosis (chest pain, altered mental status, abdominal pain women, abdominal pain men, vaginal bleeding, weakness, fever, dyspnea, syncope, headache, dizziness, GI bleed, back pain, seizure, CVA, palpatations, mental health, musculoskeletal)? @ -[Differential Chest Pain: Stable Angina, Unstable Angina, STEMI, NSTEMI Aortic Dissection, Pneumothorax, Musculoskeletal, Esophageal Spasm GERD, Cholecystitis, Pancreatitis, Zoster, this is not meant to be an all-inclusive list. EKG interpreted by me (3pts min.). @ -[I interpreted as above] X-rays interpreted by me (1pt min.). @ -[I interpreted as above CT interpreted by me (1pt min.). @ -[None done] U/S interpreted by me (1pt. min.). @ -[None done] What testing was considered but not performed or refused? (CT, X-rays, U/S, labs)? Why? @ -[None] What meds were considered but not given or refused? Why? @ -[None] Did you discuss the management of the patient with other professionals (professionals i.e. , PA, [employer] GUIDE, lab, RT, psych nurse, social economist, facing baster jumpbasting, teacher, education officer, case assembler)? Give summary @ -[Case discussed with admitting physician and treatment recommendations incorporated. Case discussed with the commercial sales director who states that they will shortly come and see the patient to manage the tachyarrhythmia Was smoking cessation discussed for >3mins.? @ -[No] Was critical care preformed (if so, how long)? @ -[Yes, 30 minutes Were there social determinants of health that impacted care today? How? (Homelessness, low income, unemployed, alcoholism, drug addiction, transportation, low edu. Level, literacy, decrease access to med. care, skilled nursing, rehab)? @ -[No] Was there de-escalation of care discussed even if they declined (Discuss DNR or withdrawal of care, Hospice)? DNR status @ -[No] What co-morbidities impacted this encounter? (DM, HTN, Smoking, COPD, CAD, Cancer, CVA, ARF, Chemo, Hep., AIDS, mental health diagnosis, sleep apnea, morbid obesity)? @ -[Coronary artery disease Was patient admitted / discharged? Hospital course, mention meds given and route, prescriptions, significant lab abnormalities, going to OR and other pertinent info. @ -[Patient is 69-year-old man presenting to have evaluation for chest pain. On admission patient found to be tachycardic. There is possibility of atrial flutter with aberrant conduction, patient will be admitted to have further cardiology consultation Undiagnosed new problem with uncertain prognosis? @ -[No] Drug Therapy requiring intensive monitoring for toxicity (Heparin, Nitro, Insulin, Cardizem)? @ -[No] Were any procedures done? @ -[No] Diagnosis/symptom? @ -[Acute chest pain Acute tachyarrhythmia Acute, or Chronic, or Acute on Chronic? @ -[Acute Uncomplicated (without systemic symptoms) or Complicated (systemic symptoms)? @ -[Uncomplicated Side effects of treatment? @ -[No] Exacerbation, Progression, or Severe Exacerbation? @ -[No] Poses a threat to life or bodily function? How? (Chest pain, [place], MA, pneumonia, PE, COPD, DKA, ARF, appy, cholecystitis, CVA, Diverticulitis, Homicidal, Suicidal, threat to staff... and all critical care pts) @ -[Yes (Gregg Esquivel) Disposition Is patient prescribed a controlled substance at d/c from ED?: No <Kaleigh Coles - Last Filed: 05/06/24 10:28> <Gregg Esquivel - Last Filed: 05/17/24 13:49> Clinical Impression: Chest pain, Tachyarrhythmia Disposition: ADMITTED IP TO THIS HOSP Condition: Stable
[2024-05-02 06:21] LABS: Basophils # (A) 0.1 k/uL (0-0.2); Basophils % (A) 1 %; Eosinophils # (A) 0.3 k/uL (0-0.7); Eosinophils % (A) 3 %; HGB 17.4 gm/dL (13.0-17.5); Lymphocytes # (A) 1.5 k/uL (1.0-4.8); Lymphocytes % (A) 17 %; MCHC 32.9 g/dL (31.0-37.0); MCV 88.3 fL (80.0-100.0); Mean Platelet Volume 9.6; Monocytes # (A) 0.7 k/uL (0-1.0); Monocytes % (A) 8 %; Neutrophils % (A) 70 %; Platelet Count 143 k/uL (150-450); RDW 13.6 % (11.5-15.5); WBC 8.6 k/uL (3.8-10.6)
[2024-05-02] MEDS: ASPIRIN 81 MG PO STA (06:30)
[2024-05-02] MEDS: SODIUM CHLORIDE 0.9% 1,000 ML IV STA (06:31)
[2024-05-02] MEDS: SODIUM CHLORIDE 0.9% 500 ML 250 ML IV STA (07:34)
[2024-05-02] MEDS ORDERED: NITROGLYCERIN SL TABS 0.4 MG TAB SUBLINGUAL PRN (07:51)
[2024-05-02] MEDS: ADENOSINE 3 MG/ML 2 ML VIAL IVP STA ×2 (10:02→10:07)
--- NOTE | 2024-05-02 10:10 | P.CRDCN ---
History of Present Illness Consult date: 05/02/24 History of present illness: HISTORY OF PRESENTING ILLNESS 69-year-old male with PMH of CAD with previous CABG, bicuspid aortic valve with recent TAVR, cardiomyopathy with a EF of 10%, AICD, SVT. Known to Dr. Mcdermott. On April 13, 2024 patient presented to the Hospital symptoms of palpitations. There was concerns of possible SVT or atrial flutter. At that time he was started on amiodarone drip. He also had abnormal troponins for which she was taken to the [facility]. 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 He also has 80% OM1 disease. Decision was made to treated medically. It was felt that if patient really has ischemic symptoms he will need Impella supported PCI. I send interrogation did not show atrial flutter or fibrillation on last hospital admission. He was discharged home on lisinopril 10 mg and amiodarone was discontinued. REVIEW OF SYSTEMS 14 point review of system is negative except what is mentioned above in HPI. PHYSICAL EXAMINATION Vital signs reviewed. Head: Normocephalic. Eyes: Sclerae nonicteric. Neck: Brisk carotid upstroke, elevated jugular venous distention. Lungs: Clear to auscultation. Heart: Irregularly irregular pulse, mild systolic murmur audible. Abdomen: Soft nontender, positive bowel sounds. Extremities: No edema, intact distal pulses. Neuro: Alert, oritented, no focal deficits. Detailed neuro exam was not performed. ASSESSMENT Palpitations and hypotension most likely due to paroxysmal SVT. Status post TAVR for bicuspid aortic valve March 2024 CAD status post CABG, IT SECURITY SPECIALIST RCA, patent GRAHAM to LAD, severe OM1 disease Severe cardiomyopathy with a EF of 10%, currently euvolemic History of ICD implantation Hypertension dyslipidemia PLAN We attempted adenosine 6 mg with no response. This was followed by 12 mg adenosine with no response. Start amiodarone 150 mg bolus and a drip. Add metoprolol succinate 25 mg daily Aspirin Lipitor, discontinue lisinopril Entresto half tablet 24/26 mg twice daily. Jardiance 10 mg daily Benjamin Moya MD, FACC, RPVI Thank you for allowing [facility] to participate in this patient's care. Feel free to reach out in case of any followup questions. Past Medical History Past Medical History: Atrial Fibrillation, Coronary Artery Disease (CAD), Chest Pain / Angina, Diabetes Mellitus, GERD/Reflux, Hyperlipidemia, Hypertension, Myocardial Infarction (non Q-wave) Additional Past Medical History / Comment(s): 01/24/17 with SVT converted with adenosine. Other hx: Neuropathy bilateral feet, 2 MIs-2001 and 2014. Last Myocardial Infarction Date:: 07/25/14 History of Any Multi-Drug Resistant Organisms: None Reported Past Surgical History: AICD, Coronary Bypass/CABG, Heart Catheterization With Stent, Orthopedic Surgery, Tonsillectomy Additional Past Surgical History / Comment(s): PCI with stents 2001 and 2014, 3 vessel CABG in 2001, AICD 2001-, pins in left ankle as a kid. taver TAVR 2wks ago Past Anesthesia/Blood Transfusion Reactions: No Reported Reaction Additional Past Anesthesia/Blood Transfusion Reaction / Comment(s): No previous history of blood transfusions Date of Last Stent Placement:: 2014 Type of Cardiac Device: AICD Device Placement Date:: 2001- Past Psychological History: No Psychological Hx Reported Smoking Status: Former smoker Past Alcohol Use History: None Reported Past Drug Use History: None Reported - Past Family History Mother History Unknown: Yes Family Medical History: Diabetes Mellitus Additional Family Medical History / Comment(s): Mother at 78yrs Father Family Medical History: Coronary Artery Disease (CAD), Myocardial Infarction (MT) Additional Family Medical History / Comment(s): Father had a MT in his early 50's. He of CAD at 75yrs. Medications and Allergies Home Medications Medication Instructions Recorded Confirmed Type Aspirin 162 mg PO DAILY 01/24/17 04/13/24 History Pantoprazole [Protonix] 40 mg PO DAILY 08/10/21 04/13/24 History Insulin Glargine/Lixisenatide 50 units SQ DAILY 12/30/23 04/13/24 History [[place] 100 Unit-33 Mcg/ml Pen] Acetaminophen Tab [Tylenol] 1,000 mg PO Q6HR PRN tab 03/26/24 04/13/24 Rx Empagliflozin [Jardiance] 10 mg PO DAILY 04/13/24 04/13/24 History Metoprolol Succinate (ER) [Toprol 50 mg PO DAILY #30 tab 04/16/24 Rx XL] lisinopriL [Zestril] 10 mg PO DAILY #30 tab 04/16/24 Rx Allergies Allergy/AdvReac Type Severity Reaction Status Date / Time No Known Allergies Allergy Verified 05/02/24 05:27 Physical Exam Vitals: Vital Signs Pulse Resp BP Pulse Ox 05/02/24 09:38 89/69 05/02/24 09:34 122 H 18 77/67 98 05/02/24 08:45 128 H 18 90/72 98 05/02/24 07:32 131 H 18 89/69 98 05/02/24 06:30 133 H 18 93/68 97 05/02/24 06:22 134 H 18 103/85 97 05/02/24 06:15 134 H 18 87/68 97 05/02/24 05:23 75 18 107/93 93 L Intake and Output 05/01/24 05/02/24 05/02/24 22:59 06:59 14:59 Other: Weight 75.296 kg Results 05/02/24 05:34 05/02/24 05:34 Cardiac Enzymes 05/02/24 05/02/24 05/02/24 Range/Units 05:34 05:34 08:51 AST 36 (17-59) U/L Troponin I 0.025 0.091 H* (0.000-0.034) ng/mL Coagulation 05/02/24 Range/Units 05:34 PT 12.2 (10.0-12.5) sec APTT 27.3 (22.0-30.0) sec CBC 05/02/24 Range/Units 05:34 WBC 8.6 (3.8-10.6) k/uL RBC 6.00 H (4.30-5.90) m/uL Hgb 17.4 (13.0-17.5) gm/dL Hct 53.0 (39.0-53.0) % Plt Count 143 L (150-450) k/uL Comprehensive Metabolic Panel 05/02/24 Range/Units 05:34 Sodium 139 (137-145) mmol/L Potassium 4.4 (3.5-5.1) mmol/L Chloride 106 (98-107) mmol/L Carbon Dioxide 24 (22-30) mmol/L BUN 31 H (9-20) mg/dL Creatinine 1.52 H (0.66-1.25) mg/dL Glucose 235 H (74-99) mg/dL Calcium 9.3 (8.4-10.2) mg/dL AST 36 (17-59) U/L ALT 24 (4-49) U/L Alkaline Phosphatase 121 (38-126) U/L Total Protein 7.4 (6.3-8.2) g/dL Albumin 4.4 (3.5-5.0) g/dL Current Medications Generic Name Dose Route Start Last Admin Trade Name Freq PRN Reason Stop Dose Admin Aspirin 325 mg 05/03/24 09:00 Aspirin 325 Mg Tab PO DAILY [facility] Aspirin 81 mg 05/02/24 10:00 Aspirin 81 Mg PO DAILY [facility] Atorvastatin Calcium 40 mg 05/02/24 21:00 Atorvastatin 40 Mg Tab PO HS [facility] Dapagliflozin 10 mg 05/02/24 10:00 Dapagliflozin Propanediol 10 Mg Tablet PO DAILY [facility] Amiodarone HCl 150 mg/ 103 mls @ 618 mls/hr 05/02/24 09:57 Dextrose/Water IV 05/02/24 10:06 .Q10M ONE Amiodarone HCl 360 mg/ 200 mls @ 33.333 mls/hr 05/02/24 09:57 Dextrose/Water IV 05/02/24 15:56 .Q6H ONE Protocol 1 MG/MIN Amiodarone HCl 450 mg/ 250 mls @ 16.667 mls/hr 05/02/24 16:00 Dextrose/Water IV 05/03/24 09:59 .Q15H SHAN Protocol 0.5 MG/MIN Nitroglycerin 0.4 mg 05/02/24 07:51 Nitroglycerin Sl Tabs 0.4 Mg Tab SUBLINGUAL Q5M PRN Chest Pain Sacubitril/Valsartan 0.5 each 05/02/24 10:00 Sacubitril/Valsartan 24 Mg-26 Mg Tablet PO BID [facility] Intake and Output 05/01/24 05/02/24 05/02/24 22:59 06:59 14:59 Other: Weight 75.296 kg 05/02/24 05:34 05/02/24 05:34
[2024-05-02] MEDS ORDERED: DEXTROSE 50% SYRINGE 50 ML IVP PRN ×2 (10:15)
[2024-05-02] MEDS: DEXTROSE 5% IN WATER 100 ML with AMIODARONE 150 MG IV ONE (10:23)
[2024-05-02] MEDS: AMIODARONE 360 MG in DEXTROSE 5% IN WATER 200 ML IV ONE (10:53)
[2024-05-02] MEDS: ASPIRIN 81 MG PO SCH (10:57)
[2024-05-02] MEDS: DAPAGLIFLOZIN PROPANEDIOL 10 MG TABLET PO SCH (10:58)
[2024-05-02] MEDS: METOPROLOL SUCCINATE (ER) 25 MG TAB.ER.24H PO SCH (10:58)
[2024-05-02] MEDS: SACUBITRIL/VALSARTAN 24 MG-26 MG TABLET PO SCH (11:55)
[2024-05-02] MEDS: MORPHINE SULFATE 4 MG/ML SYRINGE IV STA (11:55)
[2024-05-02 12:27] LABS: Glucose,Whole Blood 153 mg/dL (70-110)
[2024-05-02] MEDS: INSULIN ASPART (NovoLOG) 100 UNIT/ML VIAL SQ SCH (12:37)
--- NOTE | 2024-05-02 12:41 | P.HPIM ---
History of Present Illness H&P Date: 05/02/24 History of present illness; patient is a 69-year-old gentleman with past medical history significant for coronary artery disease with previous CABG, bicuspid aortic valve with recent TAVR, cardiomyopathy, AICD implantation, SVT, and valvular heart disease presented to ER because of chest pain and shortness of breath. Patient was recently admitted in the hospital for atrial flutter beginning of April, at which time patient cardiac cath done showing stable coronary disease, patient also had AICD interrogation and at the time did not reveal any atrial fibrillation or flutter. Patient stated that he woke up in the middle of the night with severe left-sided chest pain and palpitations. Chest pain was left-sided, sharp, constant, associated with shortness of breath at a time. Patient also complaining of palpation at the time. Because of this chest pain and shortness of breath, patient came to the ER Initial lab work done in the ER showed WBC 8.6, hemoglobin 17.4, platelet count 143, sodium 139, potassium 4.4, BUN 31, creatinine 1.52, troponin 0.025, bilirubin 1.4, glucose 235 EKG done in the ER showed heart rate of 137, wide-complex, no ST segment elevation or depression seen, no T-wave inversions seen. Chest x-ray done in the ER cardiomegaly with small left pleural effusion Patient admitted to internal medicine service REVIEW OF SYSTEMS: CONSTITUTIONAL: No fever, no malaise, no fatigue. HEENT: No recent visual problems or hearing problems. Denied any sore throat. CARDIOVASCULAR: As mentioned above PULMONARY: As mentioned above GASTROINTESTINAL: No diarrhea, no nausea, no vomiting, no abdominal pain. NEUROLOGICAL: No headaches, no weakness, no numbness. HEMATOLOGICAL: Denies any bleeding or petechiae. GENITOURINARY: Denies any burning micturition, frequency, or urgency. MUSCULOSKELETAL/RHEUMATOLOGICAL: Denies any joint pain, swelling, or any muscle pain. ENDOCRINE: Denies any polyuria or polydipsia. The rest of the 14-point review of systems is negative. PHYSICAL EXAMINATION: GENERAL: The patient is alert and oriented x3, not in any acute distress. Well developed, well nourished. HEENT: Pupils are round and equally reacting to light. EOMI. No scleral icterus. No conjunctival pallor. Normocephalic, atraumatic. No pharyngeal erythema. No thyromegaly. CARDIOVASCULAR: S1 and S2 present. No murmurs, rubs, or gallops. PULMONARY: Chest is clear to auscultation, no wheezing or crackles. ABDOMEN: Soft, nontender, nondistended, normoactive bowel sounds. No palpable organomegaly. MUSCULOSKELETAL: No joint swelling or deformity. EXTREMITIES: No cyanosis, clubbing, or pedal edema. NEUROLOGICAL: Gross neurological examination did not reveal any focal deficits. SKIN: No rashes. Assessment and plan SVT NSTEMI Symptomatic bicuspid aortic valve stenosis, status post TAVR, 03/24/2024 Coronary artery disease with previous CABG Chronic total occlusion of RCA Ischemic cardiomyopathy, 20 to 25% History of ICD implantation Hypertension Hyperlipidemia Monitor vital signs Monitor CBC Monitor CMP Continue telemetry monitoring Trend troponins. Start amiodarone drip Resume metoprolol Ordered blood sugar monitoring, start sliding scale insulin Consult cardiology Labs and medication were reviewed.. Continue same treatment. Continue with symptomatic treatment. Resume home medication. Monitor labs and vitals. DVT and GI prophylaxis. Further recommendations as per clinical course of the patient Dictation was produced using [employer] dictation software. please excuse any grammatical, word or spelling errors. Past Medical History Past Medical History: Atrial Fibrillation, Coronary Artery Disease (CAD), Chest Pain / Angina, Diabetes Mellitus, GERD/Reflux, Hyperlipidemia, Hypertension, Myocardial Infarction (non Q-wave) Additional Past Medical History / Comment(s): 01/24/17 with SVT converted with adenosine. Other hx: Neuropathy bilateral feet, 2 MIs-2001 and 2014. Last Myocardial Infarction Date:: 07/25/14 History of Any Multi-Drug Resistant Organisms: None Reported Past Surgical History: AICD, Coronary Bypass/CABG, Heart Catheterization With Stent, Orthopedic Surgery, Tonsillectomy Additional Past Surgical History / Comment(s): PCI with stents 2001 and 2014, 3 vessel CABG in 2001, AICD 2001-, pins in left ankle as a kid. taver TAVR 2wks ago Past Anesthesia/Blood Transfusion Reactions: No Reported Reaction Additional Past Anesthesia/Blood Transfusion Reaction / Comment(s): No previous history of blood transfusions Date of Last Stent Placement:: 2014 Type of Cardiac Device: AICD Device Placement Date:: 2001- Past Psychological History: No Psychological Hx Reported Smoking Status: Former smoker Past Alcohol Use History: None Reported Past Drug Use History: None Reported - Past Family History Mother History Unknown: Yes Family Medical History: Diabetes Mellitus Additional Family Medical History / Comment(s): Mother at 78yrs Father Family Medical History: Coronary Artery Disease (CAD), Myocardial Infarction ([place]) Additional Family Medical History / Comment(s): Father had a [place] in his early 50's. He of CAD at 75yrs. Medications and Allergies Home Medications Medication Instructions Recorded Confirmed Type Aspirin 162 mg PO DAILY 01/24/17 05/02/24 History Pantoprazole [Protonix] 40 mg PO DAILY 08/10/21 05/02/24 History Insulin Glargine/Lixisenatide 50 units SQ DAILY 12/30/23 05/02/24 History [[place] 100 Unit-33 Mcg/ml Pen] Acetaminophen Tab [Tylenol] 1,000 mg PO Q6HR PRN tab 03/26/24 05/02/24 Rx Empagliflozin [Jardiance] 10 mg PO DAILY 04/13/24 05/02/24 History Metoprolol Succinate (ER) [Toprol 50 mg PO DAILY #30 tab 04/16/24 05/02/24 Rx XL] lisinopriL [Zestril] 10 mg PO DAILY #30 tab 04/16/24 05/02/24 Rx Allergies Allergy/AdvReac Type Severity Reaction Status Date / Time No Known Allergies Allergy Verified 05/02/24 05:27 Physical Exam Vitals: Vital Signs Pulse Resp BP Pulse Ox 05/02/24 09:38 89/69 05/02/24 09:34 122 H 18 77/67 98 05/02/24 08:45 128 H 18 90/72 98 05/02/24 07:32 131 H 18 89/69 98 05/02/24 06:30 133 H 18 93/68 97 05/02/24 06:22 134 H 18 103/85 97 05/02/24 06:15 134 H 18 87/68 97 05/02/24 05:23 75 18 107/93 93 L Intake and Output 05/01/24 05/02/24 05/02/24 22:59 06:59 14:59 Other: Weight 75.296 kg Results CBC & Chem 7: 05/02/24 05:34 05/02/24 05:34 Labs: Abnormal Lab Results - Last 24 Hours (Table) 05/02/24 05/02/24 05/02/24 Range/Units 05:34 05:34 08:51 RBC 6.00 H (4.30-5.90) m/uL Plt Count 143 L (150-450) k/uL BUN 31 H (9-20) mg/dL Creatinine 1.52 H (0.66-1.25) mg/dL Glucose 235 H (74-99) mg/dL Total Bilirubin 1.4 H (0.2-1.3) mg/dL Troponin I 0.091 H* (0.000-0.034) ng/mL
[2024-05-02 17:26] LABS: Glucose,Whole Blood 129 mg/dL (70-110)
[2024-05-02 21:02] LABS: Glucose,Whole Blood 250 mg/dL (70-110)
[2024-05-02] MEDS: ATORVASTATIN 40 MG TAB PO SCH (21:07)
[2024-05-02] MEDS: AMIODARONE 450 MG in DEXTROSE 5% IN WATER 250 ML IV SCH (21:50)
[2024-05-03 06:07] LABS: Glucose,Whole Blood 138 mg/dL (70-110)
[2024-05-03] MEDS ORDERED: ASPIRIN 325 MG TAB PO SCH (09:00)
[2024-05-03 10:56] LABS: Chol/HDL Ratio 7.26 Ratio
[2024-05-03] MEDS: AMIODARONE 200 MG TAB PO SCH (12:01)
[2024-05-03 12:07] LABS: Glucose,Whole Blood 207 mg/dL (70-110)
--- NOTE | 2024-05-03 14:28 | P.PN ---
Subjective Progress Note Date: 05/03/24 HISTORY OF PRESENTING ILLNESS 69-year-old male with PMH of CAD with previous CABG, bicuspid aortic valve with recent TAVR, cardiomyopathy with a EF of 10%, AICD, SVT. Known to Dr. Mcdermott. On April 13, 2024 patient presented to the Hospital symptoms of palpitations. There was concerns of possible SVT or atrial flutter. At that time he was started on amiodarone drip. He also had abnormal troponins for which she was taken to the cardiac Marine Welder. He does have known occluded LAD and COLOR STRAINER of RCA with patent GRAHAM to LAD. He also has 80% OM1 disease. Decision was made to treated medically. It was felt that if patient really has ischemic symptoms he will need Impella supported PCI. I send interrogation did not show atrial flutter or fibrillation on last hospital admission. He was discharged home on lisinopril 10 mg and amiodarone was discontinued. 05/03 Patient is seen and examined. He states he had a bad day yesterday. He states that since he had his TAVR procedure, he has had cysts 3 episodes where his heart rate was fast and uncontrolled. He states that he has had a total of 6. Blood pressure 105/76, heart rate in the 50s to 70s, pulse ox 98% on room air. A1c is 7.8. Triglycerides 212, cholesterol 244, LDL 66, HDL 33. Patient received adenosine x 2 at 6 mg followed by 12 mg without success. He was subsequently started on amiodarone bolus and drip. PHYSICAL EXAMINATION Vital signs reviewed. Head: Normocephalic. Eyes: Sclerae nonicteric. Neck: Brisk carotid upstroke, elevated jugular venous distention. Lungs: Clear to auscultation. Heart: Irregularly irregular pulse, mild systolic murmur audible. Abdomen: Soft nontender, positive bowel sounds. Extremities: No edema, intact distal pulses. Neuro: Alert, oritented, no focal deficits. Detailed neuro exam was not perfo rmed. ASSESSMENT Palpitations and hypotension most likely due to paroxysmal SVT. Status post TAVR for bicuspid aortic valve March 2024 CAD status post CABG, COLOR STRAINER RCA, patent GRAHAM to LAD, severe OM1 disease Severe cardiomyopathy with a EF of 10%, currently euvolemic History of ICD implantation Hypertension dyslipidemia Diabetes mellitus type 2 PLAN Start patient on amiodarone 200 mg twice daily Continue metoprolol succinate 25 mg daily Aspirin Lipitor, discontinue lisinopril Entresto half tablet 24/26 mg twice daily. Jardiance 10 mg daily Interrogate AICD Dr. Quick will review interrogation and make further recommendations based on findings. Nurse practitioner note has been reviewed, I agree with documented findings and plan of care. Patient was seen and examined. Objective - Vital Signs Vital signs: Vital Signs Temp 98.2 F 05/03/24 04:32 Pulse 72 05/03/24 04:32 Resp 16 05/03/24 04:32 BP 105/76 05/03/24 04:32 Pulse Ox 98 05/03/24 04:32 FiO2 Intake & Output 05/02/24 05/03/24 05/03/24 18:59 06:59 18:59 Intake Total 240 Balance 240 Weight 75.296 kg Intake: Oral 240 Other: Voiding Method Toilet - Labs CBC & Chem 7: 05/02/24 05:34 05/02/24 05:34 Labs: Abnormal Lab Results - Last 24 Hours (Table) 05/02/24 05/02/24 05/02/24 Range/Units 08:51 11:48 12:25 POC Glucose (mg/dL) 153 H (70-110) mg/dL Troponin I 0.091 H* 1.460 H* (0.000-0.034) ng/mL 05/02/24 05/02/24 05/03/24 Range/Units 17:25 21:00 06:06 POC Glucose (mg/dL) 129 H 250 H 138 H (70-110) mg/dL Troponin I (0.000-0.034) ng/mL
[2024-05-03 16:39] LABS: Glucose,Whole Blood 183 mg/dL (70-110)
[2024-05-03 20:16] LABS: Glucose,Whole Blood 168 mg/dL (70-110)
[2024-05-04 06:06] LABS: Glucose,Whole Blood 154 mg/dL (70-110)
[2024-05-04 08:45] VITALS: BP 124/77; PULSE 63; RESP 14; TEMP 98
[2024-05-04 11:54] LABS: Glucose,Whole Blood 125 mg/dL (70-110)
--- NOTE | 2024-05-04 12:48 | P.PN ---
Subjective Progress Note Date: 05/04/24 HISTORY OF PRESENTING ILLNESS 69-year-old male with PMH of CAD with previous CABG, bicuspid aortic valve with recent TAVR, cardiomyopathy with a EF of 10%, AICD, SVT. Known to Dr. Mcdermott. On April 13, 2024 patient presented to the Hospital symptoms of palpitations. There was concerns of possible SVT or atrial flutter. At that time he was started on amiodarone drip. He also had abnormal troponins for which she was taken to the cardiac Edge Runner. He does have known occluded LAD and BEAM HOUSE INSPECTOR of RCA with patent GRAHAM to LAD. He also has 80% OM1 disease. Decision was made to treated medically. It was felt that if patient really has ischemic symptoms he will need Impella supported PCI. I send interrogation did not show atrial flutter or fibrillation on last hospital admission. He was discharged home on lisinopril 10 mg and amiodarone was discontinued. 05/03 Patient is seen and examined. He states he had a bad day yesterday. He states that since he had his TAVR procedure, he has had cysts 3 episodes where his heart rate was fast and uncontrolled. He states that he has had a total of 6. Blood pressure 105/76, heart rate in the 50s to 70s, pulse ox 98% on room air. A1c is 7.8. Triglycerides 212, cholesterol 244, LDL 66, HDL 33. Patient received adenosine x 2 at 6 mg followed by 12 mg without success. He was subsequently started on amiodarone bolus and drip. 05/04 ICD interrogation resumed and revealed atrial tachycardia, no episodes of atrial fibrillation. Dr. Quick discussed results and recommendation for ablation, most likely will require multiple ablations. Patient was given option of following up with his previous EP physician or follow-up with Dr. Quick. Patient would like to be scheduled for ablation as soon as possible. PHYSICAL EXAMINATION Vital signs reviewed. Head: Normocephalic. Eyes: Sclerae nonicteric. Neck: Brisk carotid upstroke, elevated jugular venous distention. Lungs: Clear to auscultation. Heart: Irregularly irregular pulse, mild systolic murmur audible. Abdomen: Soft nontender, positive bowel sounds. Extremities: No edema, intact distal pulses. Neuro: Alert, oritented, no focal deficits. Detailed neuro exam was not performed. ASSESSMENT Palpitations and hypotension most likely due to atrial tachycardia Status post TAVR for bicuspid aortic valve March 2024 CAD status post CABG, BEAM HOUSE INSPECTOR RCA, patent GRAHAM to LAD, severe OM1 disease Severe cardiomyopathy with a EF of 10%, currently euvolemic History of ICD implantation Hypertension dyslipidemia Diabetes mellitus type 2 PLAN Continue patient on amiodarone 200 mg twice daily for 2 weeks and then 200 mg daily, prescription sent to his pharmacy No anticoagulation at this time but plan to provide 1 month prior to in 3 months following ablation Continue metoprolol succinate 25 mg daily Aspirin Lipitor, discontinue lisinopril Entresto half tablet 24/26 mg twice daily. Jardiance 10 mg daily Add a atorvastatin 40 mg daily Patient is cleared for discharge from cardiology and may follow-up in the office with Dr. Sabillon in 2 weeks. Arrangements for ablation will be made as an outpatient. Nurse practitioner note has been reviewed, I agree with documented findings and plan of care. Patient was seen and examined. Objective - Vital Signs Vital signs: Vital Signs Temp 98 F 05/04/24 08:00 Pulse 63 05/04/24 08:00 Resp 14 05/04/24 08:00 BP 124/77 05/04/24 08:00 Pulse Ox 98 05/04/24 08:00 FiO2 Intake & Output 05/03/24 05/04/24 05/04/24 18:59 06:59 18:59 Intake Total 1140 Balance 1140 Weight 75.7 kg Intake: Oral 1140 Other: Voiding Method Toilet Toilet # Voids 2 1 - Labs CBC & Chem 7: 05/02/24 05:34 05/02/24 05:34 Labs: Abnormal Lab Results - Last 24 Hours (Table) 05/03/24 05/03/24 05/03/24 Range/Units 06:30 06:30 12:04 POC Glucose (mg/dL) 207 H (70-110) mg/dL Hemoglobin A1c 7.8 H (<=6.0) % Triglycerides 212.00 H (0.00-149.00) mg/dL Cholesterol 244.00 H (0.00-200.00) mg/dL LDL Cholesterol, Calc 168.0 H (0.0-131.0) mg/dL VLDL Cholesterol, Calc 42.40 H (5.00-40.00) mg/dL HDL Cholesterol 33.60 L (40.00-60.00) mg/dL 05/03/24 05/03/24 05/04/24 Range/Units 16:37 20:14 06:03 POC Glucose (mg/dL) 183 H 168 H 154 H (70-110) mg/dL Hemoglobin A1c (<=6.0) % Triglycerides (0.00-149.00) mg/dL Cholesterol (0.00-200.00) mg/dL LDL Cholesterol, Calc (0.0-131.0) mg/dL VLDL Cholesterol, Calc (5.00-40.00) mg/dL HDL Cholesterol (40.00-60.00) mg/dL
--- NOTE | 2024-05-05 00:16 | HP ---
HISTORY AND PHYSICAL CHIEF COMPLAINT: Rapid heart beating, chest pain, and shortness of breath. HISTORY OF PRESENT ILLNESS: This is another admission for this 69-year-old white male who has a longstanding history of advanced coronary artery disease, atherosclerotic cardiomyopathy, arrhythmias, uncontrolled diabetes, and hyperlipidemia. He just had his aortic valve replaced. He came back in because he developed chest discomfort and a rapid heart beating. In the emergency room, he was found to be in supraventricular tachycardia with a rate of 133 beats per minute. His blood pressure is also low. REVIEW OF SYSTEMS: He has had no confusion, syncope, etc. Past medical history, family history, personal and social histories are all otherwise unremarkable or noncontributory. PHYSICAL EXAMINATION: VITAL SIGNS: Blood pressure 89/69 with a pulse of 133, respirations were 36. GENERAL: He appeared to be slightly pale. He is awake and alert. HEAD, EARS, EYES, NOSE, MOUTH, AND THROAT: Normal. NECK: Neck veins were slightly distended. CHEST: Demonstrated scattered rales at the bases. CARDIAC: Demonstrated tachycardia. ABDOMEN: Soft, nontender. EXTREMITIES: Normal. IMPRESSION: 1. Supraventricular tachycardia. 2. Coronary artery disease. 3. Unstable angina pectoris. 4. Atherosclerotic cardiomyopathy. 5. Diabetes. 6. Hyperlipidemia. 7. Recent TAVR. 8. Left pleural effusion. PLAN: 1. Bed rest. 2. IV fluids. 3. Nasal O2. 4. Consult Cardiology. HERON / PHYLLIS: [id number] /
--- NOTE | 2024-05-05 01:25 | DS ---
DISCHARGE SUMMARY CHIEF COMPLAINT: Tachycardia and chest pain. HISTORY OF PRESENT ILLNESS AND PHYSICAL EXAM: Details of this man's history and physical can be found in the initial workup. LABORATORY STUDIES: While he was in the hospital, he had laboratory studies, details of which can be found in the laboratory section of his chart. COURSE IN THE HOSPITAL: After admission, he was placed on bedrest, started on intravenous fluids, and evaluated by Cardiology. His troponins were up slightly. He had a rapid what was thought to be supraventricular tachycardia. When he was in the hospital, he had several abnormal laboratory studies including elevated blood sugars running from 154 to 207. His LDL was quite high at 168 and his GFR was 47. BNP was 3370 and troponins were elevated. While he was in the hospital, he had his device interrogated. After that Cardiology felt that he could be discharged and he could go home on his usual activity, diet, medication and will follow up in several days. We will probably increase his statin dose from Lipitor 40 to 80. FINAL DIAGNOSES: 1. Supraventricular tachycardia. 2. Acute coronary syndrome. 3. Coronary artery disease. 4. Acute on chronic congestive heart failure. 5. Status post recent TAVR. 6. Hyperlipidemia. 7. Poorly controlled diabetes. OPERATIONS: None. CONSULTATIONS: Cardiology. He is improved. MMODL / IJN: [id number] /
--- NOTE | 2024-05-06 02:20 | PN ---
PROGRESS NOTE DATE OF SERVICE: 05/03/2024 CHIEF COMPLAINT: Chest pain. HISTORY OF PRESENT ILLNESS: This gentleman is doing a little bit better. He is not experiencing any discomfort now. His blood pressure was 89/69, but now it is back up. He is still in atrial fibrillation, but at improved rate. Troponin is up slightly and he is being seen by Cardiology. His x-ray suggested right pleural effusion. PHYSICAL EXAMINATION: CHEST: Clear. CARDIAC: Reveals tachycardia of around 90. HEAD, EARS, EYES, NOSE, MOUTH, AND THROAT: Normal. ABDOMEN: Soft and nontender. IMPRESSION: 1. Chest pain. 2. Hypotension. 3. Atrial fibrillation with rapid ventricular response. 4. Coronary artery disease. 5. Recent TAVR. 6. Left pleural effusion. PLAN: 1. Continue with current management and await any further recommendations from Cardiology with regard to his atrial fibrillation and left pleural effusion. 2. Lipids will have to be addressed if they do not improve. His LDL is 168. MMODL / IJN: [id number] /
--- NOTE | 2024-05-18 08:52 | CDI ---
Documentation Clarification Form Date: 05/18/2024 08:35:45 AM From: Zakia Cassidy RN CCDS Phone: [phone] Admit Date: 05/02/2024 07:51:00 AM Patient Name: Tito Mullins Visit Number: [id number] Discharge Date: 05/04/2024 02:04:00 PM ATTENTION: The Clinical Documentation Specialists (CDI) and [facility] Coding Staff appreciate your assistance in clarifying documentation. Please respond to the clarification below the line at the bottom and electronically sign. The CDI & [facility] Coding staff will review the response and follow-up if needed. Please note: Queries are made part of the Legal Health Record. If you have any questions, please contact the author of this message via ITS. Dr. Guillen NSTEMI is documented 05/02, . Additional clarification regarding the type of NSTEMI is requested. History/Risk Factors: 69 year old male presents to the ED for chest pain and shortness of breath. Recently admitted for atrial flutter in the beginning of April at which time a cardiac cath done showing stable coronary disease, patient had AICD interrogation at the time and did not reveal any atrial fibrillation or flutter. Medical History: Symptomatic bicuspid aortic valve stenosis s/p TAVR, 03/24/2024, CAD with CABG, HTN, and Dyslipidemia. 05/02, HP Clinical Indicators: Troponin, 05/02: 0.025; 1.460 EKG Results, 05/02: Sinus Tachycardia, Left AXIS deviation. Left bundle branch block. ST depression. 05/02 Cardiology note: Palpitations adn hypotension most likely due to atrial tachycardia. [place] post TAVR for bicuspid aortic valve March 2024. Treatment:05/02 Adenosine 6mg IVP x 1; 05/02 Adenosine 12mg IVP x 1; 05/02 05/03 Amiodarone IV ; 05/03 Amiodarone 200mg po bid; Please clarify the type of NSTEMI, if known: [ ] NSTEMI ruled out [ ] NSTEMI ruled in (please specify type and etiology) [ ] Unable to determine [ ] Other Condition, please specify (Template Last Revised: September 2020) MTDD
--- NOTE | 2024-05-28 08:23 | MISC ---
MISCELLANOUS REPORT NSTEMI, ruled in. MMODL / IJN: [id number] /
== END 2024-05-04 14:04 | disposition home or self-care (01) | DRG 282 ==
LOC: EC 05:21 → 3SCARD 07:51
PROVIDERS: ADMIT Family Medicine; ATTEND Family Medicine
PROC: 4B02XTZ Measurement of Cardiac Defibrillator, External Approach (ICD-10-PCS; principal; 2024-05-03)
DX: I47.19 Other supraventricular tachycardia (principal); I21.4 Non-ST elevation (NSTEMI) myocardial infarction; I48.92 Unspecified atrial flutter; E78.5 Hyperlipidemia, unspecified; I25.10 Atherosclerotic heart disease of native coronary artery without angina pectoris; E11.65 Type 2 diabetes mellitus with hyperglycemia; I11.0 Hypertensive heart disease with heart failure; I50.9 Heart failure, unspecified; I48.91 Unspecified atrial fibrillation; K21.9 Gastro-esophageal reflux disease without esophagitis; I25.5 Ischemic cardiomyopathy; I25.2 Old myocardial infarction; Z79.4 Long term (current) use of insulin; Z79.82 Long term (current) use of aspirin; Z79.84 Long term (current) use of oral hypoglycemic drugs; Z79.899 Other long term (current) drug therapy; Z82.49 Family history of ischemic heart disease and other diseases of the circulatory system; Z87.891 Personal history of nicotine dependence; Z95.1 Presence of aortocoronary bypass graft; Z95.2 Presence of prosthetic heart valve; Z95.5 Presence of coronary angioplasty implant and graft; Z95.810 Presence of automatic (implantable) cardiac defibrillator
CPT/HCPCS: 36415; 71046; 80053; 80061; 83036; 83735; 83880; 84484; 85025; 85610; 85730; 93005; 96365; 96366; 96375; 96376; 99285

== ENCOUNTER → 2024-05-06 | Outpatient (CLI) | payer MEDICARE ==
[2024-05-06 16:36] LABS: Basophils # (A) 0.05 X 10*3/uL (0.00-0.10); Basophils % (A) 0.7 %; Eosinophils # (A) 0.25 X 10*3/uL (0.04-0.35); Eosinophils % (A) 3.6 %; HGB 16.9 g/dL (13.0-17.0); Lymphocytes % (A) 15.9 %; MCH 27.7 pg (27.0-32.0); MCHC 31.9 g/dL (32.0-37.0); MCV 86.7 FL (80.0-97.0); Mean Platelet Volume 11.8 FL (9.5-12.2); Monocytes # (A) 0.83 X 10*3/uL (0.20-1.00); NRBC Per 100 WBC 0 X 10*3/uL (0.00-0.01); Neutrophils # (A) 4.64 X 10*3/uL (1.80-7.70); Neutrophils % (A) 67.1 %; Platelet Count 150 X 10*3/uL (140-440); RBC 6.11 X 10*6/uL (4.40-5.60); RDW 13.4 % (11.5-14.5); WBC 6.92 X 10*3/uL (4.50-10.00)
[2024-05-06 16:47] LABS: BUN/Creat Ratio 16.08 Ratio (12.00-20.00); Blood Urea Nitrogen 20.9 mg/dL (9.0-27.0); Calcium 9.2 mg/dL (8.7-10.3); Carbon Dioxide 23.2 mmol/L (21.6-31.8); Chloride 105 mmol/L (96-109); Glucose 135 mg/dL (70-110); Potassium 4.7 mmol/L (3.5-5.5); Sodium 139 mmol/L (135-145)
== END | disposition home or self-care (01) ==
LOC: LABWHC1 11:52
PROVIDERS: ATTEND Nurse Practitioner Family
DX: Z95.2 Presence of prosthetic heart valve (principal)
CPT/HCPCS: 36415; 80048; 85025

== ENCOUNTER 2024-06-07 05:38 | Inpatient (IN) | payer MEDICARE ==
--- NOTE | 2024-06-07 06:24 | ED ---
Chest Pain HPI - General Chief Complaint: Chest Pain Stated Complaint: Chest Pain Time Seen by Provider: 06/07/24 06:03 Source: patient, RN notes reviewed Mode of arrival: wheelchair Limitations: no limitations - History of Present Illness Initial Comments: 59-year-old male presents emergency department with chief complaint of chest discomfort, shortness of breath. Patient has extensive cardiac history including stents, CABG, recent TAVR. Patient states that he was supposed to follow-up with his technical healthcare consultant tomorrow and discuss possible heart cath as there is concern for further coronary artery disease. Patient states symptoms worsened when she had worsening chest pain, and shortness of breath. Patient has last known EF of 10 which she does have a history of congestive heart failure but denies any leg swelling does have some intermittent nausea without vomiting denies any reports of fever. - Related Data Home Medications Medication Instructions Recorded Confirmed Aspirin 162 mg PO DAILY 01/24/17 05/02/24 Pantoprazole [Protonix] 40 mg PO DAILY 08/10/21 05/02/24 Insulin Glargine/Lixisenatide 50 units SQ DAILY 12/30/23 05/02/24 [Soliqua 100 Unit-33 Mcg/ml Pen] Empagliflozin [Jardiance] 10 mg PO DAILY 04/13/24 05/02/24 Amiodarone [Cordarone] 200 mg PO DAILY 06/07/24 06/07/24 Previous Rx's Medication Instructions Recorded Acetaminophen Tab [Tylenol] 1,000 mg PO Q6HR PRN tab 03/26/24 Metoprolol Succinate (ER) [Toprol 50 mg PO DAILY #30 tab 04/16/24 XL] lisinopriL [Zestril] 10 mg PO DAILY #30 tab 04/16/24 Atorvastatin [Lipitor] 40 mg PO HS #90 tablet 05/04/24 Allergies Allergy/AdvReac Type Severity Reaction Status Date / Time No Known Allergies Allergy Verified 06/07/24 08:26 Review of Systems ROS Statement: Those systems with pertinent positive or pertinent negative responses have been documented in the HPI. ROS Other: All systems not noted in ROS Statement are negative. EKG Findings - EKG Comments: EKG Findings:: EKG performed at 5: 58 atrial paced with rate of 55 MI 285 QRS 204 QT/QTc 556/545 - EKG Results: EKG: interpreted by [facility] Past Medical History Past Medical History: Atrial Fibrillation, Coronary Artery Disease (CAD), Chest Pain / Angina, Diabetes Mellitus, GERD/Reflux, Hyperlipidemia, Hypertension, Myocardial Infarction (non Q-wave) Additional Past Medical History / Comment(s): 01/24/17 with SVT converted with adenosine. Other hx: Neuropathy bilateral feet, 2 MIs-2001 and 2014. Last Myocardial Infarction Date:: 07/25/14 History of Any Multi-Drug Resistant Organisms: None Reported Past Surgical History: AICD, Coronary Bypass/CABG, Heart Catheterization With Stent, Orthopedic Surgery, Tonsillectomy Additional Past Surgical History / Comment(s): PCI with stents 2001 and 2014, 3 vessel CABG in 2001, AICD 2001-, pins in left ankle as a kid. taver TAVR 2wks ago Past Anesthesia/Blood Transfusion Reactions: No Reported Reaction Additional Past Anesthesia/Blood Transfusion Reaction / Comment(s): No previous history of blood transfusions Date of Last Stent Placement:: 2014 Type of Cardiac Device: AICD Device Placement Date:: 2001- Past Psychological History: No Psychological Hx Reported Smoking Status: Former smoker Past Alcohol Use History: None Reported Past Drug Use History: None Reported - Past Family History Mother History Unknown: Yes Family Medical History: Diabetes Mellitus Additional Family Medical History / Comment(s): Mother at 78yrs Father Family Medical History: Coronary Artery Disease (CAD), Myocardial Infarction ([place]) Additional Family Medical History / Comment(s): Father had a [place] in his early 50's. He of CAD at 75yrs. General Exam Limitations: no limitations General appearance: alert, in no apparent distress Head exam: Present: atraumatic, normocephalic, normal inspection Eye exam: Present: normal appearance, PERRL, EOMI. Absent: scleral icterus, conjunctival injection, periorbital swelling ENT exam: Present: normal exam, normal oropharynx, mucous membranes moist Neck exam: Present: normal inspection, full ROM. Absent: tenderness, meningismus, lymphadenopathy Respiratory exam: Present: normal lung sounds bilaterally. Absent: respiratory distress, wheezes, rales, rhonchi, stridor Cardiovascular Exam: Present: regular rate, normal rhythm, normal heart sounds. Absent: systolic murmur, diastolic murmur, rubs, gallop, clicks GI/Abdominal exam: Present: soft, normal bowel sounds. Absent: distended, tenderness, guarding, rebound, rigid Course Vital Signs 06/07/24 06/07/24 06/07/24 05:46 06:11 06:39 Temperature 91.2 F L 97.3 F L Pulse Rate 69 55 L Respiratory 18 16 Rate Blood Pressure 132/100 121/91 O2 Sat by Pulse 99 98 Oximetry 06/07/24 07:45 Temperature 97.9 F Pulse Rate 56 L Respiratory 18 Rate Blood Pressure 126/90 O2 Sat by Pulse 96 Oximetry Chest Pain MDM - MDM Was pt. sent in by a medical professional or institution (, PA, OXYGEN PLANT OPERATOR, urgent care, hospital, or assisted...) When possible be specific @ -No Did you speak to anyone other than the patient for history (EMS, parent, family, police, friend...)? What history was obtained from this source @ -No Did you review nursing and triage notes (agree or disagree)? Why? @ -I reviewed and agree with nursing and triage notes Were old charts reviewed (outside hosp., previous admission, EMS record, old EKG, old radiological studies, urgent care reports/EKG's, assisted records)? Report findings @ -Reviewed prior cardiology consult, echocardiogram and recent TAVR procedure Differential Diagnosis (chest pain, altered mental status, abdominal pain women, abdominal pain men, vaginal bleeding, weakness, fever, dyspnea, syncope, headache, dizziness, GI bleed, back pain, seizure, CVA, palpatations, mental health, musculoskeletal)? @ -Differential Chest Pain: Stable Angina, Unstable Angina, STEMI, NSTEMI Aortic Dissection, Pneumothorax, Musculoskeletal, Esophageal Spasm GERD, Cholecystitis, Pancreatitis, Zoster, this is not meant to be an all-inclusive list. EKG interpreted by me (3pts min.). @ -As above X-rays interpreted by me (1pt min.). @ -Chest x-ray shows chronic changes no acute process CT interpreted by me (1pt min.). @ -None done U/S interpreted by me (1pt. min.). @ -None done What testing was considered but not performed or refused? (CT, X-rays, U/S, labs)? Why? @ -None What meds were considered but not given or refused? Why? @ -None Did you discuss the management of the patient with other professionals (professionals i.e. , PA, OXYGEN PLANT OPERATOR, lab, RT, psych nurse, adoption social worker, internal combustion engine subassembler, teacher, deck officer, continuous pillowcase cutter)? Give summary @ -Dr. Guillen for admission with cardiology consult Was smoking cessation discussed for >3mins.? @ -No Was critical care preformed (if so, how long)? @ -No Were there social determinants of health that impacted care today? How? (Homelessness, low income, unemployed, alcoholism, drug addiction, transportation, low edu. Level, literacy, decrease access to med. care, nursing home, rehab)? @ -No Was there de-escalation of care discussed even if they declined (Discuss DNR or withdrawal of care, Hospice)? DNR status @ -No What co-morbidities impacted this encounter? (DM, HTN, Smoking, COPD, CAD, Cancer, CVA, ARF, Chemo, Hep., AIDS, mental health diagnosis, sleep apnea, morbid obesity)? @ -CAD, CABG Was patient admitted / discharged? Hospital course, mention meds given and route, prescriptions, significant lab abnormalities, going to OR and other pertinent info. @ -Admitted patient presented for significant chest pain, dyspnea. Patient has cardiac history including prior CABG, TAVR, cardiac stents. Patient has mildly elevated troponin at 0.04 patient started on heparin low-dose. Patient will have repeat troponins, patient will be mated with cardiology consult Dr. Sabillon. Undiagnosed new problem with uncertain prognosis? @ -No Drug Therapy requiring intensive monitoring for toxicity (Heparin, Nitro, Insulin, Cardizem)? @ -No Were any procedures done? @ -No Diagnosis/symptom? @ -Chest pain Acute, or Chronic, or Acute on Chronic? @ -Acute Uncomplicated (without systemic symptoms) or Complicated (systemic symptoms)? @ -Complicated Side effects of treatment? @ -No Exacerbation, Progression, or Severe Exacerbation? @ -No Poses a threat to life or bodily function? How? (Chest pain, [place], [place], pneumonia, PE, COPD, DKA, ARF, appy, cholecystitis, CVA, Diverticulitis, Homicidal, Suicidal, threat to staff... and all critical care pts) @ -Yes possible underlying ACS, may lead to cardiac arrest. Critical Care Time Critical Care Time: Yes Total Critical Care Time: 35 Disposition Clinical Impression: Chest pain Disposition: ADMITTED IP TO THIS HOSP Referrals: Nicholas Mcneill MD [STAFF PHYSICIAN] - 1-2 days Time of Disposition: 08:26
[2024-06-07 06:26] LABS: Basophils # (A) 0.1 k/uL (0-0.2); Basophils % (A) 1 %; Eosinophils # (A) 0.3 k/uL (0-0.7); Eosinophils % (A) 3 %; HCT 53.6 % (39.0-53.0); HGB 17.7 gm/dL (13.0-17.5); Lymphocytes # (A) 1.1 k/uL (1.0-4.8); Lymphocytes % (A) 13 %; MCH 28.8 pg (25.0-35.0); MCHC 32.9 g/dL (31.0-37.0); MCV 87.3 fL (80.0-100.0); Mean Platelet Volume 9.1; Monocytes # (A) 0.8 k/uL (0-1.0); Monocytes % (A) 9 %; Neutrophils # (A) 5.9 k/uL (1.3-7.7); Neutrophils % (A) 72 %; Platelet Count 142 k/uL (150-450); RBC 6.14 m/uL (4.30-5.90); RDW 14.1 % (11.5-15.5); WBC 8.2 k/uL (3.8-10.6)
[2024-06-07] MEDS: ASPIRIN 81 MG PO STA (06:29)
--- NOTE | 2024-06-07 06:34 | XR ---
EXAMINATION TYPE: XR chest 2V DATE OF EXAM: 06/07/2024 CLINICAL HISTORY: Chest pain TECHNIQUE: Frontal and lateral views of the chest are obtained. COMPARISON: Chest x-ray May 02, 2024 FINDINGS: Overlying sternal wires and mediastinal clips are redemonstrated. Persistent cardiomegaly w ith dual lead pacemaker/defibrillator. There are small bilateral pleural effusions and mild central v ascular congestion on current study. There is bibasilar opacity favoring compressive atelectasis. Antoni gical change at the level of the aortic valve is redemonstrated. IMPRESSION: Findings suggest slightly more prominent CHF exacerbation/fluid overload state. [facility], , 06/07/2024 6:31 AM
[2024-06-07 06:59] LABS: INR 1.2 (<1.2); Prothrombin Time 12.3 sec (10.0-12.5)
[2024-06-07] MEDS ORDERED: HEPARIN SODIUM 1,000 UN/ML (10ML VL) IV PRN (07:07)
[2024-06-07 07:37] LABS: ALT 21 U/L (4-49); African American GFR (CKD) 86 (>60 ml/min/1.73 sqM); Anion Gap 8 mmol/L; Blood Urea Nitrogen 19 mg/dL (9-20); Calcium 8.9 mg/dL (8.4-10.2); Carbon Dioxide 23 mmol/L (22-30); Chloride 108 mmol/L (98-107); Glucose 163 mg/dL (74-99); Non-African American GFR(CKD) 74 (>60 ml/min/1.73 sqM); Sodium 139 mmol/L (137-145); Total Bilirubin 1.8 mg/dL (0.2-1.3); Total Protein 6.9 g/dL (6.3-8.2)
[2024-06-07] MEDS: HEPARIN SODIUM 1,000 UN/ML (10ML VL) IV ONE (07:42)
[2024-06-07] MEDS: HEPARIN SOD,PORK IN 0.45% NACL 25,000 UNIT in 0.45% NACL 1 250ML.BAG IV SCH (07:43)
[2024-06-07 07:45] LABS: NT-Pro-B-Type Natriuretic Pept 4270 pg/mL
[2024-06-07 07:49] LABS: Potassium 4.5 mmol/L (3.5-5.1)
[2024-06-07 07:50] LABS: AST 29 U/L (17-59); Alkaline Phosphatase 110 U/L (38-126); Magnesium 1.8 mg/dL (1.6-2.3)
[2024-06-07] MEDS ORDERED: NITROGLYCERIN SL TABS 0.4 MG TAB SUBLINGUAL PRN ×2 (08:27→11:05)
[2024-06-07] MEDS: ASPIRIN 81 MG PO SCH (09:05)
[2024-06-07] MEDS: lisinopriL 10 MG TAB PO SCH (09:05)
[2024-06-07] MEDS: DAPAGLIFLOZIN PROPANEDIOL 5 MG TABLET PO SCH (09:05)
[2024-06-07] MEDS: AMIODARONE 200 MG TAB PO SCH (09:05)
[2024-06-07] MEDS: METOPROLOL SUCCINATE (ER) 50 MG TAB.ER.24H PO SCH (09:05)
[2024-06-07] MEDS: ISOSORBIDE MONONITRATE ER 30 MG TAB.ER.24H PO SCH (10:42)
[2024-06-07] MEDS ORDERED: ALPRAZolam 0.5 MG TAB PO PRN (11:05)
--- NOTE | 2024-06-07 11:06 | P.CRDCN ---
History of Present Illness History of present illness: HISTORY OF PRESENT ILLNESS: This is a 69-year-old male with a past medical history significant for CAD with previous CABG, cardiomyopathy, AICD implantation, SVT, valvular heart disease, aortic stenosis with previous TAVR, hypertension, and hyperlipidemia. Patient follows in the office with Dr. Sabillon. We have been asked to see the patient in consultation for elevated troponins. Patient examined at the bedside in the emergency room. Patient presented to the hospital with a chief complaint of chest discomfort. Patient states the pain is on the left side of his chest and he states "I know I have a blockage. I need to get this fixed". Patient states he is unable to do much at home as he begins to have chest pain and shortness of breath with minimal activity. Patient's vital signs are currently stable. He has been started on IV heparin for elevated troponins. DIAGNOSTICS: - EKG reveals atrial paced rhythm. Left bundle branch block. - Chest xray Findings suggest slightly more prominent CHF exacerbation/fluid overload state - Laboratory data: WBC 8.2. Hemoglobin 17.7. Platelet count 142. Sodium 139. Potassium 4.5. BUN 19. Creatinine 1.04. Magnesium 1.8. Troponin 0.040. 0.277. proBNP 4270. - Current home cardiac medications include amiodarone 200 mg daily, aspirin 162 mg daily, Lipitor 40 mg at night, Jardiance 10 mg daily, metoprolol succinate 50 mg daily, lisinopril 10 mg daily - Most recent echocardiogram obtained in April 2024 revealing ejection fra ction 5 to 10%, moderate to severe pulmonary hypertension, mild to moderate MR, moderate TR, normally functioning bioprosthetic valve in aortic position with mild AI - Cardiac catheterization history: 04/15/2024 revealing 100% ostial LAD stenosis, 30% circumflex, 80% OM1, 100% RCA stenosis. Patent GRAHAM to LAD. Progression of OM1 stenosis compared to angiogram from 01/01/2024. Medical management was recommended. Majority presentation appeared to be related to patient's SVT. REVIEW OF SYSTEMS: At the time of my exam: CONSTITUTIONAL: Denies fever or chills. HEENT: Denies blurred vision, vision changes, or eye pain. Denies hemoptysis CARDIOVASCULAR: Denies chest pain. Denies orthopnea. Denies PND. Denies palpitations RESPIRATORY: Denies shortness of breath. GASTROINTESTINAL: Denies abdominal pain. Denies nausea or vomiting. HEMATOLOGIC: Denies bleeding disorders. GENITOURINARY: Denies any blood in urine. SKIN: Denies pruitis. Denies rash. PHYSICAL EXAM: VITAL SIGNS: Reviewed. GENERAL: Well-developed in no acute distress. HEENT: Head is normocephalic. Pupils are equal, round. Sclerae anicteric. Mucous membranes of the mouth are moist. Neck supple. No JVD or thyromegaly LUNGS: Respirations even and unlabored. Lungs essentially clear to auscultation bilaterally. HEART: Regular rate and rhythm. S1 and S2 heard. ABDOMEN: Soft. Nondistended. Nontender. EXTREMITIES: Normal range of motion. No clubbing or cyanosis. Peripheral pulses intact. No lower extremity edema NEUROLOGIC: Awake and alert. Oriented x 3. ASSESSMENT: Chest pain Non-STEMI Coronary artery disease with previous CABG Severe ischemic cardiomyopathy, EF 5 to 10% Moderate to severe pulmonary hypertension History of AICD implantation Aortic stenosis, status post TAVR History of SVT Hypertension Hyperlipidemia PLAN: Trend troponins Continue IV heparin It is noted from cardiology office records that patient previously tried Entresto and was unable to tolerate this medication Him home cardiac medications Add Imdur 30 mg daily N.p.o. at midnight Patient to undergo cardiac catheterization tomorrow with Dr. Sabillon with likely PCI to OM1 Further recommendations pending patient course Nurse practitioner note has been reviewed by physician. Signing provider agrees with the documented findings, assessment, and plan of care documented by ENGRAVER TIRE MOLD as a scribe. Past Medical History Past Medical History: Atrial Fibrillation, Coronary Artery Disease (CAD), Chest Pain / Angina, Diabetes Mellitus, GERD/Reflux, Hyperlipidemia, Hypertension, Myocardial Infarction (non Q-wave) Additional Past Medical History / Comment(s): 01/24/17 with SVT converted with adenosine. Other hx: Neuropathy bilateral feet, 2 MIs-2001 and 2014. Last Myocardial Infarction Date:: 07/25/14 History of Any Multi-Drug Resistant Organisms: None Reported Past Surgical History: AICD, Coronary Bypass/CABG, Heart Catheterization With Stent, Orthopedic Surgery, Tonsillectomy Additional Past Surgical History / Comment(s): PCI with stents 2001 and 2014, 3 vessel CABG in 2001, AICD 2001-, pins in left ankle as a kid. taver TAVR 2wks ago Past Anesthesia/Blood Transfusion Reactions: No Reported Reaction Additional Past Anesthesia/Blood Transfusion Reaction / Comment(s): No previous history of blood transfusions Date of Last Stent Placement:: 2014 Type of Cardiac Device: AICD Device Placement Date:: 2001- Past Psychological History: No Psychological Hx Reported Smoking Status: Former smoker Past Alcohol Use History: None Reported Past Drug Use History: None Reported - Past Family History Mother History Unknown: Yes Family Medical History: Diabetes Mellitus Additional Family Medical History / Comment(s): Mother at 78yrs Father Family Medical History: Coronary Artery Disease (CAD), Myocardial Infarction ([place]) Additional Family Medical History / Comment(s): Father had a [place] in his early 50's. He of CAD at 75yrs. Medications and Allergies Home Medications Medication Instructions Recorded Confirmed Type Aspirin 162 mg PO DAILY 01/24/17 06/07/24 History Pantoprazole [Protonix] 40 mg PO DAILY 08/10/21 06/07/24 History Insulin Glargine/Lixisenatide 50 units SQ DAILY 12/30/23 06/07/24 History [Soliqua 100 Unit-33 Mcg/ml Pen] Acetaminophen Tab [Tylenol] 1,000 mg PO Q6HR PRN tab 03/26/24 06/07/24 Rx Empagliflozin [Jardiance] 10 mg PO DAILY 04/13/24 06/07/24 History Metoprolol Succinate (ER) [Toprol 50 mg PO DAILY #30 tab 04/16/24 06/07/24 Rx XL] lisinopriL [Zestril] 10 mg PO DAILY #30 tab 04/16/24 06/07/24 Rx Atorvastatin [Lipitor] 40 mg PO HS #90 tablet 05/04/24 06/07/24 Rx Amiodarone [Cordarone] 200 mg PO DAILY 06/07/24 06/07/24 History Allergies Allergy/AdvReac Type Severity Reaction Status Date / Time No Known Allergies Allergy Verified 06/07/24 08:26 Physical Exam Vitals: Vital Signs Temp Pulse Resp BP Pulse Ox 06/07/24 07:45 97.9 F 56 L 18 126/90 96 06/07/24 06:39 55 L 16 121/91 98 06/07/24 06:11 97.3 F L 06/07/24 05:46 91.2 F L 69 18 132/100 99 Intake and Output 06/06/24 06/07/24 06/07/24 22:59 06:59 14:59 Other: Weight 76.204 kg Results 06/07/24 06:13 06/07/24 07:00 Cardiac Enzymes 06/07/24 06/07/24 Range/Units 06:13 07:00 AST 29 (17-59) U/L Troponin I 0.040 H* (0.000-0.034) ng/mL Coagulation 06/07/24 Range/Units 06:11 PT 12.3 (10.0-12.5) sec APTT 21.0 L (22.0-30.0) sec CBC 06/07/24 Range/Units 06:13 WBC 8.2 (3.8-10.6) k/uL RBC 6.14 H (4.30-5.90) m/uL Hgb 17.7 H (13.0-17.5) gm/dL Hct 53.6 H (39.0-53.0) % Plt Count 142 L (150-450) k/uL Comprehensive Metabolic Panel 06/07/24 Range/Units 07:00 Sodium 139 (137-145) mmol/L Potassium 4.5 (3.5-5.1) mmol/L Chloride 108 H (98-107) mmol/L Carbon Dioxide 23 (22-30) mmol/L BUN 19 (9-20) mg/dL Creatinine 1.04 (0.66-1.25) mg/dL Glucose 163 H (74-99) mg/dL Calcium 8.9 (8.4-10.2) mg/dL AST 29 (17-59) U/L ALT 21 (4-49) U/L Alkaline Phosphatase 110 (38-126) U/L Total Protein 6.9 (6.3-8.2) g/dL Albumin 4.0 (3.5-5.0) g/dL Current Medications Generic Name Dose Route Start Last Admin Trade Name Freq PRN Reason Stop Dose Admin Aspirin 325 mg 06/08/24 09:00 Aspirin 325 Mg Tab PO DAILY SHAN Heparin Sodium (Porcine) 0 unit 06/07/24 07:07 Heparin Sodium 1,000 Un/Ml (10ml Vl) IV PER PROTOCOL PRN Low PTT Protocol Heparin Sodium/Sodium Chloride 250 mls @ 9.144 mls/hr 06/07/24 07:15 06/07/24 07:43 25,000 unit/ Sodium Chloride IV 12 units/kg/hr .Q24H SHAN 9.144 mls/hr Administration Protocol 12 UNITS/KG/HR Nitroglycerin 0.4 mg 06/07/24 08:27 Nitroglycerin Sl Tabs 0.4 Mg Tab SUBLINGUAL Q5M PRN Chest Pain Intake and Output 06/06/24 06/07/24 06/07/24 22:59 06:59 14:59 Other: Weight 76.204 kg 06/07/24 06:13 06/07/24 07:00
[2024-06-07] MEDS: ATORVASTATIN 40 MG TAB PO SCH (20:55)
--- NOTE | 2024-06-07 21:05 | HP ---
HISTORY AND PHYSICAL CHIEF COMPLAINT: Chest pain. HISTORY OF PRESENT ILLNESS: This is another of many admissions for this 69-year-old gentleman with advanced coronary artery disease, hyperlipidemia, and insulin-dependent diabetes mellitus. He recently was in the hospital for chest pain when he went into atrial fibrillation with an accelerated rate of about 160 beats per minute. At this time, he woke up from sleep with intense anterior chest discomfort, but no palpitations or tachycardia. He became short of breath and diaphoretic. He came to the emergency room. It was planned that he would undergo another cardiac cath soon. REVIEW OF SYSTEMS: He denies any syncope, headache, confusion, chest pain, orthopnea, PND, etc. Past medical history, family history, personal and social histories are otherwise unremarkable and unchanged. PHYSICAL EXAMINATION: VITAL SIGNS: Blood pressure is 136/90 with a pulse of 83 and regular, respirations of 20, and he is afebrile. GENERAL: He appeared to be well developed, well nourished, no acute distress. SKIN: Color is normal. Skin is warm, and dry. HEAD, EARS, EYES, NOSE, MOUTH AND THROAT: Normal. CHEST: Clear. CARDIAC: Sounded like sinus rhythm. There was an S4. ABDOMEN: Soft and nontender. EXTREMITIES: Normal. NEUROLOGICAL: He is intact. ASSESSMENT: He is admitted to the hospital with diagnoses of, 1. Acute coronary syndrome. 2. Coronary artery disease. 3. History of atrial fibrillation. 4. Hyperlipidemia. 5. Insulin-dependent diabetes mellitus. PLAN: 1. Bed rest. 2. IV fluids. 3. Serial EKGs and enzymes. 4. Cardiology consult. MMODL / IJN: [id number] /
[2024-06-07] MEDS: ALPRAZolam 0.25 MG TAB PO PRN (23:01)
[2024-06-07] MEDS: ACETAMINOPHEN TAB 500 MG TAB PO PRN (23:02)
[2024-06-07] MEDS: ONDANSETRON 4 MG/2 ML VIAL IVP PRN (23:31)
[2024-06-08] MEDS: SODIUM CHLORIDE 0.9% 1,000 ML in EMPTY BAG 1 BAG IV SCH ×3 (01:06→16:01)
[2024-06-08] MEDS: ATORVASTATIN 80 MG TAB PO ONE (04:39)
[2024-06-08] MEDS: ASPIRIN 325 MG TAB PO ONE (04:39)
[2024-06-08 06:28] LABS: Basophils % (A) 0 %; Eosinophils # (A) 0.3 k/uL (0-0.7); Eosinophils % (A) 3 %; HCT 47.6 % (39.0-53.0); HGB 15.3 gm/dL (13.0-17.5); Hypochromasia Slight; Lymphocytes # (A) 1.2 k/uL (1.0-4.8); Lymphocytes % (A) 12 %; MCH 28.1 pg (25.0-35.0); MCHC 32.2 g/dL (31.0-37.0); MCV 87.4 fL (80.0-100.0); Mean Platelet Volume 9.6; Monocytes # (A) 0.9 k/uL (0-1.0); Monocytes % (A) 9 %; Neutrophils # (A) 6.9 k/uL (1.3-7.7); Neutrophils % (A) 74 %; Platelet Count 132 k/uL (150-450); RBC 5.45 m/uL (4.30-5.90); RDW 14.3 % (11.5-15.5); WBC 9.4 k/uL (3.8-10.6)
[2024-06-08 06:41] LABS: INR 1.1 (<1.2); Prothrombin Time 11.7 sec (10.0-12.5)
[2024-06-08] MEDS: PANTOPRAZOLE 40 MG TABLET PO SCH (08:03)
[2024-06-08] MEDS ORDERED: ASPIRIN 325 MG TAB PO SCH (09:00)
[2024-06-08 09:21] LABS: Chol/HDL Ratio 3.57 Ratio; LDL Cholesterol,Calculated 75.2 mg/dL (0.0-131.0)
[2024-06-08] MEDS: MIDAZOLAM 2 MG/2 ML VIAL IVP ONE (09:24)
[2024-06-08] MEDS: LIDOCAINE 1% INJ 10MG/ML (20 ML MDV) SQ ONE (09:24)
[2024-06-08] MEDS: fentaNYL (PF) 50 MCG/ML 2 ML AMP IVP ONE (09:24)
[2024-06-08] MEDS: VERAPAMIL SYRINGE (5 MG/10 ML) INTRAARTER ONE (09:25)
[2024-06-08] MEDS: HEPARIN SODIUM 1,000 UN/ML (10ML VL) IV ONE (09:30)
[2024-06-08] MEDS: CLOPIDOGREL 75 MG TAB PO ONE (09:31)
[2024-06-08] MEDS: SODIUM CHLORIDE 0.9% 1,000 ML IV ONE (09:35)
[2024-06-08] MEDS: NITROGLYCERIN 1000MCG/10ML SYRINGE INTRACORON ONE (09:41)
[2024-06-08] MEDS: IOPAMIDOL-370 100ML BTL INJ ONE (10:00)
[2024-06-08] MEDS: HEPARIN SODIUM,PORCINE 10,000 UNIT in SODIUM CHLORIDE 0.9% 1,000 ML IRRIGATION PRN (10:01)
[2024-06-08] MEDS: HEPARIN SODIUM,PORCINE (1 ML) 2,500 UNIT in SODIUM CHLORIDE 0.9% 250 ML IRRIGATION PRN (10:01)
[2024-06-08] MEDS ORDERED: MAG HYDROX/AL HYDROX/SIMETH 30 ML CUP PO PRN (10:04)
[2024-06-08] MEDS ORDERED: RX INFO: IV CONTRAST WAS GIVEN 1 EACH MISC MISCELLANE PRN (10:04)
[2024-06-08] MEDS ORDERED: ZOLPIDEM 5 MG TAB PO PRN (10:04)
[2024-06-08] MEDS ORDERED: ATROPINE SULFATE 0.1 MG/ML 10ML SYRINGE IV PRN (10:04)
--- NOTE | 2024-06-08 10:04 | P.PCN ---
Date of Procedure: 06/08/24 Operative Findings: PERCUTANEOUS CORONARY INTERVENTION Performing physician Gabo Sabillon M.D. Procedure Performed: 1. Successful stenting of the distal LCx using 2.25 x 18 mm Xience drug-eluting stent with an excellent angiographic results. 2. Adjunctive use of IVUS 3. Ultrasound-guided access of the right radial art Indication: Critical disease involving the distal RCA Approach: Right radial Complications: None Level of Sedation: Moderate with a sedation length of 37 minutes Procedure Discussion: After obtaining informed consent the patient was brought to the cardiac Timber Sizer Operator with right radial artery was cannulated using micropuncture technique under ultrasound guidance a micropuncture wire passed easily then I placed a 6 Yoruba 11 cm sheath at the right radial artery. After that I gave the patient 2 mg of verapamil and 5000's of heparin IV. The left main was engaged using JL 3.5 guiding catheter with I did wired the left circumflex using a whisper wire. After that I did intravascular ultrasound which showed only the proximal LCx around 3.5 mm in diameter I could not advance the IVUS to the distal left circumflex. Predilatation was performed using 2 oh millimeter balloon before I deployed 2.25 x 18 mm and postdilated using 2.5 mm semicompliant balloon. Final angiogram showed excellent angiographic results and the procedure was completed with no complication Postprocedure Management: 1. Dual antiplatelet therapy using aspirin and Plavix for at least 6-month 2. Aggressive cholesterol control 3. Follow-up with the patient
[2024-06-08] MEDS: DAPAGLIFLOZIN PROPANEDIOL 10 MG TABLET PO SCH (17:22)
[2024-06-08] MEDS: NON FORMULARY DRUG (Insulin Glargine/Lixisenatide [Soliqua 100 Unit-33 Mcg/Ml Pen] 3 ML In SQ SCH (19:12)
[2024-06-08] MEDS ORDERED: DEXTROSE 50% SYRINGE 50 ML IVP PRN ×2 (19:40)
[2024-06-08 20:05] LABS: Glucose,Whole Blood 242 mg/dL (70-110)
[2024-06-08] MEDS: INSULIN ASPART (NovoLOG) 100 UNIT/ML VIAL SQ SCH (21:19)
[2024-06-09 05:56] LABS: Glucose,Whole Blood 140 mg/dL (70-110)
[2024-06-09 06:59] LABS: Basophils # (A) 0.1 k/uL (0-0.2); Basophils % (A) 0 %; Eosinophils # (A) 0.1 k/uL (0-0.7); Eosinophils % (A) 1 %; HCT 44.7 % (39.0-53.0); HGB 14.1 gm/dL (13.0-17.5); Lymphocytes # (A) 1.4 k/uL (1.0-4.8); Lymphocytes % (A) 11 %; MCH 27.5 pg (25.0-35.0); MCHC 31.5 g/dL (31.0-37.0); MCV 87.3 fL (80.0-100.0); Mean Platelet Volume 9.5; Monocytes # (A) 1.3 k/uL (0-1.0); Monocytes % (A) 10 %; Neutrophils # (A) 10.2 k/uL (1.3-7.7); Neutrophils % (A) 76 %; Platelet Count 136 k/uL (150-450); RBC 5.12 m/uL (4.30-5.90); RDW 14.1 % (11.5-15.5); WBC 13.4 k/uL (3.8-10.6)
[2024-06-09] MEDS: INSULIN DETEMIR (LEVEMIR) 100 UNIT/ML SYR SQ SCH (07:02)
[2024-06-09 07:49] LABS: African American GFR (CKD) 71 (>60 ml/min/1.73 sqM); Anion Gap 4 mmol/L; Blood Urea Nitrogen 18 mg/dL (9-20); Calcium 8.7 mg/dL (8.4-10.2); Carbon Dioxide 21 mmol/L (22-30); Chloride 108 mmol/L (98-107); Glucose 140 mg/dL (74-99); Non-African American GFR(CKD) 62 (>60 ml/min/1.73 sqM); Potassium 4.5 mmol/L (3.5-5.1); Sodium 133 mmol/L (137-145)
[2024-06-09] MEDS: CLOPIDOGREL 75 MG TAB PO SCH (09:13)
[2024-06-09 11:07] VITALS: PULSE 56; RESP 16
[2024-06-09 11:35] LABS: Glucose,Whole Blood 240 mg/dL (70-110)
[2024-06-09 11:51] VITALS: BMI 25.2
--- NOTE | 2024-06-09 12:17 | P.PN ---
Subjective HISTORY OF PRESENT ILLNESS: This is a 69-year-old male with a past medical history significant for CAD with previous CABG, cardiomyopathy, AICD implantation, SVT, valvular heart disease, aortic stenosis with previous TAVR, hypertension, and hyperlipidemia. Patient follows in the office with Dr. Sabillon. We have been asked to see the patient in co nsultation for elevated troponins. Patient examined at the bedside in the emergency room. Patient presented to the hospital with a chief complaint of chest discomfort. Patient states the pain is on the left side of his chest and he states "I know I have a blockage. I need to get this fixed". Patient states he is unable to do much at home as he begins to have chest pain and shortness of breath with minimal activity. Patient's vital signs are currently stable. He has been started on IV heparin for elevated troponins. DIAGNOSTICS: - EKG reveals atrial paced rhythm. Left bundle branch block. - Chest xray Findings suggest slightly more prominent CHF exacerbation/fluid overload state - Laboratory data: WBC 8.2. Hemoglobin 17.7. Platelet count 142. Sodium 139. Potassium 4.5. BUN 19. Creatinine 1.04. Magnesium 1.8. Troponin 0.040. 0.277. proBNP 4270. - Current home cardiac medications include amiodarone 200 mg daily, aspirin 162 mg daily, Lipitor 40 mg at night, Jardiance 10 mg daily, metoprolol succinate 50 mg daily, lisinopril 10 mg daily - Most recent echocardiogram obtained in April 2024 revealing ejection fraction 5 to 10%, moderate to severe pulmonary hypertension, mild to moderate MR, moderate TR, normally functioning bioprosthetic valve in aortic position with mild AI - Cardiac catheterization history: 04/15/2024 revealing 100% ostial LAD stenosis, 30% circumflex, 80% OM1, 100% RCA stenosis. Patent GRAHAM to LAD. Progression of OM1 stenosis compared to angiogram from 01/01/2024. Medical management was recommended. Majority presentation appeared to be related to patient's SVT. 06/09/2024 Patient underwent cardiac catheterization yesterday with Dr. Sabillon with stenting of the distal left circumflex. Patient examined this morning the bedside. He denies any chest pain or pressure. He denies any shortness of breath. Blood pressures are soft. Patient's lisinopril was held due to soft blood pressures. PHYSICAL EXAM: VITAL SIGNS: Reviewed. GENERAL: Well-developed in no acute distress. HEENT: Head is normocephalic. Pupils are equal, round. Sclerae anicteric. Mucous membranes of the mouth are moist. Neck supple. No JVD or thyromegaly LUNGS: Respirations even and unlabored. Lungs essentially clear to auscultation bilaterally. HEART: Regular rate and rhythm. S1 and S2 heard. ABDOMEN: Soft. Nondistended. Nontender. EXTREMITIES: Normal range of motion. No clubbing or cyanosis. Peripheral pulses intact. No lower extremity edema NEUROLOGIC: Awake and alert. Oriented x 3. ASSESSMENT: Chest pain Non-STEMI status post cardiac catheterization with stenting to the distal left circumflex Coronary artery disease with previous CABG Severe ischemic cardiomyopathy, EF 5 to 10% Moderate to severe pulmonary hypertension History of AICD implantation Aortic stenosis, status post TAVR History of SVT Hypertension Hyperlipidemia PLAN: It is noted from cardiology office records that patient previously tried Entresto and was unable to tolerate this medication Decrease lisinopril to 2.5 mg daily due to hypotension Continue aspirin and Plavix for 12 months Continue high intensity statin. LDL goal less than 70 Continue additional cardiac medications Patient may be discharged home today from a cardiac standpoint Patient to follow-up postdischarge with Dr. Sabillon Nurse practitioner note has been reviewed by physician. Signing provider agrees with the documented findings, assessment, and plan of care documented by FLY RAISER LOCKSTITCH as a scribe. Objective - Vital Signs Vital signs: Vital Signs Temp 98.3 F 06/09/24 08:00 Pulse 56 L 06/09/24 08:00 Resp 16 06/09/24 08:00 BP 93/61 06/09/24 08:00 Pulse Ox 97 06/09/24 08:00 FiO2 Intake & Output 06/08/24 06/09/24 06/09/24 18:59 06:59 18:59 Intake Total 630.047 240 Balance 630.047 240 Weight 75.5 kg 77.6 kg 77.6 kg Intake: IV 200 Intake, IV Titration 222.047 Amount Heparin Sod,Pork in 0.45% 222.047 NaCl 25,000 unit In 0.45 % NaCl 1 250ml.bag @ 12 UNITS/KG/HR 9.144 mls/hr IV .Q24H SHAN Rx#: [id number] Oral 208 240 Other: # Voids 1 3 - Labs CBC & Chem 7: 06/09/24 06:33 06/09/24 06:33 Labs: Abnormal Lab Results - Last 24 Hours (Table) 06/08/24 06/09/24 06/09/24 Range/Units 20:03 05:55 06:33 WBC (3.8-10.6) k/uL Plt Count (150-450) k/uL Neutrophils # (1.3-7.7) k/uL Monocytes # (0-1.0) k/uL Sodium (137-145) mmol/L Chloride (98-107) mmol/L Carbon Dioxide (22-30) mmol/L Glucose (74-99) mg/dL POC Glucose (mg/dL) 242 H 140 H (70-110) mg/dL Hemoglobin A1c 7.6 H (<=6.0) % 06/09/24 06/09/24 06/09/24 Range/Units 06:33 06:33 11:31 WBC 13.4 H (3.8-10.6) k/uL Plt Count 136 L (150-450) k/uL Neutrophils # 10.2 H (1.3-7.7) k/uL Monocytes # 1.3 H (0-1.0) k/uL Sodium 133 L (137-145) mmol/L Chloride 108 H (98-107) mmol/L Carbon Dioxide 21 L (22-30) mmol/L Glucose 140 H (74-99) mg/dL POC Glucose (mg/dL) 240 H (70-110) mg/dL Hemoglobin A1c (<=6.0) %
[2024-06-09 13:14] VITALS: TEMP 98.1
[2024-06-09 16:37] LABS: Glucose,Whole Blood 129 mg/dL (70-110)
[2024-06-09 17:56] VITALS: BP 98/66
--- NOTE | 2024-06-10 18:44 | PN ---
PROGRESS NOTE DATE OF SERVICE: 06/08/2024 CHIEF COMPLAINT: Chest pain. HISTORY OF PRESENT ILLNESS: started once again to have chest pain. It was slightly different than his usual angina. He was asleep when it happened. He had diaphoresis and shortness of breath. Troponins elevated. REVIEW OF SYSTEMS: Otherwise, unremarkable and unchanged. Past medical history, family history, personal and social histories are all otherwise unremarkable or noncontributory and unchanged. PHYSICAL EXAMINATION: VITAL SIGNS: Normal. He is not in atrial fibrillation. HEAD, EARS, EYES, NOSE, MOUTH, AND THROAT: Normal. NECK: Veins are not distended. CHEST: Clear. No rales. CARDIAC: Normal sinus rhythm. ABDOMEN: Soft, nontender. EXTREMITIES: Normal. IMPRESSION: 1. Unstable angina pectoris. 2. Acute coronary syndrome. 3. Probable xpy-QS-zxmgwyw elevation myocardial infarction. 4. Atherosclerotic cardiovascular disease. 5. Diabetes. PLAN: 1. IV fluids. 2. Cardiology consult. 3. Serial EKGs and enzymes. MMODL / IJN: [id number] /
--- NOTE | 2024-06-10 19:08 | PN ---
PROGRESS NOTE DATE OF SERVICE: 06/09/2024 CHIEF COMPLAINT: Chest pain. HISTORY OF PRESENT ILLNESS: This gentleman is doing fairly well. He underwent stenting of another coronary artery. He is doing well with no chest pain, shortness of breath, palpitations, atrial fibrillation, etc. PHYSICAL EXAMINATION: GENERAL: His color is good. NECK: Veins not distended. CHEST: Clear. CARDIAC: Normal. ABDOMEN: Soft and nontender. IMPRESSION: 1. Iuc-WJ-hljfzbb elevation myocardial infarction. 2. Atherosclerotic cardiomyopathy. 3. Congestive heart failure. 4. Type 2 diabetes. 5. Hyperlipidemia. PLAN: Probably home today. MMODL / IJN: [id number] /
--- NOTE | 2024-06-10 19:44 | DS ---
DISCHARGE SUMMARY CHIEF COMPLAINT: Chest pain. HISTORY OF PRESENT ILLNESS AND PHYSICAL EXAMINATION: Details of this man's history and physical can be found in the initial workup. LABORATORY STUDIES: While he is in the hospital, he had laboratory studies, details of which can be found in the laboratory section of his chart. COURSE IN THE HOSPITAL: After admission, he was placed on bedrest and was seen by Cardiology. He was taken for cardiac cath where he underwent stenting of the coronary vessel. Postoperatively, he did well. It was felt that he could be discharged on the . His discharge was being put in. When he stayed, he was slightly short of breath. Cardiology will be contacted as to whether or not he will be able to leave or his discharge cancel. FINAL DIAGNOSES: 1. Hjp-WG-rlxktbl elevation myocardial infarction. 2. Coronary artery disease. 3. Atherosclerotic cardiovascular disease. 4. Hyperlipidemia. 5. Type 2 diabetes. OPERATIONS: Cardiac cath with stenting. CONSULTATIONS: Cardiology. HERON / PHYLLIS: [id number] /
== END 2024-06-09 18:13 | disposition home or self-care (01) | DRG 322 ==
LOC: SUPCPDRO 05:38 → EC 05:38 → 3SCARD 08:19
PROVIDERS: ADMIT Family Medicine; ATTEND Family Medicine
PROC: B240ZZ3 Ultrasonography of Single Coronary Artery, Intravascular (ICD-10-PCS; 2024-06-08)
PROC: 027034Z Dilation of Coronary Artery, One Artery with Drug-eluting Intraluminal Device, Percutaneous Approach (ICD-10-PCS; principal; 2024-06-08 07:30)
PROC: B34HZZ3 Ultrasonography of Right Upper Extremity Arteries, Intravascular (ICD-10-PCS; 2024-06-08 07:30)
DX: I21.4 Non-ST elevation (NSTEMI) myocardial infarction (principal); Z59.00 Homelessness unspecified; I11.0 Hypertensive heart disease with heart failure; I25.10 Atherosclerotic heart disease of native coronary artery without angina pectoris; I25.5 Ischemic cardiomyopathy; E78.5 Hyperlipidemia, unspecified; I25.2 Old myocardial infarction; I27.20 Pulmonary hypertension, unspecified; K21.9 Gastro-esophageal reflux disease without esophagitis; Z95.810 Presence of automatic (implantable) cardiac defibrillator; I35.0 Nonrheumatic aortic (valve) stenosis; I44.7 Left bundle-branch block, unspecified; I48.91 Unspecified atrial fibrillation; I50.9 Heart failure, unspecified; Z59.6 Low income; Z79.82 Long term (current) use of aspirin; Z79.4 Long term (current) use of insulin; E11.9 Type 2 diabetes mellitus without complications; Z79.84 Long term (current) use of oral hypoglycemic drugs; Z79.899 Other long term (current) drug therapy; Z82.49 Family history of ischemic heart disease and other diseases of the circulatory system; Z95.1 Presence of aortocoronary bypass graft; Z83.3 Family history of diabetes mellitus; Z95.2 Presence of prosthetic heart valve
CPT/HCPCS: 36415; 71046; 80048; 80053; 80061; 83036; 83735; 83880; 84484; 85025; 85610; 85730; 93005; 96365; 96366; 99291

== ENCOUNTER 2024-06-15 13:18 | Inpatient (IN) | payer MEDICARE ==
--- NOTE | 2024-06-15 14:03 | ED ---
General Adult HPI - General Chief complaint: Shortness of Breath Stated complaint: sob Time Seen by Provider: 06/15/24 13:30 Source: patient, RN notes reviewed, old records reviewed Mode of arrival: ambulatory Limitations: no limitations - History of Present Illness Initial comments: This is a 69-year-old male who presents to the emergency department stating he just had a stent placed recently. Patient states just before he was leaving the hospital he felt like he was more short of breath. Patient states that shortness of breath continued at home and got worse to the point this morning he felt like he could not catch his breath so he came to the emergency department. Patient denies any chest pain or palpitations. Patient has any recent fever chills or cough. Patient denies any other symptoms at this time. Patient states if he lays back it does seem to get worse. - Related Data Home Medications Medication Instructions Recorded Confirmed Pantoprazole [Protonix] 40 mg PO DAILY 08/10/21 06/15/24 Insulin Glargine/Lixisenatide 50 units SQ DAILY 12/30/23 06/15/24 [Soliqua 100 Unit-33 Mcg/ml Pen] Amiodarone [Cordarone] 200 mg PO DAILY 06/07/24 06/15/24 Atorvastatin [Lipitor] 40 mg PO DAILY 06/15/24 06/15/24 Previous Rx's Medication Instructions Recorded Metoprolol Succinate (ER) [Toprol 50 mg PO DAILY #30 tab 04/16/24 XL] Aspirin 81 mg PO DAILY #90 tab 06/09/24 Clopidogrel [Plavix] 75 mg PO DAILY #90 tab 06/09/24 Isosorbide Mononitrate ER [Imdur] 30 mg PO DAILY #90 tab 06/09/24 lisinopriL [Zestril] 2.5 mg PO DAILY #30 tab 06/09/24 Allergies Allergy/AdvReac Type Severity Reaction Status Date / Time No Known Allergies Allergy Verified 06/15/24 14:40 Review of Systems ROS Statement: Those systems with pertinent positive or pertinent negative responses have been documented in the HPI. ROS Other: All systems not noted in ROS Statement are negative. Past Medical History Past Medical History: Atrial Fibrillation, Coronary Artery Disease (CAD), Chest Pain / Angina, Diabetes Mellitus, GERD/Reflux, Hyperlipidemia, Hypertension, Myocardial Infarction (non Q-wave) Additional Past Medical History / Comment(s): 01/24/17 with SVT converted with adenosine. Other hx: Neuropathy bilateral feet, 2 MIs-2001 and 2014. Last Myocardial Infarction Date:: 07/25/14 History of Any Multi-Drug Resistant Organisms: None Reported Past Surgical History: AICD, Coronary Bypass/CABG, Heart Catheterization With Stent, Orthopedic Surgery, Tonsillectomy Additional Past Surgical History / Comment(s): PCI with stents 2001 and 2014, 3 vessel CABG in 2001, AICD 2001-, pins in left ankle as a kid. taver TAVR 2wks ago Past Anesthesia/Blood Transfusion Reactions: No Reported Reaction Additional Past Anesthesia/Blood Transfusion Reaction / Comment(s): No previous history of blood transfusions Date of Last Stent Placement:: 2014 Type of Cardiac Device: AICD Device Placement Date:: 2001- Past Psychological History: No Psychological Hx Reported Smoking Status: Former smoker Past Alcohol Use History: None Reported Past Drug Use History: None Reported - Past Family History Mother History Unknown: Yes Family Medical History: Diabetes Mellitus Additional Family Medical History / Comment(s): Mother at 78yrs Father Family Medical History: Coronary Artery Disease (CAD), Myocardial Infarction (LA) Additional Family Medical History / Comment(s): Father had a LA in his early 50's. He of CAD at 75yrs. General Exam - General Exam Comments Initial Comments: GENERAL: Patient is well-developed and well-nourished. Patient is nontoxic and well- hydrated and is in mild distress. ENT: Neck is soft and supple. No significant lymphadenopathy is noted. Oropharynx is clear. Moist mucous membranes. Neck has full range of motion without eliciting any pain. EYES: The sclera were anicteric and conjunctiva were pink and moist. Extraocular movements were intact and pupils were equal round and reactive to light. Eyelids were unremarkable. PULMONARY: Unlabored respirations. Good breath sounds bilaterally. No audible rales rhonchi or wheezing was noted. CARDIOVASCULAR: There is a regular rate and rhythm without any murmurs gallops or rubs. ABDOMEN: Soft and nontender with normal bowel sounds. SKIN: Skin is clear with no lesions or rashes and otherwise unremarkable. NEUROLOGIC: Patient is alert and oriented x3. Cranial nerves II through XII are grossly intact. Motor and sensory are also intact. Normal speech, volume and content. Symmetrical smile. MUSCULOSKELETAL: Normal extremities with adequate strength and full range of motion. No lower extremity swelling or edema. No calf tenderness. LYMPHATICS: No significant lymphadenopathy is noted PSYCHIATRIC: Normal psychiatric evaluation. Limitations: no limitations Course Vital Signs 06/15/24 06/15/24 06/15/24 13:20 13:29 14:35 Temperature 98.6 F Pulse Rate 85 58 L Respiratory 18 16 16 Rate Blood Pressure 133/93 105/85 O2 Sat by Pulse 94 L 98 Oximetry Medical Decision Making - Medical Decision Making EKG is interpreted by myself but EKG shows a sinus rhythm at 62 bpm WA interval 240 QRS is 167 QT interval is 515 QTc is 520. Patient has an occasional PVC Was pt. sent in by a medical professional or institution (BEHZAD Booth, [employer], urgent care, hospital, or shelter...) When possible be specific @ -No Did you speak to anyone other than the patient for history (EMS, parent, family, police, friend...)? What history was obtained from this source @ -No Did you review nursing and triage notes (agree or disagree)? Why? @ -I reviewed and agree with nursing and triage notes Were old charts reviewed (outside hosp., previous admission, EMS record, old EKG, old radiological studies, urgent care reports/EKG's, shelter records)? Report findings @ -No old charts were reviewed Differential Diagnosis? @ -Differential Dyspnea: Coronary syndrome, arrhythmia, tamponade, asthma, COPD, pulmonary embolism, pneumonia, pneumothorax, pulmonary effusion, anaphylaxis, diabetic ketoacidosis, flailed chest, pulmonary contusion, diaphragmatic rupture, anemia, neuromuscular, this is not meant to be an all-inclusive list. EKG interpreted by me (3pts min.). @ -As above X-rays interpreted by me (1pt min.). @ -Chest x-ray shows pulmonary edema CT interpreted by me (1pt min.). @ -None done U/S interpreted by me (1pt. min.). @ -None done What testing was considered but not performed or refused? (CT, X-rays, U/S, labs)? Why? @ -None What meds were considered but not given or refused? Why? @ -None Did you discuss the management of the patient with other professionals (professionals i.e. BEHZAD Booth, [employer]EL[employer], lab, RT, psych nurse, social security assessor, morning show host, teacher, financial aids officer, shelter case manager)? Give summary @ -I spoke with Dr. Guillen he agreed to admit the patient admit the patient recommending orders Was smoking cessation discussed for >3mins.? @ -No Was critical care preformed (if so, how long)? @ -No Were there social determinants of health that impacted care today? How? (Homelessness, low income, unemployed, alcoholism, drug addiction, transportation, low edu. Level, literacy, decrease access to med. care, halfway, rehab)? @ -No Was there de-escalation of care discussed even if they declined (Discuss DNR or withdrawal of care, Hospice)? DNR status @ -No What co-morbidities impacted this encounter? (DM, HTN, Smoking, COPD, CAD, Cancer, CVA, ARF, Chemo, Hep., AIDS, mental health diagnosis, sleep apnea, morbid obesity)? @ -None Was patient admitted / discharged? Hospital course, mention meds given and route, prescriptions, significant lab abnormalities, going to OR and other pertinent info. @ -Patient had congestive heart failure. Patient was started on Lasix in the emergency department admitted to Dr. Guillen with cardiology consult Undiagnosed new problem with uncertain prognosis? @ -No Drug Therapy requiring intensive monitoring for toxicity (Heparin, Nitro, Insul in, Cardizem)? @ -No Were any procedures done? @ -No Diagnosis/symptom? @ -Acute pulmonary edema Acute, or Chronic, or Acute on Chronic? @ -Acute Uncomplicated (without systemic symptoms) or Complicated (systemic symptoms)? @ -Complicate Side effects of treatment? @ -No Exacerbation, Progression, or Severe Exacerbation? @ -No Poses a threat to life or bodily function? How? (Chest pain, USA, LA, pneumonia, PE, COPD, DKA, ARF, appy, cholecystitis, CVA, Diverticulitis, Homicidal, Suicidal, threat to staff... and all critical care pts) @ -Yes this could lead to hypoxia and endorgan dysfunction - Lab Data Result diagrams: 06/15/24 14:02 06/15/24 14:02 Lab Results 06/15/24 06/15/24 06/15/24 Range/Units 14:02 14:02 14:02 WBC 8.3 (3.8-10.6) k/uL RBC 5.89 (4.30-5.90) m/uL Hgb 16.3 (13.0-17.5) gm/dL Hct 50.6 (39.0-53.0) % MCV 85.9 (80.0-100.0) fL MCH 27.6 (25.0-35.0) pg MCHC 32.2 (31.0-37.0) g/dL RDW 14.3 (11.5-15.5) % Plt Count 233 (150-450) k/uL MPV 8.3 Neutrophils % 74 % Lymphocytes % 13 % Monocytes % 8 % Eosinophils % 2 % Basophils % 1 % Neutrophils # 6.2 (1.3-7.7) k/uL Lymphocytes # 1.1 (1.0-4.8) k/uL Monocytes # 0.7 (0-1.0) k/uL Eosinophils # 0.2 (0-0.7) k/uL Basophils # 0.1 (0-0.2) k/uL Hypochromasia Slight Sodium 140 (137-145) mmol/L Potassium 5.1 (3.5-5.1) mmol/L Chloride 108 H (98-107) mmol/L Carbon Dioxide 26 (22-30) mmol/L Anion Gap 6 mmol/L BUN 19 (9-20) mg/dL Creatinine 1.13 (0.66-1.25) mg/dL Est GFR (CKD-EPI)AfAm 78 (>60 ml/min/1.73 sqM) Est GFR (CKD-EPI)NonAf 67 (>60 ml/min/1.73 sqM) Glucose 102 H (74-99) mg/dL Plasma Lactic Acid Jose F 1.8 (0.7-2.0) mmol/L Calcium 9.1 (8.4-10.2) mg/dL Magnesium 1.9 (1.6-2.3) mg/dL Total Bilirubin 1.7 H (0.2-1.3) mg/dL AST 31 (17-59) U/L ALT 24 (4-49) U/L Alkaline Phosphatase 99 (38-126) U/L Total Protein 7.2 (6.3-8.2) g/dL Albumin 3.9 (3.5-5.0) g/dL Disposition Clinical Impression: Acute pulmonary edema Disposition: ADMITTED IP TO THIS HOSP Referrals: Jovi Guillen MD [Primary Care Provider] - 1-2 days Time of Disposition: 15:06
[2024-06-15 14:44] LABS: Basophils # (A) 0.1 k/uL (0-0.2); Basophils % (A) 1 %; Eosinophils # (A) 0.2 k/uL (0-0.7); Eosinophils % (A) 2 %; HCT 50.6 % (39.0-53.0); HGB 16.3 gm/dL (13.0-17.5); Hypochromasia Slight; Lymphocytes # (A) 1.1 k/uL (1.0-4.8); Lymphocytes % (A) 13 %; MCH 27.6 pg (25.0-35.0); MCHC 32.2 g/dL (31.0-37.0); MCV 85.9 fL (80.0-100.0); Mean Platelet Volume 8.3; Monocytes # (A) 0.7 k/uL (0-1.0); Monocytes % (A) 8 %; Neutrophils # (A) 6.2 k/uL (1.3-7.7); Neutrophils % (A) 74 %; Platelet Count 233 k/uL (150-450); RBC 5.89 m/uL (4.30-5.90); RDW 14.3 % (11.5-15.5); WBC 8.3 k/uL (3.8-10.6)
--- NOTE | 2024-06-15 14:45 | XR ---
EXAMINATION TYPE: XR chest 2V DATE OF EXAM: 06/15/2024 2:29 PM COMPARISON: 06/07/2024 CLINICAL INDICATION: Male, 69 years old with shortness of breath, history of difficulty breathing, , TECHNIQUE: PA and lateral views FINDINGS: Left anterior chest wall ICD generator with right atrial and right ventricular leads. Median sternoto my wires with endovascular aortic valve replacement and post-CABG clips. Heart borderline enlarged. D iffuse interstitial density. Xieks-qk-[id number] left and small right pleural effusions with patchy bib asilar opacities. IMPRESSION: 1. CHF with pulmonary vascular congestion. 2. Small to moderate left and small right pleural effusions with adjacent atelectasis and/or consolid ation. Slightly increased from 06/07/2024. [facility], , 06/15/2024 2:42 PM
[2024-06-15 14:58] LABS: ALT 24 U/L (4-49); AST 31 U/L (17-59); African American GFR (CKD) 78 (>60 ml/min/1.73 sqM); Albumin 3.9 g/dL (3.5-5.0); Alkaline Phosphatase 99 U/L (38-126); Anion Gap 6 mmol/L; Blood Urea Nitrogen 19 mg/dL (9-20); Calcium 9.1 mg/dL (8.4-10.2); Carbon Dioxide 26 mmol/L (22-30); Chloride 108 mmol/L (98-107); Glucose 102 mg/dL (74-99); Magnesium 1.9 mg/dL (1.6-2.3); Non-African American GFR(CKD) 67 (>60 ml/min/1.73 sqM); Potassium 5.1 mmol/L (3.5-5.1); Sodium 140 mmol/L (137-145); Total Bilirubin 1.7 mg/dL (0.2-1.3); Total Protein 7.2 g/dL (6.3-8.2)
[2024-06-15 15:07] LABS: NT-Pro-B-Type Natriuretic Pept 6940 pg/mL
[2024-06-15 15:10] LABS: INR 1.1 (<1.2); Partial Thromboplastin Time 25.5 sec (22.0-30.0); Prothrombin Time 11.9 sec (10.0-12.5)
[2024-06-15] MEDS: FUROSEMIDE 10 MG/ML 4 ML VIAL IV SCH (15:26)
[2024-06-15] MEDS: NITROGLYCERIN OINT 1 INCH/GM PACKET TOPICAL SCH (17:25)
[2024-06-15 20:11] LABS: Glucose,Whole Blood 135 mg/dL (70-110)
[2024-06-16 06:11] LABS: Glucose,Whole Blood 107 mg/dL (70-110)
[2024-06-16] MEDS ORDERED: ALPRAZolam 0.25 MG TAB PO PRN (08:45)
[2024-06-16] MEDS ORDERED: ALPRAZolam 0.5 MG TAB PO PRN (08:45)
[2024-06-16] MEDS ORDERED: NITROGLYCERIN SL TABS 0.4 MG TAB SUBLINGUAL PRN (08:45)
[2024-06-16] MEDS: ASPIRIN 81 MG PO SCH (09:11)
[2024-06-16] MEDS: ATORVASTATIN 40 MG TAB PO SCH (09:11)
[2024-06-16] MEDS: CLOPIDOGREL 75 MG TAB PO SCH (09:16)
[2024-06-16] MEDS: AMIODARONE 200 MG TAB PO SCH (09:16)
[2024-06-16] MEDS: ASPIRIN 325 MG TAB PO STA (09:16)
[2024-06-16] MEDS: ATORVASTATIN 80 MG TAB PO STA (09:16)
[2024-06-16] MEDS: ISOSORBIDE MONONITRATE ER 30 MG TAB.ER.24H PO SCH (09:17)
--- NOTE | 2024-06-16 10:01 | P.CRDCN ---
History of Present Illness Consult date: 06/16/24 Reason for Consult (text): Acute pulmonary edema History of present illness: This is a 69-year-old male patient of Dr. Sabillon with past medical history of coronary artery disease status post CABG with GRAHAM to LAD, known intermediate to severe disease involving the left circumflex and DRAMA THERAPIST of the RCA as well as severe cardiomyopathy status post ICD CAD, history of SVT and valvular heart disease with aortic stenosis status post TAVR, hypertension, dyslipidemia. Patient was recently hospitalized on 06/07 for NSTEMI and underwent cardiac catheterization and stenting of the left circumflex. Patient now presents to the hospital due to shortness of breath. He states he has had some shortness of breath since he had COVID a couple years ago but each month it seems to be getting worse. He has had significant shortness of breath unable to lay flat which caused him to come into the hospital. He denies having any chest pain. He was started on IV Lasix 40 mg and received 2 doses with significant urine output and states he is feeling better this morning. Patient quit smoking in 2004. No alcohol use. He is unable to take Entresto due to oneal issue. Discussed options of cardiac catheterization and patient is willing to move forward with that today. Dr. Sabillon has been contacted. Blood pressure 110/74, heart rate 60, pulse ox 96% on room air. Patient is currently on IV Lasix 40 mg every 8 hours. -EKG: Sinus rhythm, IVCD, first-degree block -Chest x-ray: CHF with pulmonary vascular congestion, small to moderate left and small right pleural effusion -Laboratory studies: Troponin 2.82, proBNP 6940. Hemoglobin 16.3. Creatinine 1.13. -Home cardiac medications: -Echocardiogram performed on 04/13/2024 revealed EF of 10%, moderate pulmonary hypertension, normally functioning bioprosthetic valve in the aortic position with mild aortic regurgitation, moderate tricuspid regurgitation. Review Of Systems: At the time of my exam: CONSTITUTIONAL: Denies fever or chills. HEENT: Denies blurred vision, vision changes, or eye pain. Denies hemoptysis CARDIOVASCULAR: Denies chest pain. Denies orthopnea. Denies PND. Denies palpitations RESPIRATORY: Denies shortness of breath. GASTROINTESTINAL: Denies abdominal pain. Denies nausea or vomiting. HEMATOLOGIC: Denies bleeding disorders. GENITOURINARY: Denies any blood in urine. SKIN: Denies puritis. Denies rash. Physical examination: Gen: This is 69-year-old male appears to be in no acute distress VS: reviewed HEENT: Head is atraumatic, normocephalic. Pupils equal, round. Sclerae is anicteric. NECK: Supple. No JVD. LUNGS: Clear to auscultation. No wheezes or rhonchi. No intercostal retractions. HEART: Regular rate and rhythm. Systolic murmur. ABDOMEN: Soft No tenderness. EXTREMITIES: No pedal edema. No calf tenderness. NEUROLOGICAL: Patient is awake, alert and oriented x3. Assessment: Acute systolic heart failure NSTEMI Recent NSTEMI on 06/07/2024 status post stent of the left circumflex History of coronary artery disease with previous CABG with GRAHAM to LAD Severe cardiomyopathy status post ICD with EF 10% History of SVT Aortic stenosis status post TAVR Hypertension Dyslipidemia Plan: Resume patient's home cardiac medications Continue IV Lasix 40 mg daily Schedule patient for left heart cath today with Dr. Sabillon Further recommendations to follow based upon clinical course Thank you kindly for this consultation. Nurse practitioner note has been reviewed, I agree with documented findings and plan of care. Patient was seen and examined. Past Medical History Past Medical History: Atrial Fibrillation, Coronary Artery Disease (CAD), Chest Pain / Angina, Diabetes Mellitus, GERD/Reflux, Hyperlipidemia, Hypertension, Myocardial Infarction ([place]) Additional Past Medical History / Comment(s): 01/24/17 with SVT converted with adenosine. Other hx: Neuropathy bilateral feet, 2 MIs-2001 and 2014. Cardiac stent in 2023. Last Myocardial Infarction Date:: 07/25/14 History of Any Multi-Drug Resistant Organisms: None Reported Past Surgical History: AICD, Coronary Bypass/CABG, Heart Catheterization With Stent, Orthopedic Surgery, Tonsillectomy Additional Past Surgical History / Comment(s): PCI with stents 2001, 2014, 2023; 3 vessel CABG in 2001, AICD 2001-, pins in left ankle as a kid. TAVR Past Anesthesia/Blood Transfusion Reactions: No Reported Reaction Additional Past Anesthesia/Blood Transfusion Reaction / Comment(s): No previous history of blood transfusions Date of Last Stent Placement:: 2023 Type of Cardiac Device: AICD Device Placement Date:: 2001 Past Psychological History: No Psychological Hx Reported Additional Psychological History / Comment(s): Pt resides with his spouse in a 2 story house that has 2 porch steps and 16 steps to 2nd floor,. pt is independant. no home care servives, no medical equipment. no past services. pt worked for the [employer] Smoking Status: Former smoker Past Alcohol Use History: Rare Additional Past Alcohol Use History / Comment(s): Pt states he started smoking at age 15 and smoked lightly- 1 ppd. quit 2014. rare use of alcohol. Past Drug Use History: None Reported - Past Family History Mother History Unknown: Yes Family Medical History: Diabetes Mellitus Additional Family Medical History / Comment(s): Mother at 78yrs Father Family Medical History: Coronary Artery Disease (CAD), Myocardial Infarction ([place]) Additional Family Medical History / Comment(s): Father had a [place] in his early 50's. He of CAD at 75yrs. Medications and Allergies Home Medications Medication Instructions Recorded Confirmed Type Pantoprazole [Protonix] 40 mg PO DAILY 08/10/21 06/15/24 History Insulin Glargine/Lixisenatide 50 units SQ DAILY 12/30/23 06/15/24 History [Soliqua 100 Unit-33 Mcg/ml Pen] Metoprolol Succinate (ER) [Toprol 50 mg PO DAILY #30 tab 04/16/24 06/15/24 Rx XL] Amiodarone [Cordarone] 200 mg PO DAILY 06/07/24 06/15/24 History Aspirin 81 mg PO DAILY #90 tab 06/09/24 06/15/24 Rx Clopidogrel [Plavix] 75 mg PO DAILY #90 tab 06/09/24 06/15/24 Rx Isosorbide Mononitrate ER [Imdur] 30 mg PO DAILY #90 tab 06/09/24 06/15/24 Rx lisinopriL [Zestril] 2.5 mg PO DAILY #30 tab 06/09/24 06/15/24 Rx Atorvastatin [Lipitor] 40 mg PO DAILY 06/15/24 06/15/24 History Allergies Allergy/AdvReac Type Severity Reaction Status Date / Time No Known Allergies Allergy Verified 06/15/24 14:40 Physical Exam Vitals: Vital Signs Temp Pulse Pulse Resp BP BP Pulse Ox 06/16/24 04:25 98.0 F 52 L 14 94/61 98 06/15/24 23:15 61 16 98/56 97 06/15/24 19:50 98.2 F 55 L 18 101/70 99 06/15/24 18:59 97.8 F 65 14 110/81 96 06/15/24 18:44 62 18 102/79 98 06/15/24 17:04 55 L 18 103/82 99 06/15/24 15:24 57 L 18 113/94 98 06/15/24 14:35 58 L 16 105/85 98 06/15/24 13:29 16 06/15/24 13:20 98.6 F 85 18 133/93 94 L Intake and Output 06/15/24 06/16/24 06/16/24 22:59 06:59 14:59 Intake Total 360 Output Total 1400 Balance 360 -1400 Intake: Oral 360 Output: Urine 1400 Other: Voiding Method Toilet Toilet Urinal # Voids 2 Weight 75.296 kg 72.4 kg Results 06/15/24 14:02 06/15/24 14:02 Cardiac Enzymes 06/15/24 06/15/24 Range/Units 14:02 14:02 AST 31 (17-59) U/L Troponin I 2.820 H* (0.000-0.034) ng/mL Coagulation 06/15/24 Range/Units 14:02 PT 11.9 (10.0-12.5) sec APTT 25.5 (22.0-30.0) sec CBC 06/15/24 Range/Units 14:02 WBC 8.3 (3.8-10.6) k/uL RBC 5.89 (4.30-5.90) m/uL Hgb 16.3 (13.0-17.5) gm/dL Hct 50.6 (39.0-53.0) % Plt Count 233 (150-450) k/uL Comprehensive Metabolic Panel 06/15/24 Range/Units 14:02 Sodium 140 (137-145) mmol/L Potassium 5.1 (3.5-5.1) mmol/L Chloride 108 H (98-107) mmol/L Carbon Dioxide 26 (22-30) mmol/L BUN 19 (9-20) mg/dL Creatinine 1.13 (0.66-1.25) mg/dL Glucose 102 H (74-99) mg/dL Calcium 9.1 (8.4-10.2) mg/dL AST 31 (17-59) U/L ALT 24 (4-49) U/L Alkaline Phosphatase 99 (38-126) U/L Total Protein 7.2 (6.3-8.2) g/dL Albumin 3.9 (3.5-5.0) g/dL Current Medications Generic Name Dose Route Start Last Admin Trade Name Freq PRN Reason Stop Dose Admin Furosemide 40 mg 06/15/24 16:00 06/15/24 23:26 Furosemide 10 Mg/Ml 4 Ml Vial IV 40 mg Q8H SHAN Administration Nitroglycerin 1 inch 06/15/24 18:00 06/16/24 05:05 Nitroglycerin Oint 1 Inch/Gm Packet TOPICAL 06/16/24 17:59 Not Given Q6HR SHAN Intake and Output 06/15/24 06/16/24 06/16/24 22:59 06:59 14:59 Intake Total 360 Output Total 1400 Balance 360 -1400 Intake: Oral 360 Output: Urine 1400 Other: Voiding Method Toilet Toilet Urinal # Voids 2 Weight 75.296 kg 72.4 kg 06/15/24 14:02 06/15/24 14:02
[2024-06-16 11:32] LABS: Glucose,Whole Blood 188 mg/dL (70-110)
[2024-06-16] MEDS: METOPROLOL SUCCINATE (ER) 50 MG TAB.ER.24H PO SCH (11:39)
[2024-06-16] MEDS: IV FLUID CONTINUATION 1,000 ML IV ONE (14:03)
[2024-06-16] MEDS: MIDAZOLAM 2 MG/2 ML VIAL IVP ONE (14:19)
[2024-06-16] MEDS: LIDOCAINE 1% INJ 10MG/ML (20 ML MDV) SQ ONE (14:21)
[2024-06-16 14:23] VITALS: BMI 23.6
[2024-06-16] MEDS: HEPARIN SODIUM,PORCINE 10,000 UNIT in SODIUM CHLORIDE 0.9% 1,000 ML IRRIGATION PRN (14:28)
[2024-06-16] MEDS: HEPARIN SODIUM,PORCINE (1 ML) 2,500 UNIT in SODIUM CHLORIDE 0.9% 250 ML IRRIGATION PRN (14:28)
[2024-06-16] MEDS: IOPAMIDOL-370 100ML BTL INJ ONE (14:35)
[2024-06-16] MEDS ORDERED: RX INFO: IV CONTRAST WAS GIVEN 1 EACH MISC MISCELLANE PRN (14:41)
--- NOTE | 2024-06-16 14:44 | P.PCN ---
Date of Procedure: 06/16/24 Operative Findings: CARDIAC CATHETERIZATION PERFORMING PHYSICIAN: Gabo Sabillon MD, RPVI PROCEDURE PERFORMED: 1. Selective right and left coronary angiogram and GRAHAM to LAD angiogram 2. Ultrasound-guided access of the right common femoral artery and selective right common femoral artery angiogram INDICATION: Acute non-ST elevation myocardial infarction COMPLICATION: None APPROACH: Right common femoral artery LEVEL OF SEDATION: Moderate with sedation in length of 18 minutes PROCEDURE DESCRIPTION: After obtaining an informed consent, the patient was brought to cardiac irrigation laborer. Local anesthesia was performed using lidocaine subcutaneously. The right common femoral artery was cannulated using Seldinger technique, under ultrasound guidance, the guidewire passed easily, following that we advanced a 6 Nigerien sheath dilator assembly, the wire and dilator were removed and sheath was flushed. Selective right and left coronary angiogram using a 6-Nigerien JR4 and JL catheters. The procedure was completed there was no complication. SELECTIVE CORONARY ANGIOGRAM: The right coronary artery: Large-caliber vessel and a dominant vessel and is chronically occluded Left main: Has mild disease The left circumflex: Stented and the stent appeared to be patent with mild disease involving the proximal left The left anterior descending artery: The proximal LAD is occluded. The mid LAD is patent with the GRAHAM to LAD is patent as well The GRAHAM to LAD is patent CONCLUSION: 1. Occluded LAD with patent GRAHAM to LAD 2. Patent stent in the distal left circumflex 3. Chronic total occlusion of the RCA which is a known finding from before POSTPROCEDURE MANAGEMENT: Medical treatment
[2024-06-16] MEDS: SODIUM CHLORIDE 0.9% 1,000 ML IV SCH (14:52)
[2024-06-16 16:28] LABS: Glucose,Whole Blood 101 mg/dL (70-110)
[2024-06-16 20:21] LABS: Glucose,Whole Blood 150 mg/dL (70-110)
[2024-06-17 05:50] LABS: Glucose,Whole Blood 163 mg/dL (70-110)
[2024-06-17] MEDS: FUROSEMIDE 10 MG/ML 4 ML VIAL IV SCH (08:30)
[2024-06-17 11:23] LABS: Glucose,Whole Blood 172 mg/dL (70-110)
[2024-06-17 11:34] VITALS: BP 112/76; PULSE 58; RESP 17; TEMP 98.1
--- NOTE | 2024-06-17 12:10 | HP ---
HISTORY AND PHYSICAL CHIEF COMPLAINT: Shortness of breath. HISTORY OF PRESENT ILLNESS: This is another recent admission for this 69-year-old white male who has been in and out of the hospital frequently over the last year. He has advanced coronary artery disease and has received numerous stents. He was just in the hospital recently for chest pain and shortness of breath when he went into atrial fibrillation with a rate around 140. He has been in sinus rhythm. He was admitted for chest pain last week and stabilized, went home. He was seen in the office 1 or 2 days ago without any chest pain, but he was feeling a little bit short of breath. This got worse, and he came to the emergency room where he was found to be in congestive heart failure. He also had an elevated troponin. His BNP was 6940, and his troponin was 2.82. He had small bilateral pleural effusions on x-ray. REVIEW OF SYSTEMS: He has had no other symptoms. Past medical history, family history, and personal and social histories are all otherwise unremarkable or noncontributory and unchanged. PHYSICAL EXAMINATION: VITAL SIGNS: Blood pressure is 112/73 with a pulse of 84, respirations of 33. He is afebrile. GENERAL: Appeared to be well developed, well nourished, and uncomfortable. HEAD, EARS, EYES, NOSE, MOUTH and THROAT: Normal. Neck veins are not distended. CHEST: Demonstrated slightly decreased breath sounds at the bases with scattered rales. CARDIAC: Sinus. ABDOMEN: Soft, nontender. EXTREMITIES: Normal. NEUROLOGIC: Intact. DIAGNOSES: He was admitted to the hospital with diagnoses of: 1. Acute on chronic congestive heart failure. 2. Advanced coronary artery disease. 3. [id number]-awttviczo myocardial infarction. 4. Insulin-dependent diabetes mellitus. PLAN: 1. Bedrest. 2. IV fluids. 3. Consult Cardiology. 4. Diuresis. MMODL / IJN: [id number] /
--- NOTE | 2024-06-17 14:27 | P.PN ---
Subjective Progress Note Date: 06/17/24 Reason for Consult (text): Acute pulmonary edema History of present illness: This is a 69-year-old male patient of Dr. Sabillon with past medical history of coronary artery disease status post CABG with GRAHAM to LAD, known intermediate to severe disease involving the left circumflex and MEDICAL STAFF DIRECTOR of the RCA as well as severe cardiomyopathy status post ICD CAD, history of SVT and valvular heart disease with aortic stenosis status post TAVR, hypertension, dyslipidemia. Patient was recently hospitalized on 06/07 for NSTEMI and underwent cardiac catheterization and stenting of the left circumflex. Patient now presents to the hospital due to shortness of breath. He states he has had some shortness of breath since he had COVID a couple years ago but each month it seems to be getting worse. He has had significant shortness of breath unable to lay flat wh ich caused him to come into the hospital. He denies having any chest pain. He was started on IV Lasix 40 mg and received 2 doses with significant urine output and states he is feeling better this morning. Patient quit smoking in 2004. No alcohol use. He is unable to take Entresto due to oneal issue. Discussed options of cardiac catheterization and patient is willing to move forward with that today. Dr. Sabillon has been contacted. Blood pressure 110/74, heart rate 60, pulse ox 96% on room air. Patient is currently on IV Lasix 40 mg every 8 hours. -EKG: Sinus rhythm, IVCD, first-degree block -Chest x-ray: CHF with pulmonary vascular congestion, small to moderate left and small right pleural effusion -Laboratory studies: Troponin 2.82, proBNP 6940. Hemoglobin 16.3. Creatinine 1.13. -Home cardiac medications: -Echocardiogram performed on 04/13/2024 revealed EF of 10%, moderate pulmonary hypertension, normally functioning bioprosthetic valve in the aortic position with mild aortic regurgitation, moderate tricuspid regurgitation. 06/17/24 Patient seen and examined. Yesterday, Dr. Sabillon performed cardiac catheterization which revealed occluded LAD with patent GRAHAM to LAD, patent s tent to the distal left circumflex, chronic total occlusion of the RCA which is known. Plan is for medical management. Patient denies having any chest pain today. He states his breathing is better. He feels like he is about back to baseline. Blood pressure 98/72, heart rate 63, pulse ox 97% on 2 L nasal cannula. Physical examination: Gen: This is 69-year-old male appears to be in no acute distress VS: reviewed HEENT: Head is atraumatic, normocephalic. Pupils equal, round. Sclerae is anicte pedro. NECK: Supple. No JVD. LUNGS: Clear to auscultation. No wheezes or rhonchi. No intercostal re tractions. HEART: Regular rate and rhythm. Systolic murmur. ABDOMEN: Soft No tenderness. EXTREMITIES: No pedal edema. No calf tenderness. NEUROLOGICAL: Patient is awake, alert and oriented x3. Assessment: Acute systolic heart failure NSTEMI Recent NSTEMI on 06/07/2024 status post stent of the left circumflex History of coronary artery disease with previous CABG with GRAHAM to LAD Severe cardiomyopathy status post ICD with EF 10% History of SVT Aortic stenosis status post TAVR Hypertension Dyslipidemia Plan: Continue patient's home cardiac medications Transition IV Lasix to oral 40 mg daily Patient is cleared for discharge from cardiology May follow-up in the office with Dr. Sabillon in 1 to 2 weeks Nurse practitioner note has been reviewed, I agree with documented findings and plan of care. Patient was seen and examined. Objective - Vital Signs Vital signs: Vital Signs Temp 97.7 F 06/17/24 08:25 Pulse 63 06/17/24 08:25 Resp 15 06/17/24 08:25 BP 98/72 06/17/24 08:25 Pulse Ox 97 06/17/24 08:25 FiO2 Intake & Output 06/16/24 06/17/24 06/17/24 18:59 06:59 18:59 Intake Total 218 180 Balance 218 180 Weight 72.4 kg 74.3 kg Intake: IV 100 Oral 118 180 Other: Voiding Method Toilet Toilet Toilet # Voids 3 2 - Labs CBC & Chem 7: 06/15/24 14:02 06/15/24 14:02 Labs: Abnormal Lab Results - Last 24 Hours (Table) 06/16/24 06/16/24 06/17/24 Range/Units 11:30 20:11 05:49 POC Glucose (mg/dL) 188 H 150 H 163 H (70-110) mg/dL
--- NOTE | 2024-06-17 20:16 | PN ---
PROGRESS NOTE DATE OF SERVICE: 06/16/2024 CHIEF COMPLAINT: Acute NSTEMI and heart failure. HISTORY OF PRESENT ILLNESS: This gentleman is doing well. Cardiac cath did not demonstrate any new coronary artery obstructions. PHYSICAL EXAMINATION: LUNGS: He has scattered rales at the bases. CARDIAC: Exam is sinus. ABDOMEN: Soft, nontender. IMPRESSION: 1. Non-ST elevation myocardial infarction. 2. Coronary artery disease. 3. Congestive heart failure. PLAN: Continue to follow and increase diuretic management. MMKEATONL / MAGALIN: [id number] /
[2024-06-18] MEDS ORDERED: FUROSEMIDE 40 MG TAB PO SCH (09:00)
--- NOTE | 2024-06-19 03:02 | DS ---
DISCHARGE SUMMARY CHIEF COMPLAINT: Shortness of breath. HISTORY OF PRESENT ILLNESS AND PHYSICAL EXAM: Details of this man's history and physical can be found in the initial workup. LABORATORY STUDIES: While he is in a hospital, he had laboratory studies, details of which include serial EKGs and enzymes as well as EKGs. COURSE IN THE HOSPITAL: He was seen by Cardiology and medications were changed. His shortness of breath improved. It was felt that he could be discharged on the and he will go home on his usual activity and diet with the addition of a diuretic, to be seen in the office in several days. FINAL DIAGNOSES: 1. Acute congestive heart failure. 2. Chronic congestive heart failure. 3. Advanced coronary artery disease. 4. Insulin-dependent diabetes mellitus. CONSULTATIONS: Cardiology. He is improved. HERON / PHYLLIS: [id number] /
== END 2024-06-17 12:45 | disposition home or self-care (01) | DRG 280 ==
LOC: EC 13:18 → 3SCARD 15:17 → OBSVTOIN 15:18 → 3SCARD 18:30
PROVIDERS: ADMIT Family Medicine; ATTEND Family Medicine
PROC: B2111ZZ Fluoroscopy of Multiple Coronary Arteries using Low Osmolar Contrast (ICD-10-PCS; 2024-06-16)
PROC: 4A023N7 Measurement of Cardiac Sampling and Pressure, Left Heart, Percutaneous Approach (ICD-10-PCS; principal; 2024-06-16 15:15)
DX: I21.4 Non-ST elevation (NSTEMI) myocardial infarction (principal); I50.21 Acute systolic (congestive) heart failure; I42.9 Cardiomyopathy, unspecified; I11.0 Hypertensive heart disease with heart failure; I27.20 Pulmonary hypertension, unspecified; E11.42 Type 2 diabetes mellitus with diabetic polyneuropathy; Z79.4 Long term (current) use of insulin; Z95.1 Presence of aortocoronary bypass graft; Z95.3 Presence of xenogenic heart valve; I25.10 Atherosclerotic heart disease of native coronary artery without angina pectoris; E78.5 Hyperlipidemia, unspecified; I08.2 Rheumatic disorders of both aortic and tricuspid valves; I25.82 Chronic total occlusion of coronary artery; Z79.02 Long term (current) use of antithrombotics/antiplatelets; Z79.82 Long term (current) use of aspirin; I25.2 Old myocardial infarction; Z95.5 Presence of coronary angioplasty implant and graft; Z95.810 Presence of automatic (implantable) cardiac defibrillator; Z87.891 Personal history of nicotine dependence; Z79.899 Other long term (current) drug therapy; Z86.16 Personal history of COVID-19; Z86.79 Personal history of other diseases of the circulatory system
CPT/HCPCS: 36415; 71046; 80053; 83605; 83735; 83880; 84484; 85025; 85610; 85730; 93005; 96374; 99285